=== PATIENT | male | born 1940 | race Caucasian/White ===

== ENCOUNTER 2022-01-12 09:34 | Observation (INO) | payer OTHER ==
--- OUTSIDE RECORDS SUMMARY | 2022-01-12 09:37 | XMS REPORT | Continuity of Care Document ---
:1940 Author Organization [facility] t Address [address] [place] [address] Dr. Browne [address] [place] [address] Care Team Providers Name Role Phone Debbie Owen Primary Care Physician Taina PRATHER Attending Clinician Lab, - Db Attending Clinician Unavailable TAINA Attending Clinician Unavailable Ajibade_O_AH Attending Clinician Unavailable Ige-Odunuga_J_AH Attending Clinician Unavailable Matthew HERBERT Attending Clinician Chadwick PRATHER, A Attending Clinician Doctor Unassigned, Name Attending Clinician Unavailable Ajibade_O_AH Admitting Clinician Unavailable Ige-Odunjoce_J_AH Admitting Clinician Unavailable Payers Payer Name Policy Type Policy Number Effective Date Expiration Date S arielle [facility] OF [place] - [id number] 6421-01-01 [employer] 00:00:00 (MEDICARE REPLACEMENT/ADVANT AGE - HMO) Problems Condition Condition Condition Status Onset Resolution Last Treating Co mments Source Name Details Category Date Date Treatment Clinician Date Hyperlipid Hyperlipid Problem Active 2020-0 V illage emia emia 03-13 Family 00:00: Practic 00 e Insomnia Insomnia Problem Active 2019-0 Martinez ge 03-13 Family 00:00: Practic 00 e Essential Essential Problem Active 2020-0 [place] flaco hypertensi Hypertensi 03-13 Fa mona on on 00:00: Practic 00 e Atrial Atrial Problem Active 2020-0 [place] flutter Flutter 03-13 Family 00:00: Practic 00 e Allergic Allergic Problem Active 2019-0 [place] ge rhinitis Rhinitis 03-13 Family 00:00: Practic 00 e Benign Benign Problem Active 2019-0 [place] prostatic Prostatic 03-13 Fami ly hyperplasi Hyperplasi 00:00: Pr actic a a 00 e Arthritis Arthritis Problem Active [place] flaco 5-19 Family 00:00: Practic 00 e Age-relate Age-relate Problem Active V illage d d 03-13 Family 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 No known No known Disease Unive rs active active ity of problems problems [facility] Allergies, Adverse Reactions, Alerts Allergy Allergy Status Severity Reaction(s) Onset Inactive Treating Comm ents Source Name Type Date Date Clinician NO KNOWN Drug Active Univers ALLERGIE Class ity of S [facility] Social History Social Habit Start Date Stop Date Quantity Comments Source Exposure to Not sure [facility] SARS-CoV-2 [facility] (event) [place] Alcohol intake 2021-11-29 2021-11-29 Current [facility] 00:00:00 00:00:00 non-drinker of [facility] alcohol [place] (finding) Tobacco use and 2018-01-08 2018-01-08 Never used Universit y of exposure 00:00:00 00:00:00 [facility] Sex Assigned At [birth year] Universit y of 00:00:00 00:00:00 [facility] Smoking Status Start Date Stop Date Source Never smoker [facility] Medications Ordered Filled Start Stop Current Ordering Indication Dosage Frequency Signature Comments Components Source Medication Medication Date Date Medication? Clinician (SIG) Name Name hydroCHLORO Yes 12.5mg Take 12.5 Univers thiazide 2-04 mg by ity of 12.5 mg 08:55: mouth [place] tablet 33 daily. Medical Branch hydroCHLORO Yes 12.5mg Take 12.5 Univers thiazide 2-04 mg by ity of 12.5 mg 08:55: mouth [place] tablet 33 daily. Medical Branch hydroCHLORO Yes 12.5mg Take 12.5 Univers thiazide 2-04 mg by ity of 12.5 mg 08:55: mouth [place] tablet 33 daily. Medical Branch vit Yes 1{capsu Take 1 Univers C,E-Zn-ronald 9-25 le} capsule by it y of r-lutein-ze 10:32: mouth [place] axan 34 daily. Medical (PRESERVISI Branch ON AREDS 2) 250-200-40- 1 mg-unit-mg- mg Cap BABY Yes 81mg Take 81 mg Univers ASPIRIN 9-25 by mouth ity of ORAL 10:32: daily. [place] [address] Medical Branch OLMESARTAN Yes 20mg Take 20 mg U nivers MEDOXOMIL 9-25 by mouth ity of (OLMESARTAN 10:32: [place]. [place] [facility] tamsulosin Yes 1mg Take 1 mg Un demi (FLOMAX) 9-25 by mouth ity of 0.4 mg 24 10:32: daily. [place] hr capsule 34 Medical Branch METOPROLOL Yes 100mg Take 100 Un demi SUCCINATE 9-25 mg by ity of (TOPROL XL 10:32: mouth [place] ORAL) 34 daily. Medical Branch vit Yes 1{capsu Take 1 Univers C,E-Zn-ronald 9-25 le} capsule by it y of r-lutein-ze 10:32: mouth [place] axan 34 daily. Medical (PRESERVISI Branch ON AREDS 2) 250-200-40- 1 mg-unit-mg- mg Cap BABY Yes 81mg Take 81 mg Univers ASPIRIN 9-25 by mouth ity of ORAL 10:32: daily. [place] [address] Medical Branch OLMESARTAN Yes 20mg Take 20 mg U nivers MEDOXOMIL 9-25 by mouth ity of (OLMESARTAN 10:32: [place]. [place] [facility] tamsulosin Yes 1mg Take 1 mg Un demi (FLOMAX) 9-25 by mouth ity of 0.4 mg 24 10:32: daily. [place] hr capsule 34 Medical Branch METOPROLOL Yes 100mg Take 100 Un demi SUCCINATE 9-25 mg by ity of (TOPROL XL 10:32: mouth [place] ORAL) 34 daily. Medical Branch vit Yes 1{capsu Take 1 Univers C,E-Zn-ronald 9-25 le} capsule by it y of r-lutein-ze 10:32: mouth [place] axan 34 daily. Medical (PRESERVISI Branch ON AREDS 2) 250-200-40- 1 mg-unit-mg- mg Cap BABY Yes 81mg Take 81 mg Univers ASPIRIN 9-25 by mouth ity of ORAL 10:32: daily. [address] OLMESARTAN Yes 20mg Take 20 mg U nivers MEDOXOMIL 9-25 by mouth ity of (OLMESARTAN 10:32: [place]. [place] [address] [place] [address] tamsulosin Yes 1mg Take 1 mg Un demi (FLOMAX) 9-25 by mouth ity of 0.4 mg 24 10:32: daily. [place] hr capsule [address] [place] [address] METOPROLOL Yes 100mg Take 100 Un demi SUCCINATE 9-25 mg by ity of (TOPROL XL 10:32: mouth [place] ORAL) 34 daily. [facility] Branch atorvastati Yes Univer s n 10 mg 1-26 ity of tablet 00:00: [place] 00 [facility] atorvastati Yes Univer s n 10 mg 1-26 ity of tablet 00:00: [place] [facility] atorvastati Yes Univer s n 10 mg 1-26 ity of tablet 00:00: [address] aspirin 81 aspirin 81 No 1 Q1D aspirin 81 Village mg mg mg Family tablet,clari tablet,clari tablet,del Practic yed release yed release ayed e Take 1 Take 1 release tablet tablet Take 1 every day every day tablet by oral by oral every day route. route. by oral route. atorvastati atorvastati No 1 Q1D atorvastat [place] n 10 mg n 10 mg in 10 mg Famil y tablet Take tablet Take tablet Practic 1 tablet 1 tablet Take 1 e every day every day tablet by oral by oral every day route. route. by oral route. Fluarix Fluarix No Fluarix [place] Quad Quad Quad Family [id number] Practic (PF) 60 mcg (PF) 60 mcg (PF) 60 e (15 mcg x (15 mcg x mcg (15 4)/0.5 mL 4)/0.5 mL mcg x IM syringe IM syringe 4)/0.5 mL IM syringe hydrochloro hydrochloro No 1 Q1D hydrochlor [place] thiazide thiazide othiazide Fa mona 12.5 mg 12.5 mg 12.5 mg Practi c tablet Take tablet Take tablet e 1 tablet 1 tablet Take 1 every day every day tablet by oral by oral every day route. route. by oral route. ibuprofen ibuprofen No 1 Q6H ibuprofen [facility] 200 mg 200 mg 200 mg Family tablet Take tablet Take tablet Practic 1 tablet 1 tablet Take 1 e every 6 every 6 tablet hours by hours by every 6 oral route oral route hours by as needed. as needed. oral route as needed. metoprolol metoprolol No 1 Q1D metoprolol [facility] succinate succinate succinate [facility] ER 100 mg ER 100 mg ER 100 mg Practic tablet,exte tablet,exte tablet,ext e nded nded ended release 24 release 24 release 24 hr Take 1 hr Take 1 hr Take 1 tablet tablet tablet every day every day every day by oral by oral by oral route. route. route. montelukast montelukast No 1 Q1D montelukas [facility] 10 mg 10 mg t 10 mg Family tablet Take tablet Take tablet Practic 1 tablet 1 tablet Take 1 e every day every day tablet by oral by oral every day route. route. by oral route. olmesartan olmesartan No 1 Q1D olmesartan [facility] 20 mg 20 mg 20 mg Family tablet Take tablet Take tablet Practic 1 tablet 1 tablet Take 1 e every day every day tablet by oral by oral every day route. route. by oral route. oxymetazoli oxymetazoli No 2spray( BID oxymetazol [facility] ne 0.05 % ne 0.05 % s) ine 0.05 % [facility] nasal spray nasal spray nasal Practic [place] 2 [place] 2 spray e sprays sprays [place] 2 twice a day twice a day sprays by by twice a intranasal intranasal day by route. route. intranasal route. Shingrix Shingrix No Shingrix [place] flaco (PF) 50 (PF) 50 (PF) 50 [facility] mcg/0.5 mL mcg/0.5 mL mcg/0.5 mL Practic intramuscul intramuscul intramuscu e ar ar lar suspension, suspension, suspension kit kit , kit Sleep Aid Sleep Aid No 1capsul Q1D Sleep Aid [facility] (diphenhydr (diphenhydr e(s) (diphenhyd Family amine) 25 amine) 25 ramine) 25 Practic mg capsule mg capsule mg capsule e Take 1 Take 1 Take 1 capsule capsule capsule every day every day every day by oral by oral by oral route at route at route at bedtime. bedtime. bedtime. tamsulosin tamsulosin No 1capsul Q1D tamsulosin [facility] 0.4 mg 0.4 mg e(s) 0.4 mg Family capsule capsule capsule Practi c Take 1 Take 1 Take 1 e capsule capsule capsule every day every day every day by oral by oral by oral route. route. route. Immunizations Ordered Filled Immunization Date Status Comments [facility] e Immunization Name Name influenza, influenza, 2021-08-15 Completed [facility] injectable, injectable, 00:00:00 Practice quadrivalent quadrivalent SARS-COV-2 COVID-19 2021-05-22 Completed Unive rsity of MODERNA VACCINE 00:00:00 [facility] ical Branch SARS-COV-2 COVID-19 2021-05-22 Completed Unive rsity of MODERNA VACCINE 00:00:00 [facility] ical Branch SARS-COV-2 COVID-19 2021-05-22 Completed Unive rsity of MODERNA VACCINE 00:00:00 [facility] ical Branch SARS-COV-2 COVID-19 2021-04-24 Completed Unive rsity of MODERNA VACCINE 00:00:00 [facility] ical Branch SARS-COV-2 COVID-19 2021-04-24 Completed Unive rsity of MODERNA VACCINE 00:00:00 [facility] Branch SARS-COV-2 COVID-19 2021-04-24 Completed Unive rsity of MODERNA VACCINE 00:00:00 [facility] Pneumococcal 13 2020-01-06 Completed Universit y of Conjugate, PCV13 00:00:[address] [facility] dical (Prevnar 13) Branch Pneumococcal 13 2020-01-06 Completed Universit y of Conjugate, PCV13 00:00:[address] [facility] dical (Prevnar 13) Branch Pneumococcal 13 2020-01-06 Completed Universit y of Conjugate, PCV13 00:00:[address] [facility] dical (Prevnar 13) Branch pneumococcal, pneumococcal, 2019-11-10 Completed [facility] Family unspecified unspecified 00:00:00 Practice formulation formulation zoster, unspecified zoster, unspecified 2019-11-10 Completed [facility] formulation formulation 00:00:00 Practice Pneumococcal 2019-01-06 Completed [place] o f Polysaccharide, 00:00:00 [place] [facility] ical PPSV23 (PNEUMOVAX) Branch Pneumococcal 2019-01-06 Completed [place] o f Polysaccharide, 00:00:00 [facility] ical PPSV23 (PNEUMOVAX) Branch Pneumococcal 2019-01-06 Completed University o f Polysaccharide, 00:00:00 [place] [facility] ical PPSV23 (PNEUMOVAX) Branch Pneumococcal 2018-01-06 Completed University o f Polysaccharide, 00:00:00 [place] [facility] ical PPSV23 (PNEUMOVAX) Branch Pneumococcal 2018-01-06 Completed University o f Polysaccharide, 00:00:00 [place] [facility] ical PPSV23 (PNEUMOVAX) Branch Pneumococcal 2018-01-06 Completed University o f Polysaccharide, 00:00:00 [facility] ical PPSV23 (PNEUMOVAX) Branch DTAP 2016-11-04 Completed University of 00:00:00 [facility] DTAP 2016-11-04 Completed University of 00:00:00 [facility] DTAP 2016-11-04 Completed University of 00:00:00 [facility] Zoster Vaccine 2016-01-03 Completed University of Recombinant 00:00:00 [facility] Zoster Vaccine 2016-01-03 Completed University of Recombinant 00:00:00 [facility] Zoster Vaccine 2016-01-03 Completed University of Recombinant 00:00:00 [facility] Zoster Vaccine 2015-11-07 Completed University of Recombinant 00:00:00 [facility] Zoster Vaccine 2015-11-07 Completed University of Recombinant 00:00:00 [facility] Zoster Vaccine 2015-11-07 Completed University of Recombinant 00:00:00 [facility] Vital Signs Vital Name Observation Time Observation Value Comments Source Systolic blood 2021-11-29 14:56:00 150 [facility]Hg[facility] Di[facility] 2021-11-29 14:56:00 70 mm[Hg] [facility] Heart rate 2021-11-29 14:51:00 65 /min [facility] Body height 2021-11-29 14:51:00 180.3 cm [facility] Body weight 2021-11-29 14:51:00 110.224 kg [facility] BMI 2021-11-29 14:51:00 33.89 kg/m2 [facility] Oxygen saturation 2021-11-29 14:51:00 95 /min [facility] in Arterial blood Medical Br anch by Pulse oximetry Height 2020-03-13 00:00:00 70 [in_i] [facility] BMI (Body Mass 2020-03-13 00:00:00 32.3 kg/m2 [facility] joycelyn Family Index) Practice Body Weight 2020-03-13 00:00:00 225 [lb_av] [facility] Procedures This patient has no known procedures. Plan of Care Planned Activity Planned Date Details Comments Source Instructions [facility] Encounters Start End Encounter Admission Attending Care Care Encounter Source Date/Time Date/Time Type Type Clinicians Facility Department ID 2021-12-03 2021-12-03 Telephone Taina [facility] [id number] Univers 00:00:00 00:00:00 [employer] [id number] it y of [place] [id number] Andrew as ECTOR?BLEA [phone] [address] MEDICAL OFFICE [facility] 2021-12-02 2021-12-02 Paying [facility]eller [facility], Ang - [facility] [id number] Univers 09:30:00 09:45:00 [facility] [id number] ity of [place] [id number] Andrew as ECTOR?BLEA [id number] [facility] [address] [facility] OFFICE [facility] 2021-12-02 2021-12-02 Outpatient R [facility] [id number] Univers 09:30:00 09:30:[id number] [facility] 2021-12-02 2021-12-02 [facility] [id number] Univers 09:30:00 09:30:[address] [facility] 2021-11-29 2021-11-29 [facility] [id number] Univers 09:00:00 09:39:00 Visit Kimberly Claro [id number] it y of [place] [id number] Andrew as ECTOR?BLEA [id number] [address] MEDICAL OFFICE [facility] 2021-03-08 2021-03-08 Outpatient Ajibade_O_A VFP VF [id number] [facility] 05:19:00 05:19:00 H [id number] Family Practic e 2021-01-17 2021-01-17 Outpatient Ige-Odunuga VFP VFP [id number] [facility] 04:23:00 04:23:00 _J_AH [id number] Family Practic e 2020-04-06 2020-04-06 Telephone Castro, [facility] [id number] 00:00:00 00:00:00 Ellie Rosenberg [id number] [place] [id number] Professio [phone] [facility] 2020-03-31 2020-03-31 Outpatient Ige-Odunuga VFP VFP [id number] [facility] 12:07:00 12:07:00 _J_AH [id number] Family Practic e 2020-03-23 2020-03-23 Outpatient Ige-Odunuga VFP VFP [id number] [facility] 04:42:00 04:42:00 _J_AH [id number] Family Practic e 2020-03-15 2020-03-15 Outpatient Ige-Odunuga VFP VFP [id number] [facility] 09:16:00 09:16:00 _J_AH [id number] Family Practic e 2020-03-13 2020-03-13 Outpatient Ige-Odunuga VFP VFP [id number] [facility] 10:31:00 10:31:00 _J_AH [id number] Family Practic e 2020-03-13 2020-03-13 Maddison O VFP [place] [id number] [facility] 00:00:00 00:00:00 [place]ge[place] Fam adam clarke DRAPERY COUNSELOR: Medical - Practi c [id number] [email or web address] [facility], [address] [place] [address], [place] [address] , Ph. 2020-01-04 2020-01-04 Office Gramm, [facility] [id number] 09:38:55 10:06:26 Visit Torie Rosenberg [id number] [place] [id number] Professio [id number] [facility] 2020-01-04 2020-01-04 Orders Doctor MYNOR [id number] 00:00:00 00:00:00 Only Unassigned, CHICHI [id number] [place] [facility] [id number] 2019-12-14 2019-12-14 Outpatient Ige[facility] [address] [place] [address] 07:21:00 07:21:00 _J_ [id number] Family Practic e 2019-12-14 2019-12-14 Outpatient Ige-[address] 07:21:00 07:21:00 _J_ [id number] Family Practic e Results This patient has no known results.
[2022-01-12] MEDS ORDERED: TRANEXAMIC ACID 1,000 MG in NA CHLORIDE 0.9% 50 ML IV ONE (10:00)
[2022-01-12 10:20] LABS: Absolute Lymphocytes (CBC) 3.4 K/uL (0.7-4.9); Hematocrit 46.3 % (39.6-49.0); Lymphocytes % 37.8 % (15.3-44.8); MPV 10.1 fL (7.6-11.3); RBC Red Blood Cell Count 4.85 M/uL (4.33-5.43)
[2022-01-12 10:24] LABS: Protime INR 1.07
[2022-01-12 10:35] LABS: Potassium 3.9 mmol/L (3.5-5.1)
--- NOTE | 2022-01-12 10:56 | P.CNS ---
Date of Consult: 01/12/22 CC: Epistaxis HPI: 81yo w/ chronic nasal obstruction and low dose daily ASA. History of RF mucosal ablation October 31, [address] Connelly's office. Had moderate to severe nasal bleeding around November 20 while traveling in [place] with packing/balloons in the ER there. Seen in FU with Godwin on Dec 17 but at that time, he had not had any active bleeding from the nose for more than 3 weeks. His nasal obstruction was improved with a NOSE score decreasing from 100 to 70 over the 6- 7 week healing period. His exam at that time demonstrated some crusting on the right anterior septum and some small amount of clot and the area was treated prophylactically with silver nitrate. I recommended he stop all topical decongestants, continue copious use of nasal saline spray/gel and was cleared to resume Flonase and Atrovent nasal sprays with plan for FU in February 2022. The patient was doing well for approximately 4 weeks when he began having severe right sided bleeding again and was seen twice at an ER in [place] on Thursday morning and late Thursday night with placement of non-resorbable packing but had recurrence of bleeding around 9AM this morning and presented to the [facility] ER. I was consulted for the degree, frequency and difficulty controlling the bleeding. I made an immediate recommendation for IV TXA and proceeded to the ER to assess the patient. He denies any PO intake other than a few sips of Dr Theodore this morning. PMH: HTN, HLD, BPH, breast reduction surgery, ITR (Oct 2021) ALL: lisinopril (cough) Medications: tamsulosin, olmesartan, metoprolol, HCTZ, atorvastatin, calcium, ASA, flonase, ipratropium SH: No Tobacco or ETOH. PE: NAD. AAO. Nasal clamp in place. Saturated Merocel style sponge in R nare but extruded about 50%. Spitting and coughing blood streaked saliva/suptum. Bin on bed with approximately 100-150ml of clot/blood and blood saturated tissues. Vitals: see ER records. DBP 92 on arrival. Assessment: Epistaxis, right sided, likely posterior based on history Plan: NPO, Continue current packing. To OR for EUA/Nasal endoscopy with control of epistaxis
--- NOTE | 2022-01-12 11:24 | EDPHYS ---
Physician Documentation [facility] Name: Clarence Valle Age: 81 yrs Sex: Male : 1940 Arrival Date: 01/12/2022 Time: 09:36 Bed 30 Private MD: ED Physician Parviz Juan HPI: 01/12 10:32 This 81 yrs old Male presents to ER via Ambulatory with complaints of Nose Bleed. kb 10:32 The patient presents with a nose bleed, that is moderate amount causative factors kb include: unknown. Onset: The symptoms/episode began/occurred yesterday. Modifying factors: The symptoms are alleviated by nothing. the symptoms are aggravated by nothing. Associated signs and symptoms: Pertinent positives: bleeding. Severity of symptoms: At their worst the symptoms were moderate in the emergency department the symptoms are unchanged. The patient has experienced similar episodes in the past. The patient has been recently seen by a physician: the ER physician, out of Town, yesterday. Pt states he was standing, talking with someone yesterday morning when his nose started bleeding from right nare only. Went to [facility] and a rhinorocket was placed in right nare. States it stopped for a while, but then started again, bleeding through the rhinorocket. Went back to [facility] and had a bigger rhinorocket placed. Slept in an upright position in recliner last night. Started bleeding again this morning. sTates the blood was coming through the rhinorocket and out of the left side. States he has had this several times before, always from the right nare. Sees Dr Connelly. . Historical: - Allergies: 09:55 No Known Allergies; ww - Home Meds: 09:56 aspirin 81 mg oral chew [Active]; Benicar 20 mg Oral tab 1 tab once daily [Active]; kay metoprolol tartrate 100 mg Oral tab 1 tab once daily [Active]; tamsulosin 0.4 mg Oral cp24 1 cap once daily [Active]; 09:55 atorvastatin 10 mg oral tab 1 tab once daily [Active]; tamsulosin 0.4 mg Oral cp24 1 ww cap once daily [Active]; hydrochlorothiazide 12.5 mg Oral tab 1 tab once daily [Active]; olmesartan 20 mg oral tab [Active]; Toprol XL 100 mg Oral Tb24 1 tab once daily [Active]; aspirin 81 mg Oral chew 1 tab once daily [Active]; - PMHx: 09:56 Hypertension; kay 09:55 Hypertension; Hypercholesterolemia; ww - Immunization history:: Adult Immunizations up to date, Adult Immunizations up to date. - Social history:: Smoking status: Patient denies any tobacco usage or history of. Smoking status: Patient denies any tobacco usage or history of. ROS: 10:31 Constitutional: Negative for fever, chills, and weight loss. kb 10:31 ENT: Positive for nose bleed. 10:31 All other systems are negative. Exam: 10:31 Constitutional: This is a well developed, well nourished patient who is awake, alert, kb and in no acute distress. Head/Face: Normocephalic, atraumatic. Cardiovascular: Regular rate and rhythm with a normal S1 and S2. No gallops, murmurs, or rubs. No pulse deficits. Respiratory: Respirations even and unlabored. No increased work of breathing. Talking in full sentences Skin: Warm, dry with normal turgor. Normal color. MS/ Extremity: Pulses equal, no cyanosis. Neurovascular intact. Full, normal range of motion. Neuro: Awake and alert, GCS 15, oriented to person, place, time, and situation. Moves all extremities. Normal gait. Psych: Awake, alert, with orientation to person, place and time. Behavior, mood, and affect are within normal limits. 10:31 ENT: Nose: bleeding, is noted from both nares, and is moderate, clotted blood, in left nare, rhinorocket in right nare. Vital Signs: 09:54 BP 169 / 95; Pulse 63; Resp 18; Temp 98.1; Pulse Ox 96% on R/A; Weight 106.59 kg; ww Height 5 ft. 10 in. (177.80 cm); 10:28 BP 141 / 64; Pulse 57; Resp 18; Pulse Ox 97% on R/A; ic1 09:54 Body Mass Index 33.72 (106.59 kg, 177.80 cm) ww MDM: 09:46 Patient medically screened. kb 09:59 Data reviewed: vital signs, nurses notes. Data interpreted: Pulse oximetry: on room air kb is 96 %. Interpretation: normal. Physician consultation: Yumiko Connelly MD was contacted at 09:59, regarding consult, patient's condition, and will see patient in ED, shortly, would like medications started, tranexamic acid Igm IV over 10 minutes. 11:22 Physician consultation: Yumiko Connelly MD in the emergency department to see patient kb at 11:15, going to take pt to the OR. 01/12 09:57 Order name: CBC with Diff; Complete Time: 10:42 kb 01/12 09:57 Order name: Basic Metabolic Panel; Complete Time: 10:42 kb 01/12 09:57 Order name: Protime (+inr); Complete Time: 10:26 kb 01/12 09:57 Order name: Ptt, Activated; Complete Time: 10:26 kb 01/12 09:57 Order name: Type And Screen; Complete Time: 11:46 kb 01/12 11:17 Order name: ABO/RH no charge; Complete Time: 11:19 EDMS 01/12 09:57 Order name: IV Start; Complete Time: 10:12 kb Administered Medications: 10:18 Drug: Tranexamic Acid 1000 mg Route: IV; Rate: calculated rate; Site: left antecubital; ic1 Disposition: 16:38 Co-signature as Attending Physician, Parviz Juan MD I agree with the assessment and kdr plan of care. Disposition Summary: 01/12/22 11:24 Hospitalization Ordered Hospitalization Status: Observation kb Provider: Yumiko Connelly Location: Operating Room kb Condition: Stable kb Problem: new kb Symptoms: are unchanged kb Bed/Room Type: Standard Room Assignment: kb Diagnosis - Epistaxis kb Forms: - Medication Reconciliation Form kb - SBAR form kb Signatures: Dispatcher [employer] EDChery Ivan, MANAGER CIVIL-C MANAGER CIVIL-Parviz Rutherford MD MD kdr Wood, Whitney RN RN Hazel Medina RN Dian Cordero RN RN ic1
--- NOTE | 2022-01-12 11:24 | ER ---
Nurse's Notes [facility] Name: Clarence Valle Age: 81 yrs Sex: Male : 1940 Arrival Date: 01/12/2022 Time: 09:36 Bed 30 Private MD: Diagnosis: Epistaxis Presentation: 01/12 09:54 Chief complaint: Patient states: Nose bleed that started yesterday and went to [facility] ER twice yesterday and had a rhino rocket placed each time. Had a balloon placed in October by EMT for nose bleeds. Coronavirus screen: Vaccine status: Patient reports receiving the 2nd dose of the covid vaccine. Client denies travel out of the [place] in the last 14 days. Ebola Screen: Patient denies travel to an Ebola-affected area in the 21 days before illness onset. Initial Sepsis Screen: Does the patient meet any 2 criteria? No. Patient's initial sepsis screen is negative. Does the patient have a suspected source of infection? No. Patient's initial sepsis screen is negative. Risk Assessment: Do you want to hurt yourself or someone else? Patient reports no desire to harm self or others. Onset of symptoms was January 11, 2022. 09:54 Method Of Arrival: Ambulatory ww 09:54 Acuity: HUNTER 3 Triage Assessment: 09:55 General: Appears uncomfortable, Behavior is calm, cooperative. EENT: Nares with ww bleeding noted. Neuro: Level of Consciousness is awake, alert, obeys commands, Oriented to person, place, time, situation. Cardiovascular: Patient's skin is warm and dry. Respiratory: Airway is patent Respiratory effort is even, unlabored, Respiratory pattern is regular, symmetrical. GI: No signs and/or symptoms were reported involving the gastrointestinal system. Derm: No signs and/or symptoms reported regarding the dermatologic system. Skin is healthy with good turgor. 09:58 General: Appears Behavior is calm, cooperative. kay Historical: - Allergies: :55 No Known Allergies; ww - Home Meds: 09:56 aspirin 81 mg oral chew [Active]; Benicar 20 mg Oral tab 1 tab once daily [Active]; kay metoprolol tartrate 100 mg Oral tab 1 tab once daily [Active]; tamsulosin 0.4 mg Oral cp24 1 cap once daily [Active]; 09:55 atorvastatin 10 mg oral tab 1 tab once daily [Active]; tamsulosin 0.4 mg Oral cp24 1 ww cap once daily [Active]; hydrochlorothiazide 12.5 mg Oral tab 1 tab once daily [Active]; olmesartan 20 mg oral tab [Active]; Toprol XL 100 mg Oral Tb24 1 tab once daily [Active]; aspirin 81 mg Oral chew 1 tab once daily [Active]; - PMHx: 09:56 Hypertension; kay 09:55 Hypertension; Hypercholesterolemia; ww - Immunization history:: Adult Immunizations up to date, Adult Immunizations up to date. - Social history:: Smoking status: Patient denies any tobacco usage or history of. Smoking status: Patient denies any tobacco usage or history of. Screenin:56 Abuse screen: Denies threats or abuse. Denies injuries from another. Nutritional kay screening: No deficits noted. Tuberculosis screening: No symptoms or risk factors identified. Fall Risk None identified. Assessment: 09:56 Pain: Denies pain. EENT: Nares with bleeding noted. kay 13:21 Reassessment: pt went to surgery transported by nurse. kay 14:52 Reassessment: pt remains in OR at this time. ic1 Vital Signs: 09:54 BP 169 / 95; Pulse 63; Resp 18; Temp 98.1; Pulse Ox 96% on R/A; Weight 106.59 kg; ww Height 5 ft. 10 in. (177.80 cm); 10:28 BP 141 / 64; Pulse 57; Resp 18; Pulse Ox 97% on R/A; ic1 09:54 Body Mass Index 33.72 (106.59 kg, 177.80 cm) ED Course: 09:36 Patient arrived in ED. as 09:46 [facility]C [facility] kb 09:46 Parviz Juan MD is Attending Physician. kb 09:48 Chery Vickers FNP-C is PHCP. kb 09:48 Parviz Juan MD is Attending Physician. kb 09:55 Triage completed. ww 09:56 Hazel Yeung, RN is Primary Nurse. kay 09:56 Patient has correct armband on for positive identification. Bed in low position. kay 09:56 No provider procedures requiring assistance completed. kay 09:58 Arm band placed on. kay 10:05 Inserted saline lock: 20 gauge in left forearm, using aseptic technique. Blood em1 collected. 10:12 Type And Screen Sent. em1 10:12 Protime (+inr) Sent. em1 10:12 Ptt, Activated Sent. em1 10:12 CBC with Diff Sent. em1 10:12 Basic Metabolic Panel Sent. em1 10:12 Initial lab(s) drawn, by nh, sent to lab. em1 11:23 Yumiko Connelly MD is Hospitalizing Provider. kb 14:34 Primary Nurse role handed off by Hazel Yeung, ANISA ll1 Administered Medications: 10:18 Drug: Tranexamic Acid 1000 mg Route: IV; Rate: calculated rate; Site: left antecubital; ic1 Outcome: 11:24 Decision to Hospitalize by Provider. kb 14:31 Patient left the ED. sp 15:31 Patient left the ED. ll1 Signatures: Chery Vickers, OPTIMIZATION MANAGER-C OPTIMIZATION MANAGER-Ckb Mary Jane Moreland Amelia as Martinez, Eric em1 Adelita Solares, ANISA RN ll1 Tamy Dominguez RN RN Hazel Yeung, Dian Cordero RN, RN RN ic1
[2022-01-12] MEDS ORDERED: Ringers Lactate 1,000 ML IV ONE ×2 (12:27→13:46)
[2022-01-12] MEDS ORDERED: propofoL 200 MG/20 ML VIAL IV ONE (12:29)
[2022-01-12] MEDS ORDERED: FENTANYL CITR 100 MCG/2 ML ONE ×2 (12:29→14:15)
[2022-01-12] MEDS ORDERED: LIDOCAINE 1% MPF 5 ML VIAL ONE (12:29)
[2022-01-12] MEDS ORDERED: METOCLOPRAMIDE 10 MG/2mL INJ ONE (12:30)
[2022-01-12] MEDS ORDERED: ONDANSETRON 4 MG/2 ML VIAL ONE (12:30)
[2022-01-12] MEDS ORDERED: MIDAZOLAM HCL 2 MG/2 ML INJ ONE (12:31)
[2022-01-12] MEDS ORDERED: ROCURONIUM 50 MG/5 ML VIAL IV ONE (12:31)
[2022-01-12] MEDS ORDERED: LIDOCAINE 1% W/EPI 1:100,000 10 ML VIAL ONE (12:37)
[2022-01-12] MEDS ORDERED: OXYMETAZOLINE HCL 0.05% 15ML NAS ONE (12:37)
[2022-01-12] MEDS ORDERED: SUCCINYLCHOLINE 20 MG/ML (10 ML) IV ONE (12:38)
[2022-01-12] MEDS ORDERED: SILVER NITRATE 1 APPL TOP ONE (12:40)
[2022-01-12] MEDS ORDERED: EPHEDRINE SULF 50 MG/ML VIAL ONE (13:28)
[2022-01-12] MEDS ORDERED: Phenylephrine HCl 10 MG/ML 1 ML VIAL ONE (13:28)
--- NOTE | 2022-01-12 14:38 | P.BOP ---
Preoperative diagnosis: epistaxis Postoperative diagnosis: same Primary procedure: nasal endoscopy with control of epistaxis Filament Shaper: NONE,NONE Estimated blood loss: 300ml Specimen: none Findings: Clot and bleeding in right sphenoethmoid recess Anesthesia: General Complications: None Implants: Posisep with Ultrafoam and Xerogel to R SER and R NC Fluids & blood products: Crystalloif 1700ml Transferred to: Recovery Room Condition: Good
[2022-01-12] MEDS: HYDROMORPHONE HCL 1 MG/ML INJ ONE ×2 (15:09→15:15)
[2022-01-12 15:42] VITALS: O2SAT 96
[2022-01-12] MEDS ORDERED: HYDROCODONE/APAP 7.5/325 MG TAB ONE (15:51)
[2022-01-12 15:58] VITALS: BP 154/73; TEMP 97.9
--- NOTE | 2022-01-12 18:37 | OP ---
Date of Procedure: 01/12/2022 Surgeon: Yumiko Connelly MD Preoperative Diagnosis: Epistaxis. Postoperative Diagnosis: Epistaxis. Procedure: Nasal endoscopy with control of nasal hemorrhage. Indication For Procedure: Mr. Valle presented to the emergency room on January 12 with a history of approximately 24 hours of severe bleeding from the right nostril going down the back of his throat. He was seen at free-standing emergency room in [place] on Thursday morning and had some packing placed by the emergency room staff. He subsequently was discharged, but had recurrence of bleeding around midnight and went back to the emergency room, at which time, a longer piece of packing was placed. The patient was again discharged, but had recurrence of bleeding at approximately 9 a.m. on Thursday, at which time, he presented [facility]. ENT consult was requested. Of note, the patient had a history of similar cluster of severe nosebleeds in October when traveling in [place], but had no active bleeding for about 3 weeks at the time of his an ENT visit in November. He was taking baby aspirin and has a history of hypertension requiring multiple medications for control. His blood pressure was elevated at the time of his ER presentation this morning. Due to the severity and recurrence of bleeding, operative intervention was recommended to aid in identification and treatment of his nasal hemorrhage. Description Of Procedure: The patient was brought to the operating room. He was placed under general anesthesia via oral endotracheal tube. The head of bed was turned 90 degrees and the patient was positioned and draped in a standard fashion for nasal surgery. The right nostril contained a completely saturated Merocel sponge type of dressing surrounded by dried blood and clot. The left nares was crusted with dried blood. Scissors and a nasal speculum were used to trim the left nasal hairs and remove blood and clot from the anterior nasal cavity. The left nasal cavity was carefully examined using a 0-degree endoscope. There were scattered areas of fresh blood throughout the nasal cavity, but no visible ulceration, pulsation, or other specific left-sided sources of bleeding noted. The nasopharynx was filled with some immature clots, which was removed judiciously using a Blakesley forceps and suction. The mucosa was generally somewhat friable and minor trauma resulted in small areas of oozing. Afrin-soaked pledgets were applied to the nasal cavity to aid in decongestion and hemostasis of mucosal oozing and attention was turned to the right side. The non-resorbable packing was removed and the nasal cavity was noted to be filled with clot and areas of fresh blood. The clot and bleeding were judiciously removed sequentially in an anterior to posterior fashion using Blakesley and a straight suction under endoscopic guidance. Once the clot was removed, the nasal cavity was carefully inspected. There were several small areas of mucosal oozing along the septum. There was a moderate right-sided septal spur. The inferior turbinates and middle turbinate appeared unremarkable. There was blood including fresh blood and small pulsations noted within the sphenoethmoid recess on the medial aspect of the middle turbinate. The middle turbinate was carefully medialized and the middle meatus was inspected. The uncinate, sphenopalatine artery region, and ethmoid bulla all appeared dry with no evidence of active bleeding or evidence of recent bleeding in this area. I concluded the source of bleeding was likely in the sphenoethmoid region and this area was carefully inspected. The area was quite narrow and it was difficult to pass instrumentation including the 4 mm rigid endoscope deeply into this area for discrete visualization of a bleeding vessel. The area was packed with Afrin-soaked pledgets and allowed to sit for several minutes. After removal, there was some area of oozing, but no brisk bleeding was identified. Areas of oozing along the right posterior septum were treated with bipolar electrocautery and careful consideration was made in regard to additional treatments. The patient was extremely adverse to the sponge and prior rhino-rocket packing that was placed in the emergency room. It was felt he would be very poorly tolerant of any non-dissolvable packing due to discomfort and nasal obstruction and decision was made to place resorbable only packing at this point in time. The PosiSep-Chitosan containing resorbable sinus dressing was cut into thirds and placed in a [id number] fashion within the sphenoethmoid recess and gently positioned and pushed into place using a Warrington elevator. An Ultrafoam 50 sq cm dissolvable dressing was cut into 3 rectangular segments, which were placed sequentially over the Chitosan dressing carefully packing this area under endoscopic guidance using a Warrington elevator and straight suction tip. Once the entire Ultrafoam was placed, the packing appeared overall to have good support in the area of the sphenoethmoid recess, but there were small areas of mucosal trauma that were oozing slightly. A Xerogel dressing was folded in a lengthwise fashion and placed within the mid nasal cavity. An additional Xerogel dressing was placed after folding lengthwise along the nasal floor again in order to protect the mucosa. The resorbable dressings were then soaked and irrigated with sterile saline. The nasal cavity appeared nearly completely obstructed with a resorbable packing. The 0-degree endoscope was used to visualize the nasopharynx and after several minutes and additional reinspection, there was no evidence of any active bleeding or extravasation of blood into the nasopharynx from the right nasal cavity when viewed from the left side. The left nasal cavity was carefully suctioned and inspected. There was no evidence of active bleeding and no packing was placed on this side. The oral cavity was suctioned from clot and old blood using a Yankauer suction and orogastric tube was then passed to the stomach for removal of stomach contents. There was copious volume of dark brown and coffee-ground like material suctioned from the stomach. The oral cavity was then inspected. The oropharynx was suctioned with a Yankauer and there was no evidence of further clot, old blood, or evidence of bleeding from the nasopharynx into the oropharynx and the patient was returned to care of Anesthesia for awakening and extubation in the operating room, which proceeded without difficulty. Disposition: The patient will be discharged home later today in the care of his family. He is instructed in strict nasal precautions, no nose blowing, no lifting more than 10 pounds. The patient should sneeze with his mouth open. Additionally, he should use nasal saline mist every 1-2 hours while awake. He should avoid using powered irrigation of the nose for the time being. I instructed the family that if his bleeding recurs, I would consider evaluation at a tertiary medical center such as [facility] or [facility] as additional surgical treatment or possible intervention. No radiology treatment may be necessary. I discussed the surgical findings in detail with the patient's including the rationale regarding my decision to avoid non-resorbable packing. We discussed that if his bleeding did recur that a long 8 cm rhino-rocket or other posterior packing or balloon device may be necessary as anterior packing is unlikely to result in overall improvement due to the location of the bleeding. SH/MODL Voice ID: [id number] Report ID: [id number] [facility]
== END 2022-01-12 16:45 | disposition home or self-care (01) ==
LOC: ER 09:34 → ERHOLD 11:42
PROVIDERS: ADMIT Otolaryngology; ATTEND Otolaryngology
PROC: 2Y41X5Z Packing of Nasal Region using Packing Material (ICD-10-PCS; 2022-01-12)
PROC: 09JK8ZZ Inspection of Nasal Mucosa and Soft Tissue, Via Natural or Artificial Opening Endoscopic (ICD-10-PCS; principal; 2022-01-12 12:30)
DX: R04.0 Epistaxis (principal); I10 Essential (primary) hypertension; E78.5 Hyperlipidemia, unspecified; N40.0 Benign prostatic hyperplasia without lower urinary tract symptoms
CPT/HCPCS: 85025; 80048; 36415; 86900; 86850; 85610; 86901; 85730; 96374; 99283; 31231; 30903; J2704; J2765; J0330; J2370; J2250; J3010 ×2; J1170; G0378; J7120 ×2; J2405

== ENCOUNTER 2024-07-22 08:57 | Inpatient (IN) | payer OTHER ==
[2024-07-22] MEDS ORDERED: ACETAMINOPHEN 325 MG TABLET PO PRN (11:15)
--- OUTSIDE RECORDS SUMMARY | 2024-07-22 11:15 | XMS REPORT | Continuity of Care Document ---
Author Name Unknown Address [address] [facility] [address] [place] [address] [facility] Address [address] [facility] [address] [place] [address] Care Team Providers Care Cdc Associate Name Role Phone JOSE HER Primary Care Physician Unavailab MARQUIS Gonzalez Attending Clinician Unavailable MATEO GALLEGOS Attending Clinician Unavailable MATEO GALLEGOS Attending Clinician Unavailable JOSE HER Attending Clinician Unavailable JAQUAN OCHOA Attending Clinician Unav ailable JAQUAN OCHOA Attending Clinician Unav ailable MARYSE DICK Attending Clinician Unavailable MONTEZ BA Attending Clinician Unavailable Maryse Dick MD Attending Clinician [phone] Jaquan Ochoa MD Attending Clinician + [phone], [facility] Attending Clinician Unavailable Jose Mello Attending Clinician [phone] Lab, Ang - Db Attending Clinician Unavailable CARLTON KATZ Attending Clinician UnavailCarlton Layton Attending Clinician [phone] Marquis Mooney MD Attending Clinician [phone] Jose Mello Attending Clinician [phone] KIERSTEN FITZGERALD V. Attending Clinician Unavail able KIERSTEN FITZGERALD V. Attending Clinician Unavail able Nata HERBERT, Misty Attending Clinician [phone], [facility] Attending Clinician Unavailable Kapil HERBERT, Maryse Attending Clinician [phone] Doctor Unassigned, Capac Attending Clinician U rashida Goetz MD, Jagjit Attending Clinician [phone] Bipin De Jesus MD Attending Clinician [phone] [place] ASSISTANT PROFESSOR NURSE EDUCATION, Génesis Attending Clinician [phone] GÉNESIS BERNSTEIN Attending Clinician Unavailable Unknown, Attending Attending Clinician Unavailab eduin [place]ung[place] ASSISTANT PROFESSOR NURSE EDUCATION, Anisha Burton Attending Clinician [phone] NEERU COBOS Attending Clinician Unavailable Neeru Cobos MD Attending Clinici an Pob, [facility] Main Attending Clinician Unavailabl ANISHA Vidales Attending Clinician Unavailable GUADALUPE MACK Attending Clinician Unavaila GUADALUPE Bryant Attending Clinician Unavaila Gaudalupe Bryant MD Attending Clinician [phone] NADINE SNYDER Attending Clinician Unavailable Nadine Zuniga S Attending Clinician [phone] Lab, Ang - Db Attending Clinician Unavailable Ajibade_O_AH Attending Clinician Unavailable Ige-Odunuga_J_AH Attending Clinician Unavailable Gramm ASSISTANT PROFESSOR NURSE EDUCATION, Torie A Attending Clinician [phone] GRAMM TORIE A Attending Clinician Unavailable Matthew HERBERT, Ellie Attending Clinician [phone] JUSTIN VELASQUEZ Admitting Clinician Unavail able JAQUAN OCHOA Admitting Clinician Unav ANISHA Pratt Admitting Clinician Unavailable Ajibade_O_AH Admitting Clinician Unavailable Ige-Odunuga_J_AH Admitting Clinician Unavailable Payers Payer Name Policy Type Policy Number Effective Date Expirati on Date Source [facility] PREMIUM HMO [id number] 2021 00:00:00 [employer] (MEDICARE REPLACEMENT/ADVANT AGE - HMO) [id number] [id number] 00:00:00 Problems Condition Name Condition Details Condition Category Status Onset Date Resolution Date Last Treatment Date Treating Clinician Comments Source Status post catheter ablation of atrial fibrillati on Status post catheter ablation of atrial fibrillati on Disease Active 05-31 00:00: 00 [facility] Chronic atrial fibrillati on Chronic atrial fibrillati on Disease Active 05-31 00:00: 00 [facility] ICD (implantab le cardiovert er-defibri llator) in place ICD (implantab le cardiovert er-defibri llator) in place Disease Active 05-31 00:00: 00 [facility] Typical atrial flutter Typical atrial flutter Disease Active 2022-10 00:00: 00 [facility] HFrEF (heart failure with reduced ejection fraction) HFrEF (heart failure with reduced ejection fraction) Disease Active 2022-10 0 00:00: 00 [facility] 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, 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, unspecifie d type Disease Active 05-19 00:00: 00 [facility] History of BPH History of BPH Disease Active 05-19 00:00: 00 [facility] ELI (obstructi ve sleep apnea) ELI (obstructi ve sleep apnea) Disease Active 04-27 00:00: 00 [facility] Pulmonary hypertensi on Pulmonary hypertensi on Disease Active 04-27 00:00: 00 [facility] Cardiomyop athy, unspecifie d type Cardiomyop athy, unspecifie d type Disease Active 10-28 00:00: 00 [facility] Obesity (BMI 30-39.9) Obesity (BMI 30-39.9) Disease Active 10-28 00:00: 00 [facility] Dizziness and giddiness Dizziness and giddiness Disease Active 10-28 00:00: 00 [facility] Venous insufficie ncy Venous insufficie ncy Disease Active 10-28 00:00: 00 [facility] Hypertensi on, unspecifie d type Hypertensi on, unspecifie d type Disease Active 2021-10 0- 00:00: 00 [facility] Enlarged prostate Enlarged prostate Disease Active 2021-10 0 00:00: 00 [facility] Abnormal EKG Abnormal EKG Disease Active 2021-10 00:00: 00 [facility] 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 Disease Active 2021-10 00:00: 00 [facility] Chronic right shoulder pain Chronic right shoulder pain Disease Active 2021-10 00:00: 00 [facility] Prediabete s Prediabete s Disease Active 2021-10 00:00: 00 [facility] Hyperlipid emia Hyperlipid emia Problem Active 03-13 00:00: 00 [facility] Insomnia Insomnia Problem Active 03-13 00:00: 00 [facility] Essential hypertensi on Essential Hypertensi on Problem Active 03-13 00:00: 00 [facility] Atrial flutter Atrial Flutter Problem Active 03-13 00:00: 00 [facility] Allergic rhinitis Allergic Rhinitis Problem Active 03-13 00:00: 00 [facility] Benign prostatic hyperplasi a Benign Prostatic Hyperplasi a Problem Active 03-13 00:00: 00 [facility] Arthritis Arthritis Problem Active 03-13 00:00: 00 [facility] 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 Problem Active 03-13 00:00: 00 [facility] No known active problems No known active problems Disease [facility] Allergies, Adverse Reactions, Alerts Allergy Name Allergy Type Status Severity Reaction(s) Onset Date Inactive Date Treating Clinician Comments Source NO KNOWN ALLERGIE S Drug Class Active [facility] Social History Social Habit Start Date Stop Date Quantity Comments Source [facility] Alcoholic beverage intake 2024-06-09 00:00:00 2024-06-09 00:00:00 Current non-drinker of alcohol (finding) [facility] Tobacco use and exposure 2024-04-26 00:00:00 2024-04-26 00:00:00 Smokeless tobacco non-user [facility] History of Social function 2024-01-11 00:00:00 2024-01-11 00:00:00 [facility] Alcohol intake 2024-01-11 00:00:00 2024-01-11 00:00:00 Current non-drinker of alcohol (finding) [facility] Exposure to SARS-CoV-2 (event) 2023-03-07 00:00:00 2023-03-17 13:11:00 Not sure [facility] Sex assigned at 1940 00:00:00 1940 00:00:00 [facility] Smoking Status Start Date Stop Date Source Never smoked tobacco [facility] Medications Ordered Medication Name Filled Medication Name Start Date Stop Date Current Medication? Ordering Clinician Indication Dosage Frequency Signature (SIG) Comments Components Source empaglifloz in 10 mg tablet 06-23 00:00: 00 Yes [id number] 10mg Take 1 tablet by mouth in the morning. [facility] spironolact one 25 mg tablet 06-09 00:00: 00 Yes [id number] 25mg Take 1 tablet by mouth in the morning. [facility] KCL 20 mEq tablet 05-23 00:00: 00 06-09 00:00 :00 No [id number] 20meq Take 1 tablet by mouth in the morning. [facility] tamsulosin 0.4 mg 24 hr capsule 05-10 00:00: 00 Yes [id number] 9102 .4mg Take 1 capsule by mouth in the morning and 1 capsule in the evening. TAKE 2 CAPSULES BY MOUTH EVERY MORNING [facility] apixaban (ELIQUIS) tablet 5 mg 04-29 01:00: 00 04-27 20:55 :49 No 1361 5mg 5 mg, Oral, BID, First dose (after last modificati on) on Thu04/28/24 at 1999, Until Discontinu ed, Routine, Indication s: Non-Valvul ar Atrial Fibrillati on [facility] atorvastati n (LIPITOR) tablet 10 mg 04-28 02:00: 00 04-27 20:55 :49 No 10mg [facility] apixaban 5 mg tablet 04-28 00:00: 00 Yes 1361 5mg Take 1 tablet by mouth in the morning and 1 tablet in the evening. Indication s: atrial flutter [facility] tamsulosin (FLOMAX) capsule 0.4 mg 04-27 14:00: 00 04-27 20:55 :49 No .4mg 0.4 mg, Oral, DAILY, First dose on Thu04/27/24 at 0900, Until Discontinu ed, Routine [facility] spironolact one (ALDACTONE) tablet 25 mg 04-27 14:00: 00 04-27 20:55 :49 No 25mg 25 mg, Oral, DAILY, First dose on Thu04/27/24 at 0900, Until Discontinu ed, Routine [facility] pantoprazol e (PROTONIX) EC tablet 40 mg 04-27 14:00: 00 04-27 20:55 :49 No 40mg 40 mg, Oral, DAILY, First dose on Thu04/27/24 at 0900, Until Discontinu ed, Routine [facility] metoprolol succinate XL (TOPROL XL) tablet 25 mg 04-27 14:00: 00 04-27 20:55 :49 No 25mg 25 mg, Oral, QAM, First dose on Thu04/27/24 at 0900, Until Discontinu ed, Routine [facility] KCL (KLOR-CON M20) tablet 20 mEq 04-27 14:00: 00 04-27 20:55 :49 No 20meq 20 mEq, Oral, DAILY, First dose on Thu04/27/24 at 0900, Until Discontinu ed, Routine [facility] furosemide (LASIX) tablet 40 mg 04-27 14:00: 00 04-27 20:55 :49 No 40mg 40 mg, Oral, DAILY, First dose on Thu04/27/24 at 0900, Until Discontinu ed, Routine [facility] empaglifloz in (JARDIANCE) tablet 10 mg 04-27 14:00: 00 04-27 20:55 :49 No 10mg [facility] docusate (COLACE) capsule 100 mg 04-27 14:00: 00 04-27 20:55 :49 No 100mg [facility] ondansetron (ZOFRAN (PF)) injection 4 mg 04-26 22:15: 15 04-27 20:55 :49 No 4mg [facility] acetaminoph en (TYLENOL) tablet 650 mg 04-26 22:12: 29 04-27 20:55 :49 No 650mg [facility] iopamidol (ISOVUE-300 ) injection 04-26 20:16: 34 04-27 21:05 :59 No ONCE INTRA PROCEDURE, Starting on Thu04/26/24 at 1516, Until Thu04/27/24 at 1605, Routine, CV Intraproce dure [facility] lidocaine 2% (XYLOCAINE) 20 mg/mL (2 %) injection 04-26 19:01: 03 04-26 20:34 :22 No ONCE INTRA PROCEDURE, Starting on Thu04/26/24 at 1401, Until Thu04/26/24 at 1534, Routine, CV Intraproce dure [facility] tamsulosin 0.4 mg 24 hr capsule 04-25 00:00: 00 05-10 00:00 :00 No [id number] TAKE 2 CAPSULES BY MOUTH EVERY MORNING [facility] tamsulosin 0.4 mg 24 hr capsule 6-14 00:00: 00 04-25 00:00 :00 No [id number] TAKE 2 CAPSULES BY MOUTH EVERY MORNING [facility] timolol 0.5 % ophthalmic solution 6-10 00:00: 00 Yes [facility] ketorolac 0.5 % ophthalmic solution 5- 00:00: 00 Yes [facility] KCL 20 mEq tablet - 00:00: 00 05-23 00:00 :00 No [id number] 20meq Take 1 tablet by mouth in the morning. [facility] empaglifloz in 10 mg tablet 02-21 00:00: 00 06-23 00:00 :00 No [id number] 10mg Take 1 tablet by mouth in the morning. [facility] furosemide 40 mg tablet - 00:00: 00 06-09 00:00 :00 No [id number] 40mg Take 1 tablet by mouth in the morning. [facility] benzonatate 200 mg capsule - 00:00: 00 01-10 00:00 :00 No [id number] 200mg Take 1 capsule by mouth 3 (three) times daily as needed for Cough. [facility] levalbutero l (XOPENEX HFA) 45 mcg/actuati on inhaler - 00:00: 00 01-10 00:00 :00 No [id number] 1{puff} Inhale 1-2 Puffs every 4 (four) hours as needed for Wheezing. [facility] methylPREDN ISolone 4 mg tablets 2- 00:00: 00 12-08 05:59 :00 No [id number] Take by mouth SEE-INSTRU CTIONS for 6 days. follow package directions [facility] spironolact one 25 mg tablet 2-05 00:00: 00 06-09 00:00 :00 No [id number] 25mg Take 1 tablet by mouth in the morning. [facility] KCL 20 mEq tablet 2-05 00:00: 00 02-23 00:00 :00 No [id number] 20meq Take 1 tablet by mouth in the morning. [facility] empaglifloz in 10 mg 11-25 00:00: 00 Yes [id number] 10mg Take 1 tablet by mouth in the morning. [facility] pantoprazol e 40 mg EC tablet 11-25 00:00: 00 Yes [id number] 40mg Take 1 tablet by mouth in the morning. [facility] pantoprazol e (PROTONIX) EC tablet 40 mg 11-24 15:00: 00 Yes 40mg 40 mg, Oral, DAILY, First dose on Thu11/24/23 at 0900, Until Discontinu ed, Routine [facility] tamsulosin (FLOMAX) capsule 0.4 mg 11-24 15:00: 00 Yes .4mg 0.4 mg, Oral, DAILY, First dose on Thu11/24/23 at 0900, Until Discontinu ed, Routine [facility] spironolact one (ALDACTONE) tablet 25 mg 11-24 15:00: 00 Yes 25mg 25 mg, Oral, DAILY, First dose on Thu11/24/23 at 0900, Until Discontinu ed, Routine [facility] metoprolol succinate XL (TOPROL XL) tablet 25 mg 11-24 15:00: 00 Yes 25mg 25 mg, Oral, QAM, First dose on Thu11/24/23 at 0900, Until Discontinu ed, Routine [facility] furosemide (LASIX) tablet 40 mg 11-24 15:00: 00 Yes 40mg 40 mg, Oral, DAILY, First dose on Thu11/24/23 at 0900, Until Discontinu ed, Routine [facility] empaglifloz in (JARDIANCE) tablet 10 mg 11-24 15:00: 00 Yes 10mg 10 mg, Oral, DAILY, First dose on Thu11/24/23 at 0900, Until Discontinu ed, Routine
Is this a home medication ? Yes
Has this patient brought their own medication ? No
[facility] will dispense the medication from inpatient. Pharmacy will dispense the medication from inpatient.
Inpati ent ordering of this medication is not allowed unless the patient is maintained on this medication at home, and home supply is unavailabl e. Does this order meet the criteria for inpatient ordering? Yes [facility] apixaban (ELIQUIS) tablet 5 mg 11-24 14:00: 00 Yes 1361 5mg 5 mg, Oral, BID, First dose on Thu11/24/23 at 0800, Until Discontinu ed, Routine
Indicatio ns: Non-Valvul ar Atrial Fibrillati on [facility] KCL (KLOR-CON M20) tablet 40 mEq 11-24 14:00: 00 11-24 16:41 :00 No 40meq 40 mEq, Oral, Q2H, 2 doses, First dose on Thu11/24/23 at 0800, Last dose on Thu11/24/23 at 1000, Routine [facility] vit C,E-Zn-ronald r-lutein-ze axan (PRESERVISI ON AREDS 2) 250-200-40- 1 mg-unit-mg- mg Cap 11-24 13:27: 59 Yes 1{capsu le} Take 1 capsule by mouth daily. [facility] atorvastati n (LIPITOR) tablet 10 mg 11-24 03:00: 00 Yes 10mg 10 mg, Oral, QHS, First dose on Thu11/23/23 at 2100, Until Discontinu ed, Routine [facility] acetaminoph en-codeine (TYLENOL #3) 300-30 mg tablet 1 tablet 11-24 02:46: 56 11-26 02:45 :56 No 1{tbl} 1 tablet, Oral, Q6HPRN, Starting on Thu11/23/23 at 2045, Until Thu11/25/23 at 2044, Routine, Pain (scale 4-6) [facility] acetaminoph en (TYLENOL) tablet 650 mg 11-24 02:46: 53 Yes 650mg 650 mg, Oral, Q6HPRN, Starting on Thu11/23/23 at 2046, Until Discontinu ed, Routine, Pain (scale 1-3) [facility] metoprolol succinate XL 25 mg 24 hr tablet 11-24 00:00: 00 Yes [id number] 25mg Take 1 tablet by mouth every morning. [facility] atorvastati n 10 mg tablet 11-24 00:00: 00 Yes [id number] 10mg Take 1 tablet by mouth at bedtime. [facility] apixaban 5 mg tablet 11-24 00:00: 00 04-27 00:00 :00 No 1361 5mg Take 1 tablet by mouth in the morning and 1 tablet in the evening. Indication s: atrial flutter [facility] HYDROcodone -acetaminop hen (NORCO 5) 5-325 mg tablet 1 tablet 11-23 23:30: 00 11-24 02:56 :00 No 1{tbl} 1 tablet, Oral, ONCE, 1 dose, On Thu11/23/23 at 1730, Routine, PACU [facility] lactated ringers IV infusion 1,000 mL 11-23 23:30: 00 11-24 03:01 :00 No 1000mL at 42 mL/hr, 1,000 mL, IV Infusion, ONCE, 1 dose, On Thu11/23/23 at 1730, Routine, CV Preprocedu re [facility] FENTanyl PF (SUBLIMAZE (PF)) injection 25 mcg 11-23 23:17: 38 Yes 25ug 25 mcg, Slow IV Push, Q5MIN PRN, 4 doses, Starting on Thu11/23/23 at 1717, Until Discontinu ed, Routine, Pain (scale 4-6), PACU [facility] ondansetron (ZOFRAN (PF)) injection 4 mg 11-23 23:17: 38 Yes 4mg 4 mg, Slow IV Push, PRN, 1 dose, Starting on Thu11/23/23 at 1717, Until Discontinu ed, Routine, Nausea and Vomiting (N/V), PACU [facility] lidocaine 1% (PF) (XYLOCAINE) injection 11-23 19:59: 57 11-23 23:06 :26 No ONCE INTRA PROCEDURE, Starting on Thu11/23/23 at 1359, Until Thu11/23/23 at 1706, Routine, CV Intraproce dure [facility] apixaban 5 mg tablet 11-11 00:00: 00 Yes 1361 5mg Take 1 tablet by mouth in the morning and 1 tablet in the evening. Indication s: atrial flutter [facility] atorvastati n 10 mg tablet 10-30 00:00: 00 Yes [id number] 10mg TAKE 1 TABLET BY MOUTH AT BEDTIME [facility] levalbutero l (XOPENEX HFA) 45 mcg/actuati on inhaler 2022-10 00:00: 00 Yes [id number] 1{puff} Inhale 1-2 Puffs every 4 (four) hours as needed for Wheezing, Bronchospa sm or Chest tightness. [facility] METOPROLOL SUCCINATE XL 25 mg 24 hr tablet 2022-10 00:00: 00 Yes [id number] 25mg TAKE ONE TABLET BY MOUTH EVERY MORNING [facility] TAMSULOSIN 0.4 mg 24 hr capsule 2022-10 00:00: 00 04-08 00:00 :00 No [id number] TAKE 2 CAPSULES BY MOUTH EVERY MORNING [facility] furosemide 40 mg tablet 2022-10 00:00: 00 01-04 00:00 :00 No [id number] 40mg Take 1 tablet by mouth in the morning. [facility] apixaban 5 mg tablet 2022-10 00:00: 00 11-11 00:00 :00 No 1361 5mg Take 1 tablet by mouth in the morning and 1 tablet in the evening. Indication s: atrial flutter [facility] ATORVASTATI N 10 mg tablet 2022-10 0-09 00:00: 00 10-30 00:00 :00 No [id number] 10mg TAKE 1 TABLET BY MOUTH AT BEDTIME [facility] empaglifloz in 10 mg 2022-10 0-02 00:00: 00 11-25 00:00 :00 No [id number] 10mg Take 1 tablet by mouth in the morning. [facility] METOPROLOL SUCCINATE XL 25 mg 24 hr tablet 9-12 00:00: 00 10-02 00:00 :00 No [id number] 25mg TAKE ONE TABLET BY MOUTH EVERY MORNING [facility] furosemide 40 mg tablet 8-25 00:00: 00 09-21 00:00 :00 No [id number] 40mg Take 1 tablet by mouth in the morning. [facility] tamsulosin 0.4 mg 24 hr capsule 8-24 00:00: 00 09-21 00:00 :00 No [id number] TAKE 2 CAPSULES BY MOUTH EVERY MORNING [facility] spironolact one 25 mg tablet 8-07 00:00: 00 11-26 00:00 :00 No [id number] 25mg Take 1 tablet by mouth in the morning. [facility] TAMSULOSIN 0.4 mg 24 hr capsule 7-12 00:00: 00 06-18 00:00 :00 No [id number] TAKE TWO CAPSULES BY MOUTH EVERY MORNING [facility] ATORVASTATI N 10 mg tablet 7-10 00:00: 00 08-03 00:00 :00 No [id number] TAKE ONE TABLET BY MOUTH AT BEDTIME [facility] empaglifloz in 10 mg 7-03 00:00: 00 07-27 00:00 :00 No [id number] 10mg Take 1 tablet by mouth in the morning. [facility] BABY ASPIRIN ORAL 6-06 14:35: 08 03-31 00:00 :00 No 81mg Take 81 mg by mouth daily. [facility] metoprolol succinate XL 25 mg 24 hr tablet 06 00:00: 00 07-07 00:00 :00 No [id number] 25mg Take 1 tablet by mouth in the morning. [facility] BABY ASPIRIN ORAL 03-17 13:22: 38 Yes 81mg Take 81 mg by mouth daily. [facility] metoprolol succinate XL 100 mg 24 hr tablet 03-17 00:00: 00 03-31 00:00 :00 No [id number] 50mg Take 0.5 tablets by mouth in the morning. [facility] olmesartan 40 mg tablet 03-17 00:00: 00 03-31 00:00 :00 No [id number] 20mg Take 0.5 tablets by mouth in the morning. [facility] tamsulosin (FLOMAX) 0.4 mg 24 hr capsule 03-04 00:00: 00 05-06 00:00 :00 No [id number] .8mg Take 2 capsules by mouth in the morning. Take 1 mg by mouth daily. [facility] METOPROLOL SUCCINATE (TOPROL XL ORAL) 02-26 08:25: 14 02-26 00:00 :00 No 100mg Take 100 mg by mouth daily. [facility] metoprolol succinate XL 100 mg 24 hr tablet 02-26 00:00: 00 03-17 00:00 :00 No [id number] 100mg Take 1 tablet by mouth in the morning. [facility] olmesartan 40 mg tablet 02-24 00:00: 00 03-17 00:00 :00 No [id number] 40mg Take 1 tablet by mouth in the morning. [facility] tamsulosin (FLOMAX) 0.4 mg 24 hr capsule 5 00:00: 00 03-04 00:00 :00 No [id number] .8mg Take 2 capsules by mouth in the morning. Take 1 mg by mouth daily. [facility] furosemide 40 mg tablet 4 00:00: 00 06-19 00:00 :00 No [id number] 40mg Take 1 tablet by mouth in the morning. [facility] clotrimazol e-betametha sone cream 4 00:00: 00 03-04 04:59 :00 No [id number] Apply to area(s) 2 (two) times daily for 14 days. [facility] atorvastati n 10 mg tablet 3- 00:00: 00 05-04 00:00 :00 No [id number] 10mg Take 1 tablet by mouth at bedtime. [facility] spironolact one 25 mg tablet 12-04 00:00: 00 06-01 00:00 :00 No [id number] 25mg Take 1 tablet by mouth in the morning. [facility] tc 99m-tetrofo smin (MYOVIEW) injection 41.3 millicurie 12-02 17:00: 00 12-02 16:55 :00 No [id number] 41.3mCi 41.3 millicurie , Intravenou s, ONCE, 1 dose, On Thu12/02/22 at 1100, Routine [facility] regadenoson (LEXISCAN) injection 0.4 mg 12-02 15:45: 00 12-02 16:49 :00 No [id number] .4mg 0.4 mg, IV Push, ONCE, 1 dose, On Thu12/02/22 at 0945, Routine
tribal council member approving Restricted medication : MARYSE DICK [facility] tc 99m-tetrofo smin (MYOVIEW) injection 16 millicurie 12-02 15:15: 00 12-02 15:04 :00 No [id number] 16mCi 16 millicurie , Intravenou s, ONCE, 1 dose, On Thu12/02/22 at 0915, Routine [facility] olmesartan 40 mg tablet 18 00:00: 00 02-24 00:00 :00 No [id number] 40mg Take 1 tablet by mouth in the morning. [facility] furosemide 40 mg tablet 10-31 00:00: 00 02-19 00:00 :00 No [id number] 40mg Take 1 tablet by mouth in the morning. [facility] KCL 20 mEq tablet 10-31 00:00: 00 12-04 00:00 :00 No [id number] 20meq Take 1 tablet by mouth in the morning. [facility] hydroCHLORO thiazide 12.5 mg tablet 2021-10 00:00: 00 08-27 00:00 :00 No [id number] 12.5mg Take 1 tablet by mouth in the morning. [facility] doxycycline hyclate 100 mg capsule 05-22 00:00: 00 Yes [facility] tamsulosin (FLOMAX) 0.4 mg 24 hr capsule 05-13 13:07: 04 05-13 00:00 :00 No 1mg Take 1 mg by mouth daily. [facility] hydroCHLORO thiazide 12.5 mg tablet 05-13 13:07: 04 05-13 00:00 :00 No 12.5mg Take 12.5 mg by mouth daily. [facility] OLMESARTAN MEDOXOMIL (OLMESARTAN ORAL) 05-13 13:06: 42 05-13 00:00 :00 No 20mg Take 20 mg by mouth daily. [facility] olmesartan 40 mg tablet 05-13 00:00: 00 Yes [id number] 40mg Take 1 tablet by mouth in the morning. [facility] tamsulosin (FLOMAX) 0.4 mg 24 hr capsule 05-13 00:00: 00 02-23 00:00 :00 No [id number] .8mg Take 2 capsules by mouth in the morning. Take 1 mg by mouth daily. [facility] atorvastati n 10 mg tablet 05-13 00:00: 00 01-13 00:00 :00 No [id number] 10mg Take 1 tablet by mouth at bedtime. [facility] hydroCHLORO thiazide 12.5 mg tablet 05-13 00:00: 00 08-12 00:00 :00 No [id number] 12.5mg Take 1 tablet by mouth in the morning. [facility] hydroCHLORO thiazide 12.5 mg tablet 11-29 08:55: 33 Yes 12.5mg Take 12.5 mg by mouth daily. [facility] METOPROLOL SUCCINATE (TOPROL XL ORAL) 07-20 10:32: 34 Yes 100mg Take 100 mg by mouth daily. [facility] vit C,E-Zn-ronald r-lutein-ze axan (PRESERVISI ON AREDS 2) 250-200-40- 1 mg-unit-mg- mg Cap 07-20 10:32: 34 Yes 1{capsu le} Take 1 capsule by mouth daily. [facility] BABY ASPIRIN ORAL 07-20 10:32: 34 Yes 81mg Take 81 mg by mouth daily. [facility] OLMESARTAN MEDOXOMIL (OLMESARTAN ORAL) 07-20 10:32: 34 Yes 20mg Take 20 mg by mouth daily. [facility] tamsulosin (FLOMAX) 0.4 mg 24 hr capsule 07-20 10:32: 34 Yes 1mg Take 1 mg by mouth daily. [facility] vit C,E-Zn-ronald r-lutein-ze axan (PRESERVISI ON AREDS 2) 250-200-40- 1 mg-unit-mg- mg Cap 07-20 10:32: 34 Yes 1{capsu le} Take 1 capsule by mouth daily. [facility] atorvastati n 10 mg tablet 11-20 00:00: 00 05-13 00:00 :00 No [facility] aspirin 81 mg tablet,clari yed release Take 1 tablet every day by oral route. aspirin 81 mg tablet,clari yed release Take 1 tablet every day by oral route. No 1 Q1D aspirin 81 mg tablet,del ayed release Take 1 tablet every day by oral route. [facility] Fluarix Quad [id number] (PF) 60 mcg (15 mcg x 4)/0.5 mL IM syringe Fluarix Quad (PF) 60 mcg (15 mcg x 4)/0.5 mL IM syringe No Fluarix Quad (PF) 60 mcg (15 mcg x 4)/0.5 mL IM syringe [facility] hydrochloro thiazide 12.5 mg tablet Take 1 tablet every day by oral route. hydrochloro thiazide 12.5 mg tablet Take 1 tablet every day by oral route. No 1 Q1D hydrochlor othiazide 12.5 mg tablet Take 1 tablet every day by oral route. [facility] ibuprofen 200 mg tablet Take 1 tablet every 6 hours by oral route as needed. ibuprofen 200 mg tablet Take 1 tablet every 6 hours by oral route as needed. No 1 Q6H ibuprofen 200 mg tablet Take 1 tablet every 6 hours by oral route as needed. [facility] metoprolol succinate ER 100 mg tablet,exte nded release 24 hr Take 1 tablet every day by oral route. metoprolol succinate ER 100 mg tablet,exte nded release 24 hr Take 1 tablet every day by oral route. No 1 Q1D metoprolol succinate ER 100 mg tablet,ext ended release 24 hr Take 1 tablet every day by oral route. [facility] montelukast 10 mg tablet Take 1 tablet every day by oral route. montelukast 10 mg tablet Take 1 tablet every day by oral route. No 1 Q1D montelukas t 10 mg tablet Take 1 tablet every day by oral route. [facility] olmesartan 20 mg tablet Take 1 tablet every day by oral route. olmesartan 20 mg tablet Take 1 tablet every day by oral route. No 1 Q1D olmesartan 20 mg tablet Take 1 tablet every day by oral route. [facility] oxymetazoli ne 0.05 % nasal spray [employer] 2 sprays twice a day by intranasal route. oxymetazoli ne 0.05 % nasal spray [employer] 2 sprays twice a day by intranasal route. No 2spray( s) BID oxymetazol ine 0.05 % nasal spray [employer] 2 sprays twice a day by intranasal route. [facility] Shingrix (PF) 50 mcg/0.5 mL intramuscul ar suspension, kit Shingrix (PF) 50 mcg/0.5 mL intramuscul ar suspension, kit No Shingrix (PF) 50 mcg/0.5 mL intramuscu lar suspension , kit [facility] Sleep Aid (diphenhydr amine) 25 mg capsule Take 1 capsule every day by oral route at bedtime. Sleep Aid (diphenhydr amine) 25 mg capsule Take 1 capsule every day by oral route at bedtime. No 1capsul e(s) Q1D Sleep Aid (diphenhyd ramine) 25 mg capsule Take 1 capsule every day by oral route at bedtime. [facility] Immunizations Ordered Immunization Name Filled Immunization Name Date Status Comments Source influenza, injectable, quadrivalent influenza, injectable, quadrivalent 2021-08-15 00:00:00 Completed [facility] SARS-COV-2 COVID-19 MODERNA 12+ YRS VACCINE 2021-05-22 00:00:00 Completed [facility] SARS-COV-2 COVID-19 MODERNA 12+ YRS VACCINE 2021-05-22 00:00:00 Completed [facility] SARS-COV-2 COVID-19 MODERNA 12+ YRS VACCINE 2021-05-22 00:00:00 Completed [facility] SARS-COV-2 COVID-19 MODERNA 12+ YRS VACCINE 2021-05-22 00:00:00 Completed [facility] SARS-COV-2 COVID-19 MODERNA 12+ YRS VACCINE 2021-05-22 00:00:00 Completed [facility] SARS-COV-2 COVID-19 MODERNA 12+ YRS VACCINE 2021-05-22 00:00:00 Completed [facility] SARS-COV-2 COVID-19 MODERNA 12+ YRS VACCINE 2021-05-22 00:00:00 Completed [facility] SARS-COV-2 COVID-19 MODERNA 12+ YRS VACCINE 2021-05-22 00:00:00 Completed [facility] SARS-COV-2 COVID-19 MODERNA 12+ YRS VACCINE 2021-05-22 00:00:00 Completed [facility] SARS-COV-2 COVID-19 MODERNA 12+ YRS VACCINE 2021-05-22 00:00:00 Completed [facility] SARS-COV-2 COVID-19 MODERNA 12+ YRS VACCINE 2021-05-22 00:00:00 Completed [facility] SARS-COV-2 COVID-19 MODERNA 12+ YRS VACCINE 2021-05-22 00:00:00 Completed [facility] SARS-COV-2 COVID-19 MODERNA 12+ YRS VACCINE 2021-05-22 00:00:00 Completed [facility] SARS-COV-2 COVID-19 MODERNA 12+ YRS VACCINE 2021-05-22 00:00:00 Completed [facility] SARS-COV-2 COVID-19 MODERNA 12+ YRS VACCINE 2021-05-22 00:00:00 Completed [facility] SARS-COV-2 COVID-19 MODERNA 12+ YRS VACCINE 2021-05-22 00:00:00 Completed [facility] SARS-COV-2 COVID-19 MODERNA 12+ YRS VACCINE 2021-05-22 00:00:00 Completed [facility] SARS-COV-2 COVID-19 MODERNA 12+ YRS VACCINE 2021-05-22 00:00:00 Completed [facility] SARS-COV-2 COVID-19 MODERNA 12+ YRS VACCINE 2021-05-22 00:00:00 Completed [facility] SARS-COV-2 COVID-19 MODERNA 12+ YRS VACCINE 2021-05-22 00:00:00 Completed [facility] SARS-COV-2 COVID-19 MODERNA 12+ YRS VACCINE 2021-05-22 00:00:00 Completed [facility] SARS-COV-2 COVID-19 MODERNA 12+ YRS VACCINE 2021-05-22 00:00:00 Completed [facility] SARS-COV-2 COVID-19 MODERNA 12+ YRS VACCINE 2021-05-22 00:00:00 Completed [facility] SARS-COV-2 COVID-19 MODERNA 12+ YRS VACCINE 2021-05-22 00:00:00 Completed [facility] SARS-COV-2 COVID-19 MODERNA 12+ YRS VACCINE 2021-05-22 00:00:00 Completed [facility] SARS-COV-2 COVID-19 MODERNA 12+ YRS VACCINE 2021-05-22 00:00:00 Completed [facility] SARS-COV-2 COVID-19 MODERNA 12+ YRS VACCINE 2021-05-22 00:00:00 Completed [facility] SARS-COV-2 COVID-19 MODERNA 12+ YRS VACCINE 2021-05-22 00:00:00 Completed [facility] SARS-COV-2 COVID-19 MODERNA 12+ YRS VACCINE 2021-05-22 00:00:00 Completed [facility] SARS-COV-2 COVID-19 MODERNA 12+ YRS VACCINE 2021-05-22 00:00:00 Completed [facility] SARS-COV-2 COVID-19 MODERNA 12+ YRS VACCINE 2021-05-22 00:00:00 Completed [facility] SARS-COV-2 COVID-19 MODERNA VACCINE 2021-05-22 00:00:00 Completed [facility] SARS-COV-2 COVID-19 MODERNA 12+ YRS VACCINE 2021-05-22 00:00:00 Completed [facility] SARS-COV-2 COVID-19 MODERNA 12+ YRS VACCINE 2021-05-22 00:00:00 Completed [facility] SARS-COV-2 COVID-19 MODERNA 12+ YRS VACCINE 2021-05-22 00:00:00 Completed [facility] SARS-COV-2 COVID-19 MODERNA 12+ YRS VACCINE 2021-05-22 00:00:00 Completed [facility] SARS-COV-2 COVID-19 MODERNA 12+ YRS VACCINE 2021-05-22 00:00:00 Completed [facility] SARS-COV-2 COVID-19 MODERNA 12+ YRS VACCINE 2021-05-22 00:00:00 Completed [facility] SARS-COV-2 COVID-19 MODERNA 12+ YRS VACCINE 2021-05-22 00:00:00 Completed [facility] SARS-COV-2 COVID-19 MODERNA 12+ YRS VACCINE 2021-05-22 00:00:00 Completed [facility] SARS-COV-2 COVID-19 MODERNA 12+ YRS VACCINE 2021-05-22 00:00:00 Completed [facility] SARS-COV-2 COVID-19 MODERNA 12+ YRS VACCINE 2021-05-22 00:00:00 Completed [facility] SARS-COV-2 COVID-19 MODERNA VACCINE 2021-05-22 00:00:00 Completed [facility] SARS-COV-2 COVID-19 MODERNA 12+ YRS VACCINE 2021-05-22 00:00:00 Completed [facility] SARS-COV-2 COVID-19 MODERNA 12+ YRS VACCINE 2021-05-22 00:00:00 Completed [facility] SARS-COV-2 COVID-19 MODERNA 12+ YRS VACCINE 2021-05-22 00:00:00 Completed [facility] SARS-COV-2 COVID-19 MODERNA 12+ YRS VACCINE 2021-05-22 00:00:00 Completed [facility] SARS-COV-2 COVID-19 MODERNA 12+ YRS VACCINE 2021-05-22 00:00:00 Completed [facility] SARS-COV-2 COVID-19 MODERNA 12+ YRS VACCINE 2021-05-22 00:00:00 Completed [facility] SARS-COV-2 COVID-19 MODERNA 12+ YRS VACCINE 2021-05-22 00:00:00 Completed [facility] SARS-COV-2 COVID-19 MODERNA 12+ YRS VACCINE 2021-05-22 00:00:00 Completed [facility] SARS-COV-2 COVID-19 MODERNA VACCINE 2021-05-22 00:00:00 Completed [facility] SARS-COV-2 COVID-19 MODERNA 12+ YRS VACCINE 2021-05-22 00:00:00 Completed [facility] SARS-COV-2 COVID-19 MODERNA 12+ YRS VACCINE 2021-05-22 00:00:00 Completed [facility] SARS-COV-2 COVID-19 MODERNA 12+ YRS VACCINE 2021-05-22 00:00:00 Completed [facility] SARS-COV-2 COVID-19 MODERNA 12+ YRS VACCINE 2021-05-22 00:00:00 Completed [facility] SARS-COV-2 COVID-19 MODERNA 12+ YRS VACCINE 2021-05-22 00:00:00 Completed [facility] SARS-COV-2 COVID-19 MODERNA 12+ YRS VACCINE 2021-05-22 00:00:00 Completed [facility] SARS-COV-2 COVID-19 MODERNA 12+ YRS VACCINE 2021-05-22 00:00:00 Completed [facility] SARS-COV-2 COVID-19 MODERNA VACCINE 2021-05-22 00:00:00 Completed [facility] SARS-COV-2 COVID-19 MODERNA 12+ YRS VACCINE 2021-05-22 00:00:00 Completed [facility] SARS-COV-2 COVID-19 MODERNA 12+ YRS VACCINE 2021-05-22 00:00:00 Completed [facility] SARS-COV-2 COVID-19 MODERNA 12+ YRS VACCINE 2021-05-22 00:00:00 Completed [facility] SARS-COV-2 COVID-19 MODERNA 12+ YRS VACCINE 2021-05-22 00:00:00 Completed [facility] SARS-COV-2 COVID-19 MODERNA 12+ YRS VACCINE 2021-05-22 00:00:00 Completed [facility] SARS-COV-2 COVID-19 MODERNA 12+ YRS VACCINE 2021-05-22 00:00:00 Completed [facility] SARS-COV-2 COVID-19 MODERNA 12+ YRS VACCINE 2021-05-22 00:00:00 Completed [facility] SARS-COV-2 COVID-19 MODERNA 12+ YRS VACCINE 2021-05-22 00:00:00 Completed [facility] SARS-COV-2 COVID-19 MODERNA 12+ YRS VACCINE 2021-05-22 00:00:00 Completed [facility] SARS-COV-2 COVID-19 MODERNA 12+ YRS VACCINE 2021-05-22 00:00:00 Completed [facility] SARS-COV-2 COVID-19 MODERNA 12+ YRS VACCINE 2021-05-22 00:00:00 Completed [facility] SARS-COV-2 COVID-19 MODERNA 12+ YRS VACCINE 2021-05-22 00:00:00 Completed [facility] SARS-COV-2 COVID-19 MODERNA 12+ YRS VACCINE 2021-05-22 00:00:00 Completed [facility] SARS-COV-2 COVID-19 MODERNA 12+ YRS VACCINE 2021-05-22 00:00:00 Completed [facility] SARS-COV-2 COVID-19 MODERNA 12+ YRS VACCINE 2021-05-22 00:00:00 Completed [facility] SARS-COV-2 COVID-19 MODERNA 12+ YRS VACCINE 2021-05-22 00:00:00 Completed [facility] SARS-COV-2 COVID-19 MODERNA 12+ YRS VACCINE 2021-05-22 00:00:00 Completed [facility] SARS-COV-2 COVID-19 MODERNA 12+ YRS VACCINE 2021-05-22 00:00:00 Completed [facility] SARS-COV-2 COVID-19 MODERNA 12+ YRS VACCINE 2021-05-22 00:00:00 Completed [facility] SARS-COV-2 COVID-19 MODERNA 12+ YRS VACCINE 2021-05-22 00:00:00 Completed [facility] SARS-COV-2 COVID-19 MODERNA 12+ YRS VACCINE 2021-05-22 00:00:00 Completed [facility] SARS-COV-2 COVID-19 MODERNA 12+ YRS VACCINE 2021-05-22 00:00:00 Completed [facility] SARS-COV-2 COVID-19 MODERNA 12+ YRS VACCINE 2021-05-22 00:00:00 Completed [facility] SARS-COV-2 COVID-19 MODERNA 12+ YRS VACCINE 2021-05-22 00:00:00 Completed [facility] SARS-COV-2 COVID-19 MODERNA 12+ YRS VACCINE 2021-05-22 00:00:00 Completed [facility] SARS-COV-2 COVID-19 MODERNA 12+ YRS VACCINE 2021-05-22 00:00:00 Completed [facility] SARS-COV-2 COVID-19 MODERNA 12+ YRS VACCINE 2021-05-22 00:00:00 Completed [facility] SARS-COV-2 COVID-19 MODERNA 12+ YRS VACCINE 2021-05-22 00:00:00 Completed [facility] SARS-COV-2 COVID-19 MODERNA 12+ YRS VACCINE 2021-05-22 00:00:00 Completed [facility] SARS-COV-2 COVID-19 MODERNA 12+ YRS VACCINE 2021-05-22 00:00:00 Completed [facility] SARS-COV-2 COVID-19 MODERNA 12+ YRS VACCINE 2021-04-24 00:00:00 Completed [facility] SARS-COV-2 COVID-19 MODERNA 12+ YRS VACCINE 2021-04-24 00:00:00 Completed [facility] SARS-COV-2 COVID-19 MODERNA 12+ YRS VACCINE 2021-04-24 00:00:00 Completed [facility] SARS-COV-2 COVID-19 MODERNA 12+ YRS VACCINE 2021-04-24 00:00:00 Completed [facility] SARS-COV-2 COVID-19 MODERNA 12+ YRS VACCINE 2021-04-24 00:00:00 Completed [facility] SARS-COV-2 COVID-19 MODERNA 12+ YRS VACCINE 2021-04-24 00:00:00 Completed [facility] SARS-COV-2 COVID-19 MODERNA 12+ YRS VACCINE 2021-04-24 00:00:00 Completed [facility] SARS-COV-2 COVID-19 MODERNA 12+ YRS VACCINE 2021-04-24 00:00:00 Completed [facility] SARS-COV-2 COVID-19 MODERNA 12+ YRS VACCINE 2021-04-24 00:00:00 Completed [facility] SARS-COV-2 COVID-19 MODERNA 12+ YRS VACCINE 2021-04-24 00:00:00 Completed [facility] SARS-COV-2 COVID-19 MODERNA 12+ YRS VACCINE 2021-04-24 00:00:00 Completed [facility] SARS-COV-2 COVID-19 MODERNA 12+ YRS VACCINE 2021-04-24 00:00:00 Completed [facility] SARS-COV-2 COVID-19 MODERNA 12+ YRS VACCINE 2021-04-24 00:00:00 Completed [facility] SARS-COV-2 COVID-19 MODERNA 12+ YRS VACCINE 2021-04-24 00:00:00 Completed [facility] SARS-COV-2 COVID-19 MODERNA 12+ YRS VACCINE 2021-04-24 00:00:00 Completed [facility] SARS-COV-2 COVID-19 MODERNA 12+ YRS VACCINE 2021-04-24 00:00:00 Completed [facility] SARS-COV-2 COVID-19 MODERNA 12+ YRS VACCINE 2021-04-24 00:00:00 Completed [facility] SARS-COV-2 COVID-19 MODERNA 12+ YRS VACCINE 2021-04-24 00:00:00 Completed [facility] SARS-COV-2 COVID-19 MODERNA 12+ YRS VACCINE 2021-04-24 00:00:00 Completed [facility] SARS-COV-2 COVID-19 MODERNA 12+ YRS VACCINE 2021-04-24 00:00:00 Completed [facility] SARS-COV-2 COVID-19 MODERNA 12+ YRS VACCINE 2021-04-24 00:00:00 Completed [facility] SARS-COV-2 COVID-19 MODERNA 12+ YRS VACCINE 2021-04-24 00:00:00 Completed [facility] SARS-COV-2 COVID-19 MODERNA 12+ YRS VACCINE 2021-04-24 00:00:00 Completed [facility] SARS-COV-2 COVID-19 MODERNA 12+ YRS VACCINE 2021-04-24 00:00:00 Completed [facility] SARS-COV-2 COVID-19 MODERNA 12+ YRS VACCINE 2021-04-24 00:00:00 Completed [facility] SARS-COV-2 COVID-19 MODERNA 12+ YRS VACCINE 2021-04-24 00:00:00 Completed [facility] SARS-COV-2 COVID-19 MODERNA 12+ YRS VACCINE 2021-04-24 00:00:00 Completed [facility] SARS-COV-2 COVID-19 MODERNA 12+ YRS VACCINE 2021-04-24 00:00:00 Completed [facility] SARS-COV-2 COVID-19 MODERNA 12+ YRS VACCINE 2021-04-24 00:00:00 Completed [facility] SARS-COV-2 COVID-19 MODERNA 12+ YRS VACCINE 2021-04-24 00:00:00 Completed [facility] SARS-COV-2 COVID-19 MODERNA VACCINE 2021-04-24 00:00:00 Completed [facility] SARS-COV-2 COVID-19 MODERNA 12+ YRS VACCINE 2021-04-24 00:00:00 Completed [facility] SARS-COV-2 COVID-19 MODERNA 12+ YRS VACCINE 2021-04-24 00:00:00 Completed [facility] SARS-COV-2 COVID-19 MODERNA 12+ YRS VACCINE 2021-04-24 00:00:00 Completed [facility] SARS-COV-2 COVID-19 MODERNA 12+ YRS VACCINE 2021-04-24 00:00:00 Completed [facility] SARS-COV-2 COVID-19 MODERNA 12+ YRS VACCINE 2021-04-24 00:00:00 Completed [facility] SARS-COV-2 COVID-19 MODERNA 12+ YRS VACCINE 2021-04-24 00:00:00 Completed [facility] SARS-COV-2 COVID-19 MODERNA 12+ YRS VACCINE 2021-04-24 00:00:00 Completed [facility] SARS-COV-2 COVID-19 MODERNA 12+ YRS VACCINE 2021-04-24 00:00:00 Completed [facility] SARS-COV-2 COVID-19 MODERNA 12+ YRS VACCINE 2021-04-24 00:00:00 Completed [facility] SARS-COV-2 COVID-19 MODERNA 12+ YRS VACCINE 2021-04-24 00:00:00 Completed [facility] SARS-COV-2 COVID-19 MODERNA 12+ YRS VACCINE 2021-04-24 00:00:00 Completed [facility] SARS-COV-2 COVID-19 MODERNA VACCINE 2021-04-24 00:00:00 Completed [facility] SARS-COV-2 COVID-19 MODERNA 12+ YRS VACCINE 2021-04-24 00:00:00 Completed [facility] SARS-COV-2 COVID-19 MODERNA 12+ YRS VACCINE 2021-04-24 00:00:00 Completed [facility] SARS-COV-2 COVID-19 MODERNA 12+ YRS VACCINE 2021-04-24 00:00:00 Completed [facility] SARS-COV-2 COVID-19 MODERNA 12+ YRS VACCINE 2021-04-24 00:00:00 Completed [facility] SARS-COV-2 COVID-19 MODERNA 12+ YRS VACCINE 2021-04-24 00:00:00 Completed [facility] SARS-COV-2 COVID-19 MODERNA 12+ YRS VACCINE 2021-04-24 00:00:00 Completed [facility] SARS-COV-2 COVID-19 MODERNA 12+ YRS VACCINE 2021-04-24 00:00:00 Completed [facility] SARS-COV-2 COVID-19 MODERNA 12+ YRS VACCINE 2021-04-24 00:00:00 Completed [facility] SARS-COV-2 COVID-19 MODERNA VACCINE 2021-04-24 00:00:00 Completed [facility] SARS-COV-2 COVID-19 MODERNA 12+ YRS VACCINE 2021-04-24 00:00:00 Completed [facility] SARS-COV-2 COVID-19 MODERNA 12+ YRS VACCINE 2021-04-24 00:00:00 Completed [facility] SARS-COV-2 COVID-19 MODERNA 12+ YRS VACCINE 2021-04-24 00:00:00 Completed [facility] SARS-COV-2 COVID-19 MODERNA 12+ YRS VACCINE 2021-04-24 00:00:00 Completed [facility] SARS-COV-2 COVID-19 MODERNA 12+ YRS VACCINE 2021-04-24 00:00:00 Completed [facility] SARS-COV-2 COVID-19 MODERNA 12+ YRS VACCINE 2021-04-24 00:00:00 Completed [facility] SARS-COV-2 COVID-19 MODERNA 12+ YRS VACCINE 2021-04-24 00:00:00 Completed [facility] SARS-COV-2 COVID-19 MODERNA VACCINE 2021-04-24 00:00:00 Completed [facility] SARS-COV-2 COVID-19 MODERNA 12+ YRS VACCINE 2021-04-24 00:00:00 Completed [facility] SARS-COV-2 COVID-19 MODERNA 12+ YRS VACCINE 2021-04-24 00:00:00 Completed [facility] SARS-COV-2 COVID-19 MODERNA 12+ YRS VACCINE 2021-04-24 00:00:00 Completed [facility] SARS-COV-2 COVID-19 MODERNA 12+ YRS VACCINE 2021-04-24 00:00:00 Completed [facility] SARS-COV-2 COVID-19 MODERNA 12+ YRS VACCINE 2021-04-24 00:00:00 Completed [facility] SARS-COV-2 COVID-19 MODERNA 12+ YRS VACCINE 2021-04-24 00:00:00 Completed [facility] SARS-COV-2 COVID-19 MODERNA 12+ YRS VACCINE 2021-04-24 00:00:00 Completed [facility] SARS-COV-2 COVID-19 MODERNA 12+ YRS VACCINE 2021-04-24 00:00:00 Completed [facility] SARS-COV-2 COVID-19 MODERNA 12+ YRS VACCINE 2021-04-24 00:00:00 Completed [facility] SARS-COV-2 COVID-19 MODERNA 12+ YRS VACCINE 2021-04-24 00:00:00 Completed [facility] SARS-COV-2 COVID-19 MODERNA 12+ YRS VACCINE 2021-04-24 00:00:00 Completed [facility] SARS-COV-2 COVID-19 MODERNA 12+ YRS VACCINE 2021-04-24 00:00:00 Completed [facility] SARS-COV-2 COVID-19 MODERNA 12+ YRS VACCINE 2021-04-24 00:00:00 Completed [facility] SARS-COV-2 COVID-19 MODERNA 12+ YRS VACCINE 2021-04-24 00:00:00 Completed [facility] SARS-COV-2 COVID-19 MODERNA 12+ YRS VACCINE 2021-04-24 00:00:00 Completed [facility] SARS-COV-2 COVID-19 MODERNA 12+ YRS VACCINE 2021-04-24 00:00:00 Completed [facility] SARS-COV-2 COVID-19 MODERNA 12+ YRS VACCINE 2021-04-24 00:00:00 Completed [facility] SARS-COV-2 COVID-19 MODERNA 12+ YRS VACCINE 2021-04-24 00:00:00 Completed [facility] SARS-COV-2 COVID-19 MODERNA 12+ YRS VACCINE 2021-04-24 00:00:00 Completed [facility] SARS-COV-2 COVID-19 MODERNA 12+ YRS VACCINE 2021-04-24 00:00:00 Completed [facility] SARS-COV-2 COVID-19 MODERNA 12+ YRS VACCINE 2021-04-24 00:00:00 Completed [facility] SARS-COV-2 COVID-19 MODERNA 12+ YRS VACCINE 2021-04-24 00:00:00 Completed [facility] SARS-COV-2 COVID-19 MODERNA 12+ YRS VACCINE 2021-04-24 00:00:00 Completed [facility] SARS-COV-2 COVID-19 MODERNA 12+ YRS VACCINE 2021-04-24 00:00:00 Completed [facility] SARS-COV-2 COVID-19 MODERNA 12+ YRS VACCINE 2021-04-24 00:00:00 Completed [facility] SARS-COV-2 COVID-19 MODERNA 12+ YRS VACCINE 2021-04-24 00:00:00 Completed [facility] SARS-COV-2 COVID-19 MODERNA 12+ YRS VACCINE 2021-04-24 00:00:00 Completed [facility] SARS-COV-2 COVID-19 MODERNA 12+ YRS VACCINE 2021-04-24 00:00:00 Completed [facility] SARS-COV-2 COVID-19 MODERNA 12+ YRS VACCINE 2021-04-24 00:00:00 Completed [facility] SARS-COV-2 COVID-19 MODERNA 12+ YRS VACCINE 2021-04-24 00:00:00 Completed [facility] Pneumococcal 13 Conjugate, PCV13 (Prevnar 13) 2020-01-06 00:00:00 Completed [facility] Pneumococcal 13 Conjugate, PCV13 (Prevnar 13) 2020-01-06 00:00:00 Completed [facility] Pneumococcal 13 Conjugate, PCV13 (Prevnar 13) 2020-01-06 00:00:00 Completed [facility] Pneumococcal 13 Conjugate, PCV13 (Prevnar 13) 2020-01-06 00:00:00 Completed [facility] Pneumococcal 13 Conjugate, PCV13 (Prevnar 13) 2020-01-06 00:00:00 Completed [facility] Pneumococcal 13 Conjugate, PCV13 (Prevnar 13) 2020-01-06 00:00:00 Completed [facility] Pneumococcal 13 Conjugate, PCV13 (Prevnar 13) 2020-01-06 00:00:00 Completed [facility] Pneumococcal 13 Conjugate, PCV13 (Prevnar 13) 2020-01-06 00:00:00 Completed [facility] Pneumococcal 13 Conjugate, PCV13 (Prevnar 13) 2020-01-06 00:00:00 Completed [facility] Pneumococcal 13 Conjugate, PCV13 (Prevnar 13) 2020-01-06 00:00:00 Completed [facility] Pneumococcal 13 Conjugate, PCV13 (Prevnar 13) 2020-01-06 00:00:00 Completed [facility] Pneumococcal 13 Conjugate, PCV13 (Prevnar 13) 2020-01-06 00:00:00 Completed [facility] Pneumococcal 13 Conjugate, PCV13 (Prevnar 13) 2020-01-06 00:00:00 Completed [facility] Pneumococcal 13 Conjugate, PCV13 (Prevnar 13) 2020-01-06 00:00:00 Completed [facility] Pneumococcal 13 Conjugate, PCV13 (Prevnar 13) 2020-01-06 00:00:00 Completed [facility] Pneumococcal 13 Conjugate, PCV13 (Prevnar 13) 2020-01-06 00:00:00 Completed [facility] Pneumococcal 13 Conjugate, PCV13 (Prevnar 13) 2020-01-06 00:00:00 Completed [facility] Pneumococcal 13 Conjugate, PCV13 (Prevnar 13) 2020-01-06 00:00:00 Completed [facility] Pneumococcal 13 Conjugate, PCV13 (Prevnar 13) 2020-01-06 00:00:00 Completed [facility] Pneumococcal 13 Conjugate, PCV13 (Prevnar 13) 2020-01-06 00:00:00 Completed [facility] Pneumococcal 13 Conjugate, PCV13 (Prevnar 13) 2020-01-06 00:00:00 Completed [facility] Pneumococcal 13 Conjugate, PCV13 (Prevnar 13) 2020-01-06 00:00:00 Completed [facility] Pneumococcal 13 Conjugate, PCV13 (Prevnar 13) 2020-01-06 00:00:00 Completed [facility] Pneumococcal 13 Conjugate, PCV13 (Prevnar 13) 2020-01-06 00:00:00 Completed [facility] Pneumococcal 13 Conjugate, PCV13 (Prevnar 13) 2020-01-06 00:00:00 Completed [facility] Pneumococcal 13 Conjugate, PCV13 (Prevnar 13) 2020-01-06 00:00:00 Completed [facility] Pneumococcal 13 Conjugate, PCV13 (Prevnar 13) 2020-01-06 00:00:00 Completed [facility] Pneumococcal 13 Conjugate, PCV13 (Prevnar 13) 2020-01-06 00:00:00 Completed [facility] Pneumococcal 13 Conjugate, PCV13 (Prevnar 13) 2020-01-06 00:00:00 Completed [facility] Pneumococcal 13 Conjugate, PCV13 (Prevnar 13) 2020-01-06 00:00:00 Completed [facility] Pneumococcal 13 Conjugate, PCV13 (Prevnar 13) 2020-01-06 00:00:00 Completed [facility] Pneumococcal 13 Conjugate, PCV13 (Prevnar 13) 2020-01-06 00:00:00 Completed [facility] Pneumococcal 13 Conjugate, PCV13 (Prevnar 13) 2020-01-06 00:00:00 Completed [facility] Pneumococcal 13 Conjugate, PCV13 (Prevnar 13) 2020-01-06 00:00:00 Completed [facility] Pneumococcal 13 Conjugate, PCV13 (Prevnar 13) 2020-01-06 00:00:00 Completed [facility] Pneumococcal 13 Conjugate, PCV13 (Prevnar 13) 2020-01-06 00:00:00 Completed [facility] Pneumococcal 13 Conjugate, PCV13 (Prevnar 13) 2020-01-06 00:00:00 Completed [facility] Pneumococcal 13 Conjugate, PCV13 (Prevnar 13) 2020-01-06 00:00:00 Completed [facility] Pneumococcal 13 Conjugate, PCV13 (Prevnar 13) 2020-01-06 00:00:00 Completed [facility] Pneumococcal 13 Conjugate, PCV13 (Prevnar 13) 2020-01-06 00:00:00 Completed [facility] Pneumococcal 13 Conjugate, PCV13 (Prevnar 13) 2020-01-06 00:00:00 Completed [facility] Pneumococcal 13 Conjugate, PCV13 (Prevnar 13) 2020-01-06 00:00:00 Completed [facility] Pneumococcal 13 Conjugate, PCV13 (Prevnar 13) 2020-01-06 00:00:00 Completed [facility] Pneumococcal 13 Conjugate, PCV13 (Prevnar 13) 2020-01-06 00:00:00 Completed [facility] Pneumococcal 13 Conjugate, PCV13 (Prevnar 13) 2020-01-06 00:00:00 Completed [facility] Pneumococcal 13 Conjugate, PCV13 (Prevnar 13) 2020-01-06 00:00:00 Completed [facility] Pneumococcal 13 Conjugate, PCV13 (Prevnar 13) 2020-01-06 00:00:00 Completed [facility] Pneumococcal 13 Conjugate, PCV13 (Prevnar 13) 2020-01-06 00:00:00 Completed [facility] Pneumococcal 13 Conjugate, PCV13 (Prevnar 13) 2020-01-06 00:00:00 Completed [facility] Pneumococcal 13 Conjugate, PCV13 (Prevnar 13) 2020-01-06 00:00:00 Completed [facility] Pneumococcal 13 Conjugate, PCV13 (Prevnar 13) 2020-01-06 00:00:00 Completed [facility] Pneumococcal 13 Conjugate, PCV13 (Prevnar 13) 2020-01-06 00:00:00 Completed [facility] Pneumococcal 13 Conjugate, PCV13 (Prevnar 13) 2020-01-06 00:00:00 Completed [facility] Pneumococcal 13 Conjugate, PCV13 (Prevnar 13) 2020-01-06 00:00:00 Completed [facility] Pneumococcal 13 Conjugate, PCV13 (Prevnar 13) 2020-01-06 00:00:00 Completed [facility] Pneumococcal 13 Conjugate, PCV13 (Prevnar 13) 2020-01-06 00:00:00 Completed [facility] Pneumococcal 13 Conjugate, PCV13 (Prevnar 13) 2020-01-06 00:00:00 Completed [facility] Pneumococcal 13 Conjugate, PCV13 (Prevnar 13) 2020-01-06 00:00:00 Completed [facility] Pneumococcal 13 Conjugate, PCV13 (Prevnar 13) 2020-01-06 00:00:00 Completed [facility] Pneumococcal 13 Conjugate, PCV13 (Prevnar 13) 2020-01-06 00:00:00 Completed [facility] Pneumococcal 13 Conjugate, PCV13 (Prevnar 13) 2020-01-06 00:00:00 Completed [facility] Pneumococcal 13 Conjugate, PCV13 (Prevnar 13) 2020-01-06 00:00:00 Completed [facility] Pneumococcal 13 Conjugate, PCV13 (Prevnar 13) 2020-01-06 00:00:00 Completed [facility] Pneumococcal 13 Conjugate, PCV13 (Prevnar 13) 2020-01-06 00:00:00 Completed [facility] Pneumococcal 13 Conjugate, PCV13 (Prevnar 13) 2020-01-06 00:00:00 Completed [facility] Pneumococcal 13 Conjugate, PCV13 (Prevnar 13) 2020-01-06 00:00:00 Completed [facility] Pneumococcal 13 Conjugate, PCV13 (Prevnar 13) 2020-01-06 00:00:00 Completed [facility] Pneumococcal 13 Conjugate, PCV13 (Prevnar 13) 2020-01-06 00:00:00 Completed [facility] Pneumococcal 13 Conjugate, PCV13 (Prevnar 13) 2020-01-06 00:00:00 Completed [facility] Pneumococcal 13 Conjugate, PCV13 (Prevnar 13) 2020-01-06 00:00:00 Completed [facility] Pneumococcal 13 Conjugate, PCV13 (Prevnar 13) 2020-01-06 00:00:00 Completed [facility] Pneumococcal 13 Conjugate, PCV13 (Prevnar 13) 2020-01-06 00:00:00 Completed [facility] Pneumococcal 13 Conjugate, PCV13 (Prevnar 13) 2020-01-06 00:00:00 Completed [facility] Pneumococcal 13 Conjugate, PCV13 (Prevnar 13) 2020-01-06 00:00:00 Completed [facility] Pneumococcal 13 Conjugate, PCV13 (Prevnar 13) 2020-01-06 00:00:00 Completed [facility] Pneumococcal 13 Conjugate, PCV13 (Prevnar 13) 2020-01-06 00:00:00 Completed [facility] Pneumococcal 13 Conjugate, PCV13 (Prevnar 13) 2020-01-06 00:00:00 Completed [facility] Pneumococcal 13 Conjugate, PCV13 (Prevnar 13) 2020-01-06 00:00:00 Completed [facility] Pneumococcal 13 Conjugate, PCV13 (Prevnar 13) 2020-01-06 00:00:00 Completed [facility] Pneumococcal 13 Conjugate, PCV13 (Prevnar 13) 2020-01-06 00:00:00 Completed [facility] Pneumococcal 13 Conjugate, PCV13 (Prevnar 13) 2020-01-06 00:00:00 Completed [facility] Pneumococcal 13 Conjugate, PCV13 (Prevnar 13) 2020-01-06 00:00:00 Completed [facility] Pneumococcal 13 Conjugate, PCV13 (Prevnar 13) 2020-01-06 00:00:00 Completed [facility] Pneumococcal 13 Conjugate, PCV13 (Prevnar 13) 2020-01-06 00:00:00 Completed [facility] Pneumococcal 13 Conjugate, PCV13 (Prevnar 13) 2020-01-06 00:00:00 Completed [facility] Pneumococcal 13 Conjugate, PCV13 (Prevnar 13) 2020-01-06 00:00:00 Completed [facility] Pneumococcal 13 Conjugate, PCV13 (Prevnar 13) 2020-01-06 00:00:00 Completed [facility] Pneumococcal 13 Conjugate, PCV13 (Prevnar 13) 2020-01-06 00:00:00 Completed [facility] Pneumococcal 13 Conjugate, PCV13 (Prevnar 13) 2020-01-06 00:00:00 Completed [facility] Pneumococcal 13 Conjugate, PCV13 (Prevnar 13) 2020-01-06 00:00:00 Completed [facility] pneumococcal, unspecified formulation pneumococcal, unspecified formulation 2019-11-10 00:00:00 Completed [facility] zoster, unspecified formulation zoster, unspecified formulation 2019-11-10 00:00:00 Completed [facility] Pneumococcal Polysaccharide, PPSV23 (PNEUMOVAX) 2019-01-06 00:00:00 Completed [facility] Pneumococcal Polysaccharide, PPSV23 (PNEUMOVAX) 2019-01-06 00:00:00 Completed [facility] Pneumococcal Polysaccharide, PPSV23 (PNEUMOVAX) 2019-01-06 00:00:00 Completed [facility] Pneumococcal Polysaccharide, PPSV23 (PNEUMOVAX) 2019-01-06 00:00:00 Completed [facility] Pneumococcal Polysaccharide, PPSV23 (PNEUMOVAX) 2019-01-06 00:00:00 Completed [facility] Pneumococcal Polysaccharide, PPSV23 (PNEUMOVAX) 2019-01-06 00:00:00 Completed [facility] Pneumococcal Polysaccharide, PPSV23 (PNEUMOVAX) 2019-01-06 00:00:00 Completed [facility] Pneumococcal Polysaccharide, PPSV23 (PNEUMOVAX) 2019-01-06 00:00:00 Completed [facility] Pneumococcal Polysaccharide, PPSV23 (PNEUMOVAX) 2019-01-06 00:00:00 Completed [facility] Pneumococcal Polysaccharide, PPSV23 (PNEUMOVAX) 2019-01-06 00:00:00 Completed [facility] Pneumococcal Polysaccharide, PPSV23 (PNEUMOVAX) 2019-01-06 00:00:00 Completed [facility] Pneumococcal Polysaccharide, PPSV23 (PNEUMOVAX) 2019-01-06 00:00:00 Completed [facility] Pneumococcal Polysaccharide, PPSV23 (PNEUMOVAX) 2019-01-06 00:00:00 Completed [facility] Pneumococcal Polysaccharide, PPSV23 (PNEUMOVAX) 2019-01-06 00:00:00 Completed [facility] Pneumococcal Polysaccharide, PPSV23 (PNEUMOVAX) 2019-01-06 00:00:00 Completed [facility] Pneumococcal Polysaccharide, PPSV23 (PNEUMOVAX) 2019-01-06 00:00:00 Completed [facility] Pneumococcal Polysaccharide, PPSV23 (PNEUMOVAX) 2019-01-06 00:00:00 Completed [facility] Pneumococcal Polysaccharide, PPSV23 (PNEUMOVAX) 2019-01-06 00:00:00 Completed [facility] Pneumococcal Polysaccharide, PPSV23 (PNEUMOVAX) 2019-01-06 00:00:00 Completed [facility] Pneumococcal Polysaccharide, PPSV23 (PNEUMOVAX) 2019-01-06 00:00:00 Completed [facility] Pneumococcal Polysaccharide, PPSV23 (PNEUMOVAX) 2019-01-06 00:00:00 Completed [facility] Pneumococcal Polysaccharide, PPSV23 (PNEUMOVAX) 2019-01-06 00:00:00 Completed [facility] Pneumococcal Polysaccharide, PPSV23 (PNEUMOVAX) 2019-01-06 00:00:00 Completed [facility] Pneumococcal Polysaccharide, PPSV23 (PNEUMOVAX) 2019-01-06 00:00:00 Completed [facility] Pneumococcal Polysaccharide, PPSV23 (PNEUMOVAX) 2019-01-06 00:00:00 Completed [facility] Pneumococcal Polysaccharide, PPSV23 (PNEUMOVAX) 2019-01-06 00:00:00 Completed [facility] Pneumococcal Polysaccharide, PPSV23 (PNEUMOVAX) 2019-01-06 00:00:00 Completed [facility] Pneumococcal Polysaccharide, PPSV23 (PNEUMOVAX) 2019-01-06 00:00:00 Completed [facility] Pneumococcal Polysaccharide, PPSV23 (PNEUMOVAX) 2019-01-06 00:00:00 Completed [facility] Pneumococcal Polysaccharide, PPSV23 (PNEUMOVAX) 2019-01-06 00:00:00 Completed [facility] Pneumococcal Polysaccharide, PPSV23 (PNEUMOVAX) 2019-01-06 00:00:00 Completed [facility] Pneumococcal Polysaccharide, PPSV23 (PNEUMOVAX) 2019-01-06 00:00:00 Completed [facility] Pneumococcal Polysaccharide, PPSV23 (PNEUMOVAX) 2019-01-06 00:00:00 Completed [facility] Pneumococcal Polysaccharide, PPSV23 (PNEUMOVAX) 2019-01-06 00:00:00 Completed [facility] Pneumococcal Polysaccharide, PPSV23 (PNEUMOVAX) 2019-01-06 00:00:00 Completed [facility] Pneumococcal Polysaccharide, PPSV23 (PNEUMOVAX) 2019-01-06 00:00:00 Completed [facility] Pneumococcal Polysaccharide, PPSV23 (PNEUMOVAX) 2019-01-06 00:00:00 Completed [facility] Pneumococcal Polysaccharide, PPSV23 (PNEUMOVAX) 2019-01-06 00:00:00 Completed [facility] Pneumococcal Polysaccharide, PPSV23 (PNEUMOVAX) 2019-01-06 00:00:00 Completed [facility] Pneumococcal Polysaccharide, PPSV23 (PNEUMOVAX) 2019-01-06 00:00:00 Completed [facility] Pneumococcal Polysaccharide, PPSV23 (PNEUMOVAX) 2019-01-06 00:00:00 Completed [facility] Pneumococcal Polysaccharide, PPSV23 (PNEUMOVAX) 2019-01-06 00:00:00 Completed [facility] Pneumococcal Polysaccharide, PPSV23 (PNEUMOVAX) 2019-01-06 00:00:00 Completed [facility] Pneumococcal Polysaccharide, PPSV23 (PNEUMOVAX) 2019-01-06 00:00:00 Completed [facility] Pneumococcal Polysaccharide, PPSV23 (PNEUMOVAX) 2019-01-06 00:00:00 Completed [facility] Pneumococcal Polysaccharide, PPSV23 (PNEUMOVAX) 2019-01-06 00:00:00 Completed [facility] Pneumococcal Polysaccharide, PPSV23 (PNEUMOVAX) 2019-01-06 00:00:00 Completed [facility] Pneumococcal Polysaccharide, PPSV23 (PNEUMOVAX) 2019-01-06 00:00:00 Completed [facility] Pneumococcal Polysaccharide, PPSV23 (PNEUMOVAX) 2019-01-06 00:00:00 Completed [facility] Pneumococcal Polysaccharide, PPSV23 (PNEUMOVAX) 2019-01-06 00:00:00 Completed [facility] Pneumococcal Polysaccharide, PPSV23 (PNEUMOVAX) 2019-01-06 00:00:00 Completed [facility] Pneumococcal Polysaccharide, PPSV23 (PNEUMOVAX) 2019-01-06 00:00:00 Completed [facility] Pneumococcal Polysaccharide, PPSV23 (PNEUMOVAX) 2019-01-06 00:00:00 Completed [facility] Pneumococcal Polysaccharide, PPSV23 (PNEUMOVAX) 2019-01-06 00:00:00 Completed [facility] Pneumococcal Polysaccharide, PPSV23 (PNEUMOVAX) 2019-01-06 00:00:00 Completed [facility] Pneumococcal Polysaccharide, PPSV23 (PNEUMOVAX) 2019-01-06 00:00:00 Completed [facility] Pneumococcal Polysaccharide, PPSV23 (PNEUMOVAX) 2019-01-06 00:00:00 Completed [facility] Pneumococcal Polysaccharide, PPSV23 (PNEUMOVAX) 2019-01-06 00:00:00 Completed [facility] Pneumococcal Polysaccharide, PPSV23 (PNEUMOVAX) 2019-01-06 00:00:00 Completed [facility] Pneumococcal Polysaccharide, PPSV23 (PNEUMOVAX) 2019-01-06 00:00:00 Completed [facility] Pneumococcal Polysaccharide, PPSV23 (PNEUMOVAX) 2019-01-06 00:00:00 Completed [facility] Pneumococcal Polysaccharide, PPSV23 (PNEUMOVAX) 2019-01-06 00:00:00 Completed [facility] Pneumococcal Polysaccharide, PPSV23 (PNEUMOVAX) 2019-01-06 00:00:00 Completed [facility] Pneumococcal Polysaccharide, PPSV23 (PNEUMOVAX) 2019-01-06 00:00:00 Completed [facility] Pneumococcal Polysaccharide, PPSV23 (PNEUMOVAX) 2019-01-06 00:00:00 Completed [facility] Pneumococcal Polysaccharide, PPSV23 (PNEUMOVAX) 2019-01-06 00:00:00 Completed [facility] Pneumococcal Polysaccharide, PPSV23 (PNEUMOVAX) 2019-01-06 00:00:00 Completed [facility] Pneumococcal Polysaccharide, PPSV23 (PNEUMOVAX) 2019-01-06 00:00:00 Completed [facility] Pneumococcal Polysaccharide, PPSV23 (PNEUMOVAX) 2019-01-06 00:00:00 Completed [facility] Pneumococcal Polysaccharide, PPSV23 (PNEUMOVAX) 2019-01-06 00:00:00 Completed [facility] Pneumococcal Polysaccharide, PPSV23 (PNEUMOVAX) 2019-01-06 00:00:00 Completed [facility] Pneumococcal Polysaccharide, PPSV23 (PNEUMOVAX) 2019-01-06 00:00:00 Completed [facility] Pneumococcal Polysaccharide, PPSV23 (PNEUMOVAX) 2019-01-06 00:00:00 Completed [facility] Pneumococcal Polysaccharide, PPSV23 (PNEUMOVAX) 2019-01-06 00:00:00 Completed [facility] Pneumococcal Polysaccharide, PPSV23 (PNEUMOVAX) 2019-01-06 00:00:00 Completed [facility] Pneumococcal Polysaccharide, PPSV23 (PNEUMOVAX) 2019-01-06 00:00:00 Completed [facility] Pneumococcal Polysaccharide, PPSV23 (PNEUMOVAX) 2019-01-06 00:00:00 Completed [facility] Pneumococcal Polysaccharide, PPSV23 (PNEUMOVAX) 2019-01-06 00:00:00 Completed [facility] Pneumococcal Polysaccharide, PPSV23 (PNEUMOVAX) 2019-01-06 00:00:00 Completed [facility] Pneumococcal Polysaccharide, PPSV23 (PNEUMOVAX) 2019-01-06 00:00:00 Completed [facility] Pneumococcal Polysaccharide, PPSV23 (PNEUMOVAX) 2019-01-06 00:00:00 Completed [facility] Pneumococcal Polysaccharide, PPSV23 (PNEUMOVAX) 2019-01-06 00:00:00 Completed [facility] Pneumococcal Polysaccharide, PPSV23 (PNEUMOVAX) 2019-01-06 00:00:00 Completed [facility] Pneumococcal Polysaccharide, PPSV23 (PNEUMOVAX) 2019-01-06 00:00:00 Completed [facility] Pneumococcal Polysaccharide, PPSV23 (PNEUMOVAX) 2019-01-06 00:00:00 Completed [facility] Pneumococcal Polysaccharide, PPSV23 (PNEUMOVAX) 2019-01-06 00:00:00 Completed [facility] Pneumococcal Polysaccharide, PPSV23 (PNEUMOVAX) 2019-01-06 00:00:00 Completed [facility] Pneumococcal Polysaccharide, PPSV23 (PNEUMOVAX) 2019-01-06 00:00:00 Completed [facility] Pneumococcal Polysaccharide, PPSV23 (PNEUMOVAX) 2019-01-06 00:00:00 Completed [facility] Pneumococcal Polysaccharide, PPSV23 (PNEUMOVAX) 2019-01-06 00:00:00 Completed [facility] Pneumococcal Polysaccharide, PPSV23 (PNEUMOVAX) 2018-01-06 00:00:00 Completed [facility] Pneumococcal Polysaccharide, PPSV23 (PNEUMOVAX) 2018-01-06 00:00:00 Completed [facility] Pneumococcal Polysaccharide, PPSV23 (PNEUMOVAX) 2018-01-06 00:00:00 Completed [facility] Pneumococcal Polysaccharide, PPSV23 (PNEUMOVAX) 2018-01-06 00:00:00 Completed [facility] Pneumococcal Polysaccharide, PPSV23 (PNEUMOVAX) 2018-01-06 00:00:00 Completed [facility] Pneumococcal Polysaccharide, PPSV23 (PNEUMOVAX) 2018-01-06 00:00:00 Completed [facility] Pneumococcal Polysaccharide, PPSV23 (PNEUMOVAX) 2018-01-06 00:00:00 Completed [facility] Pneumococcal Polysaccharide, PPSV23 (PNEUMOVAX) 2018-01-06 00:00:00 Completed [facility] Pneumococcal Polysaccharide, PPSV23 (PNEUMOVAX) 2018-01-06 00:00:00 Completed [facility] Pneumococcal Polysaccharide, PPSV23 (PNEUMOVAX) 2018-01-06 00:00:00 Completed [facility] Pneumococcal Polysaccharide, PPSV23 (PNEUMOVAX) 2018-01-06 00:00:00 Completed [facility] Pneumococcal Polysaccharide, PPSV23 (PNEUMOVAX) 2018-01-06 00:00:00 Completed [facility] Pneumococcal Polysaccharide, PPSV23 (PNEUMOVAX) 2018-01-06 00:00:00 Completed [facility] Pneumococcal Polysaccharide, PPSV23 (PNEUMOVAX) 2018-01-06 00:00:00 Completed [facility] Pneumococcal Polysaccharide, PPSV23 (PNEUMOVAX) 2018-01-06 00:00:00 Completed [facility] Pneumococcal Polysaccharide, PPSV23 (PNEUMOVAX) 2018-01-06 00:00:00 Completed [facility] Pneumococcal Polysaccharide, PPSV23 (PNEUMOVAX) 2018-01-06 00:00:00 Completed [facility] Pneumococcal Polysaccharide, PPSV23 (PNEUMOVAX) 2018-01-06 00:00:00 Completed [facility] Pneumococcal Polysaccharide, PPSV23 (PNEUMOVAX) 2018-01-06 00:00:00 Completed [facility] Pneumococcal Polysaccharide, PPSV23 (PNEUMOVAX) 2018-01-06 00:00:00 Completed [facility] Pneumococcal Polysaccharide, PPSV23 (PNEUMOVAX) 2018-01-06 00:00:00 Completed [facility] Pneumococcal Polysaccharide, PPSV23 (PNEUMOVAX) 2018-01-06 00:00:00 Completed [facility] Pneumococcal Polysaccharide, PPSV23 (PNEUMOVAX) 2018-01-06 00:00:00 Completed [facility] Pneumococcal Polysaccharide, PPSV23 (PNEUMOVAX) 2018-01-06 00:00:00 Completed [facility] Pneumococcal Polysaccharide, PPSV23 (PNEUMOVAX) 2018-01-06 00:00:00 Completed [facility] Pneumococcal Polysaccharide, PPSV23 (PNEUMOVAX) 2018-01-06 00:00:00 Completed [facility] Pneumococcal Polysaccharide, PPSV23 (PNEUMOVAX) 2018-01-06 00:00:00 Completed [facility] Pneumococcal Polysaccharide, PPSV23 (PNEUMOVAX) 2018-01-06 00:00:00 Completed [facility] Pneumococcal Polysaccharide, PPSV23 (PNEUMOVAX) 2018-01-06 00:00:00 Completed [facility] Pneumococcal Polysaccharide, PPSV23 (PNEUMOVAX) 2018-01-06 00:00:00 Completed [facility] Pneumococcal Polysaccharide, PPSV23 (PNEUMOVAX) 2018-01-06 00:00:00 Completed [facility] Pneumococcal Polysaccharide, PPSV23 (PNEUMOVAX) 2018-01-06 00:00:00 Completed [facility] Pneumococcal Polysaccharide, PPSV23 (PNEUMOVAX) 2018-01-06 00:00:00 Completed [facility] Pneumococcal Polysaccharide, PPSV23 (PNEUMOVAX) 2018-01-06 00:00:00 Completed [facility] Pneumococcal Polysaccharide, PPSV23 (PNEUMOVAX) 2018-01-06 00:00:00 Completed [facility] Pneumococcal Polysaccharide, PPSV23 (PNEUMOVAX) 2018-01-06 00:00:00 Completed [facility] Pneumococcal Polysaccharide, PPSV23 (PNEUMOVAX) 2018-01-06 00:00:00 Completed [facility] Pneumococcal Polysaccharide, PPSV23 (PNEUMOVAX) 2018-01-06 00:00:00 Completed [facility] Pneumococcal Polysaccharide, PPSV23 (PNEUMOVAX) 2018-01-06 00:00:00 Completed [facility] Pneumococcal Polysaccharide, PPSV23 (PNEUMOVAX) 2018-01-06 00:00:00 Completed [facility] Pneumococcal Polysaccharide, PPSV23 (PNEUMOVAX) 2018-01-06 00:00:00 Completed [facility] Pneumococcal Polysaccharide, PPSV23 (PNEUMOVAX) 2018-01-06 00:00:00 Completed [facility] Pneumococcal Polysaccharide, PPSV23 (PNEUMOVAX) 2018-01-06 00:00:00 Completed [facility] Pneumococcal Polysaccharide, PPSV23 (PNEUMOVAX) 2018-01-06 00:00:00 Completed [facility] Pneumococcal Polysaccharide, PPSV23 (PNEUMOVAX) 2018-01-06 00:00:00 Completed [facility] Pneumococcal Polysaccharide, PPSV23 (PNEUMOVAX) 2018-01-06 00:00:00 Completed [facility] Pneumococcal Polysaccharide, PPSV23 (PNEUMOVAX) 2018-01-06 00:00:00 Completed [facility] Pneumococcal Polysaccharide, PPSV23 (PNEUMOVAX) 2018-01-06 00:00:00 Completed [facility] Pneumococcal Polysaccharide, PPSV23 (PNEUMOVAX) 2018-01-06 00:00:00 Completed [facility] Pneumococcal Polysaccharide, PPSV23 (PNEUMOVAX) 2018-01-06 00:00:00 Completed [facility] Pneumococcal Polysaccharide, PPSV23 (PNEUMOVAX) 2018-01-06 00:00:00 Completed [facility] Pneumococcal Polysaccharide, PPSV23 (PNEUMOVAX) 2018-01-06 00:00:00 Completed [facility] Pneumococcal Polysaccharide, PPSV23 (PNEUMOVAX) 2018-01-06 00:00:00 Completed [facility] Pneumococcal Polysaccharide, PPSV23 (PNEUMOVAX) 2018-01-06 00:00:00 Completed [facility] Pneumococcal Polysaccharide, PPSV23 (PNEUMOVAX) 2018-01-06 00:00:00 Completed [facility] Pneumococcal Polysaccharide, PPSV23 (PNEUMOVAX) 2018-01-06 00:00:00 Completed [facility] Pneumococcal Polysaccharide, PPSV23 (PNEUMOVAX) 2018-01-06 00:00:00 Completed [facility] Pneumococcal Polysaccharide, PPSV23 (PNEUMOVAX) 2018-01-06 00:00:00 Completed [facility] Pneumococcal Polysaccharide, PPSV23 (PNEUMOVAX) 2018-01-06 00:00:00 Completed [facility] Pneumococcal Polysaccharide, PPSV23 (PNEUMOVAX) 2018-01-06 00:00:00 Completed [facility] Pneumococcal Polysaccharide, PPSV23 (PNEUMOVAX) 2018-01-06 00:00:00 Completed [facility] Pneumococcal Polysaccharide, PPSV23 (PNEUMOVAX) 2018-01-06 00:00:00 Completed [facility] Pneumococcal Polysaccharide, PPSV23 (PNEUMOVAX) 2018-01-06 00:00:00 Completed [facility] Pneumococcal Polysaccharide, PPSV23 (PNEUMOVAX) 2018-01-06 00:00:00 Completed [facility] Pneumococcal Polysaccharide, PPSV23 (PNEUMOVAX) 2018-01-06 00:00:00 Completed [facility] Pneumococcal Polysaccharide, PPSV23 (PNEUMOVAX) 2018-01-06 00:00:00 Completed [facility] Pneumococcal Polysaccharide, PPSV23 (PNEUMOVAX) 2018-01-06 00:00:00 Completed [facility] Pneumococcal Polysaccharide, PPSV23 (PNEUMOVAX) 2018-01-06 00:00:00 Completed [facility] Pneumococcal Polysaccharide, PPSV23 (PNEUMOVAX) 2018-01-06 00:00:00 Completed [facility] Pneumococcal Polysaccharide, PPSV23 (PNEUMOVAX) 2018-01-06 00:00:00 Completed [facility] Pneumococcal Polysaccharide, PPSV23 (PNEUMOVAX) 2018-01-06 00:00:00 Completed [facility] Pneumococcal Polysaccharide, PPSV23 (PNEUMOVAX) 2018-01-06 00:00:00 Completed [facility] Pneumococcal Polysaccharide, PPSV23 (PNEUMOVAX) 2018-01-06 00:00:00 Completed [facility] Pneumococcal Polysaccharide, PPSV23 (PNEUMOVAX) 2018-01-06 00:00:00 Completed [facility] Pneumococcal Polysaccharide, PPSV23 (PNEUMOVAX) 2018-01-06 00:00:00 Completed [facility] Pneumococcal Polysaccharide, PPSV23 (PNEUMOVAX) 2018-01-06 00:00:00 Completed [facility] Pneumococcal Polysaccharide, PPSV23 (PNEUMOVAX) 2018-01-06 00:00:00 Completed [facility] Pneumococcal Polysaccharide, PPSV23 (PNEUMOVAX) 2018-01-06 00:00:00 Completed [facility] Pneumococcal Polysaccharide, PPSV23 (PNEUMOVAX) 2018-01-06 00:00:00 Completed [facility] Pneumococcal Polysaccharide, PPSV23 (PNEUMOVAX) 2018-01-06 00:00:00 Completed [facility] Pneumococcal Polysaccharide, PPSV23 (PNEUMOVAX) 2018-01-06 00:00:00 Completed [facility] Pneumococcal Polysaccharide, PPSV23 (PNEUMOVAX) 2018-01-06 00:00:00 Completed [facility] Pneumococcal Polysaccharide, PPSV23 (PNEUMOVAX) 2018-01-06 00:00:00 Completed [facility] Pneumococcal Polysaccharide, PPSV23 (PNEUMOVAX) 2018-01-06 00:00:00 Completed [facility] Pneumococcal Polysaccharide, PPSV23 (PNEUMOVAX) 2018-01-06 00:00:00 [facility] Pneumococcal Polysaccharide, PPSV23 (PNEUMOVAX) 2018-01-06 00:00:00 Completed [facility] Pneumococcal Polysaccharide, PPSV23 (PNEUMOVAX) 2018-01-06 00:00:00 Completed [facility] Pneumococcal Polysaccharide, PPSV23 (PNEUMOVAX) 2018-01-06 00:00:00 Completed [facility] Pneumococcal Polysaccharide, PPSV23 (PNEUMOVAX) 2018-01-06 00:00:00 Completed [facility] Pneumococcal Polysaccharide, PPSV23 (PNEUMOVAX) 2018-01-06 00:00:00 Completed [facility] DTAP 2016-11-04 00:00:00 Completed [facility] DTAP 2016-11-04 00:00:00 Completed [facility] DTAP 2016-11-04 00:00:00 Completed [facility] DTAP 2016-11-04 00:00:00 Completed [facility] DTAP 2016-11-04 00:00:00 Completed [facility] DTAP 2016-11-04 00:00:00 Completed [facility] DTAP 2016-11-04 00:00:00 Completed [facility] DTAP 2016-11-04 00:00:00 Completed [facility] DTAP 2016-11-04 00:00:00 Completed [facility] DTAP 2016-11-04 00:00:00 Completed [facility] DTAP 2016-11-04 00:00:00 Completed [facility] DTAP 2016-11-04 00:00:00 Completed [facility] DTAP 2016-11-04 00:00:00 Completed [facility] DTAP 2016-11-04 00:00:00 Completed [facility] DTAP 2016-11-04 00:00:00 Completed [facility] DTAP 2016-11-04 00:00:00 Completed [facility] DTAP 2016-11-04 00:00:00 Completed [facility] DTAP 2016-11-04 00:00:00 Completed [facility] DTAP 2016-11-04 00:00:00 Completed [facility] DTAP 2016-11-04 00:00:00 Completed [facility] DTAP 2016-11-04 00:00:00 Completed [facility] DTAP 2016-11-04 00:00:00 Completed [facility] DTAP 2016-11-04 00:00:00 Completed [facility] DTAP 2016-11-04 00:00:00 Completed [facility] DTAP 2016-11-04 00:00:00 Completed [facility] DTAP 2016-11-04 00:00:00 Completed [facility] DTAP 2016-11-04 00:00:00 Completed [facility] DTAP 2016-11-04 00:00:00 Completed [facility] DTAP 2016-11-04 00:00:00 Completed [facility] DTAP 2016-11-04 00:00:00 Completed [facility] DTAP 2016-11-04 00:00:00 Completed [facility] DTAP 2016-11-04 00:00:00 Completed [facility] DTAP 2016-11-04 00:00:00 Completed [facility] DTAP 2016-11-04 00:00:00 Completed [facility] DTAP 2016-11-04 00:00:00 Completed [facility] DTAP 2016-11-04 00:00:00 Completed [facility] DTAP 2016-11-04 00:00:00 Completed [facility] DTAP 2016-11-04 00:00:00 Completed [facility] DTAP 2016-11-04 00:00:00 Completed [facility] DTAP 2016-11-04 00:00:00 Completed [facility] DTAP 2016-11-04 00:00:00 Completed [facility] DTAP 2016-11-04 00:00:00 Completed [facility] DTAP 2016-11-04 00:00:00 Completed [facility] DTAP 2016-11-04 00:00:00 Completed [facility] DTAP 2016-11-04 00:00:00 Completed [facility] DTAP 2016-11-04 00:00:00 Completed [facility] DTAP 2016-11-04 00:00:00 Completed [facility] DTAP 2016-11-04 00:00:00 Completed [facility] DTAP 2016-11-04 00:00:00 Completed [facility] DTAP 2016-11-04 00:00:00 Completed [facility] DTAP 2016-11-04 00:00:00 Completed [facility] DTAP 2016-11-04 00:00:00 Completed [facility] DTAP 2016-11-04 00:00:00 Completed [facility] DTAP 2016-11-04 00:00:00 Completed [facility] DTAP 2016-11-04 00:00:00 Completed [facility] DTAP 2016-11-04 00:00:00 Completed [facility] DTAP 2016-11-04 00:00:00 Completed [facility] DTAP 2016-11-04 00:00:00 Completed [facility] DTAP 2016-11-04 00:00:00 Completed [facility] DTAP 2016-11-04 00:00:00 Completed [facility] DTAP 2016-11-04 00:00:00 Completed [facility] DTAP 2016-11-04 00:00:00 Completed [facility] DTAP 2016-11-04 00:00:00 Completed [facility] DTAP 2016-11-04 00:00:00 Completed [facility] DTAP 2016-11-04 00:00:00 Completed [facility] DTAP 2016-11-04 00:00:00 Completed [facility] DTAP 2016-11-04 00:00:00 Completed [facility] DTAP 2016-11-04 00:00:00 Completed [facility] DTAP 2016-11-04 00:00:00 Completed [facility] DTAP 2016-11-04 00:00:00 Completed [facility] DTAP 2016-11-04 00:00:00 Completed [facility] DTAP 2016-11-04 00:00:00 Completed [facility] DTAP 2016-11-04 00:00:00 Completed [facility] DTAP 2016-11-04 00:00:00 Completed [facility] DTAP 2016-11-04 00:00:00 Completed [facility] DTAP 2016-11-04 00:00:00 Completed [facility] DTAP 2016-11-04 00:00:00 Completed [facility] DTAP 2016-11-04 00:00:00 Completed [facility] DTAP 2016-11-04 00:00:00 Completed [facility] DTAP 2016-11-04 00:00:00 Completed [facility] DTAP 2016-11-04 00:00:00 Completed [facility] DTAP 2016-11-04 00:00:00 Completed [facility] DTAP 2016-11-04 00:00:00 Completed [facility] DTAP 2016-11-04 00:00:00 Completed [facility] DTAP 2016-11-04 00:00:00 Completed [facility] DTAP 2016-11-04 00:00:00 Completed [facility] DTAP 2016-11-04 00:00:00 Completed [facility] DTAP 2016-11-04 00:00:00 Completed [facility] DTAP 2016-11-04 00:00:00 Completed [facility] DTAP 2016-11-04 00:00:00 Completed [facility] Zoster Vaccine Recombinant 2016-01-03 00:00:00 Completed [facility] Zoster Vaccine Recombinant 2016-01-03 00:00:00 Completed [facility] Zoster Vaccine Recombinant 2016-01-03 00:00:00 Completed [facility] Zoster Vaccine Recombinant 2016-01-03 00:00:00 Completed [facility] Zoster Vaccine Recombinant 2016-01-03 00:00:00 Completed [facility] Zoster Vaccine Recombinant 2016-01-03 00:00:00 Completed [facility] Zoster Vaccine Recombinant 2016-01-03 00:00:00 Completed [facility] Zoster Vaccine Recombinant 2016-01-03 00:00:00 Completed [facility] Zoster Vaccine Recombinant 2016-01-03 00:00:00 Completed [facility] Zoster Vaccine Recombinant 2016-01-03 00:00:00 Completed [facility] Zoster Vaccine Recombinant 2016-01-03 00:00:00 Completed [facility] Zoster Vaccine Recombinant 2016-01-03 00:00:00 Completed [facility] Zoster Vaccine Recombinant 2016-01-03 00:00:00 Completed [facility] Zoster Vaccine Recombinant 2016-01-03 00:00:00 Completed [facility] Zoster Vaccine Recombinant 2016-01-03 00:00:00 Completed [facility] Zoster Vaccine Recombinant 2016-01-03 00:00:00 Completed [facility] Zoster Vaccine Recombinant 2016-01-03 00:00:00 Completed [facility] Zoster Vaccine Recombinant 2016-01-03 00:00:00 Completed [facility] Zoster Vaccine Recombinant 2016-01-03 00:00:00 Completed [facility] Zoster Vaccine Recombinant 2016-01-03 00:00:00 Completed [facility] Zoster Vaccine Recombinant 2016-01-03 00:00:00 Completed [facility] Zoster Vaccine Recombinant 2016-01-03 00:00:00 Completed [facility] Zoster Vaccine Recombinant 2016-01-03 00:00:00 Completed [facility] Zoster Vaccine Recombinant 2016-01-03 00:00:00 Completed [facility] Zoster Vaccine Recombinant 2016-01-03 00:00:00 Completed [facility] Zoster Vaccine Recombinant 2016-01-03 00:00:00 Completed [facility] Zoster Vaccine Recombinant 2016-01-03 00:00:00 Completed [facility] Zoster Vaccine Recombinant 2016-01-03 00:00:00 Completed [facility] Zoster Vaccine Recombinant 2016-01-03 00:00:00 Completed [facility] Zoster Vaccine Recombinant 2016-01-03 00:00:00 Completed [facility] Zoster Vaccine Recombinant 2016-01-03 00:00:00 Completed [facility] Zoster Vaccine Recombinant 2016-01-03 00:00:00 Completed [facility] Zoster Vaccine Recombinant 2016-01-03 00:00:00 Completed [facility] Zoster Vaccine Recombinant 2016-01-03 00:00:00 Completed [facility] Zoster Vaccine Recombinant 2016-01-03 00:00:00 Completed [facility] Zoster Vaccine Recombinant 2016-01-03 00:00:00 Completed [facility] Zoster Vaccine Recombinant 2016-01-03 00:00:00 Completed [facility] Zoster Vaccine Recombinant 2016-01-03 00:00:00 Completed [facility] Zoster Vaccine Recombinant 2016-01-03 00:00:00 Completed [facility] Zoster Vaccine Recombinant 2016-01-03 00:00:00 Completed [facility] Zoster Vaccine Recombinant 2016-01-03 00:00:00 Completed [facility] Zoster Vaccine Recombinant 2016-01-03 00:00:00 Completed [facility] Zoster Vaccine Recombinant 2016-01-03 00:00:00 Completed [facility] Zoster Vaccine Recombinant 2016-01-03 00:00:00 Completed [facility] Zoster Vaccine Recombinant 2016-01-03 00:00:00 Completed [facility] Zoster Vaccine Recombinant 2016-01-03 00:00:00 Completed [facility] Zoster Vaccine Recombinant 2016-01-03 00:00:00 Completed [facility] Zoster Vaccine Recombinant 2016-01-03 00:00:00 Completed [facility] Zoster Vaccine Recombinant 2016-01-03 00:00:00 Completed [facility] Zoster Vaccine Recombinant 2016-01-03 00:00:00 Completed [facility] Zoster Vaccine Recombinant 2016-01-03 00:00:00 Completed [facility] Zoster Vaccine Recombinant 2016-01-03 00:00:00 Completed [facility] Zoster Vaccine Recombinant 2016-01-03 00:00:00 Completed [facility] Zoster Vaccine Recombinant 2016-01-03 00:00:00 Completed [facility] Zoster Vaccine Recombinant 2016-01-03 00:00:00 Completed [facility] Zoster Vaccine Recombinant 2016-01-03 00:00:00 Completed [facility] Zoster Vaccine Recombinant 2016-01-03 00:00:00 Completed [facility] Zoster Vaccine Recombinant 2016-01-03 00:00:00 Completed [facility] Zoster Vaccine Recombinant 2016-01-03 00:00:00 Completed [facility] Zoster Vaccine Recombinant 2016-01-03 00:00:00 Completed [facility] Zoster Vaccine Recombinant 2016-01-03 00:00:00 Completed [facility] Zoster Vaccine Recombinant 2016-01-03 00:00:00 Completed [facility] Zoster Vaccine Recombinant 2016-01-03 00:00:00 Completed [facility] Zoster Vaccine Recombinant 2016-01-03 00:00:00 Completed [facility] Zoster Vaccine Recombinant 2016-01-03 00:00:00 Completed [facility] Zoster Vaccine Recombinant 2016-01-03 00:00:00 Completed [facility] Zoster Vaccine Recombinant 2016-01-03 00:00:00 Completed [facility] Zoster Vaccine Recombinant 2016-01-03 00:00:00 Completed [facility] Zoster Vaccine Recombinant 2016-01-03 00:00:00 Completed [facility] Zoster Vaccine Recombinant 2016-01-03 00:00:00 Completed [facility] Zoster Vaccine Recombinant 2016-01-03 00:00:00 Completed [facility] Zoster Vaccine Recombinant 2016-01-03 00:00:00 Completed [facility] Zoster Vaccine Recombinant 2016-01-03 00:00:00 Completed [facility] Zoster Vaccine Recombinant 2016-01-03 00:00:00 Completed [facility] Zoster Vaccine Recombinant 2016-01-03 00:00:00 Completed [facility] Zoster Vaccine Recombinant 2016-01-03 00:00:00 Completed [facility] Zoster Vaccine Recombinant 2016-01-03 00:00:00 Completed [facility] Zoster Vaccine Recombinant 2016-01-03 00:00:00 Completed [facility] Zoster Vaccine Recombinant 2016-01-03 00:00:00 Completed [facility] Zoster Vaccine Recombinant 2016-01-03 00:00:00 Completed [facility] Zoster Vaccine Recombinant 2016-01-03 00:00:00 Completed [facility] Zoster Vaccine Recombinant 2016-01-03 00:00:00 Completed [facility] Zoster Vaccine Recombinant 2016-01-03 00:00:00 Completed [facility] Zoster Vaccine Recombinant 2016-01-03 00:00:00 Completed [facility] Zoster Vaccine Recombinant 2016-01-03 00:00:00 Completed [facility] Zoster Vaccine Recombinant 2016-01-03 00:00:00 Completed [facility] Zoster Vaccine Recombinant 2016-01-03 00:00:00 Completed [facility] Zoster Vaccine Recombinant 2016-01-03 00:00:00 Completed [facility] Zoster Vaccine Recombinant 2016-01-03 00:00:00 Completed [facility] Zoster Vaccine Recombinant 2016-01-03 00:00:00 Completed [facility] Zoster Vaccine Recombinant 2015-11-07 00:00:00 Completed [facility] Zoster Vaccine Recombinant 2015-11-07 00:00:00 Completed [facility] Zoster Vaccine Recombinant 2015-11-07 00:00:00 Completed [facility] Zoster Vaccine Recombinant 2015-11-07 00:00:00 Completed [facility] Zoster Vaccine Recombinant 2015-11-07 00:00:00 Completed [facility] Zoster Vaccine Recombinant 2015-11-07 00:00:00 Completed [facility] Zoster Vaccine Recombinant 2015-11-07 00:00:00 Completed [facility] Zoster Vaccine Recombinant 2015-11-07 00:00:00 Completed [facility] Zoster Vaccine Recombinant 2015-11-07 00:00:00 Completed [facility] Zoster Vaccine Recombinant 2015-11-07 00:00:00 Completed [facility] Zoster Vaccine Recombinant 2015-11-07 00:00:00 Completed [facility] Zoster Vaccine Recombinant 2015-11-07 00:00:00 Completed [facility] Zoster Vaccine Recombinant 2015-11-07 00:00:00 Completed [facility] Zoster Vaccine Recombinant 2015-11-07 00:00:00 Completed [facility] Zoster Vaccine Recombinant 2015-11-07 00:00:00 Completed [facility] Zoster Vaccine Recombinant 2015-11-07 00:00:00 Completed [facility] Zoster Vaccine Recombinant 2015-11-07 00:00:00 Completed [facility] Zoster Vaccine Recombinant 2015-11-07 00:00:00 Completed [facility] Zoster Vaccine Recombinant 2015-11-07 00:00:00 Completed [facility] Zoster Vaccine Recombinant 2015-11-07 00:00:00 Completed [facility] Zoster Vaccine Recombinant 2015-11-07 00:00:00 Completed [facility] Zoster Vaccine Recombinant 2015-11-07 00:00:00 Completed [facility] Zoster Vaccine Recombinant 2015-11-07 00:00:00 Completed [facility] Zoster Vaccine Recombinant 2015-11-07 00:00:00 Completed [facility] Zoster Vaccine Recombinant 2015-11-07 00:00:00 Completed [facility] Zoster Vaccine Recombinant 2015-11-07 00:00:00 Completed [facility] Zoster Vaccine Recombinant 2015-11-07 00:00:00 Completed [facility] Zoster Vaccine Recombinant 2015-11-07 00:00:00 Completed [facility] Zoster Vaccine Recombinant 2015-11-07 00:00:00 Completed [facility] Zoster Vaccine Recombinant 2015-11-07 00:00:00 Completed [facility] Zoster Vaccine Recombinant 2015-11-07 00:00:00 Completed [facility] Zoster Vaccine Recombinant 2015-11-07 00:00:00 Completed [facility] Zoster Vaccine Recombinant 2015-11-07 00:00:00 Completed [facility] Zoster Vaccine Recombinant 2015-11-07 00:00:00 Completed [facility] Zoster Vaccine Recombinant 2015-11-07 00:00:00 Completed [facility] Zoster Vaccine Recombinant 2015-11-07 00:00:00 Completed [facility] Zoster Vaccine Recombinant 2015-11-07 00:00:00 Completed [facility] Zoster Vaccine Recombinant 2015-11-07 00:00:00 Completed [facility] Zoster Vaccine Recombinant 2015-11-07 00:00:00 Completed [facility] Zoster Vaccine Recombinant 2015-11-07 00:00:00 Completed [facility] Zoster Vaccine Recombinant 2015-11-07 00:00:00 Completed [facility] Zoster Vaccine Recombinant 2015-11-07 00:00:00 Completed [facility] Zoster Vaccine Recombinant 2015-11-07 00:00:00 Completed [facility] Zoster Vaccine Recombinant 2015-11-07 00:00:00 Completed [facility] Zoster Vaccine Recombinant 2015-11-07 00:00:00 Completed [facility] Zoster Vaccine Recombinant 2015-11-07 00:00:00 Completed [facility] Zoster Vaccine Recombinant 2015-11-07 00:00:00 Completed [facility] Zoster Vaccine Recombinant 2015-11-07 00:00:00 Completed [facility] Zoster Vaccine Recombinant 2015-11-07 00:00:00 Completed [facility] Zoster Vaccine Recombinant 2015-11-07 00:00:00 Completed [facility] Zoster Vaccine Recombinant 2015-11-07 00:00:00 Completed [facility] Zoster Vaccine Recombinant 2015-11-07 00:00:00 Completed [facility] Zoster Vaccine Recombinant 2015-11-07 00:00:00 Completed [facility] Zoster Vaccine Recombinant 2015-11-07 00:00:00 Completed [facility] Zoster Vaccine Recombinant 2015-11-07 00:00:00 Completed [facility] Zoster Vaccine Recombinant 2015-11-07 00:00:00 Completed [facility] Zoster Vaccine Recombinant 2015-11-07 00:00:00 Completed [facility] Zoster Vaccine Recombinant 2015-11-07 00:00:00 Completed [facility] Zoster Vaccine Recombinant 2015-11-07 00:00:00 Completed [facility] Zoster Vaccine Recombinant 2015-11-07 00:00:00 Completed [facility] Zoster Vaccine Recombinant 2015-11-07 00:00:00 Completed [facility] Zoster Vaccine Recombinant 2015-11-07 00:00:00 Completed [facility] Zoster Vaccine Recombinant 2015-11-07 00:00:00 Completed [facility] Zoster Vaccine Recombinant 2015-11-07 00:00:00 Completed [facility] Zoster Vaccine Recombinant 2015-11-07 00:00:00 Completed [facility] Zoster Vaccine Recombinant 2015-11-07 00:00:00 Completed [facility] Zoster Vaccine Recombinant 2015-11-07 00:00:00 Completed [facility] Zoster Vaccine Recombinant 2015-11-07 00:00:00 Completed [facility] Zoster Vaccine Recombinant 2015-11-07 00:00:00 Completed [facility] Zoster Vaccine Recombinant 2015-11-07 00:00:00 Completed [facility] Zoster Vaccine Recombinant 2015-11-07 00:00:00 Completed [facility] Zoster Vaccine Recombinant 2015-11-07 00:00:00 Completed [facility] Zoster Vaccine Recombinant 2015-11-07 00:00:00 Completed [facility] Zoster Vaccine Recombinant 2015-11-07 00:00:00 Completed [facility] Zoster Vaccine Recombinant 2015-11-07 00:00:00 Completed [facility] Zoster Vaccine Recombinant 2015-11-07 00:00:00 Completed [facility] Zoster Vaccine Recombinant 2015-11-07 00:00:00 Completed [facility] Zoster Vaccine Recombinant 2015-11-07 00:00:00 Completed [facility] Zoster Vaccine Recombinant 2015-11-07 00:00:00 Completed [facility] Zoster Vaccine Recombinant 2015-11-07 00:00:00 Completed [facility] Zoster Vaccine Recombinant 2015-11-07 00:00:00 Completed [facility] Zoster Vaccine Recombinant 2015-11-07 00:00:00 Completed [facility] Zoster Vaccine Recombinant 2015-11-07 00:00:00 Completed [facility] Zoster Vaccine Recombinant 2015-11-07 00:00:00 Completed [facility] Zoster Vaccine Recombinant 2015-11-07 00:00:00 Completed [facility] Zoster Vaccine Recombinant 2015-11-07 00:00:00 Completed [facility] Zoster Vaccine Recombinant 2015-11-07 00:00:00 Completed [facility] Zoster Vaccine Recombinant 2015-11-07 00:00:00 Completed [facility] Zoster Vaccine Recombinant 2015-11-07 00:00:00 Completed [facility] Zoster Vaccine Recombinant 2015-11-07 00:00:00 Completed [facility] SARS-COV-2 COVID-19 MODERNA 12+ YRS VACCINE Unknown Completed [facility] SARS-COV-2 COVID-19 MODERNA 12+ YRS VACCINE Unknown Completed [facility] Pneumococcal Polysaccharide, PPSV23 (PNEUMOVAX) Unknown Completed [facility] Pneumococcal Polysaccharide, PPSV23 (PNEUMOVAX) Unknown Completed [facility] Pneumococcal 13 Conjugate, PCV13 (Prevnar 13) Unknown Completed [facility] DTAP Unknown Completed [facility] Zoster Vaccine Recombinant Unknown Completed [facility] Zoster Vaccine Recombinant Unknown Completed [facility] SARS-COV-2 COVID-19 MODERNA 12+ YRS VACCINE Unknown Completed [facility] SARS-COV-2 COVID-19 MODERNA 12+ YRS VACCINE Unknown Completed [facility] Pneumococcal Polysaccharide, PPSV23 (PNEUMOVAX) Unknown Completed [facility] Pneumococcal Polysaccharide, PPSV23 (PNEUMOVAX) Unknown Completed [facility] Pneumococcal 13 Conjugate, PCV13 (Prevnar 13) Unknown Completed [facility] DTAP Unknown Completed [facility] Zoster Vaccine Recombinant Unknown Completed [facility] Zoster Vaccine Recombinant Unknown Completed [facility] SARS-COV-2 COVID-19 MODERNA 12+ YRS VACCINE Unknown Completed [facility] SARS-COV-2 COVID-19 MODERNA 12+ YRS VACCINE Unknown Completed [facility] Pneumococcal Polysaccharide, PPSV23 (PNEUMOVAX) Unknown Completed [facility] Pneumococcal Polysaccharide, PPSV23 (PNEUMOVAX) Unknown Completed [facility] Pneumococcal 13 Conjugate, PCV13 (Prevnar 13) Unknown Completed [facility] DTAP Unknown Completed [facility] Zoster Vaccine Recombinant Unknown Completed [facility] Zoster Vaccine Recombinant Unknown Completed [facility] Influenza High Dose Unknown Completed [facility] SARS-COV-2 COVID-19 MODERNA 12+ YRS VACCINE Unknown Completed [facility] SARS-COV-2 COVID-19 MODERNA 12+ YRS VACCINE Unknown Completed [facility] Pneumococcal Polysaccharide, PPSV23 (PNEUMOVAX) Unknown Completed [facility] Pneumococcal Polysaccharide, PPSV23 (PNEUMOVAX) Unknown Completed [facility] Pneumococcal 13 Conjugate, PCV13 (Prevnar 13) Unknown Completed [facility] DTAP Unknown Completed [facility] Zoster Vaccine Recombinant Unknown Completed [facility] Zoster Vaccine Recombinant Unknown Completed [facility] Influenza High Dose Unknown Completed [facility] SARS-COV-2 COVID-19 MODERNA 12+ YRS VACCINE Unknown Completed [facility] SARS-COV-2 COVID-19 MODERNA 12+ YRS VACCINE Unknown Completed [facility] Pneumococcal Polysaccharide, PPSV23 (PNEUMOVAX) Unknown Completed [facility] Pneumococcal Polysaccharide, PPSV23 (PNEUMOVAX) Unknown Completed [facility] Pneumococcal 13 Conjugate, PCV13 (Prevnar 13) Unknown Completed [facility] DTAP Unknown Completed [facility] Zoster Vaccine Recombinant Unknown Completed [facility] Zoster Vaccine Recombinant Unknown Completed [facility] Influenza High Dose Unknown Completed [facility] SARS-COV-2 COVID-19 MODERNA 12+ YRS VACCINE Unknown Completed [facility] SARS-COV-2 COVID-19 MODERNA 12+ YRS VACCINE Unknown Completed [facility] Pneumococcal Polysaccharide, PPSV23 (PNEUMOVAX) Unknown Completed [facility] Pneumococcal Polysaccharide, PPSV23 (PNEUMOVAX) Unknown Completed [facility] Pneumococcal 13 Conjugate, PCV13 (Prevnar 13) Unknown Completed [facility] DTAP Unknown Completed [facility] Zoster Vaccine Recombinant Unknown Completed [facility] Zoster Vaccine Recombinant Unknown Completed [facility] Influenza High Dose Unknown Completed [facility] SARS-COV-2 COVID-19 MODERNA 12+ YRS VACCINE Unknown Completed [facility] SARS-COV-2 COVID-19 MODERNA 12+ YRS VACCINE Unknown Completed [facility] Pneumococcal Polysaccharide, PPSV23 (PNEUMOVAX) Unknown Completed [facility] Pneumococcal Polysaccharide, PPSV23 (PNEUMOVAX) Unknown Completed [facility] Pneumococcal 13 Conjugate, PCV13 (Prevnar 13) Unknown Completed [facility] DTAP Unknown Completed [facility] Zoster Vaccine Recombinant Unknown Completed [facility] Zoster Vaccine Recombinant Unknown Completed [facility] Influenza High Dose Unknown Completed [facility] SARS-COV-2 COVID-19 MODERNA 12+ YRS VACCINE Unknown Completed [facility] SARS-COV-2 COVID-19 MODERNA 12+ YRS VACCINE Unknown Completed [facility] Pneumococcal Polysaccharide, PPSV23 (PNEUMOVAX) Unknown Completed [facility] Pneumococcal Polysaccharide, PPSV23 (PNEUMOVAX) Unknown Completed [facility] Pneumococcal 13 Conjugate, PCV13 (Prevnar 13) Unknown Completed [facility] DTAP Unknown Completed [facility] Zoster Vaccine Recombinant Unknown Completed [facility] Zoster Vaccine Recombinant Unknown Completed [facility] Influenza High Dose Unknown Completed [facility] SARS-COV-2 COVID-19 MODERNA 12+ YRS VACCINE Unknown Completed [facility] SARS-COV-2 COVID-19 MODERNA 12+ YRS VACCINE Unknown Completed [facility] Pneumococcal Polysaccharide, PPSV23 (PNEUMOVAX) Unknown Completed [facility] Pneumococcal Polysaccharide, PPSV23 (PNEUMOVAX) Unknown Completed [facility] Pneumococcal 13 Conjugate, PCV13 (Prevnar 13) Unknown Completed [facility] DTAP Unknown Completed [facility] Zoster Vaccine Recombinant Unknown Completed [facility] Zoster Vaccine Recombinant Unknown Completed [facility] Influenza High Dose Unknown Completed [facility] SARS-COV-2 COVID-19 MODERNA 12+ YRS VACCINE Unknown Completed [facility] SARS-COV-2 COVID-19 MODERNA 12+ YRS VACCINE Unknown Completed [facility] Pneumococcal Polysaccharide, PPSV23 (PNEUMOVAX) Unknown Completed [facility] Pneumococcal Polysaccharide, PPSV23 (PNEUMOVAX) Unknown Completed [facility] Pneumococcal 13 Conjugate, PCV13 (Prevnar 13) Unknown Completed [facility] DTAP Unknown Completed [facility] Zoster Vaccine Recombinant Unknown Completed [facility] Zoster Vaccine Recombinant Unknown Completed [facility] Influenza High Dose Unknown Completed [facility] SARS-COV-2 COVID-19 MODERNA 12+ YRS VACCINE Unknown Completed [facility] SARS-COV-2 COVID-19 MODERNA 12+ YRS VACCINE Unknown Completed [facility] Pneumococcal Polysaccharide, PPSV23 (PNEUMOVAX) Unknown Completed [facility] Pneumococcal Polysaccharide, PPSV23 (PNEUMOVAX) Unknown Completed [facility] Pneumococcal 13 Conjugate, PCV13 (Prevnar 13) Unknown Completed [facility] DTAP Unknown Completed [facility] Zoster Vaccine Recombinant Unknown Completed [facility] Zoster Vaccine Recombinant Unknown Completed [facility] Influenza High Dose Unknown Completed [facility] SARS-COV-2 COVID-19 MODERNA 12+ YRS VACCINE Unknown Completed [facility] SARS-COV-2 COVID-19 MODERNA 12+ YRS VACCINE Unknown Completed [facility] Pneumococcal Polysaccharide, PPSV23 (PNEUMOVAX) Unknown Completed [facility] Pneumococcal Polysaccharide, PPSV23 (PNEUMOVAX) Unknown Completed [facility] Pneumococcal 13 Conjugate, PCV13 (Prevnar 13) Unknown Completed [facility] DTAP Unknown Completed [facility] Zoster Vaccine Recombinant Unknown Completed [facility] Zoster Vaccine Recombinant Unknown Completed [facility] Influenza High Dose Unknown Completed [facility] SARS-COV-2 COVID-19 MODERNA 12+ YRS VACCINE Unknown Completed [facility] SARS-COV-2 COVID-19 MODERNA 12+ YRS VACCINE Unknown Completed [facility] Pneumococcal Polysaccharide, PPSV23 (PNEUMOVAX) Unknown Completed [facility] Pneumococcal Polysaccharide, PPSV23 (PNEUMOVAX) Unknown Completed [facility] Pneumococcal 13 Conjugate, PCV13 (Prevnar 13) Unknown Completed [facility] DTAP Unknown Completed [facility] Zoster Vaccine Recombinant Unknown Completed [facility] Zoster Vaccine Recombinant Unknown Completed [facility] Influenza High Dose Unknown Completed [facility] SARS-COV-2 COVID-19 MODERNA 12+ YRS VACCINE Unknown Completed [facility] SARS-COV-2 COVID-19 MODERNA 12+ YRS VACCINE Unknown Completed [facility] Pneumococcal Polysaccharide, PPSV23 (PNEUMOVAX) Unknown Completed [facility] Pneumococcal Polysaccharide, PPSV23 (PNEUMOVAX) Unknown Completed [facility] Pneumococcal 13 Conjugate, PCV13 (Prevnar 13) Unknown Completed [facility] DTAP Unknown Completed [facility] Zoster Vaccine Recombinant Unknown Completed [facility] Zoster Vaccine Recombinant Unknown Completed [facility] Influenza High Dose Unknown Completed [facility] SARS-COV-2 COVID-19 MODERNA 12+ YRS VACCINE Unknown Completed [facility] SARS-COV-2 COVID-19 MODERNA 12+ YRS VACCINE Unknown Completed [facility] Pneumococcal Polysaccharide, PPSV23 (PNEUMOVAX) Unknown Completed [facility] Pneumococcal Polysaccharide, PPSV23 (PNEUMOVAX) Unknown Completed [facility] Pneumococcal 13 Conjugate, PCV13 (Prevnar 13) Unknown Completed [facility] DTAP Unknown Completed [facility] Zoster Vaccine Recombinant Unknown Completed [facility] Zoster Vaccine Recombinant Unknown Completed [facility] Influenza High Dose Unknown Completed [facility] SARS-COV-2 COVID-19 MODERNA 12+ YRS VACCINE Unknown Completed [facility] SARS-COV-2 COVID-19 MODERNA 12+ YRS VACCINE Unknown Completed [facility] Pneumococcal Polysaccharide, PPSV23 (PNEUMOVAX) Unknown Completed [facility] Pneumococcal Polysaccharide, PPSV23 (PNEUMOVAX) Unknown Completed [facility] Pneumococcal 13 Conjugate, PCV13 (Prevnar 13) Unknown Completed [facility] DTAP Unknown Completed [facility] Zoster Vaccine Recombinant Unknown Completed [facility] Zoster Vaccine Recombinant Unknown Completed [facility] Influenza High Dose Unknown Completed [facility] SARS-COV-2 COVID-19 MODERNA 12+ YRS VACCINE Unknown Completed [facility] SARS-COV-2 COVID-19 MODERNA 12+ YRS VACCINE Unknown Completed [facility] Pneumococcal Polysaccharide, PPSV23 (PNEUMOVAX) Unknown Completed [facility] Pneumococcal Polysaccharide, PPSV23 (PNEUMOVAX) Unknown Completed [facility] Pneumococcal 13 Conjugate, PCV13 (Prevnar 13) Unknown Completed [facility] DTAP Unknown Completed [facility] Zoster Vaccine Recombinant Unknown Completed [facility] Zoster Vaccine Recombinant Unknown Completed [facility] Influenza High Dose Unknown Completed [facility] SARS-COV-2 COVID-19 MODERNA 12+ YRS VACCINE Unknown Completed [facility] SARS-COV-2 COVID-19 MODERNA 12+ YRS VACCINE Unknown Completed [facility] Pneumococcal Polysaccharide, PPSV23 (PNEUMOVAX) Unknown Completed [facility] Pneumococcal Polysaccharide, PPSV23 (PNEUMOVAX) Unknown Completed [facility] Pneumococcal 13 Conjugate, PCV13 (Prevnar 13) Unknown Completed [facility] DTAP Unknown Completed [facility] Zoster Vaccine Recombinant Unknown Completed [facility] Zoster Vaccine Recombinant Unknown Completed [facility] Influenza High Dose Unknown Completed [facility] SARS-COV-2 COVID-19 MODERNA 12+ YRS VACCINE Unknown Completed [facility] SARS-COV-2 COVID-19 MODERNA 12+ YRS VACCINE Unknown Completed [facility] Pneumococcal Polysaccharide, PPSV23 (PNEUMOVAX) Unknown Completed [facility] Pneumococcal Polysaccharide, PPSV23 (PNEUMOVAX) Unknown Completed [facility] Pneumococcal 13 Conjugate, PCV13 (Prevnar 13) Unknown Completed [facility] DTAP Unknown Completed [facility] Zoster Vaccine Recombinant Unknown Completed [facility] Zoster Vaccine Recombinant Unknown Completed [facility] Influenza High Dose Unknown Completed [facility] SARS-COV-2 COVID-19 MODERNA 12+ YRS VACCINE Unknown Completed [facility] SARS-COV-2 COVID-19 MODERNA 12+ YRS VACCINE Unknown Completed [facility] Pneumococcal Polysaccharide, PPSV23 (PNEUMOVAX) Unknown Completed [facility] Pneumococcal Polysaccharide, PPSV23 (PNEUMOVAX) Unknown Completed [facility] Pneumococcal 13 Conjugate, PCV13 (Prevnar 13) Unknown Completed [facility] DTAP Unknown Completed [facility] Zoster Vaccine Recombinant Unknown Completed [facility] Zoster Vaccine Recombinant Unknown Completed [facility] Influenza High Dose Unknown Completed [facility] SARS-COV-2 COVID-19 MODERNA 12+ YRS VACCINE Unknown Completed [facility] SARS-COV-2 COVID-19 MODERNA 12+ YRS VACCINE Unknown Completed [facility] Pneumococcal Polysaccharide, PPSV23 (PNEUMOVAX) Unknown Completed [facility] Pneumococcal Polysaccharide, PPSV23 (PNEUMOVAX) Unknown Completed [facility] Pneumococcal 13 Conjugate, PCV13 (Prevnar 13) Unknown Completed [facility] DTAP Unknown Completed [facility] Zoster Vaccine Recombinant Unknown Completed [facility] Zoster Vaccine Recombinant Unknown Completed [facility] Influenza High Dose Unknown Completed [facility] SARS-COV-2 COVID-19 MODERNA 12+ YRS VACCINE Unknown Completed [facility] SARS-COV-2 COVID-19 MODERNA 12+ YRS VACCINE Unknown Completed [facility] Pneumococcal Polysaccharide, PPSV23 (PNEUMOVAX) Unknown Completed [facility] Pneumococcal Polysaccharide, PPSV23 (PNEUMOVAX) Unknown Completed [facility] Pneumococcal 13 Conjugate, PCV13 (Prevnar 13) Unknown Completed [facility] DTAP Unknown Completed [facility] Zoster Vaccine Recombinant Unknown Completed [facility] Zoster Vaccine Recombinant Unknown Completed [facility] Influenza High Dose Unknown Completed [facility] SARS-COV-2 COVID-19 MODERNA 12+ YRS VACCINE Unknown Completed [facility] SARS-COV-2 COVID-19 MODERNA 12+ YRS VACCINE Unknown Completed [facility] Pneumococcal Polysaccharide, PPSV23 (PNEUMOVAX) Unknown Completed [facility] Pneumococcal Polysaccharide, PPSV23 (PNEUMOVAX) Unknown Completed [facility] Pneumococcal 13 Conjugate, PCV13 (Prevnar 13) Unknown Completed [facility] DTAP Unknown Completed [facility] Zoster Vaccine Recombinant Unknown Completed [facility] Zoster Vaccine Recombinant Unknown Completed [facility] Influenza High Dose Unknown Completed [facility] SARS-COV-2 COVID-19 MODERNA 12+ YRS VACCINE Unknown Completed [facility] SARS-COV-2 COVID-19 MODERNA 12+ YRS VACCINE Unknown Completed [facility] Pneumococcal Polysaccharide, PPSV23 (PNEUMOVAX) Unknown Completed [facility] Pneumococcal Polysaccharide, PPSV23 (PNEUMOVAX) Unknown Completed [facility] Pneumococcal 13 Conjugate, PCV13 (Prevnar 13) Unknown Completed [facility] DTAP Unknown Completed [facility] Zoster Vaccine Recombinant Unknown Completed [facility] Zoster Vaccine Recombinant Unknown Completed [facility] Influenza High Dose Unknown Completed [facility] SARS-COV-2 COVID-19 MODERNA 12+ YRS VACCINE Unknown Completed [facility] SARS-COV-2 COVID-19 MODERNA 12+ YRS VACCINE Unknown Completed [facility] Pneumococcal Polysaccharide, PPSV23 (PNEUMOVAX) Unknown Completed [facility] Pneumococcal Polysaccharide, PPSV23 (PNEUMOVAX) Unknown Completed [facility] Pneumococcal 13 Conjugate, PCV13 (Prevnar 13) Unknown Completed [facility] DTAP Unknown Completed [facility] Zoster Vaccine Recombinant Unknown Completed [facility] Zoster Vaccine Recombinant Unknown Completed [facility] Influenza High Dose Unknown Completed [facility] SARS-COV-2 COVID-19 MODERNA 12+ YRS VACCINE Unknown Completed [facility] SARS-COV-2 COVID-19 MODERNA 12+ YRS VACCINE Unknown Completed [facility] Pneumococcal Polysaccharide, PPSV23 (PNEUMOVAX) Unknown Completed [facility] Pneumococcal Polysaccharide, PPSV23 (PNEUMOVAX) Unknown Completed [facility] Pneumococcal 13 Conjugate, PCV13 (Prevnar 13) Unknown Completed [facility] DTAP Unknown Completed [facility] Zoster Vaccine Recombinant Unknown Completed [facility] Zoster Vaccine Recombinant Unknown Completed [facility] Influenza High Dose Unknown Completed [facility] SARS-COV-2 COVID-19 MODERNA 12+ YRS VACCINE Unknown Completed [facility] SARS-COV-2 COVID-19 MODERNA 12+ YRS VACCINE Unknown Completed [facility] Pneumococcal Polysaccharide, PPSV23 (PNEUMOVAX) Unknown Completed [facility] Pneumococcal Polysaccharide, PPSV23 (PNEUMOVAX) Unknown Completed [facility] Pneumococcal 13 Conjugate, PCV13 (Prevnar 13) Unknown Completed [facility] DTAP Unknown Completed [facility] Zoster Vaccine Recombinant Unknown Completed [facility] Zoster Vaccine Recombinant Unknown Completed [facility] Influenza High Dose Unknown Completed [facility] SARS-COV-2 COVID-19 MODERNA 12+ YRS VACCINE Unknown Completed [facility] SARS-COV-2 COVID-19 MODERNA 12+ YRS VACCINE Unknown Completed [facility] Pneumococcal Polysaccharide, PPSV23 (PNEUMOVAX) Unknown Completed [facility] Pneumococcal Polysaccharide, PPSV23 (PNEUMOVAX) Unknown Completed [facility] Pneumococcal 13 Conjugate, PCV13 (Prevnar 13) Unknown Completed [facility] DTAP Unknown Completed [facility] Zoster Vaccine Recombinant Unknown Completed [facility] Zoster Vaccine Recombinant Unknown Completed [facility] Influenza High Dose Unknown Completed [facility] SARS-COV-2 COVID-19 MODERNA 12+ YRS VACCINE Unknown Completed [facility] SARS-COV-2 COVID-19 MODERNA 12+ YRS VACCINE Unknown Completed [facility] Pneumococcal Polysaccharide, PPSV23 (PNEUMOVAX) Unknown Completed [facility] Pneumococcal Polysaccharide, PPSV23 (PNEUMOVAX) Unknown Completed [facility] Pneumococcal 13 Conjugate, PCV13 (Prevnar 13) Unknown Completed [facility] DTAP Unknown Completed [facility] Zoster Vaccine Recombinant Unknown Completed [facility] Zoster Vaccine Recombinant Unknown Completed [facility] Influenza High Dose Unknown Completed [facility] SARS-COV-2 COVID-19 MODERNA 12+ YRS VACCINE Unknown Completed [facility] SARS-COV-2 COVID-19 MODERNA 12+ YRS VACCINE Unknown Completed [facility] Pneumococcal Polysaccharide, PPSV23 (PNEUMOVAX) Unknown Completed [facility] Pneumococcal Polysaccharide, PPSV23 (PNEUMOVAX) Unknown Completed [facility] Pneumococcal 13 Conjugate, PCV13 (Prevnar 13) Unknown Completed [facility] DTAP Unknown Completed [facility] Zoster Vaccine Recombinant Unknown Completed [facility] Zoster Vaccine Recombinant Unknown Completed [facility] Influenza High Dose Unknown Completed [facility] SARS-COV-2 COVID-19 MODERNA 12+ YRS VACCINE Unknown Completed [facility] SARS-COV-2 COVID-19 MODERNA 12+ YRS VACCINE Unknown Completed [facility] Pneumococcal Polysaccharide, PPSV23 (PNEUMOVAX) Unknown Completed [facility] Pneumococcal Polysaccharide, PPSV23 (PNEUMOVAX) Unknown Completed [facility] Pneumococcal 13 Conjugate, PCV13 (Prevnar 13) Unknown Completed [facility] DTAP Unknown Completed [facility] Zoster Vaccine Recombinant Unknown Completed [facility] Zoster Vaccine Recombinant Unknown Completed [facility] Influenza High Dose Unknown Completed [facility] SARS-COV-2 COVID-19 MODERNA 12+ YRS VACCINE Unknown Completed [facility] SARS-COV-2 COVID-19 MODERNA 12+ YRS VACCINE Unknown Completed [facility] Pneumococcal Polysaccharide, PPSV23 (PNEUMOVAX) Unknown Completed [facility] Pneumococcal Polysaccharide, PPSV23 (PNEUMOVAX) Unknown Completed [facility] Pneumococcal 13 Conjugate, PCV13 (Prevnar 13) Unknown Completed [facility] DTAP Unknown Completed [facility] Zoster Vaccine Recombinant Unknown Completed [facility] Zoster Vaccine Recombinant Unknown Completed [facility] Influenza High Dose Unknown Completed [facility] SARS-COV-2 COVID-19 MODERNA 12+ YRS VACCINE Unknown Completed [facility] SARS-COV-2 COVID-19 MODERNA 12+ YRS VACCINE Unknown Completed [facility] Pneumococcal Polysaccharide, PPSV23 (PNEUMOVAX) Unknown Completed [facility] Pneumococcal Polysaccharide, PPSV23 (PNEUMOVAX) Unknown Completed [facility] Pneumococcal 13 Conjugate, PCV13 (Prevnar 13) Unknown Completed [facility] DTAP Unknown Completed [facility] Zoster Vaccine Recombinant Unknown Completed [facility] Zoster Vaccine Recombinant Unknown Completed [facility] Influenza High Dose Unknown Completed [facility] SARS-COV-2 COVID-19 MODERNA 12+ YRS VACCINE Unknown Completed [facility] SARS-COV-2 COVID-19 MODERNA 12+ YRS VACCINE Unknown Completed [facility] Pneumococcal Polysaccharide, PPSV23 (PNEUMOVAX) Unknown Completed [facility] Pneumococcal Polysaccharide, PPSV23 (PNEUMOVAX) Unknown Completed [facility] Pneumococcal 13 Conjugate, PCV13 (Prevnar 13) Unknown Completed [facility] DTAP Unknown Completed [facility] Zoster Vaccine Recombinant Unknown Completed [facility] Zoster Vaccine Recombinant Unknown Completed [facility] Influenza High Dose Unknown Completed [facility] SARS-COV-2 COVID-19 MODERNA 12+ YRS VACCINE Unknown Completed [facility] SARS-COV-2 COVID-19 MODERNA 12+ YRS VACCINE Unknown Completed [facility] Pneumococcal Polysaccharide, PPSV23 (PNEUMOVAX) Unknown Completed [facility] Pneumococcal Polysaccharide, PPSV23 (PNEUMOVAX) Unknown Completed [facility] Pneumococcal 13 Conjugate, PCV13 (Prevnar 13) Unknown Completed [facility] DTAP Unknown Completed [facility] Zoster Vaccine Recombinant Unknown Completed [facility] Zoster Vaccine Recombinant Unknown Completed [facility] Influenza High Dose Unknown Completed [facility] SARS-COV-2 COVID-19 MODERNA 12+ YRS VACCINE Unknown Completed [facility] SARS-COV-2 COVID-19 MODERNA 12+ YRS VACCINE Unknown Completed [facility] Pneumococcal Polysaccharide, PPSV23 (PNEUMOVAX) Unknown Completed [facility] Pneumococcal Polysaccharide, PPSV23 (PNEUMOVAX) Unknown Completed [facility] Pneumococcal 13 Conjugate, PCV13 (Prevnar 13) Unknown Completed [facility] DTAP Unknown Completed [facility] Zoster Vaccine Recombinant Unknown Completed [facility] Zoster Vaccine Recombinant Unknown Completed [facility] Influenza High Dose Unknown Completed [facility] SARS-COV-2 COVID-19 MODERNA 12+ YRS VACCINE Unknown Completed [facility] SARS-COV-2 COVID-19 MODERNA 12+ YRS VACCINE Unknown Completed [facility] Pneumococcal Polysaccharide, PPSV23 (PNEUMOVAX) Unknown Completed [facility] Pneumococcal Polysaccharide, PPSV23 (PNEUMOVAX) Unknown Completed [facility] Pneumococcal 13 Conjugate, PCV13 (Prevnar 13) Unknown Completed [facility] DTAP Unknown Completed [facility] Zoster Vaccine Recombinant Unknown Completed [facility] Zoster Vaccine Recombinant Unknown Completed [facility] Influenza High Dose Unknown Completed [facility] SARS-COV-2 COVID-19 MODERNA 12+ YRS VACCINE Unknown Completed [facility] SARS-COV-2 COVID-19 MODERNA 12+ YRS VACCINE Unknown Completed [facility] Pneumococcal Polysaccharide, PPSV23 (PNEUMOVAX) Unknown Completed [facility] Pneumococcal Polysaccharide, PPSV23 (PNEUMOVAX) Unknown Completed [facility] Pneumococcal 13 Conjugate, PCV13 (Prevnar 13) Unknown Completed [facility] DTAP Unknown Completed [facility] Zoster Vaccine Recombinant Unknown Completed [facility] Zoster Vaccine Recombinant Unknown Completed [facility] Influenza High Dose Unknown Completed [facility] SARS-COV-2 COVID-19 MODERNA 12+ YRS VACCINE Unknown Completed [facility] SARS-COV-2 COVID-19 MODERNA 12+ YRS VACCINE Unknown Completed [facility] Pneumococcal Polysaccharide, PPSV23 (PNEUMOVAX) Unknown Completed [facility] Pneumococcal Polysaccharide, PPSV23 (PNEUMOVAX) Unknown Completed [facility] Pneumococcal 13 Conjugate, PCV13 (Prevnar 13) Unknown Completed [facility] DTAP Unknown Completed [facility] Zoster Vaccine Recombinant Unknown Completed [facility] Zoster Vaccine Recombinant Unknown Completed [facility] Influenza High Dose Unknown Completed [facility] SARS-COV-2 COVID-19 MODERNA 12+ YRS VACCINE Unknown Completed [facility] SARS-COV-2 COVID-19 MODERNA 12+ YRS VACCINE Unknown Completed [facility] Pneumococcal Polysaccharide, PPSV23 (PNEUMOVAX) Unknown Completed [facility] Pneumococcal Polysaccharide, PPSV23 (PNEUMOVAX) Unknown Completed [facility] Pneumococcal 13 Conjugate, PCV13 (Prevnar 13) Unknown Completed [facility] DTAP Unknown Completed [facility] Zoster Vaccine Recombinant Unknown Completed [facility] Zoster Vaccine Recombinant Unknown Completed [facility] Influenza High Dose Unknown Completed [facility] SARS-COV-2 COVID-19 MODERNA 12+ YRS VACCINE Unknown Completed [facility] SARS-COV-2 COVID-19 MODERNA 12+ YRS VACCINE Unknown Completed [facility] Pneumococcal Polysaccharide, PPSV23 (PNEUMOVAX) Unknown Completed [facility] Pneumococcal Polysaccharide, PPSV23 (PNEUMOVAX) Unknown Completed [facility] Pneumococcal 13 Conjugate, PCV13 (Prevnar 13) Unknown Completed [facility] DTAP Unknown Completed [facility] Zoster Vaccine Recombinant Unknown Completed [facility] Zoster Vaccine Recombinant Unknown Completed [facility] Influenza High Dose Unknown Completed [facility] SARS-COV-2 COVID-19 MODERNA 12+ YRS VACCINE Unknown Completed [facility] SARS-COV-2 COVID-19 MODERNA 12+ YRS VACCINE Unknown Completed [facility] Pneumococcal Polysaccharide, PPSV23 (PNEUMOVAX) Unknown Completed [facility] Pneumococcal Polysaccharide, PPSV23 (PNEUMOVAX) Unknown Completed [facility] Pneumococcal 13 Conjugate, PCV13 (Prevnar 13) Unknown Completed [facility] DTAP Unknown Completed [facility] Zoster Vaccine Recombinant Unknown Completed [facility] Zoster Vaccine Recombinant Unknown Completed [facility] Influenza High Dose Unknown Completed [facility] SARS-COV-2 COVID-19 MODERNA 12+ YRS VACCINE Unknown Completed [facility] SARS-COV-2 COVID-19 MODERNA 12+ YRS VACCINE Unknown Completed [facility] Pneumococcal Polysaccharide, PPSV23 (PNEUMOVAX) Unknown Completed [facility] Pneumococcal Polysaccharide, PPSV23 (PNEUMOVAX) Unknown Completed [facility] Pneumococcal 13 Conjugate, PCV13 (Prevnar 13) Unknown Completed [facility] DTAP Unknown Completed [facility] Zoster Vaccine Recombinant Unknown Completed [facility] Zoster Vaccine Recombinant Unknown Completed [facility] Influenza High Dose Unknown Completed [facility] SARS-COV-2 COVID-19 MODERNA 12+ YRS VACCINE Unknown Completed [facility] SARS-COV-2 COVID-19 MODERNA 12+ YRS VACCINE Unknown Completed [facility] Pneumococcal Polysaccharide, PPSV23 (PNEUMOVAX) Unknown Completed [facility] Pneumococcal Polysaccharide, PPSV23 (PNEUMOVAX) Unknown Completed [facility] Pneumococcal 13 Conjugate, PCV13 (Prevnar 13) Unknown Completed [facility] DTAP Unknown Completed [facility] Zoster Vaccine Recombinant Unknown Completed [facility] Zoster Vaccine Recombinant Unknown Completed [facility] Influenza High Dose Unknown Completed [facility] SARS-COV-2 COVID-19 MODERNA 12+ YRS VACCINE Unknown Completed [facility] SARS-COV-2 COVID-19 MODERNA 12+ YRS VACCINE Unknown Completed [facility] Pneumococcal Polysaccharide, PPSV23 (PNEUMOVAX) Unknown Completed [facility] Pneumococcal Polysaccharide, PPSV23 (PNEUMOVAX) Unknown Completed [facility] Pneumococcal 13 Conjugate, PCV13 (Prevnar 13) Unknown Completed [facility] DTAP Unknown Completed [facility] Zoster Vaccine Recombinant Unknown Completed [facility] Zoster Vaccine Recombinant Unknown Completed [facility] Influenza High Dose Unknown Completed [facility] SARS-COV-2 COVID-19 MODERNA 12+ YRS VACCINE Unknown Completed [facility] SARS-COV-2 COVID-19 MODERNA 12+ YRS VACCINE Unknown Completed [facility] Pneumococcal Polysaccharide, PPSV23 (PNEUMOVAX) Unknown Completed [facility] Pneumococcal Polysaccharide, PPSV23 (PNEUMOVAX) Unknown Completed [facility] Pneumococcal 13 Conjugate, PCV13 (Prevnar 13) Unknown Completed [facility] DTAP Unknown Completed [facility] Zoster Vaccine Recombinant Unknown Completed [facility] Zoster Vaccine Recombinant Unknown Completed [facility] Influenza High Dose Unknown Completed [facility] SARS-COV-2 COVID-19 MODERNA 12+ YRS VACCINE Unknown Completed [facility] SARS-COV-2 COVID-19 MODERNA 12+ YRS VACCINE Unknown Completed [facility] Pneumococcal Polysaccharide, PPSV23 (PNEUMOVAX) Unknown Completed [facility] Pneumococcal Polysaccharide, PPSV23 (PNEUMOVAX) Unknown Completed [facility] Pneumococcal 13 Conjugate, PCV13 (Prevnar 13) Unknown Completed [facility] DTAP Unknown Completed [facility] Zoster Vaccine Recombinant Unknown Completed [facility] Zoster Vaccine Recombinant Unknown Completed [facility] Influenza High Dose Unknown Completed [facility] SARS-COV-2 COVID-19 MODERNA 12+ YRS VACCINE Unknown Completed [facility] SARS-COV-2 COVID-19 MODERNA 12+ YRS VACCINE Unknown Completed [facility] Pneumococcal Polysaccharide, PPSV23 (PNEUMOVAX) Unknown Completed [facility] Pneumococcal Polysaccharide, PPSV23 (PNEUMOVAX) Unknown Completed [facility] Pneumococcal 13 Conjugate, PCV13 (Prevnar 13) Unknown Completed [facility] DTAP Unknown Completed [facility] Zoster Vaccine Recombinant Unknown Completed [facility] Zoster Vaccine Recombinant Unknown Completed [facility] Influenza High Dose Unknown Completed [facility] SARS-COV-2 COVID-19 MODERNA 12+ YRS VACCINE Unknown Completed [facility] SARS-COV-2 COVID-19 MODERNA 12+ YRS VACCINE Unknown Completed [facility] Pneumococcal Polysaccharide, PPSV23 (PNEUMOVAX) Unknown Completed [facility] Pneumococcal Polysaccharide, PPSV23 (PNEUMOVAX) Unknown Completed [facility] Pneumococcal 13 Conjugate, PCV13 (Prevnar 13) Unknown Completed [facility] DTAP Unknown Completed [facility] Zoster Vaccine Recombinant Unknown Completed [facility] Zoster Vaccine Recombinant Unknown Completed [facility] Influenza High Dose Unknown Completed [facility] SARS-COV-2 COVID-19 MODERNA 12+ YRS VACCINE Unknown Completed [facility] SARS-COV-2 COVID-19 MODERNA 12+ YRS VACCINE Unknown Completed [facility] Pneumococcal Polysaccharide, PPSV23 (PNEUMOVAX) Unknown Completed [facility] Pneumococcal Polysaccharide, PPSV23 (PNEUMOVAX) Unknown Completed [facility] Pneumococcal 13 Conjugate, PCV13 (Prevnar 13) Unknown Completed [facility] DTAP Unknown Completed [facility] Zoster Vaccine Recombinant Unknown Completed [facility] Zoster Vaccine Recombinant Unknown Completed [facility] Influenza High Dose Unknown Completed [facility] SARS-COV-2 COVID-19 MODERNA 12+ YRS VACCINE Unknown Completed [facility] SARS-COV-2 COVID-19 MODERNA 12+ YRS VACCINE Unknown Completed [facility] Pneumococcal Polysaccharide, PPSV23 (PNEUMOVAX) Unknown Completed [facility] Pneumococcal Polysaccharide, PPSV23 (PNEUMOVAX) Unknown Completed [facility] Pneumococcal 13 Conjugate, PCV13 (Prevnar 13) Unknown Completed [facility] DTAP Unknown Completed [facility] Zoster Vaccine Recombinant Unknown Completed [facility] Zoster Vaccine Recombinant Unknown Completed [facility] Influenza High Dose Unknown Completed [facility] SARS-COV-2 COVID-19 MODERNA 12+ YRS VACCINE Unknown Completed [facility] SARS-COV-2 COVID-19 MODERNA 12+ YRS VACCINE Unknown Completed [facility] Pneumococcal Polysaccharide, PPSV23 (PNEUMOVAX) Unknown Completed [facility] Pneumococcal Polysaccharide, PPSV23 (PNEUMOVAX) Unknown Completed [facility] Pneumococcal 13 Conjugate, PCV13 (Prevnar 13) Unknown Completed [facility] DTAP Unknown Completed [facility] Zoster Vaccine Recombinant Unknown Completed [facility] Zoster Vaccine Recombinant Unknown Completed [facility] Influenza High Dose Unknown Completed [facility] SARS-COV-2 COVID-19 MODERNA 12+ YRS VACCINE Unknown Completed [facility] SARS-COV-2 COVID-19 MODERNA 12+ YRS VACCINE Unknown Completed [facility] Pneumococcal Polysaccharide, PPSV23 (PNEUMOVAX) Unknown Completed [facility] Pneumococcal Polysaccharide, PPSV23 (PNEUMOVAX) Unknown Completed [facility] Pneumococcal 13 Conjugate, PCV13 (Prevnar 13) Unknown Completed [facility] DTAP Unknown Completed [facility] Zoster Vaccine Recombinant Unknown Completed [facility] Zoster Vaccine Recombinant Unknown Completed [facility] Influenza High Dose Unknown Completed [facility] SARS-COV-2 COVID-19 MODERNA 12+ YRS VACCINE Unknown Completed [facility] SARS-COV-2 COVID-19 MODERNA 12+ YRS VACCINE Unknown Completed [facility] Pneumococcal Polysaccharide, PPSV23 (PNEUMOVAX) Unknown Completed [facility] Pneumococcal Polysaccharide, PPSV23 (PNEUMOVAX) Unknown Completed [facility] Pneumococcal 13 Conjugate, PCV13 (Prevnar 13) Unknown Completed [facility] DTAP Unknown Completed [facility] Zoster Vaccine Recombinant Unknown Completed [facility] Zoster Vaccine Recombinant Unknown Completed [facility] Influenza High Dose Unknown Completed [facility] SARS-COV-2 COVID-19 MODERNA 12+ YRS VACCINE Unknown Completed [facility] SARS-COV-2 COVID-19 MODERNA 12+ YRS VACCINE Unknown Completed [facility] Pneumococcal Polysaccharide, PPSV23 (PNEUMOVAX) Unknown Completed [facility] Pneumococcal Polysaccharide, PPSV23 (PNEUMOVAX) Unknown Completed [facility] Pneumococcal 13 Conjugate, PCV13 (Prevnar 13) Unknown Completed [facility] DTAP Unknown Completed [facility] Zoster Vaccine Recombinant Unknown Completed [facility] Zoster Vaccine Recombinant Unknown Completed [facility] Influenza High Dose Unknown Completed [facility] SARS-COV-2 COVID-19 MODERNA 12+ YRS VACCINE Unknown Completed [facility] SARS-COV-2 COVID-19 MODERNA 12+ YRS VACCINE Unknown Completed [facility] Pneumococcal Polysaccharide, PPSV23 (PNEUMOVAX) Unknown Completed [facility] Pneumococcal Polysaccharide, PPSV23 (PNEUMOVAX) Unknown Completed [facility] Pneumococcal 13 Conjugate, PCV13 (Prevnar 13) Unknown Completed [facility] DTAP Unknown Completed [facility] Zoster Vaccine Recombinant Unknown Completed [facility] Zoster Vaccine Recombinant Unknown Completed [facility] Influenza High Dose Unknown Completed [facility] SARS-COV-2 COVID-19 MODERNA 12+ YRS VACCINE Unknown Completed [facility] SARS-COV-2 COVID-19 MODERNA 12+ YRS VACCINE Unknown Completed [facility] Pneumococcal Polysaccharide, PPSV23 (PNEUMOVAX) Unknown Completed [facility] Pneumococcal Polysaccharide, PPSV23 (PNEUMOVAX) Unknown Completed [facility] Pneumococcal 13 Conjugate, PCV13 (Prevnar 13) Unknown Completed [facility] DTAP Unknown Completed [facility] Zoster Vaccine Recombinant Unknown Completed [facility] Zoster Vaccine Recombinant Unknown Completed [facility] Influenza High Dose Unknown Completed [facility] SARS-COV-2 COVID-19 MODERNA 12+ YRS VACCINE Unknown Completed [facility] SARS-COV-2 COVID-19 MODERNA 12+ YRS VACCINE Unknown Completed [facility] Pneumococcal Polysaccharide, PPSV23 (PNEUMOVAX) Unknown Completed [facility] Pneumococcal Polysaccharide, PPSV23 (PNEUMOVAX) Unknown Completed [facility] Pneumococcal 13 Conjugate, PCV13 (Prevnar 13) Unknown Completed [facility] DTAP Unknown Completed [facility] Zoster Vaccine Recombinant Unknown Completed [facility] Zoster Vaccine Recombinant Unknown Completed [facility] Influenza High Dose Unknown Completed [facility] SARS-COV-2 COVID-19 MODERNA 12+ YRS VACCINE Unknown Completed [facility] SARS-COV-2 COVID-19 MODERNA 12+ YRS VACCINE Unknown Completed [facility] Pneumococcal Polysaccharide, PPSV23 (PNEUMOVAX) Unknown Completed [facility] Pneumococcal Polysaccharide, PPSV23 (PNEUMOVAX) Unknown Completed [facility] Pneumococcal 13 Conjugate, PCV13 (Prevnar 13) Unknown Completed [facility] DTAP Unknown Completed [facility] Zoster Vaccine Recombinant Unknown Completed [facility] Zoster Vaccine Recombinant Unknown Completed [facility] Influenza High Dose Unknown Completed [facility] SARS-COV-2 COVID-19 MODERNA 12+ YRS VACCINE Unknown Completed [facility] SARS-COV-2 COVID-19 MODERNA 12+ YRS VACCINE Unknown Completed [facility] Pneumococcal Polysaccharide, PPSV23 (PNEUMOVAX) Unknown Completed [facility] Pneumococcal Polysaccharide, PPSV23 (PNEUMOVAX) Unknown Completed [facility] Pneumococcal 13 Conjugate, PCV13 (Prevnar 13) Unknown Completed [facility] DTAP Unknown Completed [facility] Zoster Vaccine Recombinant Unknown Completed [facility] Zoster Vaccine Recombinant Unknown Completed [facility] Influenza High Dose Unknown Completed [facility] SARS-COV-2 COVID-19 MODERNA 12+ YRS VACCINE Unknown Completed [facility] SARS-COV-2 COVID-19 MODERNA 12+ YRS VACCINE Unknown Completed [facility] Pneumococcal Polysaccharide, PPSV23 (PNEUMOVAX) Unknown Completed [facility] Pneumococcal Polysaccharide, PPSV23 (PNEUMOVAX) Unknown Completed [facility] Pneumococcal 13 Conjugate, PCV13 (Prevnar 13) Unknown Completed [facility] DTAP Unknown Completed [facility] Zoster Vaccine Recombinant Unknown Completed [facility] Zoster Vaccine Recombinant Unknown Completed [facility] Influenza High Dose Unknown Completed [facility] SARS-COV-2 COVID-19 MODERNA 12+ YRS VACCINE Unknown Completed [facility] SARS-COV-2 COVID-19 MODERNA 12+ YRS VACCINE Unknown Completed [facility] Pneumococcal Polysaccharide, PPSV23 (PNEUMOVAX) Unknown Completed [facility] Pneumococcal Polysaccharide, PPSV23 (PNEUMOVAX) Unknown Completed [facility] Pneumococcal 13 Conjugate, PCV13 (Prevnar 13) Unknown Completed [facility] DTAP Unknown Completed [facility] Zoster Vaccine Recombinant Unknown Completed [facility] Zoster Vaccine Recombinant Unknown Completed [facility] Influenza High Dose Unknown Completed [facility] SARS-COV-2 COVID-19 MODERNA 12+ YRS VACCINE Unknown Completed [facility] SARS-COV-2 COVID-19 MODERNA 12+ YRS VACCINE Unknown Completed [facility] Pneumococcal Polysaccharide, PPSV23 (PNEUMOVAX) Unknown Completed [facility] Pneumococcal Polysaccharide, PPSV23 (PNEUMOVAX) Unknown Completed [facility] Pneumococcal 13 Conjugate, PCV13 (Prevnar 13) Unknown Completed [facility] DTAP Unknown Completed [facility] Zoster Vaccine Recombinant Unknown Completed [facility] Zoster Vaccine Recombinant Unknown Completed [facility] Influenza High Dose Unknown Completed [facility] SARS-COV-2 COVID-19 MODERNA 12+ YRS VACCINE Unknown Completed [facility] SARS-COV-2 COVID-19 MODERNA 12+ YRS VACCINE Unknown Completed [facility] Pneumococcal Polysaccharide, PPSV23 (PNEUMOVAX) Unknown Completed [facility] Pneumococcal Polysaccharide, PPSV23 (PNEUMOVAX) Unknown Completed [facility] Pneumococcal 13 Conjugate, PCV13 (Prevnar 13) Unknown Completed [facility] DTAP Unknown Completed [facility] Zoster Vaccine Recombinant Unknown Completed [facility] Zoster Vaccine Recombinant Unknown Completed [facility] Influenza High Dose Unknown Completed [facility] SARS-COV-2 COVID-19 MODERNA 12+ YRS VACCINE Unknown Completed [facility] SARS-COV-2 COVID-19 MODERNA 12+ YRS VACCINE Unknown Completed [facility] Pneumococcal Polysaccharide, PPSV23 (PNEUMOVAX) Unknown Completed [facility] Pneumococcal Polysaccharide, PPSV23 (PNEUMOVAX) Unknown Completed [facility] Pneumococcal 13 Conjugate, PCV13 (Prevnar 13) Unknown Completed [facility] DTAP Unknown Completed [facility] Zoster Vaccine Recombinant Unknown Completed [facility] Zoster Vaccine Recombinant Unknown Completed [facility] Influenza High Dose Unknown Completed [facility] SARS-COV-2 COVID-19 MODERNA 12+ YRS VACCINE Unknown Completed [facility] SARS-COV-2 COVID-19 MODERNA 12+ YRS VACCINE Unknown Completed [facility] Pneumococcal Polysaccharide, PPSV23 (PNEUMOVAX) Unknown Completed [facility] Pneumococcal Polysaccharide, PPSV23 (PNEUMOVAX) Unknown Completed [facility] Pneumococcal 13 Conjugate, PCV13 (Prevnar 13) Unknown Completed [facility] DTAP Unknown Completed [facility] Zoster Vaccine Recombinant Unknown Completed [facility] Zoster Vaccine Recombinant Unknown Completed [facility] Influenza High Dose Unknown Completed [facility] SARS-COV-2 COVID-19 MODERNA 12+ YRS VACCINE Unknown Completed [facility] SARS-COV-2 COVID-19 MODERNA 12+ YRS VACCINE Unknown Completed [facility] Pneumococcal Polysaccharide, PPSV23 (PNEUMOVAX) Unknown Completed [facility] Pneumococcal Polysaccharide, PPSV23 (PNEUMOVAX) Unknown Completed [facility] Pneumococcal 13 Conjugate, PCV13 (Prevnar 13) Unknown Completed [facility] DTAP Unknown Completed [facility] Zoster Vaccine Recombinant Unknown Completed [facility] Zoster Vaccine Recombinant Unknown Completed [facility] Influenza High Dose Unknown Completed [facility] Zoster Vaccine Recombinant Unknown Completed [facility] Zoster Vaccine Recombinant Unknown Completed [facility] Influenza Virus Vaccine Quad IM Multi-dose 6+ MO Unknown Completed [facility] Pneumococcal Unspecified Unknown Completed [facility] Zoster, Unspecified Formula Unknown Completed [facility] Influenza Virus Vaccine Quad .5 mL IM 6+ MO (FLUZONE/FLULAVAL/F LUARIX) Unknown Completed [facility] Influenza High Dose Quad Unknown Completed [facility] Influenza High Dose Quad Unknown Completed [facility] Influenza High Dose Quad Unknown Completed [facility] SARS-COV-2 COVID-19 MODERNA 12+ YRS VACCINE Unknown Completed [facility] SARS-COV-2 COVID-19 MODERNA 12+ YRS VACCINE Unknown Completed [facility] Pneumococcal Polysaccharide, PPSV23 (PNEUMOVAX) Unknown Completed [facility] Pneumococcal Polysaccharide, PPSV23 (PNEUMOVAX) Unknown Completed [facility] Pneumococcal 13 Conjugate, PCV13 (Prevnar 13) Unknown Completed [facility] DTAP Unknown Completed [facility] Zoster Vaccine Recombinant Unknown Completed [facility] Zoster Vaccine Recombinant Unknown Completed [facility] Influenza High Dose Unknown Completed [facility] Zoster Vaccine Recombinant Unknown Completed [facility] Zoster Vaccine Recombinant Unknown Completed [facility] Influenza Virus Vaccine Quad IM Multi-dose 6+ MO Unknown Completed [facility] Pneumococcal Unspecified Unknown Completed [facility] Zoster, Unspecified Formula Unknown Completed [facility] Influenza Virus Vaccine Quad .5 mL IM 6+ MO (FLUZONE/FLULAVAL/F LUARIX) Unknown Completed [facility] Influenza High Dose Quad Unknown Completed [facility] Influenza High Dose Quad Unknown Completed [facility] Influenza High Dose Quad Unknown Completed [facility] SARS-COV-2 COVID-19 MODERNA 12+ YRS VACCINE Unknown Completed [facility] SARS-COV-2 COVID-19 MODERNA 12+ YRS VACCINE Unknown Completed [facility] Pneumococcal Polysaccharide, PPSV23 (PNEUMOVAX) Unknown Completed [facility] Pneumococcal Polysaccharide, PPSV23 (PNEUMOVAX) Unknown Completed [facility] Pneumococcal 13 Conjugate, PCV13 (Prevnar 13) Unknown Completed [facility] DTAP Unknown Completed [facility] Zoster Vaccine Recombinant Unknown Completed [facility] Zoster Vaccine Recombinant Unknown Completed [facility] Influenza High Dose Unknown Completed [facility] Zoster Vaccine Recombinant Unknown Completed [facility] Zoster Vaccine Recombinant Unknown Completed [facility] Influenza Virus Vaccine Quad IM Multi-dose 6+ MO Unknown Completed [facility] Pneumococcal Unspecified Unknown Completed [facility] Zoster, Unspecified Formula Unknown Completed [facility] Influenza Virus Vaccine Quad .5 mL IM 6+ MO (FLUZONE/FLULAVAL/F LUARIX) Unknown Completed [facility] Influenza High Dose Quad Unknown Completed [facility] Influenza High Dose Quad Unknown Completed [facility] Influenza High Dose Quad Unknown Completed [facility] SARS-COV-2 COVID-19 MODERNA 12+ YRS VACCINE Unknown Completed [facility] SARS-COV-2 COVID-19 MODERNA 12+ YRS VACCINE Unknown Completed [facility] Pneumococcal Polysaccharide, PPSV23 (PNEUMOVAX) Unknown Completed [facility] Pneumococcal Polysaccharide, PPSV23 (PNEUMOVAX) Unknown Completed [facility] Pneumococcal 13 Conjugate, PCV13 (Prevnar 13) Unknown Completed [facility] DTAP Unknown Completed [facility] Zoster Vaccine Recombinant Unknown Completed [facility] Zoster Vaccine Recombinant Unknown Completed [facility] Influenza High Dose Unknown Completed [facility] Zoster Vaccine Recombinant Unknown Completed [facility] Zoster Vaccine Recombinant Unknown Completed [facility] Influenza Virus Vaccine Quad IM Multi-dose 6+ MO Unknown Completed [facility] Pneumococcal Unspecified Unknown Completed [facility] Zoster, Unspecified Formula Unknown Completed [facility] Influenza Virus Vaccine Quad .5 mL IM 6+ MO (FLUZONE/FLULAVAL/F LUARIX) Unknown Completed [facility] Influenza High Dose Quad Unknown Completed [facility] Influenza High Dose Quad Unknown Completed [facility] Influenza High Dose Quad Unknown Completed [facility] SARS-COV-2 COVID-19 MODERNA 12+ YRS VACCINE Unknown Completed [facility] SARS-COV-2 COVID-19 MODERNA 12+ YRS VACCINE Unknown Completed [facility] Pneumococcal Polysaccharide, PPSV23 (PNEUMOVAX) Unknown Completed [facility] Pneumococcal Polysaccharide, PPSV23 (PNEUMOVAX) Unknown Completed [facility] Pneumococcal 13 Conjugate, PCV13 (Prevnar 13) Unknown Completed [facility] DTAP Unknown Completed [facility] Zoster Vaccine Recombinant Unknown Completed [facility] Zoster Vaccine Recombinant Unknown Completed [facility] Influenza High Dose Unknown Completed [facility] Zoster Vaccine Recombinant Unknown Completed [facility] Zoster Vaccine Recombinant Unknown Completed [facility] Influenza Virus Vaccine Quad IM Multi-dose 6+ MO Unknown Completed [facility] Pneumococcal Unspecified Unknown Completed [facility] Zoster, Unspecified Formula Unknown Completed [facility] Influenza Virus Vaccine Quad .5 mL IM 6+ MO (FLUZONE/FLULAVAL/F LUARIX) Unknown Completed [facility] Influenza High Dose Quad Unknown Completed [facility] Influenza High Dose Quad Unknown Completed [facility] Influenza High Dose Quad Unknown Completed [facility] SARS-COV-2 COVID-19 MODERNA 12+ YRS VACCINE Unknown Completed [facility] SARS-COV-2 COVID-19 MODERNA 12+ YRS VACCINE Unknown Completed [facility] Pneumococcal Polysaccharide, PPSV23 (PNEUMOVAX) Unknown Completed [facility] Pneumococcal Polysaccharide, PPSV23 (PNEUMOVAX) Unknown Completed [facility] Pneumococcal 13 Conjugate, PCV13 (Prevnar 13) Unknown Completed [facility] DTAP Unknown Completed [facility] Zoster Vaccine Recombinant Unknown Completed [facility] Zoster Vaccine Recombinant Unknown Completed [facility] Influenza High Dose Unknown Completed [facility] Zoster Vaccine Recombinant Unknown Completed [facility] Zoster Vaccine Recombinant Unknown Completed [facility] Influenza Virus Vaccine Quad IM Multi-dose 6+ MO Unknown Completed [facility] Pneumococcal Unspecified Unknown Completed [facility] Zoster, Unspecified Formula Unknown Completed [facility] Influenza Virus Vaccine Quad .5 mL IM 6+ MO (FLUZONE/FLULAVAL/F LUARIX) Unknown Completed [facility] Influenza High Dose Quad Unknown Completed [facility] Influenza High Dose Quad Unknown Completed [facility] Influenza High Dose Quad Unknown Completed [facility] SARS-COV-2 COVID-19 MODERNA 12+ YRS VACCINE Unknown Completed [facility] SARS-COV-2 COVID-19 MODERNA 12+ YRS VACCINE Unknown Completed [facility] Pneumococcal Polysaccharide, PPSV23 (PNEUMOVAX) Unknown Completed [facility] Pneumococcal Polysaccharide, PPSV23 (PNEUMOVAX) Unknown Completed [facility] Pneumococcal 13 Conjugate, PCV13 (Prevnar 13) Unknown Completed [facility] DTAP Unknown Completed [facility] Zoster Vaccine Recombinant Unknown Completed [facility] Zoster Vaccine Recombinant Unknown Completed [facility] Influenza High Dose Unknown Completed [facility] Zoster Vaccine Recombinant Unknown Completed [facility] Zoster Vaccine Recombinant Unknown Completed [facility] Influenza Virus Vaccine Quad IM Multi-dose 6+ MO Unknown Completed [facility] Pneumococcal Unspecified Unknown Completed [facility] Zoster, Unspecified Formula Unknown Completed [facility] Influenza Virus Vaccine Quad .5 mL IM 6+ MO (FLUZONE/FLULAVAL/F LUARIX) Unknown Completed [facility] Influenza High Dose Quad Unknown Completed [facility] Influenza High Dose Quad Unknown Completed [facility] Influenza High Dose Quad Unknown Completed [facility] SARS-COV-2 COVID-19 MODERNA 12+ YRS VACCINE Unknown Completed [facility] SARS-COV-2 COVID-19 MODERNA 12+ YRS VACCINE Unknown Completed [facility] Pneumococcal Polysaccharide, PPSV23 (PNEUMOVAX) Unknown Completed [facility] Pneumococcal Polysaccharide, PPSV23 (PNEUMOVAX) Unknown Completed [facility] Pneumococcal 13 Conjugate, PCV13 (Prevnar 13) Unknown Completed [facility] DTAP Unknown Completed [facility] Zoster Vaccine Recombinant Unknown Completed [facility] Zoster Vaccine Recombinant Unknown Completed [facility] Influenza High Dose Unknown Completed [facility] Zoster Vaccine Recombinant Unknown Completed [facility] Zoster Vaccine Recombinant Unknown Completed [facility] Influenza Virus Vaccine Quad IM Multi-dose 6+ MO Unknown Completed [facility] Pneumococcal Unspecified Unknown Completed [facility] Zoster, Unspecified Formula Unknown Completed [facility] Influenza Virus Vaccine Quad .5 mL IM 6+ MO (FLUZONE/FLULAVAL/F LUARIX) Unknown Completed [facility] Influenza High Dose Quad Unknown Completed [facility] Influenza High Dose Quad Unknown Completed [facility] Influenza High Dose Quad Unknown Completed [facility] SARS-COV-2 COVID-19 MODERNA 12+ YRS VACCINE Unknown Completed [facility] SARS-COV-2 COVID-19 MODERNA 12+ YRS VACCINE Unknown Completed [facility] Pneumococcal Polysaccharide, PPSV23 (PNEUMOVAX) Unknown Completed [facility] Pneumococcal Polysaccharide, PPSV23 (PNEUMOVAX) Unknown Completed [facility] Pneumococcal 13 Conjugate, PCV13 (Prevnar 13) Unknown Completed [facility] DTAP Unknown Completed [facility] Zoster Vaccine Recombinant Unknown Completed [facility] Zoster Vaccine Recombinant Unknown Completed [facility] Influenza High Dose Unknown Completed [facility] Zoster Vaccine Recombinant Unknown Completed [facility] Zoster Vaccine Recombinant Unknown Completed [facility] Influenza Virus Vaccine Quad IM Multi-dose 6+ MO Unknown Completed [facility] Pneumococcal Unspecified Unknown Completed [facility] Zoster, Unspecified Formula Unknown Completed [facility] Influenza Virus Vaccine Quad .5 mL IM 6+ MO (FLUZONE/FLULAVAL/F LUARIX) Unknown Completed [facility] Influenza High Dose Quad Unknown Completed [facility] Influenza High Dose Quad Unknown Completed [facility] Influenza High Dose Quad Unknown Completed [facility] SARS-COV-2 COVID-19 MODERNA 12+ YRS VACCINE Unknown Completed [facility] SARS-COV-2 COVID-19 MODERNA 12+ YRS VACCINE Unknown Completed [facility] Pneumococcal Polysaccharide, PPSV23 (PNEUMOVAX) Unknown Completed [facility] Pneumococcal Polysaccharide, PPSV23 (PNEUMOVAX) Unknown Completed [facility] Pneumococcal 13 Conjugate, PCV13 (Prevnar 13) Unknown Completed [facility] DTAP Unknown Completed [facility] Zoster Vaccine Recombinant Unknown Completed [facility] Zoster Vaccine Recombinant Unknown Completed [facility] Influenza High Dose Unknown Completed [facility] Zoster Vaccine Recombinant Unknown Completed [facility] Zoster Vaccine Recombinant Unknown Completed [facility] Influenza Virus Vaccine Quad IM Multi-dose 6+ MO Unknown Completed [facility] Pneumococcal Unspecified Unknown Completed [facility] Zoster, Unspecified Formula Unknown Completed [facility] Influenza Virus Vaccine Quad .5 mL IM 6+ MO (FLUZONE/FLULAVAL/F LUARIX) Unknown Completed [facility] Influenza High Dose Quad Unknown Completed [facility] Influenza High Dose Quad Unknown Completed [facility] Influenza High Dose Quad Unknown Completed [facility] SARS-COV-2 COVID-19 MODERNA 12+ YRS VACCINE Unknown Completed [facility] SARS-COV-2 COVID-19 MODERNA 12+ YRS VACCINE Unknown Completed [facility] Pneumococcal Polysaccharide, PPSV23 (PNEUMOVAX) Unknown Completed [facility] Pneumococcal Polysaccharide, PPSV23 (PNEUMOVAX) Unknown Completed [facility] Pneumococcal 13 Conjugate, PCV13 (Prevnar 13) Unknown Completed [facility] DTAP Unknown Completed [facility] Zoster Vaccine Recombinant Unknown Completed [facility] Zoster Vaccine Recombinant Unknown Completed [facility] Influenza High Dose Unknown Completed [facility] Zoster Vaccine Recombinant Unknown Completed [facility] Zoster Vaccine Recombinant Unknown Completed [facility] Influenza Virus Vaccine Quad IM Multi-dose 6+ MO Unknown Completed [facility] Pneumococcal Unspecified Unknown Completed [facility] Zoster, Unspecified Formula Unknown Completed [facility] Influenza Virus Vaccine Quad .5 mL IM 6+ MO (FLUZONE/FLULAVAL/F LUARIX) Unknown Completed [facility] Influenza High Dose Quad Unknown Completed [facility] Influenza High Dose Quad Unknown Completed [facility] Influenza High Dose Quad Unknown Completed [facility] SARS-COV-2 COVID-19 MODERNA 12+ YRS VACCINE Unknown Completed [facility] SARS-COV-2 COVID-19 MODERNA 12+ YRS VACCINE Unknown Completed [facility] Pneumococcal Polysaccharide, PPSV23 (PNEUMOVAX) Unknown Completed [facility] Pneumococcal Polysaccharide, PPSV23 (PNEUMOVAX) Unknown Completed [facility] Pneumococcal 13 Conjugate, PCV13 (Prevnar 13) Unknown Completed [facility] DTAP Unknown Completed [facility] Zoster Vaccine Recombinant Unknown Completed [facility] Zoster Vaccine Recombinant Unknown Completed [facility] Influenza High Dose Unknown Completed [facility] Zoster Vaccine Recombinant Unknown Completed [facility] Zoster Vaccine Recombinant Unknown Completed [facility] Influenza Virus Vaccine Quad IM Multi-dose 6+ MO Unknown Completed [facility] Pneumococcal Unspecified Unknown Completed [facility] Zoster, Unspecified Formula Unknown Completed [facility] Influenza Virus Vaccine Quad .5 mL IM 6+ MO (FLUZONE/FLULAVAL/F LUARIX) Unknown Completed [facility] Influenza High Dose Quad Unknown Completed [facility] Influenza High Dose Quad Unknown Completed [facility] Influenza High Dose Quad Unknown Completed [facility] SARS-COV-2 COVID-19 MODERNA 12+ YRS VACCINE Unknown Completed [facility] SARS-COV-2 COVID-19 MODERNA 12+ YRS VACCINE Unknown Completed [facility] Pneumococcal Polysaccharide, PPSV23 (PNEUMOVAX) Unknown Completed [facility] Pneumococcal Polysaccharide, PPSV23 (PNEUMOVAX) Unknown Completed [facility] Pneumococcal 13 Conjugate, PCV13 (Prevnar 13) Unknown Completed [facility] DTAP Unknown Completed [facility] Zoster Vaccine Recombinant Unknown Completed [facility] Zoster Vaccine Recombinant Unknown Completed [facility] Influenza High Dose Unknown Completed [facility] Zoster Vaccine Recombinant Unknown Completed [facility] Zoster Vaccine Recombinant Unknown Completed [facility] Influenza Virus Vaccine Quad IM Multi-dose 6+ MO Unknown Completed [facility] Pneumococcal Unspecified Unknown Completed [facility] Zoster, Unspecified Formula Unknown Completed [facility] Influenza Virus Vaccine Quad .5 mL IM 6+ MO (FLUZONE/FLULAVAL/F LUARIX) Unknown Completed [facility] Influenza High Dose Quad Unknown Completed [facility] Influenza High Dose Quad Unknown Completed [facility] Influenza High Dose Quad Unknown Completed [facility] SARS-COV-2 COVID-19 MODERNA 12+ YRS VACCINE Unknown Completed [facility] Pneumococcal Polysaccharide, PPSV23 (PNEUMOVAX) Unknown Completed [facility] Pneumococcal 13 Conjugate, PCV13 (Prevnar 13) Unknown Completed [facility] DTAP Unknown Completed [facility] Zoster Vaccine Recombinant Unknown Completed [facility] Influenza High Dose Unknown Completed [facility] Influenza Virus Vaccine Quad IM Multi-dose 6+ MO Unknown Completed [facility] Pneumococcal Unspecified Unknown Completed [facility] Zoster, Unspecified Formula Unknown Completed [facility] Influenza Virus Vaccine Quad .5 mL IM 6+ MO (FLUZONE/FLULAVAL/F LUARIX) Unknown Completed [facility] Influenza High Dose Quad Unknown Completed [facility] Vital Signs Vital Name Observation Time Observation Value Comments S ource Systolic blood pressure 2024-06-09 19:07:00 108 mm[Hg] [facility] Diastolic blood pressure 2024-06-09 19:07:00 61 mm[Hg] [facility] Heart rate 2024-06-09 19:07:00 66 /min [facility] Respiratory rate 2024-06-09 19:07:00 18 /min [facility] Body height 2024-06-09 19:07:00 170.2 cm [facility] Body weight 2024-06-09 19:07:00 96.616 kg [facility] BMI 2024-06-09 19:07:00 33.36 kg/m2 [facility] Oxygen saturation in Arterial blood by Pulse oximetry 2024-06-09 19:07:00 92 /min [facility] Systolic blood pressure 2024-05-31 18:30:00 113 mm[Hg] [facility] Diastolic blood pressure 2024-05-31 18:30:00 80 mm[Hg] [facility] Heart rate 2024-05-31 18:30:00 66 /min [facility] Body height 2024-05-31 18:30:00 170.2 cm [facility] Body weight 2024-05-31 18:30:00 97.07 kg [facility] BMI 2024-05-31 18:30:00 33.52 kg/m2 [facility] Oxygen saturation in Arterial blood by Pulse oximetry 2024-05-31 18:30:00 94 /min [facility] Systolic blood pressure 2024-05-10 15:23:00 124 mm[Hg] [facility] Diastolic blood pressure 2024-05-10 15:23:00 69 mm[Hg] [facility] Heart rate 2024-05-10 15:23:00 62 /min [facility] Body temperature 2024-05-10 15:23:00 36 [facility] Respiratory rate 2024-05-10 15:23:00 16 /min [facility] Body weight 2024-05-10 15:23:00 95.709 kg [facility] BMI 2024-05-10 15:23:00 30.90 kg/m2 [facility] Oxygen saturation in Arterial blood by Pulse oximetry 2024-05-10 15:23:00 94 /min [facility] Systolic blood pressure 2024-04-27 16:47:00 112 mm[Hg] [facility] Diastolic blood pressure 2024-04-27 16:47:00 65 mm[Hg] [facility] Heart rate 2024-04-27 16:47:00 60 /min [facility] Body temperature 2024-04-27 16:47:00 36.56 [facility] Respiratory rate 2024-04-27 16:47:00 16 /min [facility] Oxygen saturation in Arterial blood by Pulse oximetry 2024-04-27 16:47:00 96 /min [facility] Body height 2024-04-27 02:29:00 176 cm [facility] Body weight 2024-04-27 02:29:00 97.523 kg [facility] BMI 2024-04-27 02:29:00 31.48 kg/m2 [facility] Systolic blood pressure 2024-03-31 18:17:00 118 mm[Hg] [facility] Diastolic blood pressure 2024-03-31 18:17:00 53 mm[Hg] [facility] Heart rate 2024-03-31 18:17:00 57 /min [facility] Body temperature 2024-03-31 18:17:00 36.56 [facility] Body height 2024-03-31 18:17:00 175.3 cm [facility] Body weight 2024-03-31 18:17:00 97.932 kg [facility] BMI 2024-03-31 18:17:00 31.88 kg/m2 [facility] Oxygen saturation in Arterial blood by Pulse oximetry 2024-03-31 18:17:00 91 /min [facility] Systolic blood pressure 2024-02-10 19:08:00 109 mm[Hg] [facility] Diastolic blood pressure 2024-02-10 19:08:00 61 mm[Hg] [facility] Heart rate 2024-02-10 19:08:00 62 /min [facility] Body temperature 2024-02-10 19:08:00 36.22 [facility] Respiratory rate 2024-02-10 19:08:00 20 /min [facility] Body height 2024-02-10 19:08:00 177.8 cm [facility] Body weight 2024-02-10 19:08:00 94.62 kg [facility] BMI 2024-02-10 19:08:00 29.93 kg/m2 [facility] Oxygen saturation in Arterial blood by Pulse oximetry 2024-02-10 19:08:00 95 /min [facility] Systolic blood pressure 2024-01-11 18:56:00 108 mm[Hg] [facility] Diastolic blood pressure 2024-01-11 18:56:00 67 mm[Hg] [facility] Heart rate 2024-01-11 18:56:00 61 /min [facility] Body height 2024-01-11 18:56:00 177.8 cm [facility] Body weight 2024-01-11 18:56:00 95.301 kg [facility] BMI 2024-01-11 18:56:00 30.15 kg/m2 [facility] Oxygen saturation in Arterial blood by Pulse oximetry 2024-01-11 18:56:00 94 /min [facility] Systolic blood pressure 2023-12-03 17:41:00 131 mm[Hg] [facility] Diastolic blood pressure 2023-12-03 17:41:00 74 mm[Hg] [facility] Heart rate 2023-12-03 17:41:00 64 /min [facility] Respiratory rate 2023-12-03 17:39:00 18 /min [facility] Body height 2023-12-03 17:39:00 177.8 cm [facility] Body weight 2023-12-03 17:39:00 97.977 kg [facility] BMI 2023-12-03 17:39:00 30.99 kg/m2 [facility] Oxygen saturation in Arterial blood by Pulse oximetry 2023-12-03 17:39:00 95 /min RA [facility] Systolic blood pressure 2023-12-01 19:08:00 137 mm[Hg] [facility] Diastolic blood pressure 2023-12-01 19:08:00 78 mm[Hg] [facility] Heart rate 2023-12-01 19:08:00 76 /min [facility] Body height 2023-12-01 19:08:00 177.8 cm [facility] Body weight 2023-12-01 19:08:00 95.845 kg [facility] BMI 2023-12-01 19:08:00 30.32 kg/m2 [facility] Oxygen saturation in Arterial blood by Pulse oximetry 2023-12-01 19:08:00 97 /min [facility] Systolic blood pressure 2023-11-24 17:36:00 126 mm[Hg] [facility] Diastolic blood pressure 2023-11-24 17:36:00 70 mm[Hg] [facility] Heart rate 2023-11-24 17:36:00 90 /min [facility] Body temperature 2023-11-24 17:36:00 38.06 [facility] Oxygen saturation in Arterial blood by Pulse oximetry 2023-11-24 17:36:00 90 /min [facility] Respiratory rate 2023-11-24 10:56:00 16 /min [facility] Body weight 2023-11-24 06:34:00 97.569 kg actual wt on the regular scale [facility] BMI 2023-11-24 06:34:00 30.86 kg/m2 [facility] Body height 2023-11-24 02:25:00 177.8 cm [facility] Systolic blood pressure 2023-11-23 16:00:00 116 mm[Hg] [facility] Diastolic blood pressure 2023-11-23 16:00:00 81 mm[Hg] [facility] Heart rate 2023-11-23 16:00:00 77 /min [facility] Respiratory rate 2023-11-23 16:00:00 15 /min [facility] Oxygen saturation in Arterial blood by Pulse oximetry 2023-11-23 16:00:00 93 /min [facility] Body weight 2023-10-15 18:45:00 99.2 kg [facility] BMI 2023-10-15 18:45:00 30.86 kg/m2 [facility] Heart rate 2023-11-11 20:46:00 62 /min [facility] Oxygen saturation in Arterial blood by Pulse oximetry 2023-11-11 20:46:00 95 /min [facility] Systolic blood pressure 2023-11-11 20:44:00 134 mm[Hg] [facility] Diastolic blood pressure 2023-11-11 20:44:00 75 mm[Hg] [facility] Respiratory rate 2023-11-11 20:44:00 17 /min [facility] Body height 2023-11-11 20:44:00 177.8 cm [facility] Body weight 2023-11-11 20:44:00 98.204 kg [facility] BMI 2023-11-11 20:44:00 31.06 kg/m2 [facility] Systolic blood pressure 2023-10-23 20:29:00 116 mm[Hg] [facility] Diastolic blood pressure 2023-10-23 20:29:00 72 mm[Hg] [facility] Heart rate 2023-10-23 20:29:00 74 /min [facility] Body temperature 2023-10-23 20:29:00 36.61 [facility] Respiratory rate 2023-10-23 20:29:00 20 /min [facility] Body height 2023-10-23 20:29:00 177.8 cm [facility] Body weight 2023-10-23 20:29:00 98.93 kg [facility] BMI 2023-10-23 20:29:00 31.29 kg/m2 [facility] Oxygen saturation in Arterial blood by Pulse oximetry 2023-10-23 20:29:00 96 /min [facility] Systolic blood pressure 2023-09-03 20:52:00 127 mm[Hg] [facility] Diastolic blood pressure 2023-09-03 20:52:00 74 mm[Hg] [facility] Heart rate 2023-09-03 20:52:00 69 /min [facility] Respiratory rate 2023-09-03 20:52:00 19 /min [facility] Body height 2023-09-03 20:52:00 177.8 cm [facility] Body weight 2023-09-03 20:52:00 99.247 kg [facility] BMI 2023-09-03 20:52:00 31.39 kg/m2 [facility] Oxygen saturation in Arterial blood by Pulse oximetry 2023-09-03 20:52:00 94 /min [facility] Systolic blood pressure 2023-08-11 21:15:00 123 mm[Hg] [facility] Diastolic blood pressure 2023-08-11 21:15:00 70 mm[Hg] [facility] Heart rate 2023-08-11 21:15:00 62 /min [facility] Respiratory rate 2023-08-11 21:15:00 18 /min [facility] Body height 2023-08-11 21:15:00 177.8 cm [facility] Body weight 2023-08-11 21:15:00 99.837 kg [facility] BMI 2023-08-11 21:15:00 31.58 kg/m2 [facility] Oxygen saturation in Arterial blood by Pulse oximetry 2023-08-11 21:15:00 93 /min [facility] Systolic blood pressure 2023-06-22 16:44:00 115 mm[Hg] [facility] Diastolic blood pressure 2023-06-22 16:44:00 74 mm[Hg] [facility] Heart rate 2023-06-22 16:44:00 62 /min [facility] Body temperature 2023-06-22 16:44:00 36.56 [facility] Respiratory rate 2023-06-22 16:44:00 20 /min [facility] Body height 2023-06-22 16:44:00 177.8 cm [facility] Body weight 2023-06-22 16:44:00 99.791 kg [facility] BMI 2023-06-22 16:44:00 31.57 kg/m2 [facility] Oxygen saturation in Arterial blood by Pulse oximetry 2023-06-22 16:44:00 95 /min [facility] Systolic blood pressure 2023-06-19 19:24:00 106 mm[Hg] [facility] Diastolic blood pressure 2023-06-19 19:24:00 70 mm[Hg] [facility] Heart rate 2023-06-19 19:24:00 61 /min [facility] Body height 2023-06-19 19:24:00 177.8 cm [facility] Body weight 2023-06-19 19:24:00 100.472 kg [facility] BMI 2023-06-19 19:24:00 31.78 kg/m2 [facility] Oxygen saturation in Arterial blood by Pulse oximetry 2023-06-19 19:24:00 98 /min [facility] Systolic blood pressure 2023-05-19 21:09:00 124 mm[Hg] [facility] Diastolic blood pressure 2023-05-19 21:09:00 70 mm[Hg] [facility] Heart rate 2023-05-19 21:09:00 69 /min [facility] Body height 2023-05-19 21:09:00 177.8 cm [facility] Body weight 2023-05-19 21:09:00 103.511 kg [facility] BMI 2023-05-19 21:09:00 32.74 kg/m2 [facility] Oxygen saturation in Arterial blood by Pulse oximetry 2023-05-19 21:09:00 95 /min [facility] Systolic blood pressure 2023-04-27 19:46:00 114 mm[Hg] [facility] Diastolic blood pressure 2023-04-27 19:46:00 68 mm[Hg] [facility] Heart rate 2023-04-27 19:46:00 73 /min [facility] Body height 2023-04-27 19:46:00 177.8 cm [facility] Body weight 2023-04-27 19:46:00 103.239 kg [facility] BMI 2023-04-27 19:46:00 32.66 kg/m2 [facility] Oxygen saturation in Arterial blood by Pulse oximetry 2023-04-27 19:46:00 94 /min [facility] Systolic blood pressure 2023-03-31 19:11:00 111 mm[Hg] [facility] Diastolic blood pressure 2023-03-31 19:11:00 71 mm[Hg] [facility] Heart rate 2023-03-31 19:11:00 70 /min [facility] Respiratory rate 2023-03-31 19:11:00 19 /min [facility] Body height 2023-03-31 19:11:00 177.8 cm [facility] Body weight 2023-03-31 19:11:00 104.554 kg [facility] BMI 2023-03-31 19:11:00 33.07 kg/m2 [facility] Oxygen saturation in Arterial blood by Pulse oximetry 2023-03-31 19:11:00 91 /min [facility] Systolic blood pressure 2023-03-17 18:25:00 98 mm[Hg] [facility] Diastolic blood pressure 2023-03-17 18:25:00 63 mm[Hg] [facility] Heart rate 2023-03-17 18:25:00 83 /min [facility] Body height 2023-03-17 18:25:00 180.3 cm [facility] Body weight 2023-03-17 18:25:00 104.191 kg [facility] BMI 2023-03-17 18:25:00 32.04 kg/m2 [facility] Oxygen saturation in Arterial blood by Pulse oximetry 2023-03-17 18:25:00 93 /min [facility] Systolic blood pressure 2022-10-28 16:09:00 155 mm[Hg] [facility] Diastolic blood pressure 2022-10-28 16:09:00 86 mm[Hg] [facility] Heart rate 2022-10-28 16:09:00 58 /min [facility] Oxygen saturation in Arterial blood by Pulse oximetry 2022-10-28 16:09:00 91 /min [facility] Respiratory rate 2022-10-28 16:04:00 22 /min [facility] Body height 2022-10-28 16:04:00 177.8 cm [facility] Body weight 2022-10-28 16:04:00 105.144 kg [facility] BMI 2022-10-28 16:04:00 33.26 kg/m2 [facility] Systolic blood pressure 2022-10-23 16:01:00 144 mm[Hg] [facility] Diastolic blood pressure 2022-10-23 16:01:00 72 mm[Hg] [facility] Heart rate 2022-10-23 16:01:00 57 /min [facility] Body temperature 2022-10-23 16:01:00 36.22 [facility] Respiratory rate 2022-10-23 16:01:00 16 /min [facility] Body height 2022-10-23 16:01:00 177.8 cm [facility] Body weight 2022-10-23 16:01:00 104.327 kg [facility] BMI 2022-10-23 16:01:00 33.00 kg/m2 [facility] Oxygen saturation in Arterial blood by Pulse oximetry 2022-10-23 16:01:00 94 /min [facility] Systolic blood pressure 2022-09-10 16:44:00 153 mm[Hg] [facility] Diastolic blood pressure 2022-09-10 16:44:00 78 mm[Hg] [facility] Heart rate 2022-09-10 16:44:00 56 /min [facility] Respiratory rate 2022-09-10 16:35:00 19 /min [facility] Body height 2022-09-10 16:35:00 177.8 cm [facility] Body weight 2022-09-10 16:35:00 106.142 kg [facility] BMI 2022-09-10 16:35:00 33.58 kg/m2 [facility] Oxygen saturation in Arterial blood by Pulse oximetry 2022-09-10 16:35:00 95 /min [facility] Systolic blood pressure 2022-08-27 19:50:00 125 mm[Hg] [facility] Diastolic blood pressure 2022-08-27 19:50:00 61 mm[Hg] [facility] Heart rate 2022-08-27 19:50:00 57 /min [facility] Body temperature 2022-08-27 19:50:00 36.22 [facility] Respiratory rate 2022-08-27 19:50:00 18 /min [facility] Body height 2022-08-27 19:50:00 175.3 cm per pt [facility] Body weight 2022-08-27 19:50:00 106.414 kg [facility] BMI 2022-08-27 19:50:00 34.64 kg/m2 [facility] Oxygen saturation in Arterial blood by Pulse oximetry 2022-08-27 19:50:00 92 /min [facility] Body height 2022-08-21 13:35:00 180.3 cm [facility] Body weight 2022-08-21 13:35:00 107.502 kg [facility] BMI 2022-08-21 13:35:00 33.05 kg/m2 [facility] Body height 2022-08-14 14:23:00 180.3 cm [facility] Body weight 2022-08-14 14:23:00 107.502 kg [facility] BMI 2022-08-14 14:23:00 33.05 kg/m2 [facility] Systolic blood pressure 2022-08-01 19:46:00 120 mm[Hg] [facility] Diastolic blood pressure 2022-08-01 19:46:00 70 mm[Hg] [facility] Heart rate 2022-08-01 19:46:00 61 /min [facility] Body temperature 2022-08-01 19:46:00 36.61 Sarah Beth [facility] Body height 2022-08-01 19:46:00 180.3 cm [facility] Body weight 2022-08-01 19:46:00 107.502 kg [facility] BMI 2022-08-01 19:46:00 33.05 kg/m2 [facility] Oxygen saturation in Arterial blood by Pulse oximetry 2022-08-01 19:46:00 94 /min [facility] Systolic blood pressure 2021-11-29 14:56:00 150 mm[Hg] [facility] Diastolic blood pressure 2021-11-29 14:56:00 70 mm[Hg] [facility] Heart rate 2021-11-29 14:51:00 65 /min [facility] Body height 2021-11-29 14:51:00 180.3 cm [facility] Body weight 2021-11-29 14:51:00 110.224 kg [facility] BMI 2021-11-29 14:51:00 33.89 kg/m2 [facility] Oxygen saturation in Arterial blood by Pulse oximetry 2021-11-29 14:51:00 95 /min [facility] Height 2020-03-13 00:00:00 70 [in_i] [facility] BMI (Body Mass Index) 2020-03-13 00:00:00 32.3 kg/m2 [facility] Body Weight 2020-03-13 00:00:00 225 [lb_av] [facility] Procedures Procedure Date / Time Performed Performing Clinician Source CARDIAC DEVICE 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 2024-06-23 19:08:05 Jaquan Ochoa [facility] CARDIAC DEVICE CHECK - REMOTE - ICD 2024-06-04 06:04:41 [facility],US,NON-IMAGING 2024-05-10 15:36:00 Jesica [facility] POCT URINALYSIS AUTO 2024-05-10 15:36:00 Jesica [facility] XR CHEST 1 VW 2024-04-26 21:04:12 Sterling [facility] XR CHEST 1 VW 2024-04-26 21:04:12 Sterling [facility] CATH PROCEDURE LOG 2024-04-26 20:37:37 Doctor Unassigned, Capac [facility] CATH PROCEDURE LOG 2024-04-26 20:37:37 Doctor Unassigned, Capac [facility] ELECTROPHYSIOLOGY PROCEDURE 2024-04-26 20:20:52 Gabriela [facility] ELECTROPHYSIOLOGY PROCEDURE 2024-04-26 20:20:52 Gabriela [facility] ELECTROPHYSIOLOGY PROCEDURE 2024-04-26 20:20:52 Gabriela [facility] ELECTROPHYSIOLOGY PROCEDURE 2024-04-26 20:20:52 Gabriela [facility] BASIC METABOLIC PANEL (NA, K, CL, CO2, GLUCOSE, BUN, CREATININE, CA) 2024-04-19 16:34:00 Gabriela [facility] CBC WITH DIFF 2024-04-19 16:34:00 Gabriela [facility] PROTHROMBIN TIME / INR 2024-04-19 16:34:00 Gabriela [facility] HB ABO GROUPING 2024-04-19 16:34:00 Gabriela [facility] TRANSTHORACIC ECHO (TTE) COMPLETE 2024-03-16 18:46:56 Gabriela [facility] SCANNED LAB RESULTS 2023-12-10 06:01:00 Doctor Unassigned, Capac [facility] MAGNESIUM 2023-11-24 11:41:00 Parrish Patrick [facility] BASIC METABOLIC PANEL (NA, K, CL, CO2, GLUCOSE, BUN, CREATININE, CA) 2023-11-24 11:41:00 [facility] 2023-11-24 11:41:00 Parrish Patrick [facility] MAGNESIUM 2023-11-24 11:41:00 Parrish Patrick [facility] BASIC METABOLIC PANEL (NA, K, CL, CO2, GLUCOSE, BUN, CREATININE, CA) 2023-11-24 11:41:00 Parrish Patrick [facility] CBC WITH DIFF 2023-11-24 11:41:00 Parrish Patrick [facility] CARDIAC CATHETERIZATION 2023-11-23 22:47:31 Gabriela [facility] CARDIAC CATHETERIZATION 2023-11-23 22:47:31 Gabriela [facility] ELECTROPHYSIOLOGY PROCEDURE 2023-11-23 22:47:31 Gabriela [facility] ELECTROPHYSIOLOGY PROCEDURE 2023-11-23 22:47:31 Gabriela, [facility] CARDIAC CATHETERIZATION 2023-11-23 22:47:31 Gabriela [facility] CARDIAC CATHETERIZATION 2023-11-23 22:47:31 Gabriela [facility] ELECTROPHYSIOLOGY PROCEDURE 2023-11-23 22:47:31 Gabriela, [facility] ELECTROPHYSIOLOGY PROCEDURE 2023-11-23 22:47:31 Gabriela [facility] POCT ACT HIGH RANGE 2023-11-23 22:23:00 Gabriela [facility] POCT ACT HIGH RANGE 2023-11-23 22:23:00 Gabriela [facility] POCT ACT HIGH RANGE 2023-11-23 21:52:00 Gabriela [facility] POCT ACT HIGH RANGE 2023-11-23 21:52:00 Gabriela [facility] POCT ACT HIGH RANGE 2023-11-23 [facility] 2023-11-23 21:28:00 Gabriela [facility] POCT ACT HIGH RANGE 2023-11-23 21:01:00 Gabriela [facility] POCT ACT HIGH RANGE 2023-11-23 21:01:00 Gabriela [facility] ABORH CONFIRMATION (LAB ONLY) 2023-11-23 17:50:00 Goetz, [facility] ABORH CONFIRMATION (LAB ONLY) 2023-11-23 17:50:00 [facility]TIGLOBULIN TEST 2023-11-23 16:04:00 Gabriela, [facility] HB INDIRECT ANTIGLOBULIN TEST 2023-11-23 16:04:00 Gabriela [facility] EP PROCEDURE 2023-11-23 06:01:00 Doctor Unassigned, Capac [facility] MAGNESIUM 2023-11-20 [facility]:25[facility] COMP. METABOLIC PANEL (95930) 2023-11-20 21:25:00 [facility] LIPID PANEL (59458)(TOTAL CHOLESTEROL, TRIGLYCERIDES, HDL) 2023-11-20 21:25:00 [facility] GLYCOSYLATED HEMOGLOBIN (A1C) 2023-11-20 21:25:00 Jose Her [facility] PROTHROMBIN TIME / INR 2023-11-20 21:25[facility]00 [facility] ACTIVATED PARTIAL THRMPLAS CK 2023-11-20 21:25:[address] [facility] N-TERMINAL PRO-BNP 2023-11-20 21:25:00 [facility] PO[facility] SARS-COV-2 ANTIGEN (BINAX NOW) 2023-10-23 21:07:00 Génesis Bernstein [facility] XR CHEST 2 VW 2023-10-23 21:03:00 Génesis Brenstein [facility] POCT MOLECULAR FLU 2023-10-23 20:41:00 Unknown, Attending [facility] HB ECG ROUTINE & RHYTHM STRIP 2023-09-03 20:59:55 Jaquan Ochoa [facility] TRANSTHORACIC ECHO (TTE) COMPLETE 2023-08-11 20:38:18 Neeru Cobos [facility] INSURANCE CORRESPONDENCE 2023-08-03 05:01:00 Doctor Unassigned, [facility]ac [facility] INSURANCE CORRESPONDENCE 2023-06-19 05:01:00 Doctor Unassigned, [facility] EXTERNAL PROVIDER RECORDS 2023-06-03 05:01:00 Doctor Unassigned, [facility] BASIC METABOLIC PANEL (NA, K, CL, CO2, GLUCOSE, BUN, CREATININE, CA) 2023-05-18 16:08:00 Kapil [facility] INSURANCE CORRESPONDENCE 2023-02-11 05:01:00 Doctor Unassigned, Capac [facility] PATIENT FINANCIAL POLICY 2023-02-03 13:52:49 Doctor Unassigned, Capac [facility] MYOCARDIUM PERFUSION STRESS AND REST 2022-12-02 17:45:00 Kapil, [facility] NUCLEAR STRESS TEST CARDIOLOGY (DO NOT SCHED) 2022-12-02 17:45:00 Kapil [facility] MYOCARDIUM PERFUSION STRESS AND REST 2022-12-02 17:45:00 Kapil, [facility] NUCLEAR STRESS TEST CARDIOLOGY (DO NOT SCHED) 2022-12-02 17:45:00 Kapil, [facility] NUCLEAR STRESS TEST CARDIOLOGY (DO NOT SCHED) 2022-12-02 17:45:00 Kapil, [facility] MYOCARDIUM PERFUSION STRESS AND REST 2022-12-02 17:45:00 Kapil, [facility] MYOCARDIUM PERFUSION STRESS AND REST 2022-12-02 17:45:00 Kapil, [facility] NUCLEAR STRESS TEST CARDIOLOGY (DO NOT SCHED) 2022-12-02 17:45:00 Kapil, [facility] ASSIGNMENT OF BENEFITS 2022-12-02 14:27:57 Doctor Unassigned, [facility]ac [facility] CONSENT/REFUSAL FOR DIAGNOSIS AND TREATMENT 2022-12-02 14:27:43 Doctor Unassigned, [facility]ac [facility] XR CHEST 2 VW 2022-10-28 17:15:19 Maryse Dick [facility] POCT URINALYSIS AUTO 2022-10-23 00:00:00 Marquis Mooney [facility] REFERRAL- REQUEST/RESPONSE 2022-08-18 05:01:00 Doctor Unassigned, [facility] COMP. METABOLIC PANEL (37510) 2022-08-01 21:28:00 Taina [facility] CBC WITH DIFF 2022-08-01 21:28:00 Taina [facility] GLYCOSYLATED HEMOGLOBIN (A1C) 2022-08-01 21:28:00 Taina [facility] HB ECG ROUTINE & RHYTHM STRIP 2022-08-01 19:27:36 Taina [facility] Plan of Care Planned Activity Planned Date Details Comments Source Instructions [facility] Encounters Start Date/Time End Date/Time Encounter Type Admission Type Attending Clinicians Care Facility Care Department Encounter ID Source 2024-08-11 13:00:00 2024-08-11 13:00:00 Outpatient HENRIQUE [facility]U [facility] [id number] [facility] 2024-07-12 23:21:00 2024-07-22 09:30:00 Inpatient MONTEZ RANGEL [facility] [id number] [facility] 2024-07-07 00:00:00 2024-07-07 15:59:09 Refill Maryse Dick [facility] 1.2.840.114 350.1.13.10 4.2.7.2.686 [id number] [facility] 2024-06-23 13:44:23 2024-06-23 23:59:00 Outpatient HENRIQUE [facility]U [facility] [id number] [facility] 2024-06-23 13:44:23 2024-06-23 23:59:00 Hospital Encounter Henrique Ochoa [facility] OFF[facility] BU[facility] 1.2.840.114 350.1.13.10 4.2.7.2.686 [id number] [facility] 2024-06-23 00:00:00 2024-06-23 16:35:30 Refill Melanie Dickolga [facility] BU[facility] 1.2.840.114 350.1.13.10 4.2.7.2.686 [id number] [facility] 2024-06-16 15:00:00 2024-06-16 15:00:00 Outpatient HENRIQUE [facility] [id number] [facility] 2024-06-16 13:45:00 2024-06-16 14:00:00 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, Adc Lab KapilMiguelolga 2, Adc Lab [facility] BUILD[facility] 1.2.840.114 350.1.13.10 4.2.7.2.686 [id number] [facility] 2024-06-16 13:45:00 2024-06-16 13:45:00 Outpatient R MARYSE DICK [facility] [id number] [facility] 2024-06-09 14:00:00 2024-06-09 14:20:58 Outpatient R MARYSE DICK [facility] [id number] [facility] 2024-06-09 14:00:00 2024-06-09 14:20:58 [facility] 1.2.840.114 350.1.13.10 4.2.7.2.686 [id number] [facility] 2024-06-06 00:00:00 2024-06-06 16:00:09 Telephone Jsoe Her [facility] MED[facility] OFF[facility] BU[facility] 1..840.114 350.1.13.10 4.2.7.2.686 [id number] [facility] 2024-05-23 00:00:00 2024-06-06 09:34:07 Refill Maryse Dick [facility] 1..840.114 350.1.13.10 4.2.7.2.686 [id number] [facility] 2024-06-01 10:30:00 2024-06-01 10:45:00 Correctional Maintenance Technician Visit Lab, Jose Ya Lab, Misha Samaniego [facility]?ANTONGlenna [facility] 1..840.114 350.1.13.10 4.2.7.2.686 [id number] [facility] 2024-06-01 10:30:00 2024-06-01 10:30:00 Outpatient R JOSE HER [facility] [id number] [facility] 2024-05-31 08:55:00 2024-05-31 23:59:00 Outpatient R HENRIQUE OCHOA [facility] [id number] [facility] 2024-05-31 08:55:00 2024-05-31 23:59:00 Hospital Encounter Henrique [facility]choa [facility] 1..840.114 350.1.13.10 4.2.7.2.686 [id number] [facility] 2024-05-31 13:30:00 2024-05-31 14:04:53 Office Visit Jose Her [facility] 1.2.840.114 350.1.13.10 4.2.7.2.686 [id number] [facility] 2024-05-10 14:30:00 2024-05-10 23:59:00 Outpatient R STERLING [facility] [id number] [facility] 2024-05-10 13:56:42 2024-05-10 23:59:00 [facility] 1.2.840.114 350.1.13.10 4.2.7.2.686 [id number] [facility] 2024-05-10 10:30:00 2024-05-10 10:45:00 Office Visit Chitocatalino [facility] 1.2.840.114 350.1.13.10 4.2.7.2.686 [id number] [facility] 2024-05-06 00:00:00 2024-05-06 08:35:36 Refill Natalieshreya [facility] 1.2.840.114 350.1.13.10 4.2.7.2.686 [id number] [facility] 2024-05-05 00:00:00 2024-05-05 14:31:50 Telephone Jose Her [facility] 1.2.840.114 350.1.13.10 4.2.7.2.686 [id number] [facility] 2024-04-26 07:37:00 2024-04-27 13:55:00 Outpatient R KIERSTEN FITZGERALD RACHANA [facility] [id number] [facility] 2024-04-26 07:37:00 2024-04-27 13:55:00 Hospital Encounter Gabriela, Misty Ferrer i, Rachana V. [facility] 1.2840.114 350.1.13.10 4.2.7.2.686 [id number] [facility] 2024-04-26 11:30:00 2024-04-26 13:30:00 Surgery Clifton Ochoaamy britany [facility] 1.2840.114 350.1.13.10 4.2.7.2.686 [id number] [facility] 2024-04-25 13:00:00 2024-04-25 13:00:00 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, Adc Lab Gabriela Henrique britany [facility] BUILDING 1..840.114 350.1.13.10 4.2.7.2.686 [id number] [facility] 2024-04-25 13:00:00 2024-04-25 11:33:17 Outpatient R GABRIELA HENRIQUE Britany GABRIELA HENRIQUE Britany [facility] [id number] [facility] 2024-04-25 00:00:00 2024-04-25 11:19:27 Telephone Jes[facility] BUILDING 1.2.840.114 350.1.13.10 4.2.7.2.686 [id number] [facility] 2024-04-19 11:15:00 2024-04-19 11:33:33 Outpatient R [facility] [id number] [facility] 2024-04-19 11:15:00 2024-04-19 11:33:33 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, Adc Lab [facility] BUILDING 1.2.840.114 350.1.13.10 4.2.7.2.686 [id number] [facility] 2024-04-14 00:00:00 2024-04-15 07:36:56 Refill Natalie [facility] MED[facility] OFFICE BUILDING 1.2.840.114 350.1.13.10 4.2.7.2.686 [id number] [facility] 2024-04-06 00:00:00 2024-04-06 07:42:10 Refill Jesica [facility] MED[facility] OFF[facility] BUILD[facility] 1.2.840.114 350.1.13.10 4.2.7.2.686 [id number] [facility] 2024-03-31 00:00:00 2024-04-01 08:16:[address] [facility] BUILDING 1.2.840.114 350.1.13.10 4.2.7.2.686 [id number] [facility] 2024-03-31 13:20:00 2024-03-31 13:51:05 Outpatient R HENRIQUE OCHOA [facility] [id number] [facility] 2024-03-31 13:20:00 2024-03-31 13:51:05 Office Visit Henrique Ochoa [facility] N[facility] BUILD[facility] 1.2.840.114 350.1.13.10 4.2.7.2.686 [id number] [facility] 2024-03-16 12:53:56 2024-03-16 23:59:00 Outpatient R HENRIQUE OCHOA [facility] [id number] [facility] 2024-03-16 12:53:56 2024-03-16 23:59:00 Hospital Encounter Henrique Ochoa [facility] BUILDING 1.2.840.114 350.1.13.10 4.2.7.2.686 [id number] [facility] 2024-02-24 00:00:00 2024-02-24 00:00:00 [facility] 1.2.840.114 350.1.13.10 4.2.7.2.686 [id number] [facility] 2024-02-22 00:00:00 2024-02-22 00:00:00 [facility]ill [facility] 1.2.840.114 350.1.13.10 4.2.7.2.686 [id number] [facility] 2024-02-10 14:20:00 2024-02-10 14:23:35 [facility] [id number] [facility] 2024-02-10 14:20:00 2024-02-10 14:23:35 [facility] 1.2.840.114 350.1.13.10 4.2.7.2.686 [id number] [facility] 2024-01-12 00:00:00 2024-01-12 00:00:00 [facility] 1.2.840.114 350.1.13.10 4.2.7.2.686 [id number] [facility] 2024-01-11 14:00:00 2024-01-11 16:41:15 Outpatient R JOSE HER [facility] [id number] [facility] 2024-01-11 14:00:00 2024-01-11 16:41:15 Office Visit Jose Her [facility] 1.2.840.114 350.1.13.10 4.2.7.2.686 [id number] [facility] 2024-01-11 11:15:00 2024-01-11 11:30:00 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, Adc Lab Kapil [facility] 1.2.840.114 350.1.13.10 4.2.7.2.686 [id number] [facility] 2024-01-05 00:00:00 2024-01-05 00:00:00 Refill Kapil [facility] BUILDING 1.2.840.114 350.1.13.10 4.2.7.2.686 [id number] [facility] 2023-12-10 00:00:00 2023-12-10 00:00:00 Orders Only Doctor Unassigned, Capac [facility] 1.2.840.114 350.1.13.10 4.2.7.2.686 [id number] [facility] 2023-12-03 11:40:00 2023-12-03 12:19:33 Outpatient R HENRIQUE OCHOA [facility] [id number] [facility] 2023-12-03 11:40:00 2023-12-03 12:19:33 Office Visit Henrique Ochoa [facility] 1.2.840.114 350.1.13.10 4.2.7.2.686 [id number] [facility] 2023-12-01 13:39:58 2023-12-01 23:59:00 Outpatient R JOSE HER [facility] [id number] [facility] 2023-12-01 13:39:58 2023-12-01 23:59:00 Hospital Encounter Destiny Herthia [facility] 1.2.840.114 350.1.13.10 4.2.7.2.686 [id number] [facility] 2023-12-01 13:00:00 2023-12-01 13:40:18 Office Visit Destiny Herthia [facility] 1.2840.114 350.1.13.10 4.2.7.2.686 [id number] [facility] 2023-11-26 00:00:00 2023-11-26 00:00:00 Refnichelle KapilMaryse [facility] 1.2840.114 350.1.13.10 4.2.7.2.686 [id number] [facility] 2023-11-25 00:00:00 2023-11-25 00:00:00 Andrés [facility] 1.2840.114 350.1.13.10 4.2.7.2.686 [id number] [facility] 2023-11-23 09:11:00 2023-11-24 13:27:00 Outpatient R HENRIQUE OCHOA [facility]A [facility] [id number] [facility] 2023-11-23 09:11:00 2023-11-24 13:27:00 Hospital Encounter Henrique Ochoa R[facility] 1.2840.114 350.1.13.10 4.2.7.2.686 [id number] [facility] 2023-11-23 11:00:00 2023-11-23 14:00:00 Surgery Gabriela Henrique britany [facility] 1.2.840.114 350.1.13.10 4.2.7.2.686 [id number] [facility] 2023-11-23 00:00:00 2023-11-23 00:00:00 Orders Only Doctor Unassigned, Capac [facility] 1.2.840.114 350.1.13.10 4.2.7.2.686 [id number] [facility] 2023-11-20 15:15:00 2023-11-20 15:27:42 Outpatient HENRIQUE LAU [facility] [id number] [facility] 2023-11-20 15:15:00 2023-11-20 15:27:42 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, Adc Lab Henrique Ochoa [facility] 1.2.840.114 350.1.13.10 4.2.7.2.686 [id number] [facility] 2023-11-20 00:00:00 2023-11-20 00:00:00 Telephone Henrique Ochoa [facility] 1.2.840.114 350.1.13.10 4.2.7.2.686 [id number] [facility] 2023-11-19 15:00:00 2023-11-19 15:00:00 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, Adc Lab Henrique Ochoa [facility] BUILDING 1.2.840.114 350.1.13.10 4.2.7.2.686 [id number] [facility] 2023-11-19 15:00:00 2023-11-19 14:58:02 Outpatient R HENRIQUE OCHOA [facility] [id number] [facility] 2023-11-19 00:00:00 2023-11-19 00:00:00 Telephone Henrique [facility]cho[facility] 1.2.840.114 350.1.13.10 4.2.7.2.686 [id number] [facility] 2023-11-11 15:00:00 2023-11-11 15:00:00 [facility] 1.2.840.114 350.1.13.10 4.2.7.2.686 [id number] [facility] 2023-11-11 15:00:00 2023-11-11 14:57:39 [facility] [id number] [facility] 2023-11-11 00:00:00 2023-11-11 00:00:00 Refill Kapil [facility] 1.2.840.114 350.1.13.10 4.2.7.2.686 [id number] [facility] 2023-11-10 00:00:00 2023-11-10 00:00:00 Telephone [facility] 1.2.840.114 350.1.13.10 4.2.7.2.686 [id number] [facility] 2023-11-05 00:00:00 2023-11-05 00:00:00 Telephone Henrique Ochoa [facility] BUILDING 1.2.840.114 350.1.13.10 4.2.7.2.686 [id number] [id number] [facility] 2023-10-29 00:00:00 2023-10-29 00:00:00 Bipin Stoddard [facility] 1..840.114 350.1.13.10 4.2.7.2.686 [id number] [id number] [facility] 2023-10-23 14:51:30 2023-10-23 23:59:00 Hospital Encounter Génesis Bernstein [facility] 1..840.114 350.1.13.10 4.2.7.2.686 [id number] [facility] 2023-10-23 14:20:00 2023-10-23 15:12:55 Outpatient R GÉNESIS BERNSTEIN [facility] [id number] [facility] 2023-10-23 14:20:00 2023-10-23 14:40:00 Urgent Care Génesis Bernstein Unknown, Attending [facility] 1..840.114 350.1.13.10 4.2.7.2.686 [id number] [facility] 2023-10-16 10:15:00 2023-10-16 10:34:00 Outpatient R HENRIQUE OCHOA CHOCKALINGA M [facility] [id number] [facility] 2023-10-16 10:15:00 2023-10-16 10:30:00 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, 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 Lab Henrique Ochoa [facility] BUILDING 1..840.114 350.1.13.10 4.2.7.2.686 [id number] [facility] 2023-10-02 00:00:00 2023-10-02 00:00:00 Anisha Adkins [facility] BUILDING 1.2.840.114 350.1.13.10 4.2.7.2.686 [id number] [facility] 2023-10-01 14:00:00 2023-10-01 14:00:00 Outpatient Kurtis OAKLEYTREVON OWENNEERU ENGLAND [facility] [id number] [facility] 2023-09-28 00:00:00 2023-09-28 00:00:00 [facility] 1..840.114 350.1.13.10 4.2.7.2.686 [id number] [id number] [facility] 2023-09-22 13:00:00 2023-09-22 13:00:00 Outpatient Kurtis BRADYEMMASade GONCALVESNEERU Manzanares [facility] [id number] [facility] 2023-09-21 00:00:00 2023-09-21 00:00:00 Refill Kapil [facility] 1..840.114 350.1.13.10 4.2.7.2.686 [id number] [id number] [facility] 2023-09-19 00:00:00 2023-09-19 00:00:00 Refill Marquis Mooney [facility] 1.2.840.114 350.1.13.10 4.2.7.2.686 [id number] 044 [id number] [facility] 2023-09-10 00:00:00 2023-09-10 00:00:00 Telephone Henrique Ochoa [facility] 1.2840.114 350.1.13.10 4.2.7.2.686 [id number] [facility] 2023-09-03 15:00:00 2023-09-03 15:48:32 Outpatient R HENRIQUE OCHOA CHOCKALINGA M [facility] [id number] [facility] 2023-09-03 15:00:00 2023-09-03 15:48:32 Office Visit Gabriela Henrique britany [facility] BUILD[facility] 1.2.840.114 350.1.13.10 4.2.7.2.686 [id number] 059 [id number] [facility] 2023-09-02 00:00:00 2023-09-02 00:00:00 Telephone TainaDestinyJose [facility] ECTOR[facility] 1.2.840.114 350.1.13.10 4.2.7.2.686 [id number] 044 [id number] [facility] 2023-08-13 00:00:00 2023-08-13 00:00:[address] [facility] 1.2.840.114 350.1.13.10 4.2.7.2.686 [id number] [facility] 2023-08-11 14:49:13 2023-08-11 23:59:00 Hospital Encounter Wendyruthrandall Laws Neeru Galindo [facility] BUILD[facility] 1.2.840.114 350.1.13.10 4.2.7.2.686 [id number] [facility] 2023-08-11 16:00:00 2023-08-11 16:43:09 Outpatient R MARYSE DICK [facility] [id number] [facility] 2023-08-11 16:00:00 2023-08-11 16:43:09 Office Visit Maryse Dick [facility] BUILD[facility] 1.2.840.114 350.1.13.10 4.2.7.2.686 [id number] 059 [id number] [facility] 2023-08-03 00:00:00 2023-08-03 00:00:00 Orders Only Doctor Unassigned, Capac [facility] 1.20.114 350.1.13.10 4.2.7.2.686 [id number] [id number] [facility] 2023-08-01 00:00:00 2023-08-01 00:00:00 Refill Bipin De Jesus [facility] ECTOR?[facility] 1.2840.114 350.1.13.10 4.2.7.2.686 [id number] 044 [id number] [facility] 2023-07-29 14:00:00 2023-07-29 14:00:00 [facility] [id number] [facility] 2023-07-27 00:00:00 2023-07-27 00:00:00 [facility] 1.2840.114 350.1.13.10 4.2.7.2.686 [id number] 059 [id number] [facility] 2023-07-06 00:00:00 2023-07-06 00:00:00 Refill Anisha Colunga [facility] 1.2840.114 350.1.13.10 4.2.7.2.686 [id number] 059 [id number] [facility] 2023-06-29 00:00:00 2023-06-29 00:00:00 Refill Anisha Colunga [facility] 1.2840.114 350.1.13.10 4.2.7.2.686 [id number] 059 [id number] [facility] 2023-06-22 12:00:00 2023-06-22 12:30:00 Office Visit Neeru Moore [facility] 1.2840.114 350.1.13.10 4.2.7.2.686 [id number] [facility] 2023-06-22 12:00:00 2023-06-22 12:00:00 Outpatient R NEERU MOORE [facility] [id number] [facility] 2023-06-19 14:30:00 2023-06-19 14:52:45 Outpatient R DESTINY HERTHIA [facility] [id number] [facility] 2023-06-19 14:30:00 2023-06-19 14:52:45 Office Visit Taina [facility] ECTOR?[facility] 1.840.114 350.1.13.10 4.2.7.2.686 [id number] 044 [id number] [facility] 2023-06-19 00:00:00 2023-06-19 00:00:00 Refill Maryse Dick [facility] BU[facility] 1.840.114 350.1.13.10 4.2.7.2.686 [id number] 059 [id number] [facility] 2023-06-19 00:00:00 2023-06-19 00:00:00 Orders Only Doctor Unassigned, Capac [facility] 1.84114 350.1.13.10 4.2.7.2.686 [id number] [id number] [facility] 2023-06-17 00:00:00 2023-06-17 00:00:00 Refill Marquis Mooney [facility] ECTOR?[facility] 1.840.114 350.1.13.10 4.2.7.2.686 [id number] 044 [id number] [facility] 2023-06-15 00:00:00 2023-06-15 00:00:00 [facility] 1.2840.114 350.1.13.10 4.2.7.2.686 [id number] 044 [id number] [facility] 2023-06-03 00:00:00 2023-06-03 00:00:00 Orders Only Doctor Unassigned, Capac [facility] 1.2840.114 350.1.13.10 4.2.7.2.686 [id number] [id number] [facility] 2023-06-01 00:00:00 2023-06-01 00:00:00 Refill Kapil [facility] BUILDING 1.2840.114 350.1.13.10 4.2.7.2.686 [id number] 059 [id number] [facility] 2023-05-19 16:30:00 2023-05-19 16:55:39 Outpatient R JOSE HER [facility] [id number] [facility] 2023-05-19 16:30:00 2023-05-19 16:55:39 Office Visit Jose Her [facility] ECTOR?[facility] 1.2840.114 350.1.13.10 4.2.7.2.686 [id number] 044 [id number] [facility] 2023-05-19 00:00:00 2023-05-19 00:00:00 Telephone [facility] 1.2.114 350.1.13.10 4.2.7.2.686 [id number] 059 [id number] [facility] 2023-05-18 11:00:00 2023-05-18 11:15:00 Correctional Maintenance Technician Visit Pob, Adc Lab Main [facility]il [facility] 1.2840.114 350.1.13.10 4.2.7.2.686 [id number] [facility] 2023-05-18 11:00:00 2023-05-18 11:00:00 [facility] [id number] [facility] 2023-05-06 00:00:00 2023-05-06 00:00:00 Refill Marquis Mooney [facility] BU[facility] 1..840.114 350.1.13.10 4.2.7.2.686 [id number] 044 [id number] [facility] 2023-05-03 00:00:00 2023-05-03 00:00:00 Refill Bipin De Jesus [facility] OFF[facility] BUILDING 1..840.114 350.1.13.10 4.2.7.2.686 [id number] 044 [id number] [facility] 2023-04-27 14:40:00 2023-04-27 15:06:44 [facility] [id number] [facility] 2023-04-27 14:40:00 2023-04-27 15:06:44 Office [facility] 1..840.114 350.1.13.10 4.2.7.2.686 [id number] 059 [id number] [facility] 2023-04-21 12:59:43 2023-04-21 23:59:00 Outpatient R ANISHA COLUNGA [facility] [id number] [facility] 2023-04-21 00:00:00 2023-04-21 00:00:00 Telephone Anisha Colunga [facility] BUILD[facility] 1..840.114 350.1.13.10 4.2.7.2.686 [id number] 059 [id number] [facility] 2023-04-20 00:00:00 2023-04-20 00:00:00 Telephone Jose Her [facility] ECTOR?[facility] 1.2.840.114 350.1.13.10 4.2.7.2.686 [id number] 044 [id number] [facility] 2023-03-31 14:20:00 2023-03-31 15:22:39 Outpatient R ANISHA COLUNGA [facility] [id number] [facility] 2023-03-31 14:20:00 2023-03-31 15:22:39 Office Visit Anisha Colunga [facility] BUILDING 1.2.840.114 350.1.13.10 4.2.7.2.686 [id number] 059 [id number] [facility] 2023-03-18 00:00:00 2023-03-18 00:00:00 Telephone [facility] 1.2.840.114 350.1.13.10 4.2.7.2.686 [id number] 059 [id number] [facility] 2023-03-17 14:15:00 2023-03-17 14:30:00 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, Adc Lab [facility] 1.2.840.114 350.1.13.10 4.2.7.2.686 [id number] [facility] 2023-03-17 13:20:00 2023-03-17 13:57:04 [facility] [id number] [facility] 2023-03-17 13:20:00 2023-03-17 13:57:04 [facility] 1.2.840.114 350.1.13.10 4.2.7.2.686 [id number] 059 [id number] [facility] 2023-03-04 00:00:00 2023-03-04 00:00:00 [facility] 1.2.840.114 350.1.13.10 4.2.7.2.686 [id number] 044 [id number] [facility] 2023-02-26 00:00:00 2023-02-26 00:00:00 [facility] 1.2.840.114 350.1.13.10 4.2.7.2.686 [id number] 059 [id number] [facility] 2023-02-25 00:00:00 2023-02-25 00:00:00 Refill Jose Her [facility] BUILD[facility] 1.2.840.114 350.1.13.10 4.2.7.2.686 [id number] 044 [id number] [facility] 2023-02-25 00:00:00 2023-02-25 00:00:00 [facility] 1.2.840.114 350.1.13.10 4.2.7.2.686 [id number] 044 [id number] [facility] 2023-02-25 00:00:00 2023-02-25 00:00:00 Telephone Maryse Dick [facility] BU[facility] 1.2.840.114 350.1.13.10 4.2.7.2.686 [id number] 059 [id number] [facility] 2023-02-24 00:00:00 2023-02-24 00:00:00 Refill Maryse Dick [facility] BU[facility] 1.2.840.114 350.1.13.10 4.2.7.2.686 [id number] 059 [id number] [facility] 2023-02-20 00:00:00 2023-02-20 00:00:00 Refill Jose Her [facility] ECTOR?[facility] 1.2.840.114 350.1.13.10 4.2.7.2.686 [id number] 044 [id number] [facility] 2023-02-19 00:00:00 2023-02-19 00:00:00 Refill [facility] 1..840.114 350.1.13.10 4.2.7.2.686 [id number] 059 [id number] [facility] 2023-02-19 00:00:00 2023-02-19 00:00:00 Refill Bipin De Jesus [facility] ECTOR?[facility] 1..840.114 350.1.13.10 4.2.7.2.686 [id number] 044 [id number] [facility] 2023-02-17 08:30:00 2023-02-17 08:30:00 Outpatient R MARQUIS MOONEY [facility] [id number] [facility] 2023-02-17 00:00:00 2023-02-17 00:00:00 Telephone [facility] 1..840.114 350.1.13.10 4.2.7.2.686 [id number] 059 [id number] [facility] 2023-02-16 16:00:00 2023-02-16 16:15:00 Correctional Maintenance Technician Visit Pob, Adc Lab Main [facility] 1..840.114 350.1.13.10 4.2.7.2.686 [id number] [facility] 2023-02-16 16:00:00 2023-02-16 16:00:00 [facility] [id number] [facility] 2023-02-11 00:00:00 2023-02-11 00:00:00 Orders Only Doctor Unassigned, Capac [facility] 1..114 350.1.13.10 4.2.7.2.686 [id number] [id number] [facility] 2023-02-05 00:00:00 2023-02-05 00:00:00 Telephone Maryse Dick [facility] BUILD[facility] 1.84.114 350.1.13.10 4.2.7.2.686 [id number] 059 [id number] [facility] 2023-02-03 09:00:00 2023-02-03 09:16:29 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, Adc Lab [facility] 1.84.114 350.1.13.10 4.2.7.2.686 [id number] [facility] 2023-02-03 09:00:00 2023-02-03 09:00:00 Outpatient R [facility] [id number] [facility] 2023-02-03 00:00:00 2023-02-03 00:00:00 Orders Only Doctor Unassigned, Capac [facility] 1..114 350.1.13.10 4.2.7.2.686 [id number] 009 [id number] [facility] 2023-01-28 00:00:00 2023-01-28 00:00:00 [facility] OFFICE BUILDING 1.84.114 350.1.13.10 4.2.7.2.686 [id number] 044 [id number] [facility] 2023-01-27 00:00:00 2023-01-27 00:00:00 Telephone [facility] OFF[facility] BUILDING 1.0.114 350.1.13.10 4.2.7.2.686 [id number] 044 [id number] [facility] 2023-01-20 14:40:00 2023-01-20 14:40:00 [facility] [id number] [facility] 2023-01-13 00:00:00 2023-01-13 00:00:00 Refill Taina [facility] OFFICE BUILDING 1..840.114 350.1.13.10 4.2.7.2.686 [id number] 044 [id number] [facility] 2022-12-29 10:20:00 2022-12-29 10:20:00 Outpatient [facility] [id number] [facility] 2022-12-09 00:00:00 2022-12-09 00:00:00 Telephone Taina [facility]Y [facility] MEDICAL OFFICE BUILDING 1..840.114 350.1.13.10 4.2.7.2.686 [id number] 044 [id number] [facility] 2022-12-04 00:00:00 2022-12-04 00:00:00 Telephone Kapil [facility] NAL BUILDING 1..840.114 350.1.13.10 4.2.7.2.686 [id number] 059 [id number] [facility] 2022-12-02 08:31:15 2022-12-02 23:59:00 Hospital Encounter Kapil [facility] 1.2.840.114 350.1.13.10 4.2.7.2.686 [id number] [id number] [facility] 2022-12-02 08:30:58 2022-12-02 08:30:58 [facility] 1.2.840.114 350.1.13.10 4.2.7.2.686 [id number] [facility] 2022-12-02 08:30:47 2022-12-02 08:30:47 [facility] 1.2.840.114 350.1.13.10 4.2.7.2.686 [id number] [facility] 2022-12-02 08:30:36 2022-12-02 08:30:36 Outpatient R [facility] [id number] [facility] 2022-12-02 08:30:36 2022-12-02 08:30:36 [facility] 1.2.840.114 350.1.13.10 4.2.7.2.686 [id number] [facility] 2022-11-19 14:30:00 2022-11-19 14:30:00 Outpatient R [facility] [id number] [facility] 2022-11-13 00:00:00 2022-11-13 00:00:00 Telephone Kapil [facility] BUILDING 1.2840.114 350.1.13.10 4.2.7.2.686 [id number] 059 [id number] [facility] 2022-11-07 00:00:00 2022-11-07 00:00:00 [facility] 1.2840.114 350.1.13.10 4.2.7.2.686 [id number] 044 [id number] [facility] 2022-11-05 09:00:00 2022-11-05 09:15:00 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, Adc Lab [facility] BUILDING 1.2.840.114 350.1.13.10 4.2.7.2.686 [id number] [facility] 2022-11-05 09:00:00 2022-11-05 09:00:00 Outpatient [facility] [id number] [facility] 2022-11-04 00:00:00 2022-11-04 00:00:00 Telephone [facility] BUILDING 1.2.840.114 350.1.13.10 4.2.7.2.686 [id number] [facility] 2022-10-31 00:00:00 2022-10-31 00:00:00 Telephone Kapil [facility] 1.2.840.114 350.1.13.10 4.2.7.2.686 [id number] 059 [id number] [facility] 2022-10-30 13:00:00 2022-10-30 13:00:00 Outpatient R [facility] [id number] [facility] 2022-10-28 10:46:25 2022-10-28 23:59:00 Outpatient R [facility] [id number] [facility] 2022-10-28 10:45:00 2022-10-28 23:59:00 Hospital Encounter Kapil [facility] 1.2840.114 350.1.13.10 4.2.7.2.686 [id number] [facility] 2022-10-28 11:15:00 2022-10-28 11:30:00 Correctional Maintenance Technician Visit Pob, Adc Lab Main Kapil [facility] 1.2.840.114 350.1.13.10 4.2.7.2.686 [id number] 353 [id number] [facility] 2022-10-28 10:00:00 2022-10-28 10:22:33 [facility] 1.2.840.114 350.1.13.10 4.2.7.2.686 [id number] [id number] [facility] 2022-10-23 09:30:00 2022-10-23 10:35:15 Outpatient R [facility] [id number] [facility] 2022-10-23 09:30:00 2022-10-23 10:35:15 Office Visit [facility] 1.2.840.114 350.1.13.10 4.2.7.2.686 [id number] [facility] 2022-10-16 00:00:00 2022-10-16 00:00:00 [facility] [id number] [facility] 2022-10-14 00:00:00 2022-10-14 00:00:00 [facility] 1.2.840.114 350.1.13.10 4.2.7.2.686 [id number] [facility] 2022-10-13 08:34:42 2022-10-13 08:34:42 [facility] [id number] [facility] 2022-10-09 00:00:00 2022-10-09 00:00:00 [facility] [id number] [facility] 2022-10-09 00:00:00 2022-10-09 00:00:00 [facility] [id number] [facility] 2022-10-07 10:43:49 2022-10-07 23:59:00 Outpatient R MARYSE DICK [facility] [id number] [facility] 2022-09-17 16:00:00 2022-09-17 16:00:00 [facility] [id number] [facility] 2022-09-17 14:00:00 2022-09-17 14:00:00 [facility] [id number] [facility] 2022-09-12 00:00:00 2022-09-12 00:00:00 Telephone Kapil [facility] BUILDING 1.2.840.114 350.1.13.10 4.2.7.2.686 [id number] 059 [id number] [facility] 2022-09-12 00:00:00 2022-09-12 00:00:00 Telephone Kapil [facility] BUILDING 1.2.840.114 350.1.13.10 4.2.7.2.686 [id number] [id number] [facility] 2022-09-10 10:00:00 2022-09-10 12:58:12 Outpatient R GUADALUPE MACK STRAHIL [facility] [id number] [facility] 2022-09-10 10:00:00 2022-09-10 10:30:00 Office Visit Guadalupe Mack [facility] BUILDING 1.2.840.114 350.1.13.10 4.2.7.2.686 [id number] [facility] 2022-08-27 14:40:00 2022-08-27 15:13:14 [facility] [id number] [facility] 2022-08-27 14:40:00 2022-08-27 15:13:14 Office Visit Kapil [facility] BUILDING 1..840.114 350.1.13.10 4.2.7.2.686 [id number] [facility] 2022-08-21 08:45:00 2022-08-21 09:07:28 Outpatient R CLAUDIO NADINE [facility] [id number] [facility] 2022-08-21 08:45:00 2022-08-21 09:07:28 Office Visit Claudio [facility] 1.2.840.114 350.1.13.10 4.2.7.2.686 [id number] [facility] 2022-08-18 00:00:00 2022-08-18 00:00:00 Orders Only Doctor Unassigned, Capac [facility] 1..840.114 350.1.13.10 4.2.7.2.686 [id number] [facility] 2022-08-14 10:00:00 2022-08-14 10:15:00 Correctional Maintenance Technician Visit Lab, Misha Samaniego Claudio [facility] MEDICAL OFFICE BUILDING 1.2.840.114 350.1.13.10 4.2.7.2.686 [id number] [facility] 2022-08-14 09:30:00 2022-08-14 10:00:00 Office Visit Snyder [facility] 1.2.840.114 350.1.13.10 4.2.7.2.686 [id number] [facility] 2022-08-14 09:30:00 2022-08-14 09:48:43 Outpatient R CLAUDIO [facility] [id number] [facility] 2022-08-11 00:00:00 2022-08-11 00:00:00 Refill Anene[facility] MEDICAL OFFICE BUILDING 1.2.840.114 350.1.13.10 4.2.7.2.686 [id number] [id number] [facility] 2022-08-01 16:15:00 2022-08-01 16:30:00 Correctional Maintenance Technician Visit Lab, Misha Samaniego Destiny HerOn license of [facility]Y [facility] MEDICAL OFFICE BUILDING 1.2.840.114 350.1.13.10 4.2.7.2.686 [id number] [facility] 2022-08-01 14:30:00 2022-08-01 16:24:51 [facility] [id number] [facility] 2022-08-01 14:30:00 2022-08-01 16:24:51 Office Visit Destiny [facility]On [facility] MEDICAL OFFICE BUILDING 1.2.840.114 350.1.13.10 4.2.7.2.686 [id number] 044 [id number] [facility] 2022-05-13 00:00:00 2022-05-13 00:00:00 [facility] 1.2.840.114 350.1.13.10 4.2.7.2.686 [id number] [facility] 2021-12-03 00:00:00 2021-12-03 00:00:00 [facility] 1.2.840.114 350.1.13.10 4.2.7.2.686 [id number] [facility] 2021-12-02 09:30:00 2021-12-02 09:45:00 Correctional Maintenance Technician Visit Lab, Misha Samaniego [facility] MED[facility] 1.2.84114 350.1.13.10 4.2.7.2.686 [id number] [facility] 2021-12-02 09:30:00 2021-12-02 09:30:00 Outpatient R JOSE HER [facility] [id number] [facility] 2021-11-29 09:00:00 2021-11-29 09:39:00 [facility] [id number] [facility] 2021-11-29 09:00:00 2021-11-29 09:39:00 [facility] 1..114 350.1.13.10 4.2.7.2.686 [id number] [facility] 2021-03-08 05:19:00 2021-03-08 05:19:00 Outpatient Ajibade_O_A H VFP VFP [id number] [facility] e 2021-01-17 04:23:00 2021-01-17 04:23:00 Outpatient Ige-Odunuga _J_AH VFP VFP [id number] [facility] e 2020-12-10 10:45:00 2020-12-10 10:45:00 Outpatient R MARQUIS MOONEY [facility] [id number] [facility] 2020-11-23 00:00:00 2020-11-23 00:00:00 Orders Only Doctor Unassigned, [facility] 1.114 350.1.13.10 4.2.7.2.686 [id number] [facility] 2020-11-21 10:31:03 2020-11-21 11:10:50 Office Visit Torie Genao [facility] nal Building 1..114 350.1.13.10 4.2.7.2.686 [id number] [facility] 2020-11-21 10:30:00 2020-11-21 10:30:00 Outpatient TORIE SALGADO [facility] [id number] [facility] 2020-11-15 00:00:00 2020-11-15 00:00:00 Orders Only Doctor Unassigned, [facility] 1.2.840.114 350.1.13.10 4.2.7.2.686 [id number] [facility] 2020-07-31 09:00:00 2020-07-31 09:00:00 Outpatient TORIE SALGADO [facility] [id number] [facility] 2020-04-06 00:00:00 2020-04-06 00:00:00 Telephone Matthew [facility] 1.2.840.114 350.1.13.10 4.2.7.2.686 [id number] [facility] 2020-04-06 00:00:00 2020-04-06 00:00:00 Telephone Castro [facility] 1.2.840.114 350.1.13.10 4.2.7.2.686 [id number] 2020-03-31 12:07:00 2020-03-31 12:07:00 Outpatient Ige-Odunuga _J_AH VFP VFP [id number] [facility] 2020-03-23 04:42:00 2020-03-23 04:42:00 Outpatient Ige-Odunuga _J_AH VFP VFP [id number] [facility] 2020-03-15 09:16:00 2020-03-15 09:16:00 Outpatient Ige-Odunuga _J_AH VFP VFP [id number] [facility] 2020-03-13 10:31:00 2020-03-13 10:31:00 Outpatient Ige-Odunuga _J_AH VFP VFP [id number] [facility] 2020-03-13 00:00:00 2020-03-13 00:00:00 Maddison manzanares, BIODIESEL PROCESS CONTROL TECHNICIAN: [address], [address], [place] [address] , Ph. P [place] - [facility] - [email or web address]_ [place] [employer] [id number] [facility] e 2020-01-18 10:00:00 2020-01-18 10:00:00 Outpatient R MARIA EUGENIA TORIE [facility] [id number] [facility] 2020-01-04 09:38:55 2020-01-04 10:06:26 Office Visit Maria Eugenia Torie Glenna [facility] 1.2.840.114 350.1.13.10 4.2.7.2.686 [id number] [facility] 2020-01-04 09:38:55 2020-01-04 10:06:26 Office Visit Maria Eugenia Torie Glenna [facility] 1.2.840.114 350.1.13.10 4.2.7.2.686 [id number] 2020-01-04 09:45:00 2020-01-04 09:45:00 Outpatient R MARIA EUGENIA TORIE [facility] [id number] [facility] 2020-01-04 00:00:00 2020-01-04 00:00:00 Orders Only Doctor Unassigned, [facility]ac [facility] 1.2.840.114 350.1.13.10 4.2.7.2.686 [id number] [facility] 2020-01-04 00:00:00 2020-01-04 00:00:00 Orders Only Doctor Unassigned, Capac [facility] 1.2.840.114 350.1.13.10 4.2.7.2.686 [id number] 2019-12-14 07:21:00 2019-12-14 07:21:00 Outpatient Jayme _J_AH VFP VFP [id number] [facility] 2019-12-14 07:21:00 2019-12-14 07:21:00 Outpatient Ige-Randa ROSE VFP VFP [id number] [facility] Results Test Description Test Time Test Comments Results Result Co mments Source [facility]ID [facility],US,[id number] 15:36:00* Test Item Value Reference Range Interpretation Comme nts PVR (URINE VOLUME) (test code = 5193) 72 ml 0-100 [facility] 1 [id number] 22:17:08PROCEDURE: XR CHEST 1 VW 04/26/2024 3:50 PM CLINICAL INDICATION: r/o pneumothorax COMPARISON: Radiograph of 12/01/2023.[facility] 1 [id number] 22:17:08PROCEDURE: XR CHEST 1 VW 04/26/2024 3:50 PM CLINICAL INDICATION: r/o pneumothorax COMPARISON: Radiograph of 12/01/2023.[facility] PROCEDURE [id number] 20:37:37Ordered by an unspecified provider. [facility] METABOLIC PANEL (64001)(NA, K, CL, CO2, GLUCOSE, BUN, CREATININE, CA)2024-04-19 18:23:20* Test Item Value Reference Range Interpretation Comme nts NA (test code = 2691709236) 137 mmol/L 135-145 K (test code = 9351082355) 4.6 mmol/L 3.5-5.0 CL (test code = 6185034025) 105 mmol/L 98-108 CO2 TOTAL (test code = 2356591552) 26 mmol/L 23-31 AGAP (test code = 2291813177) 6 2-16 BUN (test code = 3303671970) 27 mg/dL 7-23 H GLUCOSE (test code = 6555516713) 87 mg/dL 70-110 CREATININE (test code = 2160-0) 1.18 mg/dL 0.60-1.25 CALCIUM (test code = 4623526750) 9.7 mg/dL 8.6-10.6 eGFR (test code = 33850-1) 61.2 mL/min/1.73m2 CKD-EPI eGFR (2020). Assuming creatinine has been stable day-to-day for at least three months, the eGFR indicates Category G2 (60 - 89 mL/min/1.73 m2) Lab Interpretation (test code = 01579-8) Abnormal [facility] with [id number] 17:34:29* Test Item Value Reference Range Interpretation Comme nts WBC (test code = 6690-2) 7.83 4.20-10.70 RBC (test code = 789-8) 4.48 4.26-5.52 HGB (test code = 718-7) 14.5 g/dL 12.2-16.4 HCT (test code = 4544-3) 43.9 % 38.4-49.3 MCV (test code = 787-2) 98.0 fL 81.7-95.6 H MCH (test code = 785-6) 32.4 pg 26.1-32.7 MCHC (test code = 786-4) 33.0 g/dL 31.2-35.0 RDW-SD (test code = 44877-6) 50.5 fL 38.5-51.6 RDW-CV (test code = 788-0) 14.0 % 12.1-15.4 PLT (test code = 777-3) 131 150-328 L MPV (test code = 40133-1) 12.0 fL 9.8-13.0 IPF % (test code = 3492661845) 7.6 % 1.2-10.7 Platelet count measured by fluorescence method. NRBC/100 WBC (test code = 5483212782) 0.0 0.0-10.0 NRBC x10^3 (test code = 5590873413) See_Comment [Automated Blomminga ge] The system which generated this result transmitted reference range: 10*3/?L. The reference range was not used to interpret this result as normal/abnormal. GRAN MAT (NEUT) % (test code = 770-8) 39.6 % IMM GRAN % (test code = 0299072118) 0.30 % LYMPH % (test code = 736-9) 45.6 % MONO % (test code = 5905-5) 9.8 % EOS % (test code = 713-8) 4.2 % BASO % (test code = 706-2) 0.5 % GRAN MAT x10^3(ANC) (test code = 2322775156) 3.10 10*3/uL 1.99-6.95 IMM GRAN x10^3 (test code = 1379866494) 0.00-0.06 LYMPH x10^3 (test code = 731-0) 3.57 10*3/uL 1.09-3.23 H MONO x10^3 (test code = 742-7) 0.77 10*3/uL 0.36-1.02 EOS x10^3 (test code = 711-2) 0.33 10*3/uL 0.06-0.53 BASO x10^3 (test code = 704-7) 0.04 10*3/uL 0.01-0.09 Lab Interpretation (test code = 86257-7) Abnormal [facility] / [id number] 17:23:09* Test Item Value Reference Range Interpretation Comme nts PROTIME PATIENT (test code = 5964-2) 16.1 10.1-12.6 H INR (test code = 6301-6) 1.4 Normal INR <1.1; Warfarin Therapeutic range 2.0 to 3.0 or 2.5 to 3.5, depending upon the indications. Lab Interpretation (test code = 68367-0) Abnormal [facility] -2024-04-19 17:17:00* Test Item Value Reference Range Interpretation Comme nts ABO & RH (test code = 20) O POSITIVE IAT (test code = 1185) Negative [facility]an[facility] (TTE)2024-03-17 01:30:04* Test Item Value Reference Range Interpretation Comme nts Height (test code = 6780604273) 70 in Weight (test code = 2093600292) 208 lbs Systolic BP (test code = 6299936682) 124 mmHg Diastolic BP (test code = 1578428908) 73 mmHg Heart Rate (test code = 5702390579) 73 bpm EF(Teich) (test code = 7847857045) 31.70 % LVIDD (test code = 6528521047) 5.10 cm LVIDS (test code = 4984736833) 4.30 cm Left Ventricular End Systolic Volume by Teichholz Method (test code = 0556812) 84.6 mL Left Ventricular End Diastolic Volume by Teichholz Method (test code = 4330779) 123.8 mL IVS (test code = 2331485439) 1.20 cm LVPWD (test code = 2595503013) 1.20 cm LVOT diameter (test code = 9030649082) 2.33 cm LVOT area (test code = 6419862053) 4.30 cm2 FS (test code = 1675430796) 15 % LV GLS Endo Peak A2C () (test code = 9643954160) -16.10 % LV GLS Endo Peak A3C () (test code = 1563687033) -17.40 % LV GLS Endo Peak A4C () (test code = 0781705278) -16.90 % LV GLS Endo Peak Avg () (test code = 1692442653) -16.80 % LA size (test code = 7447408286) 5.2 cm RVOT Proximal Diameter (test code = 6333344237) 3.70 cm ACS (test code = 2326553884) 2.08 cm Ao root diam (test code = 9491112681) 3.90 cm Aortic root (test code = 2514141661) 3.9 cm Ao root annulus (test code = 0497415507) 3.9 cm PW (test code = 6506900229) 1.20 cm 0.6-1.1 EF - 2D (test code = 01643581) 31.70 % Interventricular Septum Diastolic Thickness by 2D (test code = 4732686) 1.20 cm BSA (test code = 8720491142) 2.12 m2 E wave decelartion time (test code = 9370786248) 0.22 s MV Peak E Cece (test code = 7882231921) 80.7 cm/s MV Peak A Cece (test code = 1657084491) 68.7 cm/s E/A ratio (test code = 6901287942) 1.18 ratio MV Prop V (test code = 0614297816) 20.80 cm/s TR Peak Cece (test code = 9802393743) 227.1 cm/s Triscuspid Valve Regurgitation Peak Gradient (test code = 9516468012) 20.6 mmHg LVOT stroke volume (test code = 4508677196) 112.80 cm3 LVOT peak cece (test code = 0767583218) 114.8 cm/s LVOT mn grad (test code = 9319316443) 2.4 mmHg AV LVOT peak gradient (test code = 3072341707) 5.3 mmHg LVOT peak VTI (test code = 3572300768) 26.4 cm LV V1 mean (test code = 6480347768) 71.30 cm/s MR max PG (test code = 6034928980) 69.60 mm[Hg] MR max cece (test code = 4780745083) 417.10 cm/s Mr max cece (test code = 2687172808) 417.1 m/s Aortic valve mean velocity (test code = 7124945791) 104.5 cm/s Ao peak cece (test code = 7321655703) 146.1 cm/s Ao VTI (test code = 3451105104) 33.8 cm AV area by cont VTI (test code = 5868323172) 3.3 cm2 AV area peak cece (test code = 9043896024) 3.4 cm2 Ao max PG (test code = 9595443174) 8.50 mm[Hg] AV peak gradient (test code = 3296607259) 8.5 mmHg AV valve area (test code = 1392906923) 3.30 cm2 AV mean gradient (test code = 0478655114) 4.7 mmHg AV regurgitation pressure 1/2 time (test code = 1163477818) 505.4 ms AI dec slope (test code = 0513988887) 227.70 cm/s2 AI max cece (test code = 2924442330) 392.90 cm/s AI max PG (test code = 3708703678) 61.80 mm[Hg] Radiology Study observation (narrative) (test code = 75832-4) CHEYENNE (test code = CHEYNENE) ?Left?Ventricle: Left ventricle size is normal. Mildly increased wall thickness. Moderate global hypokinesis present. Moderately reduced systolic function with a visually estimated EF of 30 - 35%. GLS -16.8%. There is pseudonormal diastolic dysfunction. Elevated left ventricular filling pressure. ?Right?Ventricle: Right ventricle size is normal. Normal systolic function. ?Aortic?Valve: Mild transvalvular regurgitation. ?Left?Atrium: Left atrium is moderately dilated. ?Aorta: Mildly enlarged ascending aorta (3.8 cm) and aortic arch (3.2 cm). ?Tricuspid?Valve: Insufficient tricuspid regurgitation jet to estimate RVSP . ?RA pressure is 0-5 mmHg. Left VentricleLeft ventricle size is normal. Mildly increased wall thickness. Moderate global hypokinesis present. Moderately reduced systolic function with a visually estimated EF of 30 - 35%. GLS -16.8%. There is pseudonormal diastolic dysfunction. Elevated left ventricular filling pressure.Right VentricleRight ventricle size is normal. Normal systolic function.Left AtriumLeft atrium is moderately dilated.Right AtriumRight atrium size is normal.IVC/SVCIVC diameter is less than or equal to 21 mm and decreases greater than 50% during inspiration; therefore the estimated right atrial pressure is normal (~0-5 mmHg).Mitral ValveMildly calcified leaflets. Mild mitral annular calcification. Mild transvalvular regurgitation.Tricusp id ValveTricuspid valve structure is grossly normal. Trace transvalvular regurgitation. Insufficient tricuspid regurgitation jet to estimate RVSP . RA pressure is 0-5 mmHg.Aortic ValveTricuspid. Mildly calcified cusps. Mild transvalvular regurgitation.Pulmoni c ValveValve structure is normal. Trace transvalvular regurgitation.Ascendi ng AortaMildly enlarged ascending aorta (3.8 cm) and aortic arch (3.2 cm).PericardiumNo pericardial effusion.Study DetailsStudy quality was adequate. A complete echocardiogram was performed using 2D, color flow Doppler, spectral Doppler and strain. The apical, parasternal, subcostal and suprasternal views were obtained. [facility] BranchElectrophysiology [id number] 01:58:35 Supraventricular Tachycardia AblationProcedure: Atrial Flutter Ablation Indication: ?Highly Symptomatic Atrial Flutter Refractory to Pharmacologic Suppression Technique: The patient presented to the electrophysiology lab in the fasting state. An EKG was performed, and it showed that the patient wasin 4:1 atrial flutter. Anesthesia administered by the anesthesia team. The patient was prepped and draped in the usual sterile manner. The right common femoral vein was accessed 3 times under ultrasound guidance and 3 sheaths were placed in this vein. An intracardiac echo catheter was then advancedinto the right atrium and was then positioned to visualize the fossa ovalis. The ICE catheter confirmed that the left atrial appendage was free from clot.A Livewire decapolar catheter was positioned in the right atrium with its distal tip in the coronary sinus. Recordings were made from the right atrium and left atrium by this catheter. The cycle length of the flutter was 250 msec. The activationsequence of the flutter was consistent with left sided atrial flutter with earliest signal on coronary sinus catheter noted to be on CS 1-2. A SJM/Abbot Tacticath ablation catheter was advanced into the right atrium via a Versacross steerable sheath. A 2D electroanatomical map of the right atrium was performed using catheter manipulation, intracardiac electrograms, and fluoroscopy. ?The full cycle length was noted to be in the right atrium with activation consistent with possible CTI dependent flutter. ?A series of RF ablation lesions were applied from the ventricular side of the tricuspid valve to the inferior vena cava. Ablation was performed at a maximum power of 40 W with goal impedancedrop of greater than 10 ohm, however there was no change in tachycardia. The versacross sheath was then advanced to the SVC. A [employer] transseptal needle wire was placed into this sheath. The system was gradually dropped down to the fossa ovalis under fluoroscopic guidance as well as ICE guidance. Appropriate tenting of the fossa ovalis was then confirmed and a transseptal puncture was then performed. Heparin was administered prior to transseptal puncture and an ACT of more than 300 was maintained throughout the duration of the procedure. The Versacross sheath was advanced into the left atrium through which an SJM/Abbot HD grid mapping catheter was advanced. A electroanatomical ?map of the left atrium was performed using the [employer] mapping system. Activation of the atrial flutter was initially noted to be microreentrant initiating from the central posterior wall. An ablation line was done from the left upper pulmonary vein that connected down to the mid posterior wall and up to the right upper pulmonary vein. Esophageal temperature monitoring was performed during ablation along the posterior wall. This lesions set resulted in slowing of the atrial flutter from 250 to 270 ms. Remapping of the left atrium then revealed likely activation around the mitral valve. A lateral mitral isthmus line was done from the left superior vein to the mitral valve. This ablation lesions set resulted in further slowing of the tachycardia to 280 ms however termination was not achieved. The patient was then successfully cardioverted with 360 J shock to NSR. A complete EP study with left atrial and left ventricular pacing was performed. The AH interval was 100 msec. The HV interval was 50 msec.After completion of the EP study a repeat ACT was drawn and protamine was given.After a wait time of10 minutes from protamine administration the sheaths were removed and right sided figure of 8 sutures were deployed. Excellent hemostasis was achieved. The patient was extubated and transferred to recovery for observation. The patient tolerated the procedure well and there were no acute complications. 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 Lateral mitral isthmus ablation lesion set with confirmation of block across the line. Posterior walllesion set from LSPV to RSPV connected to mid posterior wall with confirmation of block across line. Successful DCCV to NSR Plan:Overnight observation on telemetry.Continue oral anticoagulation with eliquis 5 mg PO BIDFollow up in EP clinic in 3 months. Sylvester Ochoa, [facility] EDMONDardiac ElectrophysiologyUnCovenant Medical CenterCardiovascular [id number] 01:58:35Supraventricular Tachycardia AblationProcedure: Atrial Flutter Ablation Indication: ?Highly Symptomatic Atrial Flutter Refractory to Pharmacologic Suppression Technique: The patient presented to the electrophysiology lab in the fasting state. An EKG was performed, and it showed that the patient wasin 4:1 atrial flutter. Anesthesia administered by the anesthesia team. The patient was prepped and draped in the usual sterile manner. The right common femoral vein was accessed 3 times under ultrasound guidance and 3 sheaths were placed in this vein. An intracardiac echo catheter was then advancedinto the right atrium and was then positioned to visualize the fossa ovalis. The ICE catheter confirmed that the left atrial appendage was free from clot.A Livewire decapolar catheter was positioned in the right atrium with its distal tip in the coronary sinus. Recordings were made from the right atrium and left atrium by this catheter. The cycle length of the flutter was 250 msec. The activationsequence of the flutter was consistent with left sided atrial flutter with earliest signal on coronary sinus catheter noted to be on CS 1-2. A SJM/Abbot Tacticath ablation catheter was advanced into the right atrium via a Versacross steerable sheath. A 2D electroanatomical map of the right atrium was performed using catheter manipulation, intracardiac electrograms, and fluoroscopy. ?The full cycle length was noted to be in the right atrium with activation consistent with possible CTI dependent flutter. ?A series of RF ablation lesions were applied from the ventricular side of the tricuspid valve to the inferior vena cava. Ablation was performed at a maximum power of 40 W with goal impedancedrop of greater than 10 ohm, however there was no change in tachycardia. The versacross sheath was then advanced to the SVC. A [employer] transseptal needle wire was placed into this sheath. The system was gradually dropped down to the fossa ovalis under fluoroscopic guidance as well as ICE guidance. Appropriate tenting of the fossa ovalis was then confirmed and a transseptal puncture was then performed. Heparin was administered prior to transseptal puncture and an ACT of more than 300 was maintained throughout the duration of the procedure. The Versacross sheath was advanced into the left atrium through which an SJM/Abbot HD grid mapping catheter was advanced. A electroanatomical ?map of the left atrium was performed using the [employer] mapping system. Activation of the atrial flutter was initially noted to be microreentrant initiating from the central posterior wall. An ablation line was done from the left upper pulmonary vein that connected down to the mid posterior wall and up to the right upper pulmonary vein. Esophageal temperature monitoring was performed during ablation along the posterior wall. This lesions set resulted in slowing of the atrial flutter from 250 to 270 ms. Remapping of the left atrium then revealed likely activation around the mitral valve. A lateral mitral isthmus line was done from the left superior vein to the mitral valve. This ablation lesions set resulted in further slowing of the tachycardia to 280 ms however termination was not achieved. The patient was then successfully cardioverted with 360 J shock to NSR. A complete EP study with left atrial and left ventricular pacing was performed. The AH interval was 100 msec. The HV interval was 50 msec.After completion of the EP study a repeat ACT was drawn and protamine was given.After a wait time of10 minutes from protamine administration the sheaths were removed and right sided figure of 8 sutures were deployed. Excellent hemostasis was achieved. The patient was extubated and transferred to recovery for observation. The patient tolerated the procedure well and there were no acute complications. 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 Lateral mitral isthmus ablation lesion set with confirmation of block across the line. Posterior walllesion set from LSPV to RSPV connected to mid posterior wall with confirmation of block across line. Successful DCCV to NSR Plan:Overnight observation on telemetry.Continue oral anticoagulation with eliquis 5 mg PO BIDFollow up in EP clinic in 3 months. Sylvester Ochoa, [facility]MONDardiac ElectrophysiologyUnHunt [facility] [id number] 22:26:05* Test Item Value Reference Range Interpretation Comme nts ACTHR (test code = 5495673905) 322 See_Comment H [Automated messa ge] The system which generated this result transmitted reference range: 96 - 152 Seconds. The reference range was not used to interpret this result as normal/abnormal. Lab Interpretation (test code = 30983-0) Abnormal [facility] [id number] 22:26:05* Test Item Value Reference Range Interpretation Comme nts ACTHR (test code = 7464221965) 322 See_Comment H [Automated messa ge] The system which generated this result transmitted reference range: 96 - 152 Seconds. The reference range was not used to interpret this result as normal/abnormal. Lab Interpretation (test code = 22662-7) Abnormal [facility] [id number] 21:56:14* Test Item Value Reference Range Interpretation Comme nts ACTHR (test code = 0318463434) 365 See_Comment H [Automated messa ge] The system which generated this result transmitted reference range: 96 - 152 Seconds. The reference range was not used to interpret this result as normal/abnormal. Lab Interpretation (test code = 25289-6) Abnormal [facility] High [id number] 21:56:14* Test Item Value Reference Range Interpretation Comme nts ACTHR (test code = 4664629438) 365 See_Comment H [Automated messa ge] The system which generated this result transmitted reference range: 96 - 152 Seconds. The reference range was not used to interpret this result as normal/abnormal. Lab Interpretation (test code = 68390-6) Abnormal [facility] [id number] 21:30:47* Test Item Value Reference Range Interpretation Comme nts ACTHR (test code = 1647420550) 284 See_Comment H [Automated messa ge] The system which generated this result transmitted reference range: 96 - 152 Seconds. The reference range was not used to interpret this result as normal/abnormal. Lab Interpretation (test code = 31049-4) Abnormal [facility] [id number] 21:30:47* Test Item Value Reference Range Interpretation Comme nts ACTHR (test code = 7294339672) 284 See_Comment H [Automated messa ge] The system which generated this result transmitted reference range: 96 - 152 Seconds. The reference range was not used to interpret this result as normal/abnormal. Lab Interpretation (test code = 41923-8) Abnormal [facility] [id number] 21:05:23* Test Item Value Reference Range Interpretation Comme nts ACTHR (test code = 8750432174) 361 See_Comment H [Automated messa ge] The system which generated this result transmitted reference range: 96 - 152 Seconds. The reference range was not used to interpret this result as normal/abnormal. Lab Interpretation (test code = 76389-5) Abnormal [facility] [id number] 21:05:23* Test Item Value Reference Range Interpretation Comme nts ACTHR (test code = 2136904292) 361 See_Comment H [Automated messa ge] The system which generated this result transmitted reference range: 96 - 152 Seconds. The reference range was not used to interpret this result as normal/abnormal. Lab Interpretation (test code = 38592-5) [facility]2023-11-23 18:58:00* Test Item Value Reference Range Interpretation Comme nts ABO & RH (test code = 20) O Positive [facility] Confirmation (Lab Only)2023-11-23 18:58:00* Test Item Value Reference Range Interpretation Comme nts ABO & RH (test code = 20) O Positive [facility] [id number] 16:08:00* Test Item Value Reference Range Interpretation Comme nts ABO & RH (test code = 20) O POSITIVE IAT (test code = 1185) Negative [facility] [id number] 16:08:00* Test Item Value Reference Range Interpretation Comme nts ABO & RH (test code = 20) O POSITIVE IAT (test code = 1185) Negative [facility] HospitalPROTHROMBIN [facility] / [id number] 00:13:35* Test Item Value Reference Range Interpretation Comme nts PROTIME PATIENT (test code = 5964-2) 15.5 See_Comment H [Automated Blomminga ge] The system which generated this result transmitted reference range: 12.0 - 14.7 Seconds. The reference range was not used to interpret this result as normal/abnormal. INR (test code = 6301-6) 1.3 Normal INR <1.1; Warfarin Therapeutic range 2.0 to 3.0 or 2.5 to 3.5, depending upon the indications. Lab Interpretation (test code = 18383-4) [facility]normal [facility] Awo-[id number] 23:26:06* Test Item Value Reference Range Interpretation Comme [facility] NT-proBNP (test code = 02760-9) 1620 pg/mL <=125 [place] (test code = CHEYENNE) Result Indeterminate-Consid er causes of NT-proBNP elevation other than Heart failure such as acute coronary syndrome, pulmonary embolism, pulmonary hypertension, sepsis, stroke, and renal dysfunction. Lab Interpretation (test code = 25567-2) [facility]normal [facility] ([id number])(TOTAL CHOLESTEROL, TRIGLYCERIDES, HDL)2023-11-20 23:21:05* Test Item Value Reference Range Interpretation Comme nts CHOL (test code = 1514474881) 115 mg/dL 120-200 L HDL (test code = 4932570789) 38 mg/dL >=40 L HDLC RATIO (test code = 2436190537) 3.0 <=5.0 TRIG (test code = 6165358827) 138 mg/dL 30-170 LDL CHOL (test code = 70242-2) 49 mg/dL <=160 VLDL (test code = 9834754474) 28 mg/dL 5-60 Lab Interpretation (test cod e = 59087-6) [facility]2024-[facility]-26 23:20:45* Test Item Value Reference Range Interpretation Comme nts MAGNESIUM (test code = 3151910738) 2.1 mg/dL 1.7-2.4 Lab Interpretation (test cod e = 21269-3) Normal [facility] Met[facility] (96126)2023-11-20 23:20:24* Test Item Value Reference Range Interpretation Comme nts NA (test code = 8507446188) 142 mmol/L 135-145 K (test code = 6847372853) 3.4 mmol/L 3.5-5.0 L CL (test code = 8398772668) 102 mmol/L 98-108 CO2 TOTAL (test code = 4351048392) 35 mmol/L 23-31 H AGAP (test code = 7234696391) 5 2-16 BUN (test code = 7273524184) 21 mg/dL 7-23 GLUCOSE (test code = 3286947180) 100 mg/dL 70-110 CREATININE (test code = 3900052628) 1.06 mg/dL 0.60-1.25 TOTAL BILI (test code = 4292913931) 1.0 mg/dL 0.1-1.1 CALCIUM (test code = 7607108554) 9.5 mg/dL 8.6-10.6 T PROTEIN (test code = 0002757442) 7.5 g/dL 6.3-8.2 ALBUMIN (test code = 4864269747) 3.9 g/dL 3.5-5.0 ALK PHOS (test code = 6661888856) 117 U/L 34-122 ALTv (test code = 1742-6) 17 U/L 5-50 AST(SGOT) (test code = 9344400194) 29 U/L 13-40 eGFR (test code = 27687-9) 70.1 mL/min/1.73m2 CKD-EPI eGFR (2020). Assuming creatinine has been stable day-to-day for at least three months, the eGFR indicates Category G2 (60 - 89 mL/min/1.73 m2) Lab Interpretation (test code = 07146-8) [facility]normal [facility] / [id number] 22:45:39* Test Item Value Reference Range Interpretation Comme [facility] PROTIME PATIENT (test code = 5964-2) 15.8 See_Comment H [Automated messa ge] The system which generated this result transmitted reference range: 12.0 - 14.7 Seconds. The reference range was not used to interpret this result as normal/abnormal. INR (test code = 6301-6) 1.3 Normal INR <1.1; Warfarin Therapeutic range 2.0 to 3.0 or 2.5 to 3.5, depending upon the indications. Lab Interpretation (test code = 78947-8) [facility]normal [facility]PTT2024-[facility] 22:45:39* Test Item Value Reference Range Interpretation Comme [facility] APTT Patient (test code = 3173-2) 34 See_Comment [Automated message] The system which generated this result transmitted reference range: 23 - 38 Seconds. The reference range was not used to interpret this result as normal/abnormal. CHEY[place]NE (test code = CHEYENNE) [facility] patient population mean normal value for aPTT is 30 seconds. Lab Interpretation (test code = 17642-8) Normal [facility]GLOBIN (A1C)2023-11-20 22:33:59* Test Item Value Reference Range Interpretation Comme [facility] HGB A1C (test code = 4548-4) 6.1 % 4.0-5.7 H [place] (test code = CHEYENNE) Reference RangesNormal: <5.7%Prediabetes: 5.7 - 6.4%Diabetes: > 6.5% Lab Interpretation (test code = 09454-8) [facility]normal [facility] Hospital[facility] CHEST 2 [id number] 01:06:10EXAM: XR CHEST 2 VW COMPARISON: Chest radiograph dated 10/28/2022 HISTORY: cough, chest congestion. FINDINGS: Lungs: The lungs are well expanded are clear. Redemonstration ofperibronchial cuffing and bibasilar streaky opacities suggestive ofatelectasis. No focal consolidation. No pleural abnormality. Heart/Mediastinum: Prominent pericardial fat. The cardiomediastinalsilhouette is unremarkable. Bones and soft tissues: No osseous abnormality visualized. [facility] HospitalPOTN SARS-COV-2 ANTIGEN (BINAX NOW)2023-10-23 21:07:00* Test Item Value Reference Range Interpretation Comme nts POCT SARS-COV-2 ANTIGEN (test code = 84814-6) Not Detected Not Detected On board controls acceptable with C Line (test code = 3574) Yes [place]NE (test code = CHEYENNE) accurate developme nt and interpretation of all internal controls Lab Interpretation (test code = 30791-8) Normal [facility] HospitalPOCT Molecular [id number] 20:53:32* Test Item Value Reference Range Interpretation Comme nts POCT Molecular FluA (test co de = 20017-9) Negative Negative POCT Molecular FluB (test co de = 43176-9) Negative Negative Lab Interpretation (test cod e = 46327-3) Normal [facility] HospitalTransthoracic echo (TTE)2023-08-12 03:13:00* Test Item Value Reference Range Interpretation Comme nts Height (test code = 3148196162) 70 in Weight (test code = 7187045524) 220 lbs Systolic BP (test code = 5288343529) 115 mmHg Diastolic BP (test code = 3795254557) 69 mmHg Heart Rate (test code = 0897242494) 91 bpm BSA (test code = 2851647488) 2.17 m2 LVIDD (test code = 4212927669) 5.20 cm Left Ventricular End Diastolic Volume by Teichholz Method (test code = 3912609) 127.3 mL IVS (test code = 2001201520) 1.37 cm Interventricular Septum Diastolic Thickness by 2D (test code = 3149782) 1.37 cm LVPWD (test code = 6648501960) 1.39 cm PW (test code = 5639239435) 1.39 cm 0.6-1.1 EF(Teich) (test code = 8518732562) 29.10 % LVIDS (test code = 9819550521) 4.50 cm Left Ventricular End Systolic Volume by Teichholz Method (test code = 4159305) 90.3 mL FS (test code = 8507033578) 14 % EF - 2D (test code = 00452385) 29.10 % LVOT diameter (test code = 5588771020) 2.5 cm LVOT area (test code = 0937919382) 5.00 cm2 ACS (test code = 5251603384) 2.36 cm Ao root diam (test code = 0217746909) 4.30 cm Aortic root (test code = 5542475210) 4.3 cm Ao root annulus (test code = 7765969890) 4.3 cm LA size (test code = 4819490150) 5.2 cm Pulmonic Regurgitant End Max Velocity (test code = 0653792752) 191.1 cm/s MR max PG (test code = 2947020845) 65.50 mm[Hg] MR max cece (test code = 6048110154) 404.80 cm/s Mr max cece (test code = 9124832873) 404.8 m/s MV Prop V (test code = 0142896161) 26.30 cm/s Tapse (test code = 2383536831) 1.56 cm TR Peak Cece (test code = 4490361067) 310.8 cm/s Triscuspid Valve Regurgitation Peak Gradient (test code = 4633442953) 38.7 mmHg LVOT stroke volume (test code = 3523018888) 100.30 cm3 LVOT peak cece (test code = 1530352726) 94.9 cm/s LVOT mn grad (test code = 6146786578) 1.7 mmHg AV LVOT peak gradient (test code = 4301182172) 3.6 mmHg LVOT peak VTI (test code = 4035155151) 20.1 cm LV V1 mean (test code = 4490175924) 59.40 cm/s Aortic valve mean velocity (test code = 8128910685) 96.3 cm/s Ao peak cece (test code = 6659470453) 141.2 cm/s Ao VTI (test code = 1983549030) 31.5 cm AV area by cont VTI (test code = 1872618856) 3.2 cm2 AV area peak cece (test code = 8285666559) 3.4 cm2 Ao max PG (test code = 8644893334) 8.00 mm[Hg] AV peak gradient (test code = 9314519298) 8.0 mmHg AV mean gradient (test code = 7562043202) 4.2 mmHg AV valve area (test code = 7667747346) 3.20 cm2 AV regurgitation pressure 1/2 time (test code = 8009802221) 740.2 ms AI dec slope (test code = 5103923691) 158.00 cm/s2 AI max cece (test code = 1745368626) 399.30 cm/s AI max PG (test code = 9602844610) 63.80 mm[Hg] LAV(MOD-sp4) (test code = 8470487076) 56.00 mL Radiology Study observation (narrative) (test code = 93693-1) [place] (test code = CHEYENNE) ?Left?Ventricle: Left ventricle is mildly dilated. Mildly increased wall thickness. Moderate global hypokinesis present. Severely reduced systolic function with a visually estimated EF of 25 - 30%. Unable to assess diastolic function due to arrhythmia. ?Right?Ventricle: Right ventricle size is normal. Mildly reduced systolic function. ?Aortic?Valve: Mild to moderate transvalvular regurgitation. ?Left?Atrium: Left atrium is moderately dilated. ?Mitral?Valve: Mild transvalvular regurgitation. ?Aorta: Mildly enlarged ascending aorta 3.8cm. Mild enlarged aortic root. ?Tricuspid?Valve: Mild transvalvular regurgitation. Right ventricular systolic pressure is 45-50 mmHg. ?RA pressure is 10-15 mmHg. ?Right?Atrium: Right atrium is mildly dilated. ?Pulmonic?Valve: Mild transvalvular regurgitation. Left VentricleLeft ventricle is mildly dilated. Mildly increased wall thickness. Moderate global hypokinesis present. Severely reduced systolic function with a visually estimated EF of 25 - 30%. Unable to assess diastolic function due to arrhythmia.Right VentricleRight ventricle size is normal. Mildly reduced systolic function.Left AtriumLeft atrium is moderately dilated.Right AtriumRight atrium is mildly dilated.IVC/SVCRA pressure is 10-15 mmHg.Mitral ValveMildly calcified leaflets. Mild mitral annular calcification. Mild transvalvular regurgitation.Tricusp id ValveTricuspid valve structure is grossly normal. Mild transvalvular regurgitation. Right ventricular systolic pressure is 45-50 mmHg. RA pressure is 10-15 mmHg.Aortic ValveAortic valve opens well. Mildly calcified cusps. Mild to moderate transvalvular regurgitation.Pulmoni c ValvePulmonic valve is grossly normal in structure and function. Mild transvalvular regurgitation.Ascendi ng AortaMildly enlarged ascending aorta 3.8cm. Mild enlarged aortic root.PericardiumNo pericardial effusion.Study DetailsStudy quality was adequate. A complete echocardiogram was performed using 2D, color flow Doppler and spectral Doppler. The apical, parasternal, subcostal and suprasternal views were obtained. [facility] URINALYSIS, [id number] 16:00:00 * Test Item Value Reference Range Interpretation Comme nts POCT U SP GRAV (test code = 3255) 1.030 mg/dl 1.005-1.025 A POCT PH U (test code = 3254) 6.0 mg/dl 5-8 POCT U LEUK EST (test code = 3263) negative Negative - Negative POCT U NIT (test code = 3262) negative Negative - Negati ve POCT U PROT (test code = 3259) Negative - Negative A POCT U GLU (test code = 3256) negative Negative - Negati ve POCT U KETONE (test code = 3258) trace Negative - Negative A POCT U UROBILI (test code = 3260) 1.0 mg/dl 0.2-1 POCT U BILI (test code = 3261) negative Negative - Negative POCT U BLD (test code = 3257) negative Negative - Negati ve POCT U COLOR (test code = 3266) dark yellow POCT U APPEAR (test code = 3267) clear Lab Interpretation (test cod e = 15539-3) Abnormal [facility] URINALYSIS, [id number] 16:00:00 * Test Item Value Reference Range Interpretation Comme nts POCT U SP GRAV (test code = 3255) 1.030 mg/dl 1.005-1.025 A POCT PH U (test code = 3254) 6.0 mg/dl 5-8 POCT U LEUK EST (test code = 3263) negative Negative - Negative POCT U NIT (test code = 3262) negative Negative - Negati ve POCT U PROT (test code = 3259) Negative - Negative A POCT U GLU (test code = 3256) negative Negative - Negati ve POCT U KETONE (test code = 3258) trace Negative - Negative A POCT U UROBILI (test code = 3260) 1.0 mg/dl 0.2-1 POCT U BILI (test code = 3261) negative Negative - Negative POCT U BLD (test code = 3257) negative Negative - Negati ve POCT U COLOR (test code = 3266) dark yellow POCT U APPEAR (test code = 3267) clear Lab Interpretation (test cod e = 24405-5) Abnormal [facility]IN (A1C)2022-08-03 15:26:18* Test Item Value Reference Range Interpretation Comme nts HGB A1C (test code = 4548-4) 5.9 % 4-5.7 H [place] (test code = CHEY[place]NE) Reference RangesNormal: <5.7%Prediabetes: 5.7 - 6.4%Diabetes: > 6.5% Lab Interpretation (test code = 78862-4) [facility]normal [facility] HospitalCBC WITH [id number] 04:53:00* Test Item Value Reference Range Interpretation Comme nts WBC (test code = 6690-2) See_Comment [Automated messa ge] The system which generated this result transmitted reference range: 4.20 - 10.70 10*3/?L. The reference range was not used to interpret this result as normal/abnormal. RBC (test code = 789-8) See_Comment [Automated messa ge] The system which generated this result transmitted reference range: 4.26 - 5.52 10*6/?L. The reference range was not used to interpret this result as normal/abnormal. HGB (test code = 718-7) 15.4 g/dL 12.2-16.4 HCT (test code = 4544-3) 44.8 % 38.4-49.3 MCV (test code = 787-2) 92.2 fL 81.7-95.6 MCH (test code = 785-6) 31.7 pg 26.1-32.7 MCHC (test code = 786-4) 34.4 g/dL 31.2-35 RDW-SD (test code = 78242-3) 47.3 fL 38.5-51.6 RDW-CV (test code = 788-0) 14.0 % 12.1-15.4 PLT (test code = 777-3) See_Comment L [Automated messa ge] The system which generated this result transmitted reference range: 150 - 328 10*3/?L. The reference range was not used to interpret this result as normal/abnormal. MPV (test code = 32363-6) 14.2 fL 9.8-13 H IPF % (test code = 2043348113) 10.6 % 1.2-10.7 Platelet count measured by fluorescence method. NRBC/100 WBC (test code = 5862758028) See_Comment [Automated Antenna ssage] The system which generated this result transmitted reference range: 0.0 - 10.0 /100 WBCs. The reference range was not used to interpret this result as normal/abnormal. NRBC x10^3 (test code = 2053534019) See_Comment [Automated Blomminga ge] The system which generated this result transmitted reference range: 10*3/?L. The reference range was not used to interpret this result as normal/abnormal. GRAN MAT (NEUT) % (test code = 770-8) 40.6 % IMM GRAN % (test code = 8319500109) 0.10 % LYMPH % (test code = 736-9) 44.9 % MONO % (test code = 5905-5) 9.4 % EOS % (test code = 713-8) 4.2 % BASO % (test code = 706-2) 0.8 % GRAN MAT x10^3(ANC) (test code = 3043995909) 2.99 10*3/uL 1.99-6.95 IMM GRAN x10^3 (test code = 8084885214) 0-0.06 LYMPH x10^3 (test code = 731-0) 3.31 10*3/uL 1.09-3.23 H MONO x10^3 (test code = 742-7) 0.69 10*3/uL 0.36-1.02 EOS x10^3 (test code = 711-2) 0.31 10*3/uL 0.06-0.53 BASO x10^3 (test code = 704-7) 0.06 10*3/uL 0.01-0.09 Lab Interpretation (test code = 93053-3) Abnormal [facility] WITH [id number] 04:53:00* Test Item Value Reference Range Interpretation Comme nts WBC (test code = 6690-2) See_Comment [Automated messa ge] The system which generated this result transmitted reference range: 4.20 - 10.70 10*3/?L. The reference range was not used to interpret this result as normal/abnormal. RBC (test code = 789-8) See_Comment [Automated Blomminga ge] The system which generated this result transmitted reference range: 4.26 - 5.52 10*6/?L. The reference range was not used to interpret this result as normal/abnormal. HGB (test code = 718-7) 15.4 g/dL 12.2-16.4 HCT (test code = 4544-3) 44.8 % 38.4-49.3 MCV (test code = 787-2) 92.2 fL 81.7-95.6 MCH (test code = 785-6) 31.7 pg 26.1-32.7 MCHC (test code = 786-4) 34.4 g/dL 31.2-35 RDW-SD (test code = 43594-1) 47.3 fL 38.5-51.6 RDW-CV (test code = 788-0) 14.0 % 12.1-15.4 PLT (test code = 777-3) See_Comment L [Automated Blomminga Melboss] The system which generated this result transmitted reference range: 150 - 328 10*3/?L. The reference range was not used to interpret this result as normal/abnormal. MPV (test code = 94772-5) 14.2 fL 9.8-13 H IPF % (test code = 0529252877) 10.6 % 1.2-10.7 Platelet count measured by fluorescence method. NRBC/100 WBC (test code = 1964568151) See_Comment [Automated Antenna ssage] The system which generated this result transmitted reference range: 0.0 - 10.0 /100 WBCs. The reference range was not used to interpret this result as normal/abnormal. NRBC x10^3 (test code = 5579261588) See_Comment [Automated Blomminga ge] The system which generated this result transmitted reference range: 10*3/?L. The reference range was not used to interpret this result as normal/abnormal. GRAN MAT (NEUT) % (test code = 770-8) 40.6 % IMM GRAN % (test code = 1252597677) 0.10 % LYMPH % (test code = 736-9) 44.9 % MONO % (test code = 5905-5) 9.4 % EOS % (test code = 713-8) 4.2 % BASO % (test code = 706-2) 0.8 % GRAN MAT x10^3(ANC) (test code = 6104693953) 2.99 10*3/uL 1.99-6.95 IMM GRAN x10^3 (test code = 6604875069) 0-0.06 LYMPH x10^3 (test code = 731-0) 3.31 10*3/uL 1.09-3.23 H MONO x10^3 (test code = 742-7) 0.69 10*3/uL 0.36-1.02 EOS x10^3 (test code = 711-2) 0.31 10*3/uL 0.06-0.53 BASO x10^3 (test code = 704-7) 0.06 10*3/uL 0.01-0.09 Lab Interpretation (test code = 37632-7) Abnormal [facility] WITH [id number] 04:53:00* Test Item Value Reference Range Interpretation Comme nts WBC (test code = 6690-2) See_Comment [Automated Blomminga ge] The system which generated this result transmitted reference range: 4.20 - 10.70 10*3/?L. The reference range was not used to interpret this result as normal/abnormal. RBC (test code = 789-8) See_Comment [Automated Blomminga ge] The system which generated this result transmitted reference range: 4.26 - 5.52 10*6/?L. The reference range was not used to interpret this result as normal/abnormal. HGB (test code = 718-7) 15.4 g/dL 12.2-16.4 HCT (test code = 4544-3) 44.8 % 38.4-49.3 MCV (test code = 787-2) 92.2 fL 81.7-95.6 MCH (test code = 785-6) 31.7 pg 26.1-32.7 MCHC (test code = 786-4) 34.4 g/dL 31.2-35 RDW-SD (test code = 48956-9) 47.3 fL 38.5-51.6 RDW-CV (test code = 788-0) 14.0 % 12.1-15.4 PLT (test code = 777-3) See_Comment L [Automated Blomminga ge] The system which generated this result transmitted reference range: 150 - 328 10*3/?L. The reference range was not used to interpret this result as normal/abnormal. MPV (test code = 61761-4) 14.2 fL 9.8-13 H IPF % (test code = 5876606904) 10.6 % 1.2-10.7 Platelet count measured by fluorescence method. NRBC/100 WBC (test code = 8788992518) See_Comment [Automated Antenna ssage] The system which generated this result transmitted reference range: 0.0 - 10.0 /100 WBCs. The reference range was not used to interpret this result as normal/abnormal. NRBC x10^3 (test code = 3175036161) See_Comment [Automated Blomminga ge] The system which generated this result transmitted reference range: 10*3/?L. The reference range was not used to interpret this result as normal/abnormal. GRAN MAT (NEUT) % (test code = 770-8) 40.6 % IMM GRAN % (test code = 5110874402) 0.10 % LYMPH % (test code = 736-9) 44.9 % MONO % (test code = 5905-5) 9.4 % EOS % (test code = 713-8) 4.2 % BASO % (test code = 706-2) 0.8 % GRAN MAT x10^3(ANC) (test code = 2596135114) 2.99 10*3/uL 1.99-6.95 IMM GRAN x10^3 (test code = 4083299099) 0-0.06 LYMPH x10^3 (test code = 731-0) 3.31 10*3/uL 1.09-3.23 H MONO x10^3 (test code = 742-7) 0.69 10*3/uL 0.36-1.02 EOS x10^3 (test code = 711-2) 0.31 10*3/uL 0.06-0.53 BASO x10^3 (test code = 704-7) 0.06 10*3/uL 0.01-0.09 Lab Interpretation (test code = 81216-5) [facility] MET[facility]OLIC PANEL (50342)2022-08-02 04:10:35* Test Item Value Reference Range Interpretation Comme nts NA (test code = 5564870582) 139 mmol/L 135-145 K (test code = 6443927285) 3.8 mmol/L 3.5-5 CL (test code = 4253046498) 98 mmol/L 98-108 CO2 TOTAL (test code = 7248491895) 33 mmol/L 23-31 H AGAP (test code = 8384461745) 2-16 BUN (test code = 1852084512) 19 mg/dL 7-23 GLUCOSE (test code = 2374549276) 116 mg/dL 70-110 H CREATININE (test code = 9434423543) 1.03 mg/dL 0.6-1.25 TOTAL BILI (test code = 2396354570) 1.0 mg/dL 0.1-1.1 CALCIUM (test code = 2269276637) 9.8 mg/dL 8.6-10.6 T PROTEIN (test code = 9652635184) 6.9 g/dL 6.3-8.2 ALBUMIN (test code = 6931613558) 4.1 g/dL 3.5-5 ALK PHOS (test code = 4550207021) 77 U/L 34-122 ALTv (test code = 1742-6) 25 U/L 5-50 AST(SGOT) (test code = 2979552973) 35 U/L 13-40 eGFR (test code = 0476677453) mL/min/1.73m2 [place] (test code = CHEYENNE) Association of Glomerular Filtration Rate (GFR) and Staging of Kidney Disease* + --+ --+ ------+| GFR (mL/min/1.73 m2) ?| With Kidney Damage ?| ?Without Kidney Damage+ --------+ --------+ +| ?>90 ?| ?Stage one ?| ? Normal ?+ ---+ ---+ -------+| ?60-89 ?| ?Stage two ?| ? Decreased GFR ? + --+ --+ ------+| ?30-59 ?| ?Stage three ?| ? Stage three ? + --+ --+ ------+| ?15-29 ?| ?Stage four ? | ? Stage four ?+ ---+ ---+ -------+| ?<15 (or dialysis) ? ?| ?Stage five ? | ? Stage five ?+ ---+ ---+ -------+ *Each stage assumes the associated GFR level has been in effect for at least three months. ?Stages 1 to 5, with or without kidney disease, indicate chronic kidney disease. Notes: Determination of stages one and two (with eGFR >59mL/min/1.73 m2) requires estimation of kidney damage for at least three months as defined by structural or functional abnormalities of the kidney, manifested by either:Pathological abnormalities or Markers of kidney damage (including abnormalities in the composition of the blood or urine or abnormalities in imaging tests). Lab Interpretation (test code = 03555-1) Abnormal [facility]. METABOLIC PANEL ([id number])2022-08-02 04:10:35* Test Item Value Reference Range Interpretation Comme nts NA (test code = 5766569709) 139 mmol/L 135-145 K (test code = 7629269728) 3.8 mmol/L 3.5-5 CL (test code = 6356883123) 98 mmol/L 98-108 CO2 TOTAL (test code = 3135365036) 33 mmol/L 23-31 H AGAP (test code = 0471647858) 2-16 BUN (test code = 0214149667) 19 mg/dL 7-23 GLUCOSE (test code = 5729673905) 116 mg/dL 70-110 H CREATININE (test code = 0137982835) 1.03 mg/dL 0.6-1.25 TOTAL BILI (test code = 9768647898) 1.0 mg/dL 0.1-1.1 CALCIUM (test code = 5333141243) 9.8 mg/dL 8.6-10.6 T PROTEIN (test code = 8295319740) 6.9 g/dL 6.3-8.2 ALBUMIN (test code = 0876789590) 4.1 g/dL 3.5-5 ALK PHOS (test code = 6338840027) 77 U/L 34-122 ALTv (test code = 1742-6) 25 U/L 5-50 AST(SGOT) (test code = 4132514434) 35 U/L 13-40 eGFR (test code = 1180844235) mL/min/1.73m2 [place] (test code = CHEYENNE) Association of Glomerular Filtration Rate (GFR) and Staging of Kidney Disease* + --+ --+ ------+| GFR (mL/min/1.73 m2) ?| With Kidney Damage ?| ?Without Kidney Damage+ --------+ --------+ +| ?>90 ?| ?Stage one ?| ? Normal ?+ ---+ ---+ -------+| ?60-89 ?| ?Stage two ?| ? Decreased GFR ? + --+ --+ ------+| ?30-59 ?| ?Stage three ?| ? Stage three ? + --+ --+ ------+| ?15-29 ?| ?Stage four ? | ? Stage four ?+ ---+ ---+ -------+| ?<15 (or dialysis) ? ?| ?Stage five ? | ? Stage five ?+ ---+ ---+ -------+ *Each stage assumes the associated GFR level has been in effect for at least three months. ?Stages 1 to 5, with or without kidney disease, indicate chronic kidney disease. Notes: Determination of stages one and two (with eGFR >59mL/min/1.73 m2) requires estimation of kidney damage for at least three months as defined by structural or functional abnormalities of the kidney, manifested by either:Pathological abnormalities or Markers of kidney damage (including abnormalities in the composition of the blood or urine or abnormalities in imaging tests). Lab Interpretation (test code = 43992-3) Abnormal [facility]. METABOLIC PANEL ([id number])2022-08-02 04:10:35* Test Item Value Reference Range Interpretation Comme nts NA (test code = 2443122737) 139 mmol/L 135-145 K (test code = 8416248156) 3.8 mmol/L 3.5-5 CL (test code = 2917514702) 98 mmol/L 98-108 CO2 TOTAL (test code = 3917099251) 33 mmol/L 23-31 H AGAP (test code = 7323727350) 2-16 BUN (test code = 8833607482) 19 mg/dL 7-23 GLUCOSE (test code = 4295217514) 116 mg/dL 70-110 H CREATININE (test code = 7801425779) 1.03 mg/dL 0.6-1.25 TOTAL BILI (test code = 5563282761) 1.0 mg/dL 0.1-1.1 CALCIUM (test code = 3491055476) 9.8 mg/dL 8.6-10.6 T PROTEIN (test code = 7479376934) 6.9 g/dL 6.3-8.2 ALBUMIN (test code = 7375900625) 4.1 g/dL 3.5-5 ALK PHOS (test code = 5417583587) 77 U/L 34-122 ALTv (test code = 1742-6) 25 U/L 5-50 AST(SGOT) (test code = 6317985071) 35 U/L 13-40 eGFR (test code = 6208303523) mL/min/1.73m2 [place] (test code = [place]) Association of Glomerular Filtration Rate (GFR) and Staging of Kidney Disease* + --+ --+ ------+| GFR (mL/min/1.73 m2) ?| With Kidney Damage ?| ?Without Kidney Damage+ --------+ --------+ +| ?>90 ?| ?Stage one ?| ? Normal ?+ ---+ ---+ -------+| ?60-89 ?| ?Stage two ?| ? Decreased GFR ? + --+ --+ ------+| ?30-59 ?| ?Stage three ?| ? Stage three ? + --+ --+ ------+| ?15-29 ?| ?Stage four ? | ? Stage four ?+ ---+ ---+ -------+| ?<15 (or dialysis) ? ?| ?Stage five ? | ? Stage five ?+ ---+ ---+ -------+ *Each stage assumes the associated GFR level has been in effect for at least three months. ?Stages 1 to 5, with or without kidney disease, indicate chronic kidney disease. Notes: Determination of stages one and two (with eGFR >59mL/min/1.73 m2) requires estimation of kidney damage for at least three months as defined by structural or functional abnormalities of the kidney, manifested by either:Pathological abnormalities or Markers of kidney damage (including abnormalities in the composition of the blood or urine or abnormalities in imaging tests). Lab Interpretation (test code = 63648-7) Abnormal [facility] History and Physical Notes Date/Time Note Provider Source 2024-04-26 17:49:13 ..[facility] History & Physical DATE: 04/26/2024 SERVICE: Internal Medicine CHIEF COMPLAINT: No chief complaint on file. HISTORY OF PRESENT ILLNESS Olayinka Cox is a 83 year old male who presents to [facility] with a past medical history of HFrEF, atrial flutter, HTN, HLD, and obesity. According to his pedicurist's note, the pt underwent typical and atypical flutter ablation on 11/23/23. He is in normal sinus rhythm today. Notes occasional fatigue. He underwent repeat TTE 03/16/2024 which showed persistently reduced LVEF 30-35% despite GDMT. Patient with LBBB at baseline on EKG. The pt stated that his pedicurist recommended a ICD insert because the pt's heart beat was abnormal. The pt had his procedure done today and is currently relaxing in his room. On assessment, pt's left arm is in a sling and his left upper chest wall is bruised and presents with a surgical incision and surgical glue. No s/s of c/o distress at this time. ALLERGIES Olayinka has No Known Allergies. MEDICATIONS Current Facility-Administered Medications: acetaminophen (TYLENOL) tablet 650 mg, 650 mg, Oral, Q6HPRN, Kiersten Fitzgerald MD [START ON 04/27/2024] docusate (COLACE) capsule 100 mg, 100 mg, Oral, DAILY, Kiersten Fitzgerald MD lactated ringers IV infusion 1,000 mL, 1,000 mL, IV Infusion, ONCE, Keena Jackson MD ondansetron (ZOFRAN (PF)) injection 4 mg, 4 mg, Slow IV Push, Q6HPRN, Kiersten Fitzgerald MD PAST MEDICAL HISTORY Past Medical History: Diagnosis Date Basal cell carcinoma Diverticulitis Hearing loss Hypertension Irregular heartbeat Kidney stone UTI (urinary tract infection) PAST SURGICAL HISTORY Past Surgical History: Procedure Laterality Date TONSILLECTOMY PAST SOCIAL HISTORY Social History Socioeconomic History Marital status: Tobacco Use Smoking status: Never Smokeless tobacco: Never Substance and Sexual Activity Alcohol use: No Social Determinants of Health Financial Resource Strain: Low Risk (01/11/2024) Overall Financial Resource Strain (CARDIA) Difficulty of Paying Living Expenses: Not hard at all Food Insecurity: No Food Insecurity (01/11/2024) Hunger Vital Sign Worried About Running Out of Food in the Last Year: Never true Ran Out of Food in the Last Year: Never true Transportation Needs: No Transportation Needs (01/11/2024) PRAPARE - Transportation Lack of Transportation (Medical): No Lack of Transportation (Non-Medical): No Physical Activity: Insufficiently Active (01/11/2024) Exercise Vital Sign Days of Exercise per Week: 3 days Minutes of Exercise per Session: 20 min Housing Stability: Low Risk (01/11/2024) Housing Stability Vital Sign Unable to Pay for Housing in the Last Year: No Number of Places Lived in the Last Year: 1 Unstable Housing in the Last Year: No PAST FAMILY HISTORY Family History Problem Relation Age of Onset Cancer Mother Uterine Cancer Father Lung REVIEW OF SYSTEMS General: negative Skin: negative HEENT: negative Neck: negative Heme: negative Resp: negative Cardio: negative GI: negative : negative Endo: negative Neuro: negative Back: negative MS: negative Psych: negative PHYSICAL EXAMINATION Vitals: 04/26/24 1615 04/26/24 1630 04/26/24 1645 04/26/24 1700 BP: (!) 141/77 138/71 (!) 141/74 Pulse: 60 60 60 Resp: 21 16 15 SpO2: 100% 93% 92% Weight: 97.9 kg (215 lb 13.3 oz) PHYSICAL EXAM General Appearance: Alert, Oriented, No Apparent Distress, Well Developed/Nourished Eyes: Normal Inspection, PERRL, EOMI, No Scleral Icterus, Normal Conjunctiva Head Ears Nose and Throat: Normocephalic, Atraumatic, Moist mucous membranes, Oropharynx is clear Neck: Supple, Normal Inspection, No JVD Respiratory: Lungs Clear Bilaterally, Normal Breath Sounds, No Respiratory Distress, No Accessory Muscle Use Cardiovascular: Normal Peripheral Pulses, Sinus rhythm Abdomen: Soft, Non-Tender, Non-Distended, Normal Bowel Sounds, No Organomegaly, No Guarding, No Rebound Back: No CVA Tenderness Extremities: No Cyanosis, No Edema Psych/Mental Status: Normal Affect, Speech Non-Pressured Neurologic: Alert, Oriented to Person, Oriented to Place, Oriented to Time, No Focal Weakness Motor/Sensory: No Motor Deficit, No Sensory Deficit Skin: Warm/Dry, Normal Color, left upper chest wall is bruised and presents with a surgical incision and surgical glue. LABS AND IMAGING No results found for this or any previous visit (from the past 24 hour(s)). Radiology CHEST 1 VIEW Result Date: 04/26/2024 FINDINGS/IMPRESSION: Left-sided pacemaker is noted. Hypoinflated lungs. Perihilar vascular congestion. Bilateral peribronchial cuffing and Deepa B lines. Trace left pleural effusion. Findings may be seen with pulmonary edema. No pneumothorax. The cardiac silhouette is partially obscured by the overlapping diaphragmatic shadow and it is borderline enlarged. No aggressive or acute osseous abnormality. Preliminary Report Dictated by Resident: Tano Diallo I, Zuly Umana MD., have reviewed this study and agree with the above report. 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 Doing well post op. Resume home meds, likely d/c home tomorrow. Agree with BIODIESEL PROCESS CONTROL TECHNICIAN note Kiersten Fitzgerald MD, FAAP, MPH [facility] BIODIESEL PROCESS CONTROL TECHNICIAN-FAMILY MIDLEVEL PROVIDER [facility] 2024-04-26 08:39:18 Electrophysiology Procedure H&P Date/Time: 04/26/2024 08:39 Patient Name: Olayinka Cox Age: [age] year old Race: /White Gender: male Referring Physician: Jaquan Ochoa* Indication: HFrEF, LBBB HPI: as per Dr. Ochoa's note 03/31/2024. No changes or updates. Allergies Olayinka Cox has No Known Allergies.. Medications: No current facility-administered medications for this encounter. Is the patient on chronic anticoagulation?: YES. Agent: apixaban. Time of last dose: 04/20/2024. Informed Consent: Is the patient DNR or DNI?: No. Sedation, Anesthesia and Analgesia: Are ASA and Mallampati Class documented? Yes- see anesthesia note Is there any contraindication to sedation present? No Current History: Mr. Cox has a past medical history of Basal cell carcinoma, Diverticulitis, Hearing loss, Hypertension, Irregular heartbeat, Kidney stone, and UTI (urinary tract infection). He has a past surgical history that includes tonsillectomy. He has No Known Allergies. He reports that he has never smoked. He has never used smokeless tobacco. He reports no history of alcohol use. He has no history on file for drug use. Current Medications: No current facility-administered medications for this encounter. Physical Exam: Vitals: General: alert and oriented x 4 (person, place, date/time and situation); no apparent distress HEENT: extraocular movements intact; oropharynx clear; moist mucous membranes, normocephalic atraumatic Neck: supple, full range of motion Lungs: clear to auscultation bilaterally Cardio: S1, S2 normal, regular; no murmurs, rubs or gallops Abdomen: soft; non-tender; non-distended; normoactive BS Extremities: no clubbing, cyanosis, or edema Skin: no rashes, no lesions There were no vitals filed for this visit. There were no vitals filed for this visit. Labs: Recent Labs 10/16/23 1030 11/20/23 1525 11/24/23 0541 04/19/24 1134 04/25/24 1144 WBC 6.70 7.15 10.40 7.83 7.89 HGB 16.1 16.2 14.3 14.5 15.7 HCT 48.5 48.4 41.4 43.9 47.3 MCV 98.6* 96.8* 93.5 98.0* 97.5* PLT 118* 171 121* 131* 141* Recent Labs 10/16/23 1030 11/20/23 1525 11/24/23 0541 01/11/24 1105 04/19/24 1134 04/25/24 1144 NA 139 142 137 138 137 137 K 3.6 3.4* 3.1* 4.5 4.6 4.9 CA 9.0 9.5 8.7 9.1 9.7 9.4 CL 103 102 104 101 105 103 BUN 20 21 15 21 27* 29* CREAT 1.04 1.06 0.69 1.15 1.18 1.36* GLU 137* 100 97 89 87 93 TCO2 31 35* 28 25 26 27 MG 2.2 2.1 2.0 -- -- 2.2 Recent Labs 05/18/23 1108 11/20/23 1525 ALB 3.7 3.9 TPRO 7.0 7.5 BILIT 0.8 1.0 ALT 21 17 AST 31 29 ALKPHOS 94 117 Recent Labs 10/16/23 1030 11/20/23 1525 04/19/24 1134 04/25/24 1144 PTINR 1.4 1.3 | 1.3 1.4 1.0 PTPAT 16.4* 15.5* | 15.8* 16.1* 12.1 APTTPAT 35 34 -- 35 Impressions: 83 year old male with HFrEF and LBBB despite GDMT Procedures: THREAD MILLING MACHINE SET UP OPERATOR-d placement Consent obtained (<72 hours): Yes The sedation pre-assessment was discussed and I concurred with the plan for sedation or anesthesia as captured in the flowsheet pre-assessment rows by the nurse. The benefits, alternatives, and risks including but not limited to pain, bleeding, infection, damage to the heart, lung, and/or blood vessels requiring surgery, kidney failure, heart attack, stroke, or were discussed in detail with the patient. The patient expressed understanding and are agreeable to proceed with the recommendations. Carlton Katz, MSN, FISH CONSERVATIONIST, AGACNP-BC, ASSISTANT PROFESSOR NURSE EDUCATION-C 04/26/2024 8:39 AM [facility] Cardiology Associated attestation - Jaquan Ochoa MD - 04/26/2024 5:46 PM CDT I personally examined the patient on 04/26/2024 and have verified ASSISTANT PROFESSOR NURSE EDUCATION Moraima Katz's documentation and/or findings, including the history, physical exam, and medical decision making. Additionally, I have personally performed or re-performed the physical exam and medical decision making activities of this patient's evaluation and management service. Thank you for allowing us to participate in the care of this patient. The time spent was 45 minutes for patient care which includes: precharting by reviewing EKGs and prior blood work-up as well as monitor results, obtaining and reviewing her medical chart as well as prior encounters, performing a full comprehensive medical exam and evaluation, documenting clinical information onto this electronic medical chart and independently interpreting prior results with communicating these results to the patient. Over 50% of this encounter was spent on counseling and recommendations. Briana Ochoa MD Cardiac Electrophysiology BIODIESEL PROCESS CONTROL TECHNICIAN-FAMILY MIDLEVEL PROVIDER [facility] Procedure Notes Date/Time Note Provider Source 2024-04-26 17:17:23 THREAD MILLING MACHINE SET UP OPERATOR-D Implantation Procedure: Bi-Ventricular ICD implantation and DFT Testing Indication: Non-ischemic cardiomyopathy with an ejection fraction that is less than 35% despite being on the maximum tolerated doses of guideline directed medical therapy for more than 3 months, NYHA class III symptoms, a left bundle branch block with a QRS duration of 140 ms, Chronic Systolic Heart Failure Technique: After obtaining informed consent and administering perioperative antibiotics, the patient was prepped and draped in the usual sterile fashion. Sedation was initiated under anesthesia support. Local anesthesia was administered in the deltopectoral area. An incision was made over the deltopectoral groove. Vascular access was obtained via the subclavian vein. Leads were introduced into circulation and advanced into the heart under fluoroscopic guidance. RA and RV leads were positioned and tested. Coronary sinus was cannulated with a guiding sheath and an occlusive venogram was performed. An LV lead was positioned in the epicardial vein over the left ventricle. Guiding catheter was removed from the coronary sinus and out of circulation. Pacing and sensing thresholds, lead impedances and absence of diaphragmatic stimulation were confirmed. All leads were secured to the surrounding tissue with non-absorbable sutures. A pocket was created to accommodate the pulse generator in the soft tissue just above the fascia of the pectoralis muscle. All leads were connected to the appropriate posts in the pulse generator. The wound was irrigated with a large amount of antibiotic solution. Adequate hemostasis was confirmed. The pulse generator was placed into the pocket. Excess leads were coiled behind the device. Wound was closed with two layers of absorbable sutures. Skin was closed with Dermabond glue. Postoperative interrogation confirmed adequate ICD function. The patient tolerated the procedure well and there were no acute complications. Chest X-ray was requested. Device Characteristics: Pulse generator: [employer] Model G247 RA Lead: [employer] Model 7841, P waves: 3.1 mV, Threshold 0.5 V@0.4msec, Impedance 588 ohms RV Lead: [employer] Model 0672, R-waves 7.3mV, Threshold 0.3 V@0.4msec, Impedance 377 ohms LV Lead: [employer] Model 4671, R waves: 16.8 mV, Threshold 3.1 V@0.4msec, Impedance 0.4 ohms High Voltage Impedance: 74 ohms MRI Compatible Final Programming: DDDR 60-120 VT 1 170-200 Monitor VT2/VF 200+ ATP, Max Output Shocks Impression: Successful implantation of a THREAD MILLING MACHINE SET UP OPERATOR-D device Sylvester Ochoa MD Cardiac Electrophysiology [facility] 2023-11-23 19:24:11 Supraventricular Tachycardia Ablation Procedure: Atrial Flutter Ablation Indication: Highly Symptomatic Atrial Flutter Refractory to Pharmacologic Suppression Technique: The patient presented to the electrophysiology lab in the fasting state. An EKG was performed, and it showed that the patient was in 4:1 atrial flutter. Anesthesia administered by the anesthesia team. The patient was prepped and draped in the usual sterile manner. The right common femoral vein was accessed 3 times under ultrasound guidance and 3 sheaths were placed in this vein. An intracardiac echo catheter was then advanced into the right atrium and was then positioned to visualize the fossa ovalis. The ICE catheter confirmed that the left atrial appendage was free from clot. A Livewire decapolar catheter was positioned in the right atrium with its distal tip in the coronary sinus. Recordings were made from the right atrium and left atrium by this catheter. The cycle length of the flutter was 250 msec. The activation sequence of the flutter was consistent with left sided atrial flutter with earliest signal on coronary sinus catheter noted to be on CS 1-2. A SJM/Abbot Tacticath ablation catheter was advanced into the right atrium via a Versacross steerable sheath. A 2D electroanatomical map of the right atrium was performed using catheter manipulation, intracardiac electrograms, and fluoroscopy. The full cycle length was noted to be in the right atrium with activation consistent with possible CTI dependent flutter. A series of RF ablation lesions were applied from the ventricular side of the tricuspid valve to the inferior vena cava. Ablation was performed at a maximum power of 40 W with goal impedance drop of greater than 10 ohm, however there was no change in tachycardia. The versacross sheath was then advanced to the SVC. A [employer] transseptal needle wire was placed into this sheath. The system was gradually dropped down to the fossa ovalis under fluoroscopic guidance as well as ICE guidance. Appropriate tenting of the fossa ovalis was then confirmed and a transseptal puncture was then performed. Heparin was administered prior to transseptal puncture and an ACT of more than 300 was maintained throughout the duration of the procedure. The Versacross sheath was advanced into the left atrium through which an SJM/Abbot HD grid mapping catheter was advanced. A electroanatomical map of the left atrium was performed using the Ensite mapping system. Activation of the atrial flutter was initially noted to be microreentrant initiating from the central posterior wall. An ablation line was done from the left upper pulmonary vein that connected down to the mid posterior wall and up to the right upper pulmonary vein. Esophageal temperature monitoring was performed during ablation along the posterior wall. This lesions set resulted in slowing of the atrial flutter from 250 to 270 ms. Remapping of the left atrium then revealed likely activation around the mitral valve. A lateral mitral isthmus line was done from the left superior vein to the mitral valve. This ablation lesions set resulted in further slowing of the tachycardia to 280 ms however termination was not achieved. The patient was then successfully cardioverted with 360 J shock to NSR. A complete EP study with left atrial and left ventricular pacing was performed. The AH interval was 100 msec. The HV interval was 50 msec. After completion of the EP study a repeat ACT was drawn and protamine was given. After a wait time of 10 minutes from protamine administration the sheaths were removed and right sided figure of 8 sutures were deployed. Excellent hemostasis was achieved. The patient was extubated and transferred to recovery for observation. The patient tolerated the procedure well and there were no acute complications. 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 Lateral mitral isthmus ablation lesion set with confirmation of block across the line. Posterior wall lesion set from LSPV to RSPV connected to mid posterior wall with confirmation of block across line. Successful DCCV to NSR Plan: Overnight observation on telemetry. Continue oral anticoagulation with eliquis 5 mg PO BID Follow up in EP clinic in 3 months. Sylvester Ochoa MD Cardiac Electrophysiology CIATE PROFESSOR OF CRIMINAL JUSTICE [facility] Notes Date/Time Note Provider Source 2024-07-07 15:56:24 Duplicate request for Jardiance. Medication was sent on 06/23/24. T Perla Bowman RN [facility] 2024-06-23 16:35:24 Refill request for empagliflozin received. Refill sent to pharmacy of choice. Patient is compliant as per [facility] Cardiology Protocol. [facility] 2024-06-16 13:45:00 Images from the original note were not included. Venipuncture collection performed by clean technique on the left anticubitus. Total of 1 attempts were made. Slight pressure and a bandage/dressing were applied to the site(s). The patient experienced no complications. The following specimens were processed according to instructions and sent to [facility] laboratories per lab order on 06/16/2024: LT BLUE SST 1 RED LAV PPT DK GREEN (LiHep) DK GREEN (SodH) LOTT DK BLUE (K2) DK BLUE (S) ACD Blood Culture NIPT/NTD [facility] 2024-06-06 15:58:30 Nephrology referral added per provider note in results. [facility] 2024-06-01 10:30:00 Images from the original note were not included. Venipuncture collection performed by clean technique on the left anticubitus. Total of 1 attempts were made. Slight pressure and a bandage/dressing were applied to the site(s). The patient experienced no complications. The following specimens were processed according to instructions and sent to [facility] laboratories per lab order on 06/01/2024 : LT BLUE SST 1 RED LAV 2 PPT DK GREEN (LiHep) DK GREEN (SodH) LOTT DK BLUE (K2) DK BLUE (S) ACD Blood Culture NIPT/NTD [facility] 2024-05-23 08:57:19 Images from the original note were not included. Refill approved per cardiology protocol: Endocrinology: Minerals - Potassium Supplementation [id number]/23/2024 08:12 AM Protocol Details Valid encounter within last 12 months Yumiko Olvera MA [facility] 2024-05-05 14:31:41 Referral placed [facility] 2024-05-05 14:28:[address] referral, thanks -FAMILY MEDICINE STAFF [facility] 2024-05-05 13:57:32 Please review and advise if okay to place referral. Recent Visits Date Type Provider Dept 01/11/24 Office Visit Jose Her FNP [facility] 12/01/23 Office Visit Jose Her ASSISTANT PROFESSOR NURSE EDUCATION [facility] 06/19/23 Office Visit Jose Her ASSISTANT PROFESSOR NURSE EDUCATION [facility] 05/19/23 Office Visit Jose Her ASSISTANT PROFESSOR NURSE EDUCATION [facility] Showing recent visits within past 540 days with a meds authorizing provider and meeting all other requirements Future Appointments Date Type Provider Dept 05/31/24 Appointment Jose Her FNP [facility] Showing future appointments within next 150 days with a meds authorizing provider and meeting all other requirements [facility] 2024-05-05 13:55:30 Patient is coming In on Thursday to see Dr Mooney for Urology and pt is needing a referral due to insurance. Please assist, thank you. Cary Matthews [facility] 2024-04-27 13:14:09 Problem: Discharge Planning Goal: Adequate for discharge 04/27/20241313 by Saji Barrera RN Outcome: Adequate for discharge 04/27/2024 0941 by Saji Barrera RN Outcome: Progressing as expected Goal: Knowledge of medication management 04/27/20241313 by Saji Barrera RN Outcome: Adequate for discharge 04/27/2024 0941 by Saji Barrera RN Outcome: Progressing as expected Problem: Discharge Planning Goal: Adequate for discharge 04/27/20241313 by Saji Barrera RN Outcome: Adequate for discharge 04/27/2024 0941 by Saji Barrera RN Outcome: Progressing as expected Saji Barrera RN [facility] 2024-04-27 09:41:42 Problem: Discharge Planning Goal: Adequate for discharge Outcome: Progressing as expected Goal: Knowledge of medication management Outcome: Progressing as expected Problem: Discharge Planning Goal: Adequate for discharge Outcome: Progressing as expected [facility] 2024-04-26 21:48:14 Problem: Discharge Planning Goal: Adequate for discharge Outcome: Progressing as expected Goal: Knowledge of medication management Outcome: Progressing as expected Problem: Discharge Planning Goal: Adequate for discharge Outcome: Progressing as expected T [facility] 2024-04-26 19:00:41 Patient arrived to unit from labor relations representative. He is resting comfortably in room. Call light within reach. ANISA Sarmiento Torsten Pimentel RN [facility] 2024-04-25 13:00:00 Images from the original note were not included. Venipuncture collection performed by clean technique on the left anticubitus. Total of 1 attempts were made. Slight pressure and a bandage/dressing were applied to the site(s). The patient experienced no complications. The following specimens were processed according to instructions and sent to [facility] laboratories per lab order on 04/25/2024 : LT BLUE 1 SST 1 RED LAV 2 PPT DK GREEN (LiHep) DK GREEN (SodH) LOTT DK BLUE (K2) DK BLUE (S) ACD Blood Culture NIPT/NTD Per mervin in Blood Bank no extra tubes needed. Pt armbande- [id number] Tamy Weber 04/25/2024 11:45 AM [facility] 2024-04-25 11:17:48 Patient came to clinic requesting refill of tamsulosin until his follow up appointment on 05.10.24-Refill approved to get through to this date. Refill approved for 15 days for continuity of care. Patient verbalized understanding via teach back. Requested Prescriptions Signed Prescriptions Disp Refills tamsulosin 0.4 mg 24 hr capsule 30 capsule 0 Sig: TAKE 2 CAPSULES BY MOUTH EVERY MORNING Authorizing Provider: MARQUIS MOONEY Ordering User: ALTAGRACIA TAFOYA RN Sent to: [facility] [id number] [place] [id number] [facility] [address] ALTAGRACIA TAFOYA RN 04/25/2024 11:19 AM T [facility] 2024-04-19 11:15:00 Images from the original note were not included. Venipuncture collection performed by clean technique on the left anticubitus. Total of 1 attempts were made. Slight pressure and a bandage/dressing were applied to the site(s). The patient experienced no complications. The following specimens were processed according to instructions and sent to [facility] laboratories per lab order on 04/19/2024: LT BLUE 1 SST 1 RED LAV 2 PPT DK GREEN (LiHep) DK GREEN (SodH) LOTT DK BLUE (K2) DK BLUE (S) ACD Blood Culture NIPT/NTD T [facility] 2024-04-08 10:41:32 Addended by: ALTAGRACIA TAFOYA RN on: 04/08/2024 10:41 AM Modules accepted: Orders T Altagracia Tafoya RN [facility] 2024-04-01 08:16:30 Lab orders in. [facility] 2024-03-31 15:19:[address] preop lab orders for upcoming EP procedure and include a type and screen. Thank you. Cornelia Cornelia Cornell [facility] 2024-01-15 15:48:45 Repeat labs are normal. Reviewed by Dr. Dick. Will sent refill. Maryse Dick MD 01/11/2024 4:48 PM CDT Back to Top BMP is normal. K has improved. Perla Bowman RN [facility] 2024-01-12 09:10:42 Images from the original note were not included. Notified patient per Dr Dick: Maryse Dick MD P Cardiology Nurse BMP is normal. K has improved. Patient verbal understanding. Yumiko Olvera MA [facility] 2024-01-11 11:15:00 Images from the original note were not included. Venipuncture collection performed by clean technique on the left anticubitus. Total of 1 attempts were made. Slight pressure and a bandage/dressing were applied to the site(s). The patient experienced no complications. The following specimens were processed according to instructions and sent to [facility] laboratories per lab order on 01/11/2024 : LT BLUE SST 1 RED LAV PPT DK GREEN (LiHep) DK GREEN (SodH) LOTT DK BLUE (K2) DK BLUE (S) ACD Blood Culture NIPT/NTD [facility] 2024-01-08 11:13:16 Refill request for furosemide ROMMEL 11/11/23 Labs done 11/24/23, K slightly low. KCL was added. Patient was supposed to have repeat labs done. Spoke with patient. He is agreeable to have done. See encounter 11/30/23 "Okay to refill. Add potassium chloride 20 mill equivalents daily. Repeat BMP in 2 weeks." NOV 02/10/24 Will wait to refill until labs are completed. [facility] 2023-11-30 08:50:51 Addended by: MBALE BHAT RN on: 11/30/2023 08:50 AM Modules accepted: Orders SA Bhat RN [facility] 2023-11-30 08:40:11 Images from the original note were not included. Results and recommendations shared, patient verbalized understanding. KCL rx sent to [facility] [id number] [address] [place] [facility] [address] Will get repeat labs done on 12/07/23 Maryse Dick MD to Nv Cardiology Nurse 11/26/23 4:05 PM Okay to refill. Add potassium chloride 20 mill equivalents daily. Repeat BMP in 2 weeks. SA Bhat RN [facility] 2023-11-26 13:41:14 Images from the original note were not included. K Date Value Ref Range Status 11/24/2023 3.1 (L) 3.5 - 5.0 mmol/L Final Valid encounter within last 12 months Recent Visits Date Type Provider Dept 11/11/23 Office Visit Maryse Dick MD [facility] 09/03/23 Office Visit Jaquan Ochoa MD [facility] 08/11/23 Office Visit Maryse Dick MD [facility] 2023-11-24 12:55:00 Problem: Discharge Planning Goal: Adequate for discharge 11/24/2023 1254 by Nandini Salter RN Outcome: Adequate for discharge 11/24/2023 1105 by Nandini Salter RN Outcome: Progressing as expected Goal: Effective communication 11/24/2023 1254 by Nandini Salter RN Outcome: Adequate for discharge 11/24/2023 1105 by Nandini Salter RN Outcome: Progressing as expected Problem: Discharge Planning Goal: Adequate for discharge 11/24/2023 1254 by Nandini Salter RN Outcome: Adequate for discharge 11/24/2023 1105 by Nandini Salter RN Outcome: Progressing as expected Goal: Adequate to move to next level of care 11/24/2023 1254 by Nandini Salter RN Outcome: Adequate for discharge 11/24/2023 1105 by aNndini Salter RN Outcome: Progressing as expected Goal: Knowledge of medication management 11/24/2023 1254 by Nandini Salter RN Outcome: Adequate for discharge 11/24/2023 1105 by Nandini Salter RN Outcome: Progressing as expected Problem: Activity Intolerance Goal: Improved activity tolerance 11/24/2023 1254 by Nandini Salter RN Outcome: Adequate for discharge 11/24/2023 1105 by Nandini Salter RN Outcome: Progressing as expected Problem: Bleeding, Risk of Goal: Absence of impaired coagulation signs and symptoms 11/24/2023 1254 by Nandini Salter RN Outcome: Adequate for discharge 11/24/2023 1105 by Nandini Salter RN Outcome: Progressing as expected Goal: Absence of active bleeding 11/24/2023 1254 by Nandini Salter RN Outcome: Adequate for discharge 11/24/2023 1105 by Nandini Salter RN Outcome: Progressing as expected Problem: Cardiac Output - Decreased Goal: Cardiac output within specified parameters 11/24/2023 1254 by Nandini Salter RN Outcome: Adequate for discharge 11/24/2023 1105 by Nandini Salter RN Outcome: Progressing as expected Goal: Absence of signs and symptoms of decreased cardiac output 11/24/2023 1254 by Nandini Salter RN Outcome: Adequate for discharge 11/24/2023 1105 by Nanidni Salter RN Outcome: Progressing as expected [facility] Nandini Salter RN [facility] 2023-11-24 11:05:12 Problem: Discharge Planning Goal: Adequate for discharge Outcome: Progressing as expected Goal: Effective communication Outcome: Progressing as expected Problem: Discharge Planning Goal: Adequate for discharge Outcome: Progressing as expected Goal: Adequate to move to next level of care Outcome: Progressing as expected Goal: Knowledge of medication management Outcome: Progressing as expected Problem: Activity Intolerance Goal: Improved activity tolerance Outcome: Progressing as expected Problem: Bleeding, Risk of Goal: Absence of impaired coagulation signs and symptoms Outcome: Progressing as expected Goal: Absence of active bleeding Outcome: Progressing as expected Problem: Cardiac Output - Decreased Goal: Cardiac output within specified parameters Outcome: Progressing as expected Goal: Absence of signs and symptoms of decreased cardiac output Outcome: Progressing as expected [facility] 2023-11-24 04:05:51 Problem: Discharge Planning Goal: Adequate for discharge Outcome: Progressing as expected Goal: Effective communication Outcome: Progressing as expected Problem: Discharge Planning Goal: Adequate for discharge Outcome: Progressing as expected Goal: Adequate to move to next level of care Outcome: Progressing as expected Goal: Knowledge of medication management Outcome: Progressing as expected Problem: Activity Intolerance Goal: Improved activity tolerance Outcome: Progressing as expected Problem: Bleeding, Risk of Goal: Absence of impaired coagulation signs and symptoms Outcome: Progressing as expected Goal: Absence of active bleeding Outcome: Progressing as expected Problem: Cardiac Output - Decreased Goal: Cardiac output within specified parameters Outcome: Progressing as expected Goal: Absence of signs and symptoms of decreased cardiac output Outcome: Progressing as expected [facility] 2023-11-20 15:15:00 Images from the original note were not included. Venipuncture collection performed by clean technique on the left anticubitus. Total of 1 attempts were made. Slight pressure and a bandage/dressing were applied to the site(s). The patient experienced no complications. The following specimens were processed according to instructions and sent to [facility] laboratories per lab order on 11/20/2023 : LT BLUE 2 SST 1 RED LAV 2 PPT DK GREEN (LiHep) DK GREEN (SodH) LOTT DK BLUE (K2) DK BLUE (S) ACD Blood Culture NIPT/NTD [facility] 2023-11-20 12:00:29 Lab orders placed. [facility] 2023-11-19 15:13:49 Labs placed [facility] 2023-11-19 15:00:00 Pt will return Thursday for preop labs. Pt too early [facility] Treasure Dumont [facility] 2023-11-18 14:19:35 [facility] EP LAB PRE-CALL INSTRUCTIONS EP Instructions were sent to patient via: Other - telephone Your physician has determined that you need to undergo a(n) Cryroblation procedure. Listed below are some instructions for you to follow prior to the procedure. Do not eat or drink anything after midnight the night before the procedure, except for enough water to take your medications if so directed. Take all medications except do not take metformin (Glucophage) 2 days prior to the procedure and do not take insulin or furosemide (lasix) the day of the procedure. If you are on blood thinners special instructions will be given to you prior to the procedure. If you are allergic to iodine or shellfish, take pre-treatment medications as directed. Please call your referring physician for prescription. Bring a list of all current medications. Bring one adult family member or friend with you to drive you home, as you will be unable to drive for 48 hours after the procedure. Due to limited space and patient privacy, only one (1) visitor is permitted with the patient while they are recovering in the recovery area. No children under the age of 14 years will be allowed in recovery area. Please park in the Hospital Garage via [address] from either [address] or [address]. Bring your parking ticket with you to be validated, only one parking ticket may be validated per patient. There may be a possibility of hospital admission or late evening discharge; therefore, bring leisure reading and an overnight bag. On the day of your procedure, come directly to the Electrophysiology Lab office assistant receptionist desk, located on the 6th floor of [facility] ([phone].) You will be escorted to the Cardiac Cath/EP recovery room. Please call the Electrophysiology Lab at if you have any questions regarding your procedure. Patient instructed to hold JARDIANCE x3 days prior, ELIQUIS x2 doses starting night before procedure, as well as FUROSEMIDE the morning of procedure. Date of Procedure: 11/23/23 Time of Procedure: 0900 Vendors Needed: Vendors Verified: Anesthesia Verified: Anesthesia Consent: Drug Allergies? No Labs Verified? Note in Chart and any Important Info needed for the case: Instructions given to patient: yes Patient provided with preferred teaching of verbal information on 11/18/23. Shows readiness to learn. Verbal instruction teaching provided. Individual is able to read and verbalizes understanding of teaching provided. [employer] Jeanie Carlos RN [facility] 2023-11-11 15:20:36 Refill request for Eliquis. ROMMEL today 11/11/23 "Atrial flutter-The rate is well controlled. [id number] score 4. Recommend anticoagulation with Eliquis 5 mg twice daily." Labs 10/16/23 Refill sent to [facility] [id number] - [place], [place] - [facility] [address] [facility] [address] [employer] Perla Bowman RN [facility] 2023-11-11 15:00:00 Addended by: BALTA LOPEZ on: 11/11/2023 04:18 PM Modules accepted: Orders [facility] 2023-11-11 07:22:12 Referral placed SA Mondragon MA [facility] 2023-11-10 08:52:56 Patient is coming in 11/11/23 to see , we are needing a referral from PCP Taina for the insurance he has... thank you! [employer] Cary Matthews [facility] 2023-11-05 13:49:27 Patient states that today he noted that his HR is fluctuating more than usual. He is fatigued and short of breath with exertion. He has a history of heart failure and a flutter. He was supposed to have an aflutter ablation on 10/13/23 but due to a respiratory illness it was rescheduled to 11/23/23. He still has a lingering cough from the respiratory infection. Patient's BP is stable. His numbers over the past 10 days have been 109-135/75-90. Today his HR are a bit higher than normal, ranging from 51-121. His O2 is around 90%. He is not short of breath at rest, does not sound in distress on the phone. Of note, patient missed a dose of his Toprol XL 25 mg yesterday. He typically takes once daily at night. He missed last night's dose and has not taken it yet today. Discussed with Dr. Metzger. Patient advised to go ahead and take his Toprol XL 25 mg. He can monitor his symptoms and if no improvement or if there is worsening within the next 24 hours he needs to go to the ER. Patient verbalized understanding. NOV 11/11/[address] Dick. [employer] Perla Bowman RN [facility] 2023-11-05 13:29:45 Olayinka Cox is a 82 year old male Patient is calling and he is concerned about heart rate ranging from 51-121. States he is lethargic and oxygen reading is at 92. Patient reporting @ 1245 BP:125/76 Pulse:82 @ 1320 BP: 109/79 Pulse: 117 Please advise [phone] (home) Was able to transfer to clinic nurse [employer] Martha Olvera [facility] 2023-10-16 10:15:00 Images from the original note were not included. Venipuncture collection performed by clean technique on the left anticubitus. Total of 1 attempts were made. Slight pressure and a bandage/dressing were applied to the site(s). The patient experienced no complications. The following specimens were processed according to instructions and sent to [facility] laboratories per lab order on 10/16/2023 : LT BLUE 1 SST 1 RED LAV 1 PPT DK GREEN (LiHep) DK GREEN (SodH) LOTT DK BLUE (K2) DK BLUE (S) ACD Blood Culture NIPT/NTD [facility] 2023-10-13 12:31:38 [facility] EP LAB PRE-CALL INSTRUCTIONS EP Instructions were sent to patient via: Other telephone Your physician has determined that you need to undergo a(n) EPS procedure. Listed below are some instructions for you to follow prior to the procedure. Do not eat or drink anything after midnight the night before the procedure, except for enough water to take your medications if so directed. Take all medications except do not take metformin (Glucophage) 2 days prior to the procedure and do not take insulin or furosemide (lasix) the day of the procedure. If you are on blood thinners special instructions will be given to you prior to the procedure. If you are allergic to iodine or shellfish, take pre-treatment medications as directed. Please call your referring physician for prescription. Bring a list of all current medications. Bring one adult family member or friend with you to drive you home, as you will be unable to drive for 48 hours after the procedure. Due to limited space and patient privacy, only one (1) visitor is permitted with the patient while they are recovering in the recovery area. No children under the age of 14 years will be allowed in recovery area. Please park in the Hospital Garage via [address] from either [address] or [address]. Bring your parking ticket with you to be validated, only one parking ticket may be validated per patient. There may be a possibility of hospital admission or late evening discharge; therefore, bring leisure reading and an overnight bag. On the day of your procedure, come directly to the Electrophysiology Lab office assistant receptionist desk, located on the 6th floor of [facility] ([phone].) You will be escorted to the Cardiac Cath/EP recovery room. Please call the Electrophysiology Lab at if you have any questions regarding your procedure. Date of Procedure: 10/23/2023 Time of Procedure: 729 Vendors Needed: Vendors Verified: Anesthesia Verified: Anesthesia Consent: Drug Allergies? Labs Verified? Note in Chart and any Important Info needed for the case: Instructions given to patient: yes Patient provided with preferred teaching of verbal information on 10/13/2023. Shows readiness to learn. Verbal instruction teaching provided. Individual is able to read and verbalizes understanding of teaching provided. [employer] Yumiko Sparks RN [facility] 2023-06-18 09:00:32 Formatting of this n ote might be different from the original. Refill request filled. [facility] 2023-06-16 08:04:25 Formatting of this n ote might be different from the original. Referral with demographics have been faxed to 's office Krystal Boston MA [facility] 2023-06-15 17:18:41 Formatting of this n ote might be different from the original. Olayinka Cox is a 82 year old male Pt calling to see if you would fax over the REFERRAL OPHTHALMOLOGY to Dr. Syed office. Pt appt is at 3pm tomorrow Treasure Amaya [facility] 2023-06-01 09:05:48 Formatting of this n ote is different from the original. Images from the original note were not included. Refill request received for spironolactone 25 mg ROMMEL 04/27/23 Cardiovascular: Diuretics - Potassium Sparing Passed 06/01/2023 08:51 AM Protocol Details Valid encounter within last 12 months K in normal range and within 180 days Cr in normal range and within 180 days Perla Bowman RN [facility] 2023-05-19 08:11:35 Formatting of this n ote might be different from the original. Images from the original note were not included. Notified patient per Dr. Dick: Maryse Dick MD P Cardiology Nurse BMP is normal. Continue current medications. Follow-up as scheduled. Patient verbal understanding. Yumiko Olvera MA [facility] 2023-05-18 11:00:00 Formatting of this n ote is different from the original. Images from the original note were not included. Venipuncture collection performed by clean technique on the left anticubitus. Total of 1 attempts were made. Slight pressure and a bandage/dressing were applied to the site(s). The patient experienced no complications. The following specimens were processed according to instructions and sent to [facility] laboratories per lab order on 05/18/2023 : LT BLUE SST 1 RED LAV PPT DK GREEN (LiHep) DK GREEN (SodH) LOTT DK BLUE (K2) DK BLUE (S) ACD Blood Culture NIPT/NTD T [facility]
[2024-07-22] MEDS: DIVALPROEX DR 500MG TAB PO SCH ×2 (12:00→17:13)
[2024-07-22] MEDS ORDERED: CYANOCOBALAMIN 1000MCG/ML INJ IM ONE (15:30)
[2024-07-22 16:36] LABS: Specific Gravity 1.028 (1.005-1.030); Sqamous Epithelial <5 /HPF (None Seen); Urine Bacteria <20 /HPF (<20); Urine Bilirubin NEGATIVE (Negative); Urine Blood Negative (Negative); Urine Clarity Clear (Clear); Urine Color Yellow (Yellow); Urine Culture Reflex Order NOT NEEDED; Urine Glucose NEGATIVE (Negative); Urine Ketones 1+ (Negative); Urine Micro Reflex YN NO BILL MICROSCOPIC; Urine Mucus Slight /HPF (None Seen); Urine Nitrite NEGATIVE (Negative); Urine Protein 1+ (Negative); Urine RBC <5 /HPF (None Seen); Urine Urobilinogen 1+ (Normal); Urine WBC <5 /HPF (<5)
--- NOTE | 2024-07-22 18:24 | RAD REPORT ---
EXAM: CT brain without contrast HISTORY: Brain bleed COMPARISON: None available TECHNIQUE: Multiple contiguous axial images were obtained and a CT of the brain without contrast. Sagittal and coronal reformats were performed. Automated exposure control, adjustment of the mA and/or kV according to patient size, and/or itera tive reconstruction. Unless otherwise specified, incidental findings do not require dedicated imaging follow-u FINDINGS: 2.8 cm bleed is present within the parenchyma the right frontal lobe with moderate surrounding edema. There is no shift of the midline structures. Ventricles are normal caliber. No definite blood within the ventricles seen. No extra-axial fluid collection noted No fluid within the visualized sinuses or mastoids noted. IMPRESSION: 2.8 cm right frontal lobe bleed is acute or subacute. There is moderate surrounding edema without ricardo ft of midline structures. The examination was discussed with Dr. Samuels
[2024-07-22] MEDS ORDERED: TIMOLOL MALEATE 0.5% OPTH 5 ML BTL RIGHT EYE SCH (20:00)
[2024-07-22] MEDS ORDERED: [UNRECOGNIZED DRUG - OTHER] OPTH SCH (20:00)
[2024-07-22] MEDS ORDERED: KETOROLAC OPTHALMIC OPTH SCH (20:00)
[2024-07-22] MEDS: MELATONIN 3 MG TABLET PO SCH (20:43)
[2024-07-22] MEDS: HEPARIN 5000 UNIT/ML 1 ML VIAL SQ SCH (20:43)
[2024-07-22] MEDS: CYANOCOBALAMIN 1000MCG/ML INJ IM SCH (20:43)
[2024-07-22] MEDS: TAMSULOSIN 0.4 MG SR CAP PO SCH (20:43)
[2024-07-22] MEDS: KETOROLAC OPTHALMIC OPTH SCH (20:44)
[2024-07-22] MEDS: TIMOLOL MALEATE 0.5% OPTH 5 ML BTL *PT OWN MED OPTH SCH (20:44)
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
[2024-07-23] MEDS ORDERED: METOPROLOL XL 25 MG TAB PO SCH (06:00)
[2024-07-23 06:26] LABS: Absolute Basophils 0.1 K/uL (0-0.5); Absolute Eosinophils 0.3 K/uL (0-0.5); Absolute Monocytes 0.9 K/uL (0.1-1.3); Absolute Neutrophil 3.5 K/uL (1.8-8.0); Basophils % 0.8 % (0-1.3); Hematocrit 35.7 % (39.6-49.0); Hemoglobin 12.3 g/dL (13.6-17.9); Lymphocytes % 38.2 % (15.3-44.8); MCH 33.4 pg (27.0-35.0); MCHC 34.5 g/dL (32.0-36.0); MCV 96.7 fL (80-100); MPV 9.3 fL (7.6-11.3); Monocytes % 11.8 % (3.3-12.3); Neutrophils % 45.2 % (41.7-73.7); Nucleated Red Blood Cells % 0.1 % (0-0); Platelets 137 thou/uL (152-406); RBC Red Blood Cell Count 3.69 M/uL (4.33-5.43); Red Cell Distribution Width 14.1 % (12.1-15.2)
[2024-07-23 06:49] LABS: Albumin 2.4 g/dL (3.4-5.0); Anion Gap 6.3 mEq/L (5.0-15.0); Magnesium 2.2 mg/dL (1.6-2.4); Potassium 3.3 mEq/L (3.5-5.1); Prealbumin 13.3 mg/dL (20-40)
[2024-07-23] MEDS: LIDOCAINE 4% PATCH TOP SCH (07:58)
[2024-07-23] MEDS: SPIRONOLACTONE 25 MG TABLET PO SCH (07:58)
[2024-07-23] MEDS: CYANOCOBALAMIN 1,000 MCG TAB PO SCH (07:59)
[2024-07-23] MEDS: METOPROLOL XL 25 MG TAB PO SCH (07:59)
[2024-07-23] MEDS: JARDIANCE 10 MG PO SCH (07:59)
[2024-07-23] MEDS: ATORVASTATIN 10 MG TAB PO SCH (07:59)
[2024-07-23] MEDS ORDERED: BISACODYL 10 MG RECTAL SUPP PR PRN (22:54)
[2024-07-24] MEDS: MAGNESIUM HYDROXIDE 8% 30 ML PO PRN (01:06)
[2024-07-24] MEDS: POTASSIUM CL SA 10 MEQ TAB PO SCH (08:09)
[2024-07-24] MEDS: DOCUSATE NA/SENNA CONC 1 TAB PO SCH (08:09)
[2024-07-25 06:00] LABS: Absolute Basophils 0.1 K/uL (0-0.5); Absolute Eosinophils 0.3 K/uL (0-0.5); Absolute Lymphocytes (CBC) 3.4 K/uL (0.7-4.9); Absolute Monocytes 0.6 K/uL (0.1-1.3); Absolute Neutrophil 3.1 K/uL (1.8-8.0); Basophils % 1.1 % (0-1.3); Eosinophils % 4.3 % (0-4.4); Hematocrit 37.5 % (39.6-49.0); Hemoglobin 12.8 g/dL (13.6-17.9); Lymphocytes % 45.6 % (15.3-44.8); MCH 33.2 pg (27.0-35.0); MCHC 34.2 g/dL (32.0-36.0); MCV 97.1 fL (80-100); Monocytes % 7.6 % (3.3-12.3); Neutrophils % 41.4 % (41.7-73.7); Nucleated Red Blood Cells % 0.2 % (0-0); Platelets 152 thou/uL (152-406); RBC Red Blood Cell Count 3.87 M/uL (4.33-5.43); Red Cell Distribution Width 14.1 % (12.1-15.2)
[2024-07-25 06:03] LABS: Anion Gap 3.8 mEq/L (5.0-15.0); Potassium 3.8 mEq/L (3.5-5.1)
[2024-07-25 08:48] LABS: Band Neutrophils 50 % (0-1); Blood Morphology Comment NOT SEEN (NOT SEEN); Differential Total Cells Count 100; Eosinophils 1 % (0-3); Lymphocytes 11 % (15-42); Monocytes 3 % (0-10); Platelet Estimate ADEQ; Segmented Neutrophils 35 % (40-80)
--- NOTE | 2024-07-26 00:12 | PN ---
Date of Progress Note: 07/25/2024 Time Of Service: 1 p.m. Subjective: Mr. Valle is sitting in his room, family at bedside. He has completed ambulating 250 fe et around the unit. He still has significant expressive and receptive aphasia. May answer to same w ords for many different items. May call a pen, a phone, or other items a clock or watch. He does wi th repeated encouragement follow instructions and commands. Objective: No fevers, chills, nausea, vomiting. No significant myalgias, rash, or other complaints. Physical Examination: Vital Signs: Blood pressure 149/70, pulse 77, respiratory rate of 16, temperature 97, oxygen saturat ion 94%. General: Again, Mr. Valle is sitting in a chair. HEENT: He is normocephalic, atraumatic. Neurologic: He has expressive and receptive aphasia. He has no obvious cranial nerve, motor, coordi nation, gait, or sensory deficits. Laboratory Studies: White blood cell count 7.0, hemoglobin 12.8, platelets 152. Sodium 137, potassi um 3.8, chloride 107, carbon dioxide 33.8, BUN 18, creatinine 0.76, calcium 9.3, glucose 88. X-ray/imaging: CT scan of the head was done 2 days ago and it was compared to the last outside study . On a CT scan from July 12, the right frontal lobe hematoma measured 3 cm and currently it is down to 1 cm which is doing much better. There is mild surrounding edema. Medications: Tylenol 650 every 4 hours as needed, Lipitor 10 mg daily, Dulcolax 10 mg per rectum as needed, vitamin B12 1000 mcg daily, Depakote 500 mg 3 times daily, heparin 5000 units subcutaneously daily, lidocaine patch apply to back topically daily, milk of magnesia 30 mL daily, melatonin 3 mg at bedtime, Toprol-XL 25 mg daily, potassium 10 mEq daily, Senokot-S 2 twice daily, Aldactone 25 mg desiree ly, Flomax 0.4 mg twice daily. Progress Made With Physical, Occupational, And Speech Therapy: Today with physical therapy, he was a ble to ambulate 135 feet, another 300 feet, another 500 feet with standby assistance using a rolling walker. He was able to go up and down 15 steps with bilateral handrails with standby assistance. Mo bilized a wheelchair 150 feet with standby assistance. With occupational therapy, maximum assistance for shower transfers with verbal cues needed. He was confused as he was told to initiate shower. T he patient stated apparently he had left the stove on at the beginning of the session and headed down to the shower room, but of course was confused about where he was. With speech, he did answer simpl e yes and no questions with 60% accuracy. Auditory word recognition in a field of 3 words was demons trated with 90% accuracy. Responsive speech questions answered with 70% accuracy. Mr. Valle is making good progress with physical and occupational therapy, slower progress with speech as he has the expressive and receptive aphasia related to his hematoma that is traumatic. Assessment: Mr. Valle is an 83-year-old patient with the bilateral subdural hematoma that is improvi ng, hematomas are traumatic. He has decreased mobility, decreased physical functioning, thrombocytop enia, urinary incontinence, atrial fibrillation, T11-12 hyperextension injury for which he wears a TL SO brace. Plan: He will continue physical, occupational, and speech therapy for 3.5 hours, 5 of 7 days. Jonathan nue with DVT prophylaxis. Continue wearing the brace while out of bed. Continue with treatment for his dyslipidemia, for seizure risk reduction with Depakote, melatonin for insomnia, Toprol for heart rate control, Flomax for prostate hypertrophy, and Senokot for constipation. Comorbidities That Are Impacting Rehabilitation: The patient's confusion with communication is stabl e, of course impacting his rehabilitation, but he is working well with speech to improve that. ROLO/MILAD Voice ID: [id number] Report ID: [id number]
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
[2024-07-27] MEDS: EMPAGLIFLOZIN 10 MG PO SCH (08:25)
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
[2024-07-28 06:32] LABS: Absolute Basophils 0.1 K/uL (0-0.5); Absolute Eosinophils 0.2 K/uL (0-0.5); Absolute Lymphocytes (CBC) 3.4 K/uL (0.7-4.9); Absolute Neutrophil 2.6 K/uL (1.8-8.0); Basophils % 1.2 % (0-1.3); Eosinophils % 2.6 % (0-4.4); Hematocrit 36.8 % (39.6-49.0); Hemoglobin 12.5 g/dL (13.6-17.9); Lymphocytes % 46.8 % (15.3-44.8); MCH 33.2 pg (27.0-35.0); MCHC 33.9 g/dL (32.0-36.0); MCV 97.9 fL (80-100); MPV 9.4 fL (7.6-11.3); Monocytes % 13.5 % (3.3-12.3); Neutrophils % 35.9 % (41.7-73.7); Nucleated Red Blood Cells % 0.1 % (0-0); Platelets 158 thou/uL (152-406); RBC Red Blood Cell Count 3.76 M/uL (4.33-5.43); Red Cell Distribution Width 14.7 % (12.1-15.2)
[2024-07-28 06:55] LABS: Albumin 2.4 g/dL (3.4-5.0); Anion Gap 4.1 mEq/L (5.0-15.0); Magnesium 2.1 mg/dL (1.6-2.4); Potassium 4.1 mEq/L (3.5-5.1); Prealbumin 14.3 mg/dL (20-40)
[2024-07-28] MEDS: ENSURE ENLIVE 237 ML CAN PO SCH (21:17)
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
[2024-07-29] MEDS: CRANBERRY FRUIT EXTRACT 200 MG CAP PO SCH (10:18)
--- NOTE | 2024-07-29 13:21 | P.RH.PN ---
Estimated Length of Stay: 16 Expected Discharge Date: 08/04/24 Discharge Disposition Plan: Home Family Support: Yes Retirement Goal: Mobility, Transfers, Self Care Vital Signs: Last Vital Signs Temp 97.1 F 07/29/24 08:00 Pulse 67 07/29/24 10:20 Resp 18 07/29/24 08:00 BP 155/80 H 07/29/24 10:20 Pulse Ox 97 07/29/24 08:00 Laboratory: Laboratory Last Values WBC 7.20 thou/uL (4.3-10.9) 07/28/24 05:52 RBC 3.76 M/uL (4.33-5.43) L 07/28/24 05:52 Hgb 12.5 g/dL (13.6-17.9) L 07/28/24 05:52 Hct 36.8 % (39.6-49.0) L 07/28/24 05:52 MCV 97.9 fL (80-100) 07/28/24 05:52 MCH 33.2 pg (27.0-35.0) 07/28/24 05:52 MCHC 33.9 g/dL (32.0-36.0) 07/28/24 05:52 RDW 14.7 % (12.1-15.2) 07/28/24 05:52 Plt Count 158 thou/uL (152-406) 07/28/24 05:52 MPV 9.4 fL (7.6-11.3) 07/28/24 05:52 Neutrophils % 35.9 % (41.7-73.7) L 07/28/24 05:52 Lymphocytes % 46.8 % (15.3-44.8) H 07/28/24 05:52 Monocytes % 13.5 % (3.3-12.3) H 07/28/24 05:52 Eosinophils % 2.6 % (0-4.4) 07/28/24 05:52 Basophils % 1.2 % (0-1.3) 07/28/24 05:52 Absolute Neutrophils 2.6 K/uL (1.8-8.0) 07/28/24 05:52 Segmented Neutrophils 35 % (40-80) L 07/25/24 04:57 Band Neutrophils 50 % (0-1) H 07/25/24 04:57 Absolute Lymphocytes 3.4 K/uL (0.7-4.9) 07/28/24 05:52 Lymphocytes 11 % (15-42) L 07/25/24 04:57 Monocytes 3 % (0-10) 07/25/24 04:57 Absolute Monocytes 1.0 K/uL (0.1-1.3) 07/28/24 05:52 Eosinophils 1 % (0-3) 07/25/24 04:57 Absolute Eosinophils 0.2 K/uL (0-0.5) 07/28/24 05:52 Absolute Basophils 0.1 K/uL (0-0.5) 07/28/24 05:52 Platelet Estimate Adeq 07/25/24 04:57 Morphology Comment Not seen (NOT SEEN) 07/25/24 04:57 Sodium 141 mEq/L (136-145) 07/28/24 05:52 Potassium 4.1 mEq/L (3.5-5.1) 07/28/24 05:52 Chloride 110 mEq/L (98-107) H 07/28/24 05:52 Carbon Dioxide 31 mEq/L (21-32) 07/28/24 05:52 Anion Gap 4.1 mEq/L (5.0-15.0) L 07/28/24 05:52 BUN 18 mg/dL (7-18) 07/28/24 05:52 Creatinine 1.13 mg/dL (0.70-1.30) 07/28/24 05:52 Est GFR (CKD-EPI) 64 ml/min (=/>90) L 07/28/24 05:52 Glucose 91 mg/dL (74-106) 07/28/24 05:52 Calcium 9.2 mg/dL (8.5-10.1) 07/28/24 05:52 Magnesium 2.1 mg/dL (1.6-2.4) 07/28/24 05:52 Albumin 2.4 g/dL (3.4-5.0) L 07/28/24 05:52 Prealbumin 14.3 mg/dL (20-40) L 07/28/24 05:52 Urine Color Yellow (Yellow) 07/22/24 15:25 Urine Clarity Clear (Clear) 07/22/24 15:25 Urine pH 6.0 (5.0-7.0) 07/22/24 15:25 Ur Specific [place] 1.028 (1.005-1.030) 07/22/24 15:25 Glucose (UA)(Auto) Negative (Negative) 07/22/24 15:25 Urine Ketones 1+ (Negative) H 07/22/24 15:25 Urine Blood Negative (Negative) 07/22/24 15:25 Urine Nitrite Negative (Negative) 07/22/24 15:25 Urine Bilirubin Negative (Negative) 07/22/24 15:25 Urine Urobilinogen 1+ (Normal) H 07/22/24 15:25 Ur Leukocyte Esterase Negative Andre/uL (Negative) 07/22/24 15:25 Urine RBC <5 /HPF (None Seen) 07/22/24 15:25 Urine WBC <5 /HPF (<5) 07/22/24 15:25 Ur Squamous Epith Cells <5 /HPF (None Seen) 07/22/24 15:25 U Non-Squamous Epi Cells <5 /HPF (None Seen) 07/22/24 15:25 Urine Bacteria <20 /HPF (<20) 07/22/24 15:25 Urine Mucus Slight /HPF (None Seen) 07/22/24 15:25 Urine Culture Reflexed Not needed 07/22/24 15:25 Urine Total Protein 1+ (Negative) H 07/22/24 15:25 Weight: 213 lb Wound Present: No Closed Surgical Incision Present: No Negative Pressure Wound Therapy Present: No Physician Update: Now on regular diet. Labs reviewed and are stable. Mild to moderate confusion. BIMS improved mild to moderate expressive and receptive aphasia. RW 250' with SBA, occasional loss of balance. Doing well with showers. Met 3/5 LTG and 5/5 STG. Summary: Patient's care plan and snf goals have been reviewed and revised as necessary. Please see the Rehabilitation Signature page for all necessary signatures.
[2024-07-30] MEDS ORDERED: LIDOCAINE 4% PATCH TOP PRN (09:28)
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
--- NOTE | 2024-08-03 11:45 | RAD REPORT ---
EXAM: CT brain without contrast HISTORY: increase confussion,left side weakness COMPARISON: 07/22/2024 TECHNIQUE: Multiple contiguous axial images were obtained and a CT of the brain without contrast. Sag ittal and coronal reformats were performed. One or more of the following dose reduction techniques were used: Automated exposure control, adjust ment of the mA and/or kV according to patient size, and/or iterative reconstruction. FINDINGS: Previously noted right frontal intracerebral hematoma has significantly reduced in size. The degree o f surrounding edema has also decreased. However, there is a new 12 mm acute bleed present posterior limb right internal capsule. No midline shift. No hydrocephalus or extra-axial fluid collection seen. The calvarium is intact. The visualized paranasal sinuses and mastoid air cells are essentially clear . IMPRESSION: There is a new 12 mm acute bleed seen posterior limb right internal capsule as detailed. The findings were communicated with Glen Samuels MD at 08/03/2024 11:43 AM by telephone.
[2024-08-03 12:03] LABS: Absolute Eosinophils 0.1 K/uL (0-0.5); Absolute Lymphocytes (CBC) 2.6 K/uL (0.7-4.9); Absolute Monocytes 0.8 K/uL (0.1-1.3); Absolute Neutrophil 2.9 K/uL (1.8-8.0); Basophils % 0.5 % (0-1.3); Eosinophils % 1.5 % (0-4.4); Hematocrit 43.3 % (39.6-49.0); Hemoglobin 14.4 g/dL (13.6-17.9); Lymphocytes % 40.3 % (15.3-44.8); MCH 32.9 pg (27.0-35.0); MCHC 33.3 g/dL (32.0-36.0); MCV 98.9 fL (80-100); MPV 9.7 fL (7.6-11.3); Monocytes % 12.9 % (3.3-12.3); Neutrophils % 44.8 % (41.7-73.7); Nucleated Red Blood Cells % 0.1 % (0-0); PT Prothrombin Time 12.4 SECONDS (9.4-12.5); PTT, Activated Partial Thromb 33.1 SECONDS (24.3-36.9); Platelets 134 thou/uL (152-406); Protime INR 1.11; RBC Red Blood Cell Count 4.38 M/uL (4.33-5.43); Red Cell Distribution Width 14.7 % (12.1-15.2)
[2024-08-03 13:43] VITALS: BMI 31.0
[2024-08-03 13:59] VITALS: BP 107/67; TEMP 98
--- NOTE | 2024-08-03 22:03 | PN ---
Date of Progress Note: 08/03/2024 Time Of Service: 1:00 p.m. Subjective: Today, Mr. Valle actually did somewhat worse. He developed confusion, left-sided weakne ss around 11 today in the morning and this was noted by his , notified the nurse. Code stroke wa s called. CT scan of the head was done. The study showed a new hemorrhagic finding of a 12 mm acute bleed in the posterior limb of the right internal capsule. This was communicated with [place] for [facility] level of care and transfer was initiated. The patient previously had a right frontal intracere bral hematoma, which was reduced in size. There is decreased edema regarding that area. There was n o hydrocephalus and no extra-axial fluid collection. Objective: Mr. Valle is a somewhat more confused, difficulty identifying objects. He did report vanesa ble vision when looking straight ahead and to either side. He did, however, follow instructions. Hi s left upper extremity, he was able to hold for 5 count, but the arm dropped, but did not hit the bed . His left leg was able to hold for 5 count and it did drop without hitting the bed. Right side, he had no weakness in the upper and lower extremities. It was discernible. NIH Stroke Scale of 5 give n his drift of the left upper and lower extremity. He had sensory extinction mild to moderate aphasi a and mild dysarthria and visual extinction. Physical Examination: Vital Signs: Blood pressure 107/67, pulse of 60, respiratory rate 18, temperature 98, oxygen saturat ion 96%. Weight 210 pounds, height 5 feet 9 inches, BMI 31.0. General: Again, Mr. Valle is lying in bed. He is in no significant distress. HEENT: He is normocephalic, atraumatic. Sclerae anicteric. Oropharynx pink and moist. Neck: Supple. Chest: Clear. No significant edema, cyanosis, or clubbing noted. Neurological: In terms of cranial nerves, he does have diplopia on either side, unable to assess whe ther or not there is side to side or up and down. At 1 point, did say it is more vertical diplopia w hile he is lying back. He did not have an obvious cranial nerve deficits except difficulty with his comprehension and expression. Mild dysarthria. His motor examination around 3-4/5 in the left upper and lower extremities. On the right side, 5/5 sensation decreased in the left compared to the right . He did have some extension, difficulty telling, which side was touched when simultaneously touched . Inability to read and comprehend quickly and easily. Laboratory Studies: White blood cell count 6.4, hemoglobin 14.4, platelets 133. His INR 1.1, PT 12. 4. Sodium 136, potassium 5.0, chloride 104, carbon dioxide 29, BUN 26, creatinine 1.40, glucose rang ed from 91 to 109, calcium 9.8. Again, CT scan of the head as noted did show a 12 mm bleed in the po sterior limb of the right internal capsule. There was no midline shift. The prior bleed in the righ t frontal intracerebral hematoma region was reduced in size. No intraventricular hemorrhage noted. Medications: The patient was on heparin 5000 units subcutaneous twice daily. It was held today. De pakote 500 mg twice daily, vitamin B12 1000 mcg daily, Dulcolax 10 per rectum as needed for constipat ion, Lipitor 10 mg at bedtime, Tylenol 650 mg every 4 hours as needed, Milk of Magnesia 30 mL daily f or constipation, 2 lidocaine patches applied topically daily, melatonin 3 mg at bedtime, Toprol-XL 25 mg daily, Ensure Enlive 237 mL twice daily, potassium 10 mEq daily, Senokot S 2 tablets twice daily, Aldactone 25 mg daily, Flomax 0.4 mg daily. Progress Made With Physical And Occupational Therapy: By his discharge earlier, he was able to ambul ate a 1000 feet. Did have a rolling walker. Did have some difficulty with safety awareness. He was able to go up and down 35 steps with bilateral handrails. He did meet 3 of 5 long-term goals. It i s recommended of course that the patient continue therapy. However, he was transferred to [facility] higher level of care given the new right posterior limb of internal capsule hemorrhagic stroke. Re garding occupational therapy, [id number] with verbal cues and supervision, did require assistance d onning and doffing his TLSO brace. Regarding his speech, maximum assistance for pragmatics. Memory, moderate assistance for attention and concentration. For auditory comprehension, between moderate t o maximum assistance. Moderate assistance for comprehension with reading. Direct supervision for re habilitation. Minimum assistance for answering simple questions. Intelligibility was 100% for words , 95% for sentences, and 90% for fluency. He did score 2 on the BIMS. Assessment And Plan: Mr. Valle is an 83-year-old patient admitted to rehabilitation unit with prior left intraventricular hemorrhage and bilateral subdural hematomas, now has the new right posterior li mb of internal capsule 12 mm acute hemorrhagic stroke. His blood pressures have been managed. The c urrent prior to him leaving was 107/67. His highest blood pressure today 142/78. His other vital si gns are stable. Laboratory results are stable as noted. Hemoglobin is normal. He did have elevated creatinine from 1.13 on the 3rd to 1.40 today. Blood sugars are controlled. He in addition has com orbid debility, decreased physical functioning, decreased mobility, prostate hypertrophy, dyslipidemi a, mild malnutrition, and risk for seizures on Depakote. His plan is he is transferred for higher [facility] of care today and continue all medications as indicated. Please note, this is a discharge to a [facility] level of care. ROLO/MILAD Voice ID: [id number] Report ID: [id number]
== END 2024-08-03 14:45 | disposition short-term general hospital (02) | DRG 949 ==
LOC: 5TH 10:55
PROVIDERS: ADMIT Psychiatry & Neurology Neurology with Special Qualifications in Child Neurology; ATTEND Psychiatry & Neurology Neurology with Special Qualifications in Child Neurology
DX: S06.2XAD Diffuse traumatic brain injury with loss of consciousness status unknown, subsequent encounter (principal); R47.01 Aphasia; S06.5XAD Traumatic subdural hemorrhage with loss of consciousness status unknown, subsequent encounter; I48.91 Unspecified atrial fibrillation; D69.6 Thrombocytopenia, unspecified; R32 Unspecified urinary incontinence; S29.9XXD Unspecified injury of thorax, subsequent encounter; G47.00 Insomnia, unspecified; N40.0 Benign prostatic hyperplasia without lower urinary tract symptoms; K59.00 Constipation, unspecified; E78.5 Hyperlipidemia, unspecified; I10 Essential (primary) hypertension; E87.6 Hypokalemia
CPT/HCPCS: 36415; 70450; 80048; 81001; 82040; 82947; 83735; 84134; 85025; 85610; 85730; 87077; 87086; 87088; 87186; 92507; 92523; 94010; 97110; 97112; 97116; 97161; 97165; 97530; 97542; J1644; J2001; J3420

== ENCOUNTER 2024-08-13 00:13 | Inpatient (IN) | payer OTHER ==
--- OUTSIDE RECORDS SUMMARY | 2024-08-13 01:09 | XMS REPORT | Continuity of Care Document ---
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 0900, Until Discontinu ed, Routine [facility] spironolact one (ALDACTONE) tablet 25 mg 11-24 15:00: 00 Yes 25mg 25 mg, Oral, DAILY, First dose on Thu11/24/23 at 0900, Until Discontinu ed, Routine [facility] metoprolol succinate XL (TOPROL XL) tablet 25 mg 11-24 15:00: 00 Yes 25mg 25 mg, Oral, QAM, First dose on Thu11/24/23 at 0900, Until Discontinu ed, Routine [facility] furosemide (LASIX) tablet 40 mg 11-24 15:00: 00 Yes 40mg 40 mg, Oral, DAILY, First dose on Thu11/24/23 at 0900, Until Discontinu ed, Routine [facility] empaglifloz in (JARDIANCE) tablet 10 [...] meet the criteria for inpatient ordering? Yes [facility] apixaban (ELIQUIS) tablet 5 mg 11-24 14:00: 00 Yes [id number] 5mg 5 mg, Oral, BID, First dose on Thu11/24/23 at 0800, Until Discontinu ed, Routine
Indicatio ns: Non-Valvul ar Atrial Fibrillati on [facility] KCL (KLOR-CON M20) tablet 40 mEq 11-24 14:00: 00 11-24 16:41 :00 No 40meq 40 mEq, Oral, Q2H, 2 doses, First dose on Thu11/24/23 at 0800, Last dose on Thu11/24/23 at 1000, Routine [facility] vit C,E-Zn-ronald r-lutein-ze axan (PRESERVISI ON AREDS 2) 250-200-40- 1 mg-unit-mg- mg Cap 11-24 13:27: 59 Yes 1{capsu le} Take 1 capsule by mouth daily. [facility] atorvastati n (LIPITOR) tablet 10 mg 11-24 03:00: 00 Yes 10mg 10 mg, Oral, QHS, First dose on Thu11/23/23 at 2100, Until Discontinu ed, Routine [facility] acetaminoph en-codeine (TYLENOL #3) 300-30 mg tablet 1 tablet 11-24 02:46: 56 11-26 02:45 :56 No 1{tbl} 1 tablet, Oral, Q6HPRN, Starting on Thu11/23/23 at 2045, Until Thu11/25/23 at 2044, Routine, Pain (scale 4-6) [facility] acetaminoph en (TYLENOL) tablet 650 mg 11-24 02:46: 53 Yes 650mg 650 mg, Oral, Q6HPRN, Starting on Thu11/23/23 at 204, Until Discontinu ed, Routine, Pain (scale 1-3) [facility] metoprolol succinate XL 25 mg 24 hr tablet 11-24 00:00: 00 Yes [id number] 25mg Take 1 tablet by mouth every morning. [facility] atorvastati n 10 mg tablet 11-24 00:00: 00 Yes [id number] 10mg Take 1 tablet by mouth at bedtime. [facility] apixaban 5 mg tablet 11-24 00:00: 00 04-27 00:00 :00 No [id number] 5mg Take 1 tablet by mouth in the morning and 1 tablet in the evening. Indication s: atrial flutter [facility] HYDROcodone -acetaminop hen (NORCO 5) 5-325 mg tablet 1 tablet 11-23 23:30: 00 11-24 02:56 :00 No 1{tbl} 1 tablet, Oral, ONCE, 1 dose, On Thu11/23/23 at 1730, Routine, PACU [facility] lactated ringers IV infusion 1,000 mL 11-23 23:30: 00 11-24 03:01 :00 No 1000mL at 42 mL/hr, 1,000 mL, IV Infusion, ONCE, 1 dose, On Thu11/23/23 at 1730, Routine, CV Preprocedu re [facility] FENTanyl PF (SUBLIMAZE (PF)) injection 25 mcg 11-23 23:17: 38 Yes 25ug 25 mcg, Slow IV Push, Q5MIN PRN, 4 doses, Starting on Thu11/23/23 at 1717, Until Discontinu ed, Routine, Pain (scale 4-6), PACU [facility] ondansetron (ZOFRAN (PF)) injection 4 mg 11-23 23:17: 38 Yes 4mg 4 mg, Slow IV Push, PRN, 1 dose, Starting on Thu11/23/23 at 1717, Until Discontinu ed, Routine, Nausea and Vomiting (N/V), PACU [facility] lidocaine 1% (PF) (XYLOCAINE) injection 11-23 19:59: 57 11-23 23:06 :26 No ONCE INTRA PROCEDURE, Starting on Thu11/23/23 at 1359, Until Thu11/23/23 at 1706, Routine, CV Intraproce dure [facility] apixaban 5 mg tablet 11-11 00:00: 00 Yes 1361 5mg Take 1 tablet by mouth in the morning and 1 tablet in the evening. Indication s: atrial flutter [facility] atorvastati n 10 mg tablet 10-30 00:00: 00 Yes [id number] 10mg TAKE 1 TABLET BY MOUTH AT BEDTIME [facility] levalbutero l (XOPENEX HFA) 45 mcg/actuati on inhaler 2022-10 00:00: 00 Yes [id number] 1{puff} Inhale 1-2 Puffs every 4 (four) hours as needed for Wheezing, Bronchospa sm or Chest tightness. [facility] METOPROLOL SUCCINATE XL 25 mg 24 hr tablet 2022-10 2- 00:00: 00 Yes [id number] 25mg TAKE ONE TABLET BY MOUTH EVERY MORNING [facility] TAMSULOSIN 0.4 mg 24 hr capsule 2022-10- 00:00: 00 04-08 00:00 :00 No [id number] TAKE 2 CAPSULES BY MOUTH EVERY MORNING [facility] furosemide 40 mg tablet 2022-10 00:00: 00 01-04 00:00 :00 No [id number] 40mg Take 1 tablet by mouth in the morning. [facility] apixaban 5 mg tablet 2022-10 0-17 00:00: 00 11-11 00:00 :00 No [id number] 5mg Take 1 tablet by mouth in the morning and 1 tablet in the evening. Indication s: atrial flutter [facility] ATORVASTATI N 10 mg tablet 2022-10 0-09 00:00: 00 10-30 00:00 :00 No [id number] 10mg TAKE 1 TABLET BY MOUTH AT BEDTIME [facility] empaglifloz in 10 mg 2022-10 0-02 00:00: 00 11-25 00:00 :00 No [id number] 10mg Take 1 tablet by mouth in the morning. [facility] METOPROLOL SUCCINATE XL 25 mg 24 hr tablet 9-12 00:00: 00 10-02 00:00 :00 No [id number] 25mg TAKE ONE TABLET BY MOUTH EVERY MORNING [facility] furosemide 40 mg tablet 8-25 00:00: 00 09-21 00:00 :00 No [id number] 40mg Take 1 tablet by mouth in the morning. [facility] tamsulosin 0.4 mg 24 hr capsule 8-24 00:00: 00 09-21 00:00 :00 No [id number] TAKE 2 CAPSULES BY MOUTH EVERY MORNING [facility] spironolact one 25 mg tablet 8-07 00:00: 00 11-26 00:00 :00 No [id number] 25mg Take 1 tablet by mouth in the morning. [facility] TAMSULOSIN 0.4 mg 24 hr capsule 05-06 00:00: 00 06-18 00:00 :00 No [id number] TAKE TWO CAPSULES BY MOUTH EVERY MORNING [facility] ATORVASTATI N 10 mg tablet 05-04 00:00: 00 08-03 00:00 :00 No [id number] TAKE ONE TABLET BY MOUTH AT BEDTIME [facility] empaglifloz in 10 mg 04-27 00:00: 00 07-27 00:00 :00 No [id number] 10mg Take 1 tablet by mouth in the morning. [facility] BABY ASPIRIN ORAL 03-31 14:35: 08 03-31 00:00 :00 No 81mg Take 81 mg by mouth daily. [facility] metoprolol succinate XL 25 mg 24 hr tablet 03-31 00:00: 00 07-07 00:00 :00 No [id number] 25mg Take 1 tablet by mouth in the morning. [facility] BABY ASPIRIN ORAL 23 13:22: 38 Yes 81mg Take 81 mg by mouth daily. [facility] metoprolol succinate XL 100 mg 24 hr tablet 03-17 00:00: 00 03-31 00:00 :00 No [id number] 50mg Take 0.5 tablets by mouth in the morning. [facility] olmesartan 40 mg tablet 03-17 00:00: 00 03-31 00:00 :00 No [id number] 20mg Take 0.5 tablets by mouth in the morning. [facility] tamsulosin (Flomax) 0.4 MG 24 hr capsule tamsulosin (Flomax) 0.4 MG 24 hr capsule 03-04 00:00: 00 Yes .4mg Take 0.4 mg by mouth at bedtime. Isidro Nunez tamsulosin (FLOMAX) 0.4 mg 24 hr capsule 03-04 00:00: 00 05-06 00:00 :00 No [id number] .8mg Take 2 capsules by mouth in the morning. Take 1 mg by mouth daily. [facility] METOPROLOL SUCCINATE (TOPROL XL ORAL) 02-26 08:25: 14 02-26 00:00 :00 No 100mg Take 100 mg by mouth daily. [facility] metoprolol succinate XL 100 mg 24 hr tablet 02-26 00:00: 00 03-17 00:00 :00 No [id number] 100mg Take 1 tablet by mouth in the morning. [facility] olmesartan 40 mg tablet 02-24 00:00: 00 03-17 00:00 :00 No [id number] 40mg Take 1 tablet by mouth in the morning. [facility] tamsulosin (FLOMAX) 0.4 mg 24 hr capsule 02-23 00:00: 00 03-04 00:00 :00 No [id number] .8mg Take 2 capsules by mouth in the morning. Take 1 mg by mouth daily. [facility] furosemide 40 mg tablet 4-27 00:00: 00 06-19 00:00 :00 No [id number] 40mg Take 1 tablet by mouth in the morning. [facility] clotrimazol e-betametha sone cream 4-25 00:00: 00 03-04 04:59 :00 No [id number] Apply to area(s) 2 (two) times daily for 14 days. [facility] atorvastati n 10 mg tablet 3-21 00:00: 00 05-04 00:00 :00 No [id number] 10mg Take 1 tablet by mouth at bedtime. [facility] spironolact one (Aldactone) 25 MG tablet spironolact one (Aldactone) 25 MG tablet 12-04 00:00: 00 Yes 25mg QD Take 25 mg by mouth 1 time each day. Isidro Torres [facility] tc 99m-tetrofo smin (MYOVIEW) injection 41.3 millicurie 12-02 17:00: 00 12-02 16:55 :00 No [id number] 41.3mCi 41.3 millicurie , Intravenou s, ONCE, 1 dose, On Thu12/02/22 at 1100, Routine [facility] regadenoson (LEXISCAN) injection 0.4 mg 12-02 15:45: 00 12-02 16:49 :00 No [id number] .4mg 0.4 mg, IV Push, ONCE, 1 dose, On Thu12/02/22 at 0945, Routine
choir member approving Restricted medication : MARYSE DICK [facility] tc 99m-tetrofo smin (MYOVIEW) injection 16 millicurie 12-02 15:15: 00 12-02 15:04 :00 No [id number] 16mCi 16 millicurie , Intravenou s, ONCE, 1 dose, On Thu12/02/22 at 0915, Routine [facility] olmesartan 40 mg tablet 11-12 00:00: 00 02-24 00:00 :00 No [id number] 40mg Take 1 tablet by mouth in the morning. [facility] furosemide 40 mg tablet 10-31 00:00: 00 02-19 00:00 :00 No [id number] 40mg Take 1 tablet by mouth in the morning. [facility] KCL 20 mEq tablet 10-31 00:00: 00 12-04 00:00 :00 No [id number] 20meq Take 1 tablet by mouth in the morning. [facility] hydroCHLORO thiazide 12.5 mg tablet 2021-10 00:00: 00 08-27 00:00 :00 No [id number] 12.5mg Take 1 tablet by mouth in the morning. [facility] doxycycline hyclate 100 mg capsule 05-22 00:00: 00 Yes [facility] tamsulosin (FLOMAX) 0.4 mg 24 hr capsule 05-13 13:07: 04 05-13 00:00 :00 No 1mg Take 1 mg by mouth daily. [facility] hydroCHLORO thiazide 12.5 mg tablet 05-13 13:07: 04 05-13 00:00 :00 No 12.5mg Take 12.5 mg by mouth daily. [facility] OLMESARTAN MEDOXOMIL (OLMESARTAN ORAL) 05-13 13:06: 42 05-13 00:00 :00 No 20mg Take 20 mg by mouth daily. [facility] olmesartan 40 mg tablet 05-13 00:00: 00 Yes [id number] 40mg Take 1 tablet by mouth in the morning. [facility] tamsulosin (FLOMAX) 0.4 mg 24 hr capsule 05-13 00:00: 00 02-23 00:00 :00 No [id number] .8mg Take 2 capsules by mouth in the morning. Take 1 mg by mouth daily. [facility] atorvastati n 10 mg tablet 05-13 00:00: 00 01-13 00:00 :00 No [id number] 10mg Take 1 tablet by mouth at bedtime. [facility] hydroCHLORO thiazide 12.5 mg tablet 05-13 00:00: 00 08-12 00:00 :00 No [id number] 12.5mg Take 1 tablet by mouth in the morning. [facility] hydroCHLORO thiazide 12.5 mg tablet 2-04 08:55: 33 Yes 12.5mg Take 12.5 mg by mouth daily. [facility] METOPROLOL SUCCINATE (TOPROL XL ORAL) 9- 10:32: 34 Yes 100mg Take 100 mg by mouth daily. [facility] vit C,E-Zn-ronald r-lutein-ze axan (PRESERVISI ON AREDS 2) 250-200-40- 1 mg-unit-mg- mg Cap 07-20 10:32: 34 Yes 1{capsu le} Take 1 capsule by mouth daily. [facility] BABY ASPIRIN ORAL 07-20 10:32: 34 Yes 81mg Take 81 mg by mouth daily. [facility] OLMESARTAN MEDOXOMIL (OLMESARTAN ORAL) 07-20 10:32: 34 Yes 20mg Take 20 mg by mouth daily. [facility] tamsulosin (FLOMAX) 0.4 mg 24 hr capsule 07-20 10:32: 34 Yes 1mg Take 1 mg by mouth daily. [facility] vit C,E-Zn-ronald r-lutein-ze axan (PRESERVISI ON AREDS 2) 250-200-40- 1 mg-unit-mg- mg Cap 07-20 10:32: 34 Yes 1{capsu le} Take 1 capsule by mouth daily. [facility] atorvastati n (Lipitor) 10 MG tablet atorvastati n (Lipitor) 10 MG tablet 11-20 00:00: 00 Yes 1{tbl} Take 1 tablet by mouth at bedtime. Isidro Nunez aspirin 81 mg tablet,clair yed release Take 1 tablet every day by oral route. aspirin 81 mg tablet,clari yed release Take 1 tablet every day by oral route. No 1 Q1D aspirin 81 mg tablet,del ayed release Take 1 tablet every day by oral route. [facility] Fluarix Quad (PF) 60 mcg (15 mcg x 4)/0.5 mL IM syringe Fluarix Quad (PF) 60 mcg (15 mcg x 4)/0.5 mL IM syringe No Fluarix Quad (PF) 60 mcg (15 mcg x 4)/0.5 mL IM syringe [facility] hydrochloro thiazide 12.5 mg tablet Take 1 tablet every day by oral route. hydrochloro thiazide 12.5 mg tablet Take 1 tablet every day by oral route. No 1 Q1D hydrochlor othiazide 12.5 mg tablet Take 1 tablet every day by oral route. [facility] ibuprofen 200 mg tablet Take 1 tablet every 6 hours by oral route as needed. ibuprofen 200 mg tablet Take 1 tablet every 6 hours by oral route as needed. No 1 Q6H ibuprofen 200 mg tablet Take 1 tablet every 6 hours by oral route as needed. [facility] metoprolol succinate ER 100 mg tablet,exte nded release 24 hr Take 1 tablet every day by oral route. metoprolol succinate ER 100 mg tablet,exte nded release 24 hr Take 1 tablet every day by oral route. No 1 Q1D metoprolol succinate ER 100 mg tablet,ext ended release 24 hr Take 1 tablet every day by oral route. [facility] montelukast 10 mg tablet Take 1 tablet every day by oral route. montelukast 10 mg tablet Take 1 tablet every day by oral route. No 1 Q1D montelukas t 10 mg tablet Take 1 tablet every day by oral route. [facility] olmesartan 20 mg tablet Take 1 tablet every day by oral route. olmesartan 20 mg tablet Take 1 tablet every day by oral route. No 1 Q1D olmesartan 20 mg tablet Take 1 tablet every day by oral route. [facility] oxymetazoli ne 0.05 % nasal spray [place] 2 sprays twice a day by intranasal route. oxymetazoli ne 0.05 % nasal spray [place] 2 sprays twice a day by intranasal route. No 2spray( s) BID oxymetazol ine 0.05 % nasal spray [place] 2 sprays twice a day by intranasal route. [facility] Shingrix (PF) 50 mcg/0.5 mL intramuscul ar suspension, kit Shingrix (PF) 50 mcg/0.5 mL intramuscul ar suspension, kit No Shingrix (PF) 50 mcg/0.5 mL intramuscu lar suspension , kit [facility] Sleep Aid (diphenhydr amine) 25 mg capsule Take 1 capsule every day by oral route at bedtime. Sleep Aid (diphenhydr amine) 25 mg capsule Take 1 capsule every day by oral route at bedtime. No 1capsul e(s) Q1D Sleep Aid (diphenhyd ramine) 25 mg capsule Take 1 capsule every day by oral route at bedtime. [facility] Immunizations Ordered Immunization Name Filled Immunization Name Date Status Comments Source Influenza, High-Dose, Trivalent, PF (FLUZONE) 2023-07-26 00:00:00 Completed [facility] Influenza High Dose Quad 2022-08-13 00:00:00 Completed Influenza High Dose Quad 2021-08-17 00:00:00 Completed Influenza Virus Vaccine Quad IM Multi-dose 6+ MO 2021-08-15 00:00:00 Completed influenza, injectable, quadrivalent influenza, injectable, quadrivalent 2021-08-15 00:00:00 Completed [facility] SARS-COV-2 COVID-19 MODERNA 12+ YRS VACCINE 2021-05-22 00:00:00 Completed [facility] SARS-COV-2 COVID-19 MODERNA 12+ YRS VACCINE 2021-05-22 00:00:00 Completed [facility] SARS-COV-2 COVID-19 MODERNA 12+ YRS VACCINE 2021-05-22 00:00:00 Completed [facility] SARS-COV-2 COVID-19 MODERNA 12+ YRS VACCINE 2021-05-22 00:00:00 Completed [facility] SARS-COV-2 COVID-19 MODERNA 12+ YRS VACCINE 2021-05-22 00:00:00 Completed [facility] SARS-COV-2 COVID-19 MODERNA 12+ YRS VACCINE 2021-05-22 00:00:00 Completed [facility] SARS-COV-2 COVID-19 MODERNA 12+ YRS VACCINE 2021-05-22 00:00:00 Completed [facility] SARS-COV-2 COVID-19 MODERNA 12+ YRS VACCINE 2021-05-22 00:00:00 Completed [facility] SARS-COV-2 COVID-19 MODERNA 12+ YRS VACCINE 2021-05-22 00:00:00 Completed [facility] SARS-COV-2 COVID-19 MODERNA 12+ YRS VACCINE 2021-05-22 00:00:00 Completed [facility] SARS-COV-2 COVID-19 MODERNA 12+ YRS VACCINE 2021-05-22 00:00:00 Completed [facility] SARS-COV-2 COVID-19 MODERNA 12+ YRS VACCINE 2021-05-22 00:00:00 Completed [facility] SARS-COV-2 COVID-19 MODERNA 12+ YRS VACCINE 2021-05-22 00:00:00 Completed [facility] SARS-COV-2 COVID-19 MODERNA 12+ YRS VACCINE 2021-05-22 00:00:00 Completed [facility] SARS-COV-2 COVID-19 MODERNA 12+ YRS VACCINE 2021-05-22 00:00:00 Completed [facility] SARS-COV-2 COVID-19 MODERNA 12+ YRS VACCINE 2021-05-22 00:00:00 Completed [facility] SARS-COV-2 COVID-19 MODERNA 12+ YRS VACCINE 2021-05-22 00:00:00 Completed [facility] SARS-COV-2 COVID-19 MODERNA 12+ YRS VACCINE 2021-05-22 00:00:00 Completed [facility] SARS-COV-2 COVID-19 MODERNA 12+ YRS VACCINE 2021-05-22 00:00:00 Completed [facility] SARS-COV-2 COVID-19 MODERNA 12+ YRS VACCINE 2021-05-22 00:00:00 Completed [facility] SARS-COV-2 COVID-19 MODERNA 12+ YRS VACCINE 2021-05-22 00:00:00 Completed [facility] SARS-COV-2 COVID-19 MODERNA 12+ YRS VACCINE 2021-05-22 00:00:00 Completed [facility] SARS-COV-2 COVID-19 MODERNA 12+ YRS VACCINE 2021-05-22 00:00:00 Completed [facility] SARS-COV-2 COVID-19 MODERNA 12+ YRS VACCINE 2021-05-22 00:00:00 Completed [facility] SARS-COV-2 COVID-19 MODERNA 12+ YRS VACCINE 2021-05-22 00:00:00 Completed [facility] SARS-COV-2 COVID-19 MODERNA 12+ YRS VACCINE 2021-05-22 00:00:00 Completed [facility] SARS-COV-2 COVID-19 MODERNA 12+ YRS VACCINE 2021-05-22 00:00:00 Completed [facility] SARS-COV-2 COVID-19 MODERNA 12+ YRS VACCINE 2021-05-22 00:00:00 Completed [facility] SARS-COV-2 COVID-19 MODERNA 12+ YRS VACCINE 2021-05-22 00:00:00 Completed [facility] SARS-COV-2 COVID-19 MODERNA 12+ YRS VACCINE 2021-05-22 00:00:00 Completed [facility] SARS-COV-2 COVID-19 MODERNA VACCINE 2021-05-22 00:00:00 Completed [facility] SARS-COV-2 COVID-19 MODERNA 12+ YRS VACCINE 2021-05-22 00:00:00 Completed [facility] SARS-COV-2 COVID-19 MODERNA 12+ YRS VACCINE 2021-05-22 00:00:00 Completed [facility] SARS-COV-2 COVID-19 MODERNA 12+ YRS VACCINE 2021-05-22 00:00:00 Completed [facility] SARS-COV-2 COVID-19 MODERNA 12+ YRS VACCINE 2021-05-22 00:00:00 Completed [facility] SARS-COV-2 COVID-19 MODERNA 12+ YRS VACCINE 2021-05-22 00:00:00 Completed [facility] SARS-COV-2 COVID-19 MODERNA 12+ YRS VACCINE 2021-05-22 00:00:00 Completed [facility] SARS-COV-2 COVID-19 MODERNA 12+ YRS VACCINE 2021-05-22 00:00:00 Completed [facility] SARS-COV-2 COVID-19 MODERNA 12+ YRS VACCINE 2021-05-22 00:00:00 Completed [facility] SARS-COV-2 COVID-19 MODERNA VACCINE 2021-05-22 00:00:00 Completed [facility] SARS-COV-2 COVID-19 MODERNA 12+ YRS VACCINE 2021-05-22 00:00:00 Completed [facility] SARS-COV-2 COVID-19 MODERNA 12+ YRS VACCINE 2021-05-22 00:00:00 Completed [facility] SARS-COV-2 COVID-19 MODERNA 12+ YRS VACCINE 2021-05-22 00:00:00 Completed [facility] SARS-COV-2 COVID-19 MODERNA 12+ YRS VACCINE 2021-05-22 00:00:00 Completed [facility] SARS-COV-2 COVID-19 MODERNA 12+ YRS VACCINE 2021-05-22 00:00:00 Completed [facility] SARS-COV-2 COVID-19 MODERNA 12+ YRS VACCINE 2021-05-22 00:00:00 Completed [facility] SARS-COV-2 COVID-19 MODERNA VACCINE 2021-05-22 00:00:00 Completed [facility] SARS-COV-2 COVID-19 MODERNA 12+ YRS VACCINE 2021-05-22 00:00:00 Completed [facility] SARS-COV-2 COVID-19 MODERNA 12+ YRS VACCINE 2021-05-22 00:00:00 Completed [facility] SARS-COV-2 COVID-19 MODERNA 12+ YRS VACCINE 2021-05-22 00:00:00 Completed [facility] SARS-COV-2 COVID-19 MODERNA 12+ YRS VACCINE 2021-05-22 00:00:00 Completed [facility] SARS-COV-2 COVID-19 MODERNA 12+ YRS VACCINE 2021-05-22 00:00:00 Completed [facility] SARS-COV-2 COVID-19 MODERNA VACCINE 2021-05-22 00:00:00 Completed [facility] SARS-COV-2 COVID-19 MODERNA 12+ YRS VACCINE 2021-05-22 00:00:00 Completed [facility] SARS-COV-2 COVID-19 MODERNA 12+ YRS VACCINE 2021-05-22 00:00:00 Completed [facility] SARS-COV-2 COVID-19 MODERNA 12+ YRS VACCINE 2021-05-22 00:00:00 Completed [facility] SARS-COV-2 COVID-19 MODERNA 12+ YRS VACCINE 2021-05-22 00:00:00 Completed SARS-COV-2 COVID-19 MODERNA 12+ YRS VACCINE 2021-05-22 00:00:00 Completed [facility] SARS-COV-2 COVID-19 MODERNA 12+ YRS VACCINE 2021-05-22 00:00:00 Completed [facility] SARS-COV-2 COVID-19 MODERNA 12+ YRS VACCINE 2021-05-22 00:00:00 Completed [facility] SARS-COV-2 COVID-19 MODERNA 12+ YRS VACCINE 2021-05-22 00:00:00 Completed [facility] SARS-COV-2 COVID-19 MODERNA 12+ YRS VACCINE 2021-05-22 00:00:00 Completed [facility] SARS-COV-2 COVID-19 MODERNA 12+ YRS VACCINE 2021-05-22 00:00:00 Completed [facility] SARS-COV-2 COVID-19 MODERNA 12+ YRS VACCINE 2021-05-22 00:00:00 Completed [facility] SARS-COV-2 COVID-19 MODERNA 12+ YRS VACCINE 2021-05-22 00:00:00 Completed [facility] SARS-COV-2 COVID-19 MODERNA 12+ YRS VACCINE 2021-05-22 00:00:00 Completed [facility] SARS-COV-2 COVID-19 MODERNA 12+ YRS VACCINE 2021-05-22 00:00:00 Completed [facility] SARS-COV-2 COVID-19 MODERNA 12+ YRS VACCINE 2021-05-22 00:00:00 Completed [facility] SARS-COV-2 COVID-19 MODERNA 12+ YRS VACCINE 2021-05-22 00:00:00 Completed [facility] SARS-COV-2 COVID-19 MODERNA 12+ YRS VACCINE 2021-05-22 00:00:00 Completed [facility] SARS-COV-2 COVID-19 MODERNA 12+ YRS VACCINE 2021-05-22 00:00:00 Completed [facility] SARS-COV-2 COVID-19 MODERNA 12+ YRS VACCINE 2021-05-22 00:00:00 Completed [facility] SARS-COV-2 COVID-19 MODERNA 12+ YRS VACCINE 2021-04-24 00:00:00 Completed [facility] SARS-COV-2 COVID-19 MODERNA 12+ YRS VACCINE 2021-04-24 00:00:00 Completed [facility] SARS-COV-2 COVID-19 MODERNA 12+ YRS VACCINE 2021-04-24 00:00:00 Completed [facility] SARS-COV-2 COVID-19 MODERNA 12+ YRS VACCINE 2021-04-24 00:00:00 Completed [facility] SARS-COV-2 COVID-19 MODERNA 12+ YRS VACCINE 2021-04-24 00:00:00 Completed [facility] SARS-COV-2 COVID-19 MODERNA 12+ YRS VACCINE 2021-04-24 00:00:00 Completed [facility] SARS-COV-2 COVID-19 MODERNA 12+ YRS VACCINE 2021-04-24 00:00:00 Completed [facility] SARS-COV-2 COVID-19 MODERNA 12+ YRS VACCINE 2021-04-24 00:00:00 Completed [facility] SARS-COV-2 COVID-19 MODERNA 12+ YRS VACCINE 2021-04-24 00:00:00 Completed [facility] SARS-COV-2 COVID-19 MODERNA 12+ YRS VACCINE 2021-04-24 00:00:00 Completed [facility] SARS-COV-2 COVID-19 MODERNA 12+ YRS VACCINE 2021-04-24 00:00:00 Completed [facility] SARS-COV-2 COVID-19 MODERNA 12+ YRS VACCINE 2021-04-24 00:00:00 Completed [facility] SARS-COV-2 COVID-19 MODERNA 12+ YRS VACCINE 2021-04-24 00:00:00 Completed [facility] SARS-COV-2 COVID-19 MODERNA 12+ YRS VACCINE 2021-04-24 00:00:00 Completed [facility] SARS-COV-2 COVID-19 MODERNA 12+ YRS VACCINE 2021-04-24 00:00:00 Completed [facility] SARS-COV-2 COVID-19 MODERNA 12+ YRS VACCINE 2021-04-24 00:00:00 Completed [facility] SARS-COV-2 COVID-19 MODERNA 12+ YRS VACCINE 2021-04-24 00:00:00 Completed [facility] SARS-COV-2 COVID-19 MODERNA 12+ YRS VACCINE 2021-04-24 00:00:00 Completed [facility] SARS-COV-2 COVID-19 MODERNA 12+ YRS VACCINE 2021-04-24 00:00:00 Completed [facility] SARS-COV-2 COVID-19 MODERNA 12+ YRS VACCINE 2021-04-24 00:00:00 Completed [facility] SARS-COV-2 COVID-19 MODERNA 12+ YRS VACCINE 2021-04-24 00:00:00 Completed [facility] SARS-COV-2 COVID-19 MODERNA 12+ YRS VACCINE 2021-04-24 00:00:00 Completed [facility] SARS-COV-2 COVID-19 MODERNA 12+ YRS VACCINE 2021-04-24 00:00:00 Completed [facility] SARS-COV-2 COVID-19 MODERNA 12+ YRS VACCINE 2021-04-24 00:00:00 Completed [facility] SARS-COV-2 COVID-19 MODERNA 12+ YRS VACCINE 2021-04-24 00:00:00 Completed [facility] SARS-COV-2 COVID-19 MODERNA 12+ YRS VACCINE 2021-04-24 00:00:00 Completed [facility] SARS-COV-2 COVID-19 MODERNA 12+ YRS VACCINE 2021-04-24 00:00:00 Completed [facility] SARS-COV-2 COVID-19 MODERNA 12+ YRS VACCINE 2021-04-24 00:00:00 Completed [facility] SARS-COV-2 COVID-19 MODERNA 12+ YRS VACCINE 2021-04-24 00:00:00 Completed [facility] SARS-COV-2 COVID-19 MODERNA VACCINE 2021-04-24 00:00:00 Completed [facility] SARS-COV-2 COVID-19 MODERNA 12+ YRS VACCINE 2021-04-24 00:00:00 Completed [facility] SARS-COV-2 COVID-19 MODERNA 12+ YRS VACCINE 2021-04-24 00:00:00 Completed [facility] SARS-COV-2 COVID-19 MODERNA 12+ YRS VACCINE 2021-04-24 00:00:00 Completed [facility] SARS-COV-2 COVID-19 MODERNA 12+ YRS VACCINE 2021-04-24 00:00:00 Completed [facility] SARS-COV-2 COVID-19 MODERNA 12+ YRS VACCINE 2021-04-24 00:00:00 Completed [facility] SARS-COV-2 COVID-19 MODERNA 12+ YRS VACCINE 2021-04-24 00:00:00 Completed [facility] SARS-COV-2 COVID-19 MODERNA 12+ YRS VACCINE 2021-04-24 00:00:00 Completed [facility] SARS-COV-2 COVID-19 MODERNA 12+ YRS VACCINE 2021-04-24 00:00:00 Completed [facility] SARS-COV-2 COVID-19 MODERNA 12+ YRS VACCINE 2021-04-24 00:00:00 Completed [facility] SARS-COV-2 COVID-19 MODERNA VACCINE 2021-04-24 00:00:00 Completed [facility] SARS-COV-2 COVID-19 MODERNA 12+ YRS VACCINE 2021-04-24 00:00:00 Completed [facility] SARS-COV-2 COVID-19 MODERNA 12+ YRS VACCINE 2021-04-24 00:00:00 Completed [facility] SARS-COV-2 COVID-19 MODERNA 12+ YRS VACCINE 2021-04-24 00:00:00 Completed [facility] SARS-COV-2 COVID-19 MODERNA 12+ YRS VACCINE 2021-04-24 00:00:00 Completed [facility] SARS-COV-2 COVID-19 MODERNA 12+ YRS VACCINE 2021-04-24 00:00:00 Completed [facility] SARS-COV-2 COVID-19 MODERNA 12+ YRS VACCINE 2021-04-24 00:00:00 Completed [facility] SARS-COV-2 COVID-19 MODERNA VACCINE 2021-04-24 00:00:00 Completed [facility] SARS-COV-2 COVID-19 MODERNA 12+ YRS VACCINE 2021-04-24 00:00:00 Completed [facility] SARS-COV-2 COVID-19 MODERNA 12+ YRS VACCINE 2021-04-24 00:00:00 Completed [facility] SARS-COV-2 COVID-19 MODERNA 12+ YRS VACCINE 2021-04-24 00:00:00 Completed [facility] SARS-COV-2 COVID-19 MODERNA 12+ YRS VACCINE 2021-04-24 00:00:00 Completed [facility] SARS-COV-2 COVID-19 MODERNA 12+ YRS VACCINE 2021-04-24 00:00:00 Completed [facility] SARS-COV-2 COVID-19 MODERNA VACCINE 2021-04-24 00:00:00 Completed [facility] SARS-COV-2 COVID-19 MODERNA 12+ YRS VACCINE 2021-04-24 00:00:00 Completed [facility] SARS-COV-2 COVID-19 MODERNA 12+ YRS VACCINE 2021-04-24 00:00:00 Completed [facility] SARS-COV-2 COVID-19 MODERNA 12+ YRS VACCINE 2021-04-24 00:00:00 Completed [facility] SARS-COV-2 COVID-19 MODERNA 12+ YRS VACCINE 2021-04-24 00:00:00 Completed SARS-COV-2 COVID-19 MODERNA 12+ YRS VACCINE 2021-04-24 00:00:00 Completed [facility] SARS-COV-2 COVID-19 MODERNA 12+ YRS VACCINE 2021-04-24 00:00:00 Completed [facility] SARS-COV-2 COVID-19 MODERNA 12+ YRS VACCINE 2021-04-24 00:00:00 Completed [facility] SARS-COV-2 COVID-19 MODERNA 12+ YRS VACCINE 2021-04-24 00:00:00 Completed [facility] SARS-COV-2 COVID-19 MODERNA 12+ YRS VACCINE 2021-04-24 00:00:00 Completed [facility] SARS-COV-2 COVID-19 MODERNA 12+ YRS VACCINE 2021-04-24 00:00:00 Completed [facility] SARS-COV-2 COVID-19 MODERNA 12+ YRS VACCINE 2021-04-24 00:00:00 Completed [facility] SARS-COV-2 COVID-19 MODERNA 12+ YRS VACCINE 2021-04-24 00:00:00 Completed [facility] SARS-COV-2 COVID-19 MODERNA 12+ YRS VACCINE 2021-04-24 00:00:00 Completed [facility] SARS-COV-2 COVID-19 MODERNA 12+ YRS VACCINE 2021-04-24 00:00:00 Completed [facility] SARS-COV-2 COVID-19 MODERNA 12+ YRS VACCINE 2021-04-24 00:00:00 Completed [facility] SARS-COV-2 COVID-19 MODERNA 12+ YRS VACCINE 2021-04-24 00:00:00 Completed [facility] SARS-COV-2 COVID-19 MODERNA 12+ YRS VACCINE 2021-04-24 00:00:00 Completed [facility] SARS-COV-2 COVID-19 MODERNA 12+ YRS VACCINE 2021-04-24 00:00:00 Completed [facility] SARS-COV-2 COVID-19 MODERNA 12+ YRS VACCINE 2021-04-24 00:00:00 Completed [facility] Influenza High Dose Quad 2020-08-18 00:00:00 Completed Pneumococcal 13 Conjugate, PCV13 (Prevnar 13) 2020-01-06 00:00:00 Completed [facility] Pneumococcal 13 Conjugate, PCV13 (Prevnar 13) 2020-01-06 00:00:00 Completed [facility] Pneumococcal 13 Conjugate, PCV13 (Prevnar 13) 2020-01-06 00:00:00 Completed [facility] Pneumococcal 13 Conjugate, PCV13 (Prevnar 13) 2020-01-06 00:00:00 Completed [facility] Pneumococcal 13 Conjugate, PCV13 (Prevnar 13) 2020-01-06 00:00:00 Completed [facility] Pneumococcal 13 Conjugate, PCV13 (Prevnar 13) 2020-01-06 00:00:00 Completed [facility] Pneumococcal 13 Conjugate, PCV13 (Prevnar 13) 2020-01-06 00:00:00 Completed [facility] Pneumococcal 13 Conjugate, PCV13 (Prevnar 13) 2020-01-06 00:00:00 Completed [facility] Pneumococcal 13 Conjugate, PCV13 (Prevnar 13) 2020-01-06 00:00:00 Completed [facility] Pneumococcal 13 Conjugate, PCV13 (Prevnar 13) 2020-01-06 00:00:00 Completed [facility] Pneumococcal 13 Conjugate, PCV13 (Prevnar 13) 2020-01-06 00:00:00 Completed [facility] Pneumococcal 13 Conjugate, PCV13 (Prevnar 13) 2020-01-06 00:00:00 Completed [facility] Pneumococcal 13 Conjugate, PCV13 (Prevnar 13) 2020-01-06 00:00:00 Completed [facility] Pneumococcal 13 Conjugate, PCV13 (Prevnar 13) 2020-01-06 00:00:00 Completed [facility] Pneumococcal 13 Conjugate, PCV13 (Prevnar 13) 2020-01-06 00:00:00 Completed [facility] Pneumococcal 13 Conjugate, PCV13 (Prevnar 13) 2020-01-06 00:00:00 Completed [facility] Pneumococcal 13 Conjugate, PCV13 (Prevnar 13) 2020-01-06 00:00:00 Completed [facility] Pneumococcal 13 Conjugate, PCV13 (Prevnar 13) 2020-01-06 00:00:00 Completed [facility] Pneumococcal 13 Conjugate, PCV13 (Prevnar 13) 2020-01-06 00:00:00 Completed [facility] Pneumococcal 13 Conjugate, PCV13 (Prevnar 13) 2020-01-06 00:00:00 Completed [facility] Pneumococcal 13 Conjugate, PCV13 (Prevnar 13) 2020-01-06 00:00:00 Completed [facility] Pneumococcal 13 Conjugate, PCV13 (Prevnar 13) 2020-01-06 00:00:00 Completed [facility] Pneumococcal 13 Conjugate, PCV13 (Prevnar 13) 2020-01-06 00:00:00 Completed [facility] Pneumococcal 13 Conjugate, PCV13 (Prevnar 13) 2020-01-06 00:00:00 Completed [facility] Pneumococcal 13 Conjugate, PCV13 (Prevnar 13) 2020-01-06 00:00:00 Completed [facility] Pneumococcal 13 Conjugate, PCV13 (Prevnar 13) 2020-01-06 00:00:00 Completed [facility] Pneumococcal 13 Conjugate, PCV13 (Prevnar 13) 2020-01-06 00:00:00 Completed [facility] Pneumococcal 13 Conjugate, PCV13 (Prevnar 13) 2020-01-06 00:00:00 Completed [facility] Pneumococcal 13 Conjugate, PCV13 (Prevnar 13) 2020-01-06 00:00:00 Completed [facility] Pneumococcal 13 Conjugate, PCV13 (Prevnar 13) 2020-01-06 00:00:00 Completed [facility] Pneumococcal 13 Conjugate, PCV13 (Prevnar 13) 2020-01-06 00:00:00 Completed [facility] Pneumococcal 13 Conjugate, PCV13 (Prevnar 13) 2020-01-06 00:00:00 Completed [facility] Pneumococcal 13 Conjugate, PCV13 (Prevnar 13) 2020-01-06 00:00:00 Completed [facility] Pneumococcal 13 Conjugate, PCV13 (Prevnar 13) 2020-01-06 00:00:00 Completed [facility] Pneumococcal 13 Conjugate, PCV13 (Prevnar 13) 2020-01-06 00:00:00 Completed [facility] Pneumococcal 13 Conjugate, PCV13 (Prevnar 13) 2020-01-06 00:00:00 Completed [facility] Pneumococcal 13 Conjugate, PCV13 (Prevnar 13) 2020-01-06 00:00:00 Completed [facility] Pneumococcal 13 Conjugate, PCV13 (Prevnar 13) 2020-01-06 00:00:00 Completed [facility] Pneumococcal 13 Conjugate, PCV13 (Prevnar 13) 2020-01-06 00:00:00 Completed [facility] Pneumococcal 13 Conjugate, PCV13 (Prevnar 13) 2020-01-06 00:00:00 Completed [facility] Pneumococcal 13 Conjugate, PCV13 (Prevnar 13) 2020-01-06 00:00:00 Completed [facility] Pneumococcal 13 Conjugate, PCV13 (Prevnar 13) 2020-01-06 00:00:00 Completed [facility] Pneumococcal 13 Conjugate, PCV13 (Prevnar 13) 2020-01-06 00:00:00 Completed [facility] Pneumococcal 13 Conjugate, PCV13 (Prevnar 13) 2020-01-06 00:00:00 Completed [facility] Pneumococcal 13 Conjugate, PCV13 (Prevnar 13) 2020-01-06 00:00:00 Completed [facility] Pneumococcal 13 Conjugate, PCV13 (Prevnar 13) 2020-01-06 00:00:00 Completed [facility] Pneumococcal 13 Conjugate, PCV13 (Prevnar 13) 2020-01-06 00:00:00 Completed [facility] Pneumococcal 13 Conjugate, PCV13 (Prevnar 13) 2020-01-06 00:00:00 Completed [facility] Pneumococcal 13 Conjugate, PCV13 (Prevnar 13) 2020-01-06 00:00:00 Completed [facility] Pneumococcal 13 Conjugate, PCV13 (Prevnar 13) 2020-01-06 00:00:00 Completed [facility] Pneumococcal 13 Conjugate, PCV13 (Prevnar 13) 2020-01-06 00:00:00 Completed [facility] Pneumococcal 13 Conjugate, PCV13 (Prevnar 13) 2020-01-06 00:00:00 Completed [facility] Pneumococcal 13 Conjugate, PCV13 (Prevnar 13) 2020-01-06 00:00:00 Completed [facility] Pneumococcal 13 Conjugate, PCV13 (Prevnar 13) 2020-01-06 00:00:00 Completed [facility] Pneumococcal 13 Conjugate, PCV13 (Prevnar 13) 2020-01-06 00:00:00 Completed [facility] Pneumococcal 13 Conjugate, PCV13 (Prevnar 13) 2020-01-06 00:00:00 Completed [facility] Pneumococcal 13 Conjugate, PCV13 (Prevnar 13) 2020-01-06 00:00:00 Completed [facility] Pneumococcal 13 Conjugate, PCV13 (Prevnar 13) 2020-01-06 00:00:00 Completed Pneumococcal 13 Conjugate, PCV13 (Prevnar 13) 2020-01-06 00:00:00 Completed [facility] Pneumococcal 13 Conjugate, PCV13 (Prevnar 13) 2020-01-06 00:00:00 Completed [facility] Pneumococcal 13 Conjugate, PCV13 (Prevnar 13) 2020-01-06 00:00:00 Completed [facility] Pneumococcal 13 Conjugate, PCV13 (Prevnar 13) 2020-01-06 00:00:00 Completed [facility] Pneumococcal 13 Conjugate, PCV13 (Prevnar 13) 2020-01-06 00:00:00 Completed [facility] Pneumococcal 13 Conjugate, PCV13 (Prevnar 13) 2020-01-06 00:00:00 Completed [facility] Pneumococcal 13 Conjugate, PCV13 (Prevnar 13) 2020-01-06 00:00:00 Completed [facility] Pneumococcal 13 Conjugate, PCV13 (Prevnar 13) 2020-01-06 00:00:00 Completed [facility] Pneumococcal 13 Conjugate, PCV13 (Prevnar 13) 2020-01-06 00:00:00 Completed [facility] Pneumococcal 13 Conjugate, PCV13 (Prevnar 13) 2020-01-06 00:00:00 Completed [facility] Pneumococcal 13 Conjugate, PCV13 (Prevnar 13) 2020-01-06 00:00:00 Completed [facility] Pneumococcal 13 Conjugate, PCV13 (Prevnar 13) 2020-01-06 00:00:00 Completed [facility] Pneumococcal 13 Conjugate, PCV13 (Prevnar 13) 2020-01-06 00:00:00 Completed [facility] Pneumococcal 13 Conjugate, PCV13 (Prevnar 13) 2020-01-06 00:00:00 Completed [facility] Zoster Vaccine Recombinant 2019-11-10 00:00:00 Completed [facility] Pneumococcal Unspecified 2019-11-10 00:00:00 Completed Zoster, Unspecified Formula 2019-11-10 00:00:00 Completed pneumococcal, unspecified formulation pneumococcal, unspecified formulation 2019-11-10 00:00:00 Completed [facility] zoster, unspecified formulation zoster, unspecified formulation 2019-11-10 00:00:00 Completed [facility] Zoster Vaccine Recombinant 2019-08-15 00:00:00 Completed Influenza Virus Vaccine Quad .5 mL IM 6+ MO (FLUZONE/FLULAVAL/F LUARIX) 2019-08-15 00:00:00 Completed Pneumococcal Polysaccharide, PPSV23 (PNEUMOVAX) 2019-01-06 00:00:00 Completed [facility] Pneumococcal Polysaccharide, PPSV23 (PNEUMOVAX) 2019-01-06 00:00:00 Completed [facility] Pneumococcal Polysaccharide, PPSV23 (PNEUMOVAX) 2019-01-06 00:00:00 Completed [facility] Pneumococcal Polysaccharide, PPSV23 (PNEUMOVAX) 2019-01-06 00:00:00 Completed [facility] Pneumococcal Polysaccharide, PPSV23 (PNEUMOVAX) 2019-01-06 00:00:00 Completed [facility] Pneumococcal Polysaccharide, PPSV23 (PNEUMOVAX) 2019-01-06 00:00:00 Completed [facility] Pneumococcal Polysaccharide, PPSV23 (PNEUMOVAX) 2019-01-06 00:00:00 Completed [facility] Pneumococcal Polysaccharide, PPSV23 (PNEUMOVAX) 2019-01-06 00:00:00 Completed [facility] Pneumococcal Polysaccharide, PPSV23 (PNEUMOVAX) 2019-01-06 00:00:00 Completed [facility] Pneumococcal Polysaccharide, PPSV23 (PNEUMOVAX) 2019-01-06 00:00:00 Completed [facility] Pneumococcal Polysaccharide, PPSV23 (PNEUMOVAX) 2019-01-06 00:00:00 Completed [facility] Pneumococcal Polysaccharide, PPSV23 (PNEUMOVAX) 2019-01-06 00:00:00 Completed [facility] Pneumococcal Polysaccharide, PPSV23 (PNEUMOVAX) 2019-01-06 00:00:00 Completed [facility] Pneumococcal Polysaccharide, PPSV23 (PNEUMOVAX) 2019-01-06 00:00:00 Completed [facility] Pneumococcal Polysaccharide, PPSV23 (PNEUMOVAX) 2019-01-06 00:00:00 Completed [facility] Pneumococcal Polysaccharide, PPSV23 (PNEUMOVAX) 2019-01-06 00:00:00 Completed [facility] Pneumococcal Polysaccharide, PPSV23 (PNEUMOVAX) 2019-01-06 00:00:00 Completed [facility] Pneumococcal Polysaccharide, PPSV23 (PNEUMOVAX) 2019-01-06 00:00:00 Completed [facility] Pneumococcal Polysaccharide, PPSV23 (PNEUMOVAX) 2019-01-06 00:00:00 Completed [facility] Pneumococcal Polysaccharide, PPSV23 (PNEUMOVAX) 2019-01-06 00:00:00 Completed [facility] Pneumococcal Polysaccharide, PPSV23 (PNEUMOVAX) 2019-01-06 00:00:00 Completed [facility] Pneumococcal Polysaccharide, PPSV23 (PNEUMOVAX) 2019-01-06 00:00:00 Completed [facility] Pneumococcal Polysaccharide, PPSV23 (PNEUMOVAX) 2019-01-06 00:00:00 Completed [facility] Pneumococcal Polysaccharide, PPSV23 (PNEUMOVAX) 2019-01-06 00:00:00 Completed [facility] Pneumococcal Polysaccharide, PPSV23 (PNEUMOVAX) 2019-01-06 00:00:00 Completed [facility] Pneumococcal Polysaccharide, PPSV23 (PNEUMOVAX) 2019-01-06 00:00:00 Completed [facility] Pneumococcal Polysaccharide, PPSV23 (PNEUMOVAX) 2019-01-06 00:00:00 Completed [facility] Pneumococcal Polysaccharide, PPSV23 (PNEUMOVAX) 2019-01-06 00:00:00 Completed [facility] Pneumococcal Polysaccharide, PPSV23 (PNEUMOVAX) 2019-01-06 00:00:00 Completed [facility] Pneumococcal Polysaccharide, PPSV23 (PNEUMOVAX) 2019-01-06 00:00:00 Completed [facility] Pneumococcal Polysaccharide, PPSV23 (PNEUMOVAX) 2019-01-06 00:00:00 Completed [facility] Pneumococcal Polysaccharide, PPSV23 (PNEUMOVAX) 2019-01-06 00:00:00 Completed [facility] Pneumococcal Polysaccharide, PPSV23 (PNEUMOVAX) 2019-01-06 00:00:00 Completed [facility] Pneumococcal Polysaccharide, PPSV23 (PNEUMOVAX) 2019-01-06 00:00:00 Completed [facility] Pneumococcal Polysaccharide, PPSV23 (PNEUMOVAX) 2019-01-06 00:00:00 Completed [facility] Pneumococcal Polysaccharide, PPSV23 (PNEUMOVAX) 2019-01-06 00:00:00 Completed [facility] Pneumococcal Polysaccharide, PPSV23 (PNEUMOVAX) 2019-01-06 00:00:00 Completed [facility] Pneumococcal Polysaccharide, PPSV23 (PNEUMOVAX) 2019-01-06 00:00:00 Completed [facility] Pneumococcal Polysaccharide, PPSV23 (PNEUMOVAX) 2019-01-06 00:00:00 Completed [facility] Pneumococcal Polysaccharide, PPSV23 (PNEUMOVAX) 2019-01-06 00:00:00 Completed [facility] Pneumococcal Polysaccharide, PPSV23 (PNEUMOVAX) 2019-01-06 00:00:00 Completed [facility] Pneumococcal Polysaccharide, PPSV23 (PNEUMOVAX) 2019-01-06 00:00:00 Completed [facility] Pneumococcal Polysaccharide, PPSV23 (PNEUMOVAX) 2019-01-06 00:00:00 Completed [facility] Pneumococcal Polysaccharide, PPSV23 (PNEUMOVAX) 2019-01-06 00:00:00 Completed [facility] Pneumococcal Polysaccharide, PPSV23 (PNEUMOVAX) 2019-01-06 00:00:00 Completed [facility] Pneumococcal Polysaccharide, PPSV23 (PNEUMOVAX) 2019-01-06 00:00:00 Completed [facility] Pneumococcal Polysaccharide, PPSV23 (PNEUMOVAX) 2019-01-06 00:00:00 Completed [facility] Pneumococcal Polysaccharide, PPSV23 (PNEUMOVAX) 2019-01-06 00:00:00 Completed [facility] Pneumococcal Polysaccharide, PPSV23 (PNEUMOVAX) 2019-01-06 00:00:00 Completed [facility] Pneumococcal Polysaccharide, PPSV23 (PNEUMOVAX) 2019-01-06 00:00:00 Completed [facility] Pneumococcal Polysaccharide, PPSV23 (PNEUMOVAX) 2019-01-06 00:00:00 Completed [facility] Pneumococcal Polysaccharide, PPSV23 (PNEUMOVAX) 2019-01-06 00:00:00 Completed [facility] Pneumococcal Polysaccharide, PPSV23 (PNEUMOVAX) 2019-01-06 00:00:00 Completed [facility] Pneumococcal Polysaccharide, PPSV23 (PNEUMOVAX) 2019-01-06 00:00:00 Completed [facility] Pneumococcal Polysaccharide, PPSV23 (PNEUMOVAX) 2019-01-06 00:00:00 Completed [facility] Pneumococcal Polysaccharide, PPSV23 (PNEUMOVAX) 2019-01-06 00:00:00 Completed [facility] Pneumococcal Polysaccharide, PPSV23 (PNEUMOVAX) 2019-01-06 00:00:00 Completed Pneumococcal Polysaccharide, PPSV23 (PNEUMOVAX) 2019-01-06 00:00:00 Completed [facility] Pneumococcal Polysaccharide, PPSV23 (PNEUMOVAX) 2019-01-06 00:00:00 Completed [facility] Pneumococcal Polysaccharide, PPSV23 (PNEUMOVAX) 2019-01-06 00:00:00 Completed [facility] Pneumococcal Polysaccharide, PPSV23 (PNEUMOVAX) 2019-01-06 00:00:00 Completed [facility] Pneumococcal Polysaccharide, PPSV23 (PNEUMOVAX) 2019-01-06 00:00:00 Completed [facility] Pneumococcal Polysaccharide, PPSV23 (PNEUMOVAX) 2019-01-06 00:00:00 Completed [facility] Pneumococcal Polysaccharide, PPSV23 (PNEUMOVAX) 2019-01-06 00:00:00 Completed [facility] Pneumococcal Polysaccharide, PPSV23 (PNEUMOVAX) 2019-01-06 00:00:00 Completed [facility] Pneumococcal Polysaccharide, PPSV23 (PNEUMOVAX) 2019-01-06 00:00:00 Completed [facility] Pneumococcal Polysaccharide, PPSV23 (PNEUMOVAX) 2019-01-06 00:00:00 Completed [facility] Pneumococcal Polysaccharide, PPSV23 (PNEUMOVAX) 2019-01-06 00:00:00 Completed [facility] Pneumococcal Polysaccharide, PPSV23 (PNEUMOVAX) 2019-01-06 00:00:00 Completed [facility] Pneumococcal Polysaccharide, PPSV23 (PNEUMOVAX) 2019-01-06 00:00:00 Completed [facility] Pneumococcal Polysaccharide, PPSV23 (PNEUMOVAX) 2019-01-06 00:00:00 Completed [facility] Pneumococcal Polysaccharide, PPSV23 (PNEUMOVAX) 2019-01-06 00:00:00 Completed [facility] Pneumococcal Polysaccharide, PPSV23 (PNEUMOVAX) 2018-01-06 00:00:00 Completed [facility] Pneumococcal Polysaccharide, PPSV23 (PNEUMOVAX) 2018-01-06 00:00:00 Completed [facility] Pneumococcal Polysaccharide, PPSV23 (PNEUMOVAX) 2018-01-06 00:00:00 Completed [facility] Pneumococcal Polysaccharide, PPSV23 (PNEUMOVAX) 2018-01-06 00:00:00 Completed [facility] Pneumococcal Polysaccharide, PPSV23 (PNEUMOVAX) 2018-01-06 00:00:00 Completed [facility] Pneumococcal Polysaccharide, PPSV23 (PNEUMOVAX) 2018-01-06 00:00:00 Completed [facility] Pneumococcal Polysaccharide, PPSV23 (PNEUMOVAX) 2018-01-06 00:00:00 Completed [facility] Pneumococcal Polysaccharide, PPSV23 (PNEUMOVAX) 2018-01-06 00:00:00 Completed [facility] Pneumococcal Polysaccharide, PPSV23 (PNEUMOVAX) 2018-01-06 00:00:00 Completed [facility] Pneumococcal Polysaccharide, PPSV23 (PNEUMOVAX) 2018-01-06 00:00:00 Completed [facility] Pneumococcal Polysaccharide, PPSV23 (PNEUMOVAX) 2018-01-06 00:00:00 Completed [facility] Pneumococcal Polysaccharide, PPSV23 (PNEUMOVAX) 2018-01-06 00:00:00 Completed [facility] Pneumococcal Polysaccharide, PPSV23 (PNEUMOVAX) 2018-01-06 00:00:00 Completed [facility] Pneumococcal Polysaccharide, PPSV23 (PNEUMOVAX) 2018-01-06 00:00:00 Completed [facility] Pneumococcal Polysaccharide, PPSV23 (PNEUMOVAX) 2018-01-06 00:00:00 Completed [facility] Pneumococcal Polysaccharide, PPSV23 (PNEUMOVAX) 2018-01-06 00:00:00 Completed [facility] Pneumococcal Polysaccharide, PPSV23 (PNEUMOVAX) 2018-01-06 00:00:00 Completed [facility] Pneumococcal Polysaccharide, PPSV23 (PNEUMOVAX) 2018-01-06 00:00:00 Completed [facility] Pneumococcal Polysaccharide, PPSV23 (PNEUMOVAX) 2018-01-06 00:00:00 Completed [facility] Pneumococcal Polysaccharide, PPSV23 (PNEUMOVAX) 2018-01-06 00:00:00 Completed [facility] Pneumococcal Polysaccharide, PPSV23 (PNEUMOVAX) 2018-01-06 00:00:00 Completed [facility] Pneumococcal Polysaccharide, PPSV23 (PNEUMOVAX) 2018-01-06 00:00:00 Completed [facility] Pneumococcal Polysaccharide, PPSV23 (PNEUMOVAX) 2018-01-06 00:00:00 Completed [facility] Pneumococcal Polysaccharide, PPSV23 (PNEUMOVAX) 2018-01-06 00:00:00 Completed [facility] Pneumococcal Polysaccharide, PPSV23 (PNEUMOVAX) 2018-01-06 00:00:00 Completed [facility] Pneumococcal Polysaccharide, PPSV23 (PNEUMOVAX) 2018-01-06 00:00:00 Completed [facility] Pneumococcal Polysaccharide, PPSV23 (PNEUMOVAX) 2018-01-06 00:00:00 Completed [facility] Pneumococcal Polysaccharide, PPSV23 (PNEUMOVAX) 2018-01-06 00:00:00 Completed [facility] Pneumococcal Polysaccharide, PPSV23 (PNEUMOVAX) 2018-01-06 00:00:00 Completed [facility] Pneumococcal Polysaccharide, PPSV23 (PNEUMOVAX) 2018-01-06 00:00:00 Completed [facility] Pneumococcal Polysaccharide, PPSV23 (PNEUMOVAX) 2018-01-06 00:00:00 Completed [facility] Pneumococcal Polysaccharide, PPSV23 (PNEUMOVAX) 2018-01-06 00:00:00 Completed [facility] Pneumococcal Polysaccharide, PPSV23 (PNEUMOVAX) 2018-01-06 00:00:00 Completed [facility] Pneumococcal Polysaccharide, PPSV23 (PNEUMOVAX) 2018-01-06 00:00:00 Completed [facility] Pneumococcal Polysaccharide, PPSV23 (PNEUMOVAX) 2018-01-06 00:00:00 Completed [facility] Pneumococcal Polysaccharide, PPSV23 (PNEUMOVAX) 2018-01-06 00:00:00 Completed [facility] Pneumococcal Polysaccharide, PPSV23 (PNEUMOVAX) 2018-01-06 00:00:00 Completed [facility] Pneumococcal Polysaccharide, PPSV23 (PNEUMOVAX) 2018-01-06 00:00:00 Completed [facility] Pneumococcal Polysaccharide, PPSV23 (PNEUMOVAX) 2018-01-06 00:00:00 Completed [facility] Pneumococcal Polysaccharide, PPSV23 (PNEUMOVAX) 2018-01-06 00:00:00 Completed [facility] Pneumococcal Polysaccharide, PPSV23 (PNEUMOVAX) 2018-01-06 00:00:00 Completed [facility] Pneumococcal Polysaccharide, PPSV23 (PNEUMOVAX) 2018-01-06 00:00:00 Completed [facility] Pneumococcal Polysaccharide, PPSV23 (PNEUMOVAX) 2018-01-06 00:00:00 Completed [facility] Pneumococcal Polysaccharide, PPSV23 (PNEUMOVAX) 2018-01-06 00:00:00 Completed [facility] Pneumococcal Polysaccharide, PPSV23 (PNEUMOVAX) 2018-01-06 00:00:00 Completed [facility] Pneumococcal Polysaccharide, PPSV23 (PNEUMOVAX) 2018-01-06 00:00:00 Completed [facility] Pneumococcal Polysaccharide, PPSV23 (PNEUMOVAX) 2018-01-06 00:00:00 Completed [facility] Pneumococcal Polysaccharide, PPSV23 (PNEUMOVAX) 2018-01-06 00:00:00 Completed [facility] Pneumococcal Polysaccharide, PPSV23 (PNEUMOVAX) 2018-01-06 00:00:00 Completed [facility] Pneumococcal Polysaccharide, PPSV23 (PNEUMOVAX) 2018-01-06 00:00:00 Completed [facility] Pneumococcal Polysaccharide, PPSV23 (PNEUMOVAX) 2018-01-06 00:00:00 Completed [facility] Pneumococcal Polysaccharide, PPSV23 (PNEUMOVAX) 2018-01-06 00:00:00 Completed [facility] Pneumococcal Polysaccharide, PPSV23 (PNEUMOVAX) 2018-01-06 00:00:00 Completed [facility] Pneumococcal Polysaccharide, PPSV23 (PNEUMOVAX) 2018-01-06 00:00:00 Completed [facility] Pneumococcal Polysaccharide, PPSV23 (PNEUMOVAX) 2018-01-06 00:00:00 Completed [facility] Pneumococcal Polysaccharide, PPSV23 (PNEUMOVAX) 2018-01-06 00:00:00 Completed [facility] Pneumococcal Polysaccharide, PPSV23 (PNEUMOVAX) 2018-01-06 00:00:00 Completed Pneumococcal Polysaccharide, PPSV23 (PNEUMOVAX) 2018-01-06 00:00:00 Completed [facility] Pneumococcal Polysaccharide, PPSV23 (PNEUMOVAX) 2018-01-06 00:00:00 Completed [facility] Pneumococcal Polysaccharide, PPSV23 (PNEUMOVAX) 2018-01-06 00:00:00 Completed [facility] Pneumococcal Polysaccharide, PPSV23 (PNEUMOVAX) 2018-01-06 00:00:00 Completed [facility] Pneumococcal Polysaccharide, PPSV23 (PNEUMOVAX) 2018-01-06 00:00:00 Completed [facility] Pneumococcal Polysaccharide, PPSV23 (PNEUMOVAX) 2018-01-06 00:00:00 Completed [facility] Pneumococcal Polysaccharide, PPSV23 (PNEUMOVAX) 2018-01-06 00:00:00 Completed [facility] Pneumococcal Polysaccharide, PPSV23 (PNEUMOVAX) 2018-01-06 00:00:00 Completed [facility] Pneumococcal Polysaccharide, PPSV23 (PNEUMOVAX) 2018-01-06 00:00:00 Completed [facility] Pneumococcal Polysaccharide, PPSV23 (PNEUMOVAX) 2018-01-06 00:00:00 Completed [facility] Pneumococcal Polysaccharide, PPSV23 (PNEUMOVAX) 2018-01-06 00:00:00 Completed [facility] Pneumococcal Polysaccharide, PPSV23 (PNEUMOVAX) 2018-01-06 00:00:00 Completed [facility] Pneumococcal Polysaccharide, PPSV23 (PNEUMOVAX) 2018-01-06 00:00:00 Completed [facility] Pneumococcal Polysaccharide, PPSV23 (PNEUMOVAX) 2018-01-06 00:00:00 Completed [facility] Pneumococcal Polysaccharide, PPSV23 (PNEUMOVAX) 2018-01-06 00:00:00 Completed [facility] DTAP 2016-11-04 00:00:00 Completed [facility] DTAP 2016-11-04 00:00:00 Completed [facility] DTAP 2016-11-04 00:00:00 Completed [facility] DTAP 2016-11-04 00:00:00 Completed [facility] DTAP 2016-11-04 00:00:00 Completed [facility] DTAP 2016-11-04 00:00:00 Completed [facility] DTAP 2016-11-04 00:00:00 Completed [facility] DTAP 2016-11-04 00:00:00 Completed [facility] DTAP 2016-11-04 00:00:00 Completed [facility] DTAP 2016-11-04 00:00:00 Completed [facility] DTAP 2016-11-04 00:00:00 Completed [facility] DTAP 2016-11-04 00:00:00 Completed [facility] DTAP 2016-11-04 00:00:00 Completed [facility] DTAP 2016-11-04 00:00:00 Completed [facility] DTAP 2016-11-04 00:00:00 Completed [facility] DTAP 2016-11-04 00:00:00 Completed [facility] DTAP 2016-11-04 00:00:00 Completed [facility] DTAP 2016-11-04 00:00:00 Completed [facility] DTAP 2016-11-04 00:00:00 Completed [facility] DTAP 2016-11-04 00:00:00 Completed [facility] DTAP 2016-11-04 00:00:00 Completed [facility] DTAP 2016-11-04 00:00:00 Completed [facility] DTAP 2016-11-04 00:00:00 Completed [facility] DTAP 2016-11-04 00:00:00 Completed [facility] DTAP 2016-11-04 00:00:00 Completed [facility] DTAP 2016-11-04 00:00:00 Completed [facility] DTAP 2016-11-04 00:00:00 Completed [facility] DTAP 2016-11-04 00:00:00 Completed [facility] DTAP 2016-11-04 00:00:00 Completed [facility] DTAP 2016-11-04 00:00:00 Completed [facility] DTAP 2016-11-04 00:00:00 Completed [facility] DTAP 2016-11-04 00:00:00 Completed [facility] DTAP 2016-11-04 00:00:00 Completed [facility] DTAP 2016-11-04 00:00:00 Completed [facility] DTAP 2016-11-04 00:00:00 Completed [facility] DTAP 2016-11-04 00:00:00 Completed [facility] DTAP 2016-11-04 00:00:00 Completed [facility] DTAP 2016-11-04 00:00:00 Completed [facility] DTAP 2016-11-04 00:00:00 Completed [facility] DTAP 2016-11-04 00:00:00 Completed [facility] DTAP 2016-11-04 00:00:00 Completed [facility] DTAP 2016-11-04 00:00:00 Completed [facility] DTAP 2016-11-04 00:00:00 Completed [facility] DTAP 2016-11-04 00:00:00 Completed [facility] DTAP 2016-11-04 00:00:00 Completed [facility] DTAP 2016-11-04 00:00:00 Completed [facility] DTAP 2016-11-04 00:00:00 Completed [facility] DTAP 2016-11-04 00:00:00 Completed [facility] DTAP 2016-11-04 00:00:00 Completed [facility] DTAP 2016-11-04 00:00:00 Completed [facility] DTAP 2016-11-04 00:00:00 Completed [facility] DTAP 2016-11-04 00:00:00 Completed [facility] DTAP 2016-11-04 00:00:00 Completed [facility] DTAP 2016-11-04 00:00:00 Completed [facility] DTAP 2016-11-04 00:00:00 Completed [facility] DTAP 2016-11-04 00:00:00 Completed [facility] DTAP 2016-11-04 00:00:00 Completed [facility] DTAP 2016-11-04 00:00:00 Completed DTAP 2016-11-04 00:00:00 Completed [facility] DTAP 2016-11-04 00:00:00 Completed [facility] DTAP 2016-11-04 00:00:00 Completed [facility] DTAP 2016-11-04 00:00:00 Completed [facility] DTAP 2016-11-04 00:00:00 Completed [facility] DTAP 2016-11-04 00:00:00 Completed [facility] DTAP 2016-11-04 00:00:00 Completed [facility] DTAP 2016-11-04 00:00:00 Completed [facility] DTAP 2016-11-04 00:00:00 Completed [facility] DTAP 2016-11-04 00:00:00 Completed [facility] DTAP 2016-11-04 00:00:00 Completed [facility] DTAP 2016-11-04 00:00:00 Completed [facility] DTAP 2016-11-04 00:00:00 Completed [facility] DTAP 2016-11-04 00:00:00 Completed [facility] Zoster Vaccine Recombinant 2016-01-03 00:00:00 Completed [facility] Zoster Vaccine Recombinant 2016-01-03 00:00:00 Completed [facility] Zoster Vaccine Recombinant 2016-01-03 00:00:00 Completed [facility] Zoster Vaccine Recombinant 2016-01-03 00:00:00 Completed [facility] Zoster Vaccine Recombinant 2016-01-03 00:00:00 Completed [facility] Zoster Vaccine Recombinant 2016-01-03 00:00:00 Completed [facility] Zoster Vaccine Recombinant 2016-01-03 00:00:00 Completed [facility] Zoster Vaccine Recombinant 2016-01-03 00:00:00 Completed [facility] Zoster Vaccine Recombinant 2016-01-03 00:00:00 Completed [facility] Zoster Vaccine Recombinant 2016-01-03 00:00:00 Completed [facility] Zoster Vaccine Recombinant 2016-01-03 00:00:00 Completed [facility] Zoster Vaccine Recombinant 2016-01-03 00:00:00 Completed [facility] Zoster Vaccine Recombinant 2016-01-03 00:00:00 Completed [facility] Zoster Vaccine Recombinant 2016-01-03 00:00:00 Completed [facility] Zoster Vaccine Recombinant 2016-01-03 00:00:00 Completed [facility] Zoster Vaccine Recombinant 2016-01-03 00:00:00 Completed [facility] Zoster Vaccine Recombinant 2016-01-03 00:00:00 Completed [facility] Zoster Vaccine Recombinant 2016-01-03 00:00:00 Completed [facility] Zoster Vaccine Recombinant 2016-01-03 00:00:00 Completed [facility] Zoster Vaccine Recombinant 2016-01-03 00:00:00 Completed [facility] Zoster Vaccine Recombinant 2016-01-03 00:00:00 Completed [facility] Zoster Vaccine Recombinant 2016-01-03 00:00:00 Completed [facility] Zoster Vaccine Recombinant 2016-01-03 00:00:00 Completed [facility] Zoster Vaccine Recombinant 2016-01-03 00:00:00 Completed [facility] Zoster Vaccine Recombinant 2016-01-03 00:00:00 Completed [facility] Zoster Vaccine Recombinant 2016-01-03 00:00:00 Completed [facility] Zoster Vaccine Recombinant 2016-01-03 00:00:00 Completed [facility] Zoster Vaccine Recombinant 2016-01-03 00:00:00 Completed [facility] Zoster Vaccine Recombinant 2016-01-03 00:00:00 Completed [facility] Zoster Vaccine Recombinant 2016-01-03 00:00:00 Completed [facility] Zoster Vaccine Recombinant 2016-01-03 00:00:00 Completed [facility] Zoster Vaccine Recombinant 2016-01-03 00:00:00 Completed [facility] Zoster Vaccine Recombinant 2016-01-03 00:00:00 Completed [facility] Zoster Vaccine Recombinant 2016-01-03 00:00:00 Completed [facility] Zoster Vaccine Recombinant 2016-01-03 00:00:00 Completed [facility] Zoster Vaccine Recombinant 2016-01-03 00:00:00 Completed [facility] Zoster Vaccine Recombinant 2016-01-03 00:00:00 Completed [facility] Zoster Vaccine Recombinant 2016-01-03 00:00:00 Completed [facility] Zoster Vaccine Recombinant 2016-01-03 00:00:00 Completed [facility] Zoster Vaccine Recombinant 2016-01-03 00:00:00 Completed [facility] Zoster Vaccine Recombinant 2016-01-03 00:00:00 Completed [facility] Zoster Vaccine Recombinant 2016-01-03 00:00:00 Completed [facility] Zoster Vaccine Recombinant 2016-01-03 00:00:00 Completed [facility] Zoster Vaccine Recombinant 2016-01-03 00:00:00 Completed [facility] Zoster Vaccine Recombinant 2016-01-03 00:00:00 Completed [facility] Zoster Vaccine Recombinant 2016-01-03 00:00:00 Completed [facility] Zoster Vaccine Recombinant 2016-01-03 00:00:00 Completed [facility] Zoster Vaccine Recombinant 2016-01-03 00:00:00 Completed [facility] Zoster Vaccine Recombinant 2016-01-03 00:00:00 Completed [facility] Zoster Vaccine Recombinant 2016-01-03 00:00:00 Completed [facility] Zoster Vaccine Recombinant 2016-01-03 00:00:00 Completed [facility] Zoster Vaccine Recombinant 2016-01-03 00:00:00 Completed [facility] Zoster Vaccine Recombinant 2016-01-03 00:00:00 Completed [facility] Zoster Vaccine Recombinant 2016-01-03 00:00:00 Completed [facility] Zoster Vaccine Recombinant 2016-01-03 00:00:00 Completed [facility] Zoster Vaccine Recombinant 2016-01-03 00:00:00 Completed [facility] Zoster Vaccine Recombinant 2016-01-03 00:00:00 Completed [facility] Zoster Vaccine Recombinant 2016-01-03 00:00:00 Completed Zoster Vaccine Recombinant 2016-01-03 00:00:00 Completed [facility] Zoster Vaccine Recombinant 2016-01-03 00:00:00 Completed [facility] Zoster Vaccine Recombinant 2016-01-03 00:00:00 Completed [facility] Zoster Vaccine Recombinant 2016-01-03 00:00:00 Completed [facility] Zoster Vaccine Recombinant 2016-01-03 00:00:00 Completed [facility] Zoster Vaccine Recombinant 2016-01-03 00:00:00 Completed [facility] Zoster Vaccine Recombinant 2016-01-03 00:00:00 Completed [facility] Zoster Vaccine Recombinant 2016-01-03 00:00:00 Completed [facility] Zoster Vaccine Recombinant 2016-01-03 00:00:00 Completed [facility] Zoster Vaccine Recombinant 2016-01-03 00:00:00 Completed [facility] Zoster Vaccine Recombinant 2016-01-03 00:00:00 Completed [facility] Zoster Vaccine Recombinant 2016-01-03 00:00:00 Completed [facility] Zoster Vaccine Recombinant 2016-01-03 00:00:00 Completed [facility] Zoster Vaccine Recombinant 2016-01-03 00:00:00 Completed [facility] Zoster Vaccine Recombinant 2015-11-07 00:00:00 Completed [facility] Zoster Vaccine Recombinant 2015-11-07 00:00:00 Completed [facility] Zoster Vaccine Recombinant 2015-11-07 00:00:00 Completed [facility] Zoster Vaccine Recombinant 2015-11-07 00:00:00 Completed [facility] Zoster Vaccine Recombinant 2015-11-07 00:00:00 Completed [facility] Zoster Vaccine Recombinant 2015-11-07 00:00:00 Completed [facility] Zoster Vaccine Recombinant 2015-11-07 00:00:00 Completed [facility] Zoster Vaccine Recombinant 2015-11-07 00:00:00 Completed [facility] Zoster Vaccine Recombinant 2015-11-07 00:00:00 Completed [facility] Zoster Vaccine Recombinant 2015-11-07 00:00:00 Completed [facility] Zoster Vaccine Recombinant 2015-11-07 00:00:00 Completed [facility] Zoster Vaccine Recombinant 2015-11-07 00:00:00 Completed [facility] Zoster Vaccine Recombinant 2015-11-07 00:00:00 Completed [facility] Zoster Vaccine Recombinant 2015-11-07 00:00:00 Completed [facility] Zoster Vaccine Recombinant 2015-11-07 00:00:00 Completed [facility] Zoster Vaccine Recombinant 2015-11-07 00:00:00 Completed [facility] Zoster Vaccine Recombinant 2015-11-07 00:00:00 Completed [facility] Zoster Vaccine Recombinant 2015-11-07 00:00:00 Completed [facility] Zoster Vaccine Recombinant 2015-11-07 00:00:00 Completed [facility] Zoster Vaccine Recombinant 2015-11-07 00:00:00 Completed [facility] Zoster Vaccine Recombinant 2015-11-07 00:00:00 Completed [facility] Zoster Vaccine Recombinant 2015-11-07 00:00:00 Completed [facility] Zoster Vaccine Recombinant 2015-11-07 00:00:00 Completed [facility] Zoster Vaccine Recombinant 2015-11-07 00:00:00 Completed [facility] Zoster Vaccine Recombinant 2015-11-07 00:00:00 Completed [facility] Zoster Vaccine Recombinant 2015-11-07 00:00:00 Completed [facility] Zoster Vaccine Recombinant 2015-11-07 00:00:00 Completed [facility] Zoster Vaccine Recombinant 2015-11-07 00:00:00 Completed [facility] Zoster Vaccine Recombinant 2015-11-07 00:00:00 Completed [facility] Zoster Vaccine Recombinant 2015-11-07 00:00:00 Completed [facility] Zoster Vaccine Recombinant 2015-11-07 00:00:00 Completed [facility] Zoster Vaccine Recombinant 2015-11-07 00:00:00 Completed [facility] Zoster Vaccine Recombinant 2015-11-07 00:00:00 Completed [facility] Zoster Vaccine Recombinant 2015-11-07 00:00:00 Completed [facility] Zoster Vaccine Recombinant 2015-11-07 00:00:00 Completed [facility] Zoster Vaccine Recombinant 2015-11-07 00:00:00 Completed [facility] Zoster Vaccine Recombinant 2015-11-07 00:00:00 Completed [facility] Zoster Vaccine Recombinant 2015-11-07 00:00:00 Completed [facility] Zoster Vaccine Recombinant 2015-11-07 00:00:00 Completed [facility] Zoster Vaccine Recombinant 2015-11-07 00:00:00 Completed [facility] Zoster Vaccine Recombinant 2015-11-07 00:00:00 Completed [facility] Zoster Vaccine Recombinant 2015-11-07 00:00:00 Completed [facility] Zoster Vaccine Recombinant 2015-11-07 00:00:00 Completed [facility] Zoster Vaccine Recombinant 2015-11-07 00:00:00 Completed [facility] Zoster Vaccine Recombinant 2015-11-07 00:00:00 Completed [facility] Zoster Vaccine Recombinant 2015-11-07 00:00:00 Completed [facility] Zoster Vaccine Recombinant 2015-11-07 00:00:00 Completed [facility] Zoster Vaccine Recombinant 2015-11-07 00:00:00 Completed [facility] Zoster Vaccine Recombinant 2015-11-07 00:00:00 Completed [facility] Zoster Vaccine Recombinant 2015-11-07 00:00:00 Completed [facility] Zoster Vaccine Recombinant 2015-11-07 00:00:00 Completed [facility] Zoster Vaccine Recombinant 2015-11-07 00:00:00 Completed [facility] Zoster Vaccine Recombinant 2015-11-07 00:00:00 Completed [facility] Zoster Vaccine Recombinant 2015-11-07 00:00:00 Completed [facility] Zoster Vaccine Recombinant 2015-11-07 00:00:00 Completed [facility] Zoster Vaccine Recombinant 2015-11-07 00:00:00 Completed [facility] Zoster Vaccine Recombinant 2015-11-07 00:00:00 Completed [facility] Zoster Vaccine Recombinant 2015-11-07 00:00:00 Completed Zoster Vaccine Recombinant 2015-11-07 00:00:00 Completed [facility] Zoster Vaccine Recombinant 2015-11-07 00:00:00 Completed [facility] Zoster Vaccine Recombinant 2015-11-07 00:00:00 Completed [facility] Zoster Vaccine Recombinant 2015-11-07 00:00:00 Completed [facility] Zoster Vaccine Recombinant 2015-11-07 00:00:00 Completed [facility] Zoster Vaccine Recombinant 2015-11-07 00:00:00 Completed [facility] Zoster Vaccine Recombinant 2015-11-07 00:00:00 Completed [facility] Zoster Vaccine Recombinant 2015-11-07 00:00:00 Completed [facility] Zoster Vaccine Recombinant 2015-11-07 00:00:00 Completed [facility] Zoster Vaccine Recombinant 2015-11-07 00:00:00 Completed [facility] Zoster Vaccine Recombinant 2015-11-07 00:00:00 Completed [facility] Zoster Vaccine Recombinant 2015-11-07 00:00:00 Completed [facility] Zoster Vaccine Recombinant 2015-11-07 00:00:00 Completed [facility] Zoster Vaccine Recombinant 2015-11-07 00:00:00 Completed [facility] SARS-COV-2 COVID-19 MODERNA 12+ YRS VACCINE Unknown Completed [facility] Pneumococcal Polysaccharide, PPSV23 (PNEUMOVAX) Unknown Completed [facility] Pneumococcal 13 Conjugate, PCV13 (Prevnar 13) Unknown Completed [facility] DTAP Unknown Completed [facility] Zoster Vaccine Recombinant Unknown Completed [facility] SARS-COV-2 COVID-19 MODERNA 12+ YRS VACCINE Unknown Completed [facility] Pneumococcal Polysaccharide, PPSV23 (PNEUMOVAX) Unknown Completed [facility] Pneumococcal 13 Conjugate, PCV13 (Prevnar 13) Unknown Completed [facility] DTAP Unknown Completed [facility] Zoster Vaccine Recombinant Unknown Completed [facility] SARS-COV-2 COVID-19 MODERNA 12+ YRS VACCINE Unknown Completed [facility] Pneumococcal Polysaccharide, PPSV23 (PNEUMOVAX) Unknown Completed [facility] Pneumococcal 13 Conjugate, PCV13 (Prevnar 13) Unknown Completed [facility] DTAP Unknown Completed [facility] Zoster Vaccine Recombinant Unknown Completed [facility] Influenza High Dose Unknown Completed [facility] SARS-COV-2 COVID-19 MODERNA 12+ YRS VACCINE Unknown Completed [facility] Pneumococcal Polysaccharide, PPSV23 (PNEUMOVAX) Unknown Completed [facility] Pneumococcal 13 Conjugate, PCV13 (Prevnar 13) Unknown Completed [facility] DTAP Unknown Completed [facility] Zoster Vaccine Recombinant Unknown Completed [facility] Influenza High Dose Unknown Completed [facility] SARS-COV-2 COVID-19 MODERNA 12+ YRS VACCINE Unknown Completed [facility] Pneumococcal Polysaccharide, PPSV23 (PNEUMOVAX) Unknown Completed [facility] Pneumococcal 13 Conjugate, PCV13 (Prevnar 13) Unknown Completed [facility] DTAP Unknown Completed [facility] Zoster Vaccine Recombinant Unknown Completed [facility] Influenza High Dose Unknown Completed [facility] SARS-COV-2 COVID-19 MODERNA 12+ YRS VACCINE Unknown Completed [facility] Pneumococcal Polysaccharide, PPSV23 (PNEUMOVAX) Unknown Completed [facility] Pneumococcal 13 Conjugate, PCV13 (Prevnar 13) Unknown Completed [facility] DTAP Unknown Completed [facility] Zoster Vaccine Recombinant Unknown Completed [facility] Influenza High Dose Unknown Completed [facility] SARS-COV-2 COVID-19 MODERNA 12+ YRS VACCINE Unknown Completed [facility] Pneumococcal Polysaccharide, PPSV23 (PNEUMOVAX) Unknown Completed [facility] Pneumococcal 13 Conjugate, PCV13 (Prevnar 13) Unknown Completed [facility] DTAP Unknown Completed [facility] Zoster Vaccine Recombinant Unknown Completed [facility] Influenza High Dose Unknown Completed [facility] SARS-COV-2 COVID-19 MODERNA 12+ YRS VACCINE Unknown Completed [facility] Pneumococcal Polysaccharide, PPSV23 (PNEUMOVAX) Unknown Completed [facility] Pneumococcal 13 Conjugate, PCV13 (Prevnar 13) Unknown Completed [facility] DTAP Unknown Completed [facility] Zoster Vaccine Recombinant Unknown Completed [facility] Influenza High Dose Unknown Completed [facility] SARS-COV-2 COVID-19 MODERNA 12+ YRS VACCINE Unknown Completed [facility] Pneumococcal Polysaccharide, PPSV23 (PNEUMOVAX) Unknown Completed [facility] Pneumococcal 13 Conjugate, PCV13 (Prevnar 13) Unknown Completed [facility] DTAP Unknown Completed [facility] Zoster Vaccine Recombinant Unknown Completed [facility] Influenza High Dose Unknown Completed [facility] SARS-COV-2 COVID-19 MODERNA 12+ YRS VACCINE Unknown Completed [facility] Pneumococcal Polysaccharide, PPSV23 (PNEUMOVAX) Unknown Completed [facility] Pneumococcal 13 Conjugate, PCV13 (Prevnar 13) Unknown Completed [facility] DTAP Unknown Completed [facility] Zoster Vaccine Recombinant Unknown Completed [facility] Influenza High Dose Unknown Completed [facility] SARS-COV-2 COVID-19 MODERNA 12+ YRS VACCINE Unknown Completed [facility] Pneumococcal Polysaccharide, PPSV23 (PNEUMOVAX) Unknown Completed [facility] Pneumococcal 13 Conjugate, PCV13 (Prevnar 13) Unknown Completed [facility] DTAP Unknown Completed [facility] Zoster Vaccine Recombinant Unknown Completed [facility] Influenza High Dose Unknown Completed [facility] SARS-COV-2 COVID-19 MODERNA 12+ YRS VACCINE Unknown Completed [facility] Pneumococcal Polysaccharide, PPSV23 (PNEUMOVAX) Unknown Completed [facility] Pneumococcal 13 Conjugate, PCV13 (Prevnar 13) Unknown Completed [facility] DTAP Unknown Completed [facility] Zoster Vaccine Recombinant Unknown Completed [facility] Influenza High Dose Unknown Completed [facility] SARS-COV-2 COVID-19 MODERNA 12+ YRS VACCINE Unknown Completed [facility] Pneumococcal Polysaccharide, PPSV23 (PNEUMOVAX) Unknown Completed [facility] Pneumococcal 13 Conjugate, PCV13 (Prevnar 13) Unknown Completed [facility] DTAP Unknown Completed [facility] Zoster Vaccine Recombinant Unknown Completed [facility] Influenza High Dose Unknown Completed [facility] SARS-COV-2 COVID-19 MODERNA 12+ YRS VACCINE Unknown Completed [facility] Pneumococcal Polysaccharide, PPSV23 (PNEUMOVAX) Unknown Completed [facility] Pneumococcal 13 Conjugate, PCV13 (Prevnar 13) Unknown Completed [facility] DTAP Unknown Completed [facility] Zoster Vaccine Recombinant Unknown Completed [facility] Influenza High Dose Unknown Completed [facility] SARS-COV-2 COVID-19 MODERNA 12+ YRS VACCINE Unknown Completed [facility] Pneumococcal Polysaccharide, PPSV23 (PNEUMOVAX) Unknown Completed [facility] Pneumococcal 13 Conjugate, PCV13 (Prevnar 13) Unknown Completed [facility] DTAP Unknown Completed [facility] Zoster Vaccine Recombinant Unknown Completed [facility] Influenza High Dose Unknown Completed [facility] SARS-COV-2 COVID-19 MODERNA 12+ YRS VACCINE Unknown Completed [facility] Pneumococcal Polysaccharide, PPSV23 (PNEUMOVAX) Unknown Completed [facility] Pneumococcal 13 Conjugate, PCV13 (Prevnar 13) Unknown Completed [facility] DTAP Unknown Completed [facility] Zoster Vaccine Recombinant Unknown Completed [facility] Influenza High Dose Unknown Completed [facility] SARS-COV-2 COVID-19 MODERNA 12+ YRS VACCINE Unknown Completed [facility] Pneumococcal Polysaccharide, PPSV23 (PNEUMOVAX) Unknown Completed [facility] Pneumococcal 13 Conjugate, PCV13 (Prevnar 13) Unknown Completed [facility] DTAP Unknown Completed [facility] Zoster Vaccine Recombinant Unknown Completed [facility] Influenza High Dose Unknown Completed [facility] SARS-COV-2 COVID-19 MODERNA 12+ YRS VACCINE Unknown Completed [facility] Pneumococcal Polysaccharide, PPSV23 (PNEUMOVAX) Unknown Completed [facility] Pneumococcal 13 Conjugate, PCV13 (Prevnar 13) Unknown Completed [facility] DTAP Unknown Completed [facility] Zoster Vaccine Recombinant Unknown Completed [facility] Influenza High Dose Unknown Completed [facility] SARS-COV-2 COVID-19 MODERNA 12+ YRS VACCINE Unknown Completed [facility] Pneumococcal Polysaccharide, PPSV23 (PNEUMOVAX) Unknown Completed [facility] Pneumococcal 13 Conjugate, PCV13 (Prevnar 13) Unknown Completed [facility] DTAP Unknown Completed [facility] Zoster Vaccine Recombinant Unknown Completed [facility] Influenza High Dose Unknown Completed [facility] SARS-COV-2 COVID-19 MODERNA 12+ YRS VACCINE Unknown Completed [facility] Pneumococcal Polysaccharide, PPSV23 (PNEUMOVAX) Unknown Completed [facility] Pneumococcal 13 Conjugate, PCV13 (Prevnar 13) Unknown Completed [facility] DTAP Unknown Completed [facility] Zoster Vaccine Recombinant Unknown Completed [facility] Influenza High Dose Unknown Completed [facility] SARS-COV-2 COVID-19 MODERNA 12+ YRS VACCINE Unknown Completed [facility] Pneumococcal Polysaccharide, PPSV23 (PNEUMOVAX) Unknown Completed [facility] Pneumococcal 13 Conjugate, PCV13 (Prevnar 13) Unknown Completed [facility] DTAP Unknown Completed [facility] Zoster Vaccine Recombinant Unknown Completed [facility] Influenza High Dose Unknown Completed [facility] Pneumococcal 13 Conjugate, PCV13 (Prevnar 13) Unknown Completed [facility] DTAP Unknown Completed [facility] Influenza High Dose Unknown Completed [facility] SARS-COV-2 COVID-19 MODERNA 12+ YRS VACCINE Unknown Completed [facility] Pneumococcal Polysaccharide, PPSV23 (PNEUMOVAX) Unknown Completed [facility] Pneumococcal 13 Conjugate, PCV13 (Prevnar 13) Unknown Completed [facility] DTAP Unknown Completed [facility] Zoster Vaccine Recombinant Unknown Completed [facility] Influenza High Dose Unknown Completed [facility] SARS-COV-2 COVID-19 MODERNA 12+ YRS VACCINE Unknown Completed [facility] Pneumococcal Polysaccharide, PPSV23 (PNEUMOVAX) Unknown Completed [facility] Zoster Vaccine Recombinant Unknown Completed [facility] SARS-COV-2 COVID-19 MODERNA 12+ YRS VACCINE Unknown Completed [facility] Pneumococcal Polysaccharide, PPSV23 (PNEUMOVAX) Unknown Completed [facility] Pneumococcal 13 Conjugate, PCV13 (Prevnar 13) Unknown Completed [facility] DTAP Unknown Completed [facility] Zoster Vaccine Recombinant Unknown Completed [facility] Influenza High Dose Unknown Completed [facility] Pneumococcal 13 Conjugate, PCV13 (Prevnar 13) Unknown Completed [facility] DTAP Unknown Completed [facility] Influenza High Dose Unknown Completed [facility] SARS-COV-2 COVID-19 MODERNA 12+ YRS VACCINE Unknown Completed [facility] Pneumococcal Polysaccharide, PPSV23 (PNEUMOVAX) Unknown Completed [facility] Zoster Vaccine Recombinant Unknown Completed [facility] SARS-COV-2 COVID-19 MODERNA 12+ YRS VACCINE Unknown Completed [facility] Pneumococcal Polysaccharide, PPSV23 (PNEUMOVAX) Unknown Completed [facility] Pneumococcal 13 Conjugate, PCV13 (Prevnar 13) Unknown Completed [facility] DTAP Unknown Completed [facility] Zoster Vaccine Recombinant Unknown Completed [facility] Influenza High Dose Unknown Completed [facility] SARS-COV-2 COVID-19 MODERNA 12+ YRS VACCINE Unknown Completed [facility] Pneumococcal Polysaccharide, PPSV23 (PNEUMOVAX) Unknown Completed [facility] Pneumococcal 13 Conjugate, PCV13 (Prevnar 13) Unknown Completed [facility] DTAP Unknown Completed [facility] Zoster Vaccine Recombinant Unknown Completed [facility] Influenza High Dose Unknown Completed [facility] SARS-COV-2 COVID-19 MODERNA 12+ YRS VACCINE Unknown Completed [facility] Pneumococcal Polysaccharide, PPSV23 (PNEUMOVAX) Unknown Completed [facility] Pneumococcal 13 Conjugate, PCV13 (Prevnar 13) Unknown Completed [facility] DTAP Unknown Completed [facility] Zoster Vaccine Recombinant Unknown Completed [facility] Influenza High Dose Unknown Completed [facility] Pneumococcal 13 Conjugate, PCV13 (Prevnar 13) Unknown Completed [facility] DTAP Unknown Completed [facility] Influenza High Dose Unknown Completed [facility] SARS-COV-2 COVID-19 MODERNA 12+ YRS VACCINE Unknown Completed [facility] Pneumococcal Polysaccharide, PPSV23 (PNEUMOVAX) Unknown Completed [facility] Zoster Vaccine Recombinant Unknown Completed [facility] SARS-COV-2 COVID-19 MODERNA 12+ YRS VACCINE Unknown Completed [facility] Pneumococcal Polysaccharide, PPSV23 (PNEUMOVAX) Unknown Completed [facility] Pneumococcal 13 Conjugate, PCV13 (Prevnar 13) Unknown Completed [facility] DTAP Unknown Completed [facility] Zoster Vaccine Recombinant Unknown Completed [facility] Influenza High Dose Unknown Completed [facility] Pneumococcal 13 Conjugate, PCV13 (Prevnar 13) Unknown Completed [facility] DTAP Unknown Completed [facility] Influenza High Dose Unknown Completed [facility] SARS-COV-2 COVID-19 MODERNA 12+ YRS VACCINE Unknown Completed [facility] Pneumococcal Polysaccharide, PPSV23 (PNEUMOVAX) Unknown Completed [facility] Zoster Vaccine Recombinant Unknown Completed [facility] SARS-COV-2 COVID-19 MODERNA 12+ YRS VACCINE Unknown Completed [facility] Pneumococcal Polysaccharide, PPSV23 (PNEUMOVAX) Unknown Completed [facility] Pneumococcal 13 Conjugate, PCV13 (Prevnar 13) Unknown Completed [facility] DTAP Unknown Completed [facility] Zoster Vaccine Recombinant Unknown Completed [facility] Influenza High Dose Unknown Completed [facility] SARS-COV-2 COVID-19 MODERNA 12+ YRS VACCINE Unknown Completed [facility] Pneumococcal Polysaccharide, PPSV23 (PNEUMOVAX) Unknown Completed [facility] Pneumococcal 13 Conjugate, PCV13 (Prevnar 13) Unknown Completed [facility] DTAP Unknown Completed [facility] Zoster Vaccine Recombinant Unknown Completed [facility] Influenza High Dose Unknown Completed [facility] SARS-COV-2 COVID-19 MODERNA 12+ YRS VACCINE Unknown Completed [facility] Pneumococcal Polysaccharide, PPSV23 (PNEUMOVAX) Unknown Completed [facility] Pneumococcal 13 Conjugate, PCV13 (Prevnar 13) Unknown Completed [facility] DTAP Unknown Completed [facility] Zoster Vaccine Recombinant Unknown Completed [facility] Influenza High Dose Unknown Completed [facility] SARS-COV-2 COVID-19 MODERNA 12+ YRS VACCINE Unknown Completed [facility] Pneumococcal Polysaccharide, PPSV23 (PNEUMOVAX) Unknown Completed [facility] Pneumococcal 13 Conjugate, PCV13 (Prevnar 13) Unknown Completed [facility] DTAP Unknown Completed [facility] Zoster Vaccine Recombinant Unknown Completed [facility] Influenza High Dose Unknown Completed [facility] Pneumococcal 13 Conjugate, PCV13 (Prevnar 13) Unknown Completed [facility] DTAP Unknown Completed [facility] Influenza High Dose Unknown Completed [facility] SARS-COV-2 COVID-19 MODERNA 12+ YRS VACCINE Unknown Completed [facility] Pneumococcal Polysaccharide, PPSV23 (PNEUMOVAX) Unknown Completed [facility] Zoster Vaccine Recombinant Unknown Completed [facility] SARS-COV-2 COVID-19 MODERNA 12+ YRS VACCINE Unknown Completed [facility] Pneumococcal Polysaccharide, PPSV23 (PNEUMOVAX) Unknown Completed [facility] Pneumococcal 13 Conjugate, PCV13 (Prevnar 13) Unknown Completed [facility] DTAP Unknown Completed [facility] Zoster Vaccine Recombinant Unknown Completed [facility] Influenza High Dose Unknown Completed [facility] SARS-COV-2 COVID-19 MODERNA 12+ YRS VACCINE Unknown Completed [facility] Pneumococcal Polysaccharide, PPSV23 (PNEUMOVAX) Unknown Completed [facility] Pneumococcal 13 Conjugate, PCV13 (Prevnar 13) Unknown Completed [facility] DTAP Unknown Completed [facility] Zoster Vaccine Recombinant Unknown Completed [facility] Influenza High Dose Unknown Completed [facility] Pneumococcal 13 Conjugate, PCV13 (Prevnar 13) Unknown [facility] [facility] Unknown Completed [facility] Influenza High Dose Unknown Completed [facility] SARS-COV-2 COVID-19 MODERNA 12+ YRS VACCINE Unknown Completed [facility] Pneumococcal Polysaccharide, PPSV23 (PNEUMOVAX) Unknown Completed [facility] Zoster Vaccine Recombinant Unknown Completed [facility] SARS-COV-2 COVID-19 MODERNA 12+ YRS VACCINE Unknown Completed [facility] Pneumococcal Polysaccharide, PPSV23 (PNEUMOVAX) Unknown Completed [facility] Pneumococcal 13 Conjugate, PCV13 (Prevnar 13) Unknown Completed [facility] DTAP Unknown Completed [facility] Zoster Vaccine Recombinant Unknown Completed [facility] Influenza High Dose Unknown Completed [facility] SARS-COV-2 COVID-19 MODERNA 12+ YRS VACCINE Unknown Completed [facility] Pneumococcal Polysaccharide, PPSV23 (PNEUMOVAX) Unknown Completed [facility] Pneumococcal 13 Conjugate, PCV13 (Prevnar 13) Unknown Completed [facility] DTAP Unknown Completed [facility] Zoster Vaccine Recombinant Unknown Completed [facility] Influenza High Dose Unknown Completed [facility] SARS-COV-2 COVID-19 MODERNA 12+ YRS VACCINE Unknown Completed [facility] Pneumococcal Polysaccharide, PPSV23 (PNEUMOVAX) Unknown Completed [facility] Pneumococcal 13 Conjugate, PCV13 (Prevnar 13) Unknown Completed [facility] DTAP Unknown Completed [facility] Zoster Vaccine Recombinant Unknown Completed [facility] Influenza High Dose Unknown Completed [facility] Pneumococcal 13 Conjugate, PCV13 (Prevnar 13) Unknown Completed [facility] DTAP Unknown Completed [facility] Influenza High Dose Unknown Completed [facility] SARS-COV-2 COVID-19 MODERNA 12+ YRS VACCINE Unknown Completed [facility] Pneumococcal Polysaccharide, PPSV23 (PNEUMOVAX) Unknown Completed [facility] Zoster Vaccine Recombinant Unknown Completed [facility] SARS-COV-2 COVID-19 MODERNA 12+ YRS VACCINE Unknown Completed [facility] Pneumococcal Polysaccharide, PPSV23 (PNEUMOVAX) Unknown Completed [facility] Pneumococcal 13 Conjugate, PCV13 (Prevnar 13) Unknown Completed [facility] DTAP Unknown Completed [facility] Zoster Vaccine Recombinant Unknown Completed [facility] Influenza High Dose Unknown Completed [facility] SARS-COV-2 COVID-19 MODERNA 12+ YRS VACCINE Unknown Completed [facility] Pneumococcal Polysaccharide, PPSV23 (PNEUMOVAX) Unknown Completed [facility] Pneumococcal 13 Conjugate, PCV13 (Prevnar 13) Unknown Completed [facility] DTAP Unknown Completed [facility] Zoster Vaccine Recombinant Unknown Completed [facility] Influenza High Dose Unknown Completed [facility] SARS-COV-2 COVID-19 MODERNA 12+ YRS VACCINE Unknown Completed [facility] Pneumococcal Polysaccharide, PPSV23 (PNEUMOVAX) Unknown Completed [facility] Pneumococcal 13 Conjugate, PCV13 (Prevnar 13) Unknown Completed [facility] DTAP Unknown Completed [facility] Zoster Vaccine Recombinant Unknown Completed [facility] Influenza High Dose Unknown Completed [facility] SARS-COV-2 COVID-19 MODERNA 12+ YRS VACCINE Unknown Completed [facility] Pneumococcal Polysaccharide, PPSV23 (PNEUMOVAX) Unknown Completed [facility] Pneumococcal 13 Conjugate, PCV13 (Prevnar 13) Unknown Completed [facility] DTAP Unknown Completed [facility] Zoster Vaccine Recombinant Unknown Completed [facility] Influenza High Dose Unknown Completed [facility] SARS-COV-2 COVID-19 MODERNA 12+ YRS VACCINE Unknown Completed [facility] Pneumococcal Polysaccharide, PPSV23 (PNEUMOVAX) Unknown Completed [facility] Pneumococcal 13 Conjugate, PCV13 (Prevnar 13) Unknown Completed [facility] DTAP Unknown Completed [facility] Zoster Vaccine Recombinant Unknown Completed [facility] Influenza High Dose Unknown Completed [facility] SARS-COV-2 COVID-19 MODERNA 12+ YRS VACCINE Unknown Completed [facility] Pneumococcal Polysaccharide, PPSV23 (PNEUMOVAX) Unknown Completed [facility] Pneumococcal 13 Conjugate, PCV13 (Prevnar 13) Unknown Completed [facility] DTAP Unknown Completed [facility] Zoster Vaccine Recombinant Unknown Completed [facility] Influenza High Dose Unknown Completed [facility] SARS-COV-2 COVID-19 MODERNA 12+ YRS VACCINE Unknown Completed [facility] Pneumococcal Polysaccharide, PPSV23 (PNEUMOVAX) Unknown Completed [facility] Pneumococcal 13 Conjugate, PCV13 (Prevnar 13) Unknown Completed [facility] DTAP Unknown Completed [facility] Zoster Vaccine Recombinant Unknown Completed [facility] Influenza High Dose Unknown Completed [facility] SARS-COV-2 COVID-19 MODERNA 12+ YRS VACCINE Unknown Completed [facility] Pneumococcal Polysaccharide, PPSV23 (PNEUMOVAX) Unknown Completed [facility] Pneumococcal 13 Conjugate, PCV13 (Prevnar 13) Unknown Completed [facility] DTAP Unknown Completed [facility] Zoster Vaccine Recombinant Unknown Completed [facility] Influenza High Dose Unknown Completed [facility] SARS-COV-2 COVID-19 MODERNA 12+ YRS VACCINE Unknown Completed [facility] Pneumococcal Polysaccharide, PPSV23 (PNEUMOVAX) Unknown Completed [facility] Pneumococcal 13 Conjugate, PCV13 (Prevnar 13) Unknown Completed [facility] DTAP Unknown Completed [facility] Zoster Vaccine Recombinant Unknown Completed [facility] Influenza High Dose Unknown Completed [facility] Influenza Virus Vaccine Quad IM Multi-dose 6+ MO Unknown Completed [facility] Pneumococcal Unspecified Unknown Completed [facility] Zoster, Unspecified Formula Unknown Completed [facility] Influenza Virus Vaccine Quad .5 mL IM 6+ MO (FLUZONE/FLULAVAL/F LUARIX) Unknown Completed [facility] Influenza High Dose Quad Unknown Completed [facility] SARS-COV-2 COVID-19 MODERNA 12+ YRS VACCINE Unknown Completed [facility] Pneumococcal Polysaccharide, PPSV23 (PNEUMOVAX) Unknown Completed [facility] Pneumococcal 13 Conjugate, PCV13 (Prevnar 13) Unknown Completed [facility] DTAP Unknown Completed [facility] Zoster Vaccine Recombinant Unknown Completed [facility] Influenza High Dose Unknown Completed [facility] Influenza Virus Vaccine Quad IM Multi-dose 6+ MO Unknown Completed [facility] Pneumococcal Unspecified Unknown Completed [facility] Zoster, Unspecified Formula Unknown Completed [facility] Influenza Virus Vaccine Quad .5 mL IM 6+ MO (FLUZONE/FLULAVAL/F LUARIX) Unknown Completed [facility] Influenza High Dose Quad Unknown Completed [facility] SARS-COV-2 COVID-19 MODERNA 12+ YRS VACCINE Unknown Completed [facility] Pneumococcal Polysaccharide, PPSV23 (PNEUMOVAX) Unknown Completed [facility] Pneumococcal 13 Conjugate, PCV13 (Prevnar 13) Unknown Completed [facility] DTAP Unknown Completed [facility] Zoster Vaccine Recombinant Unknown Completed [facility] Influenza High Dose Unknown Completed [facility] Influenza Virus Vaccine Quad IM Multi-dose 6+ MO Unknown Completed [facility] Pneumococcal Unspecified Unknown Completed [facility] Zoster, Unspecified Formula Unknown Completed [facility] Influenza Virus Vaccine Quad .5 mL IM 6+ MO (FLUZONE/FLULAVAL/F LUARIX) Unknown Completed [facility] Influenza High Dose Quad Unknown Completed [facility] SARS-COV-2 COVID-19 MODERNA 12+ YRS VACCINE Unknown Completed [facility] Pneumococcal Polysaccharide, PPSV23 (PNEUMOVAX) Unknown Completed [facility] Pneumococcal 13 Conjugate, PCV13 (Prevnar 13) Unknown Completed [facility] DTAP Unknown Completed [facility] Zoster Vaccine Recombinant Unknown Completed [facility] Influenza High Dose Unknown Completed [facility] Influenza Virus Vaccine Quad IM Multi-dose 6+ MO Unknown Completed [facility] Pneumococcal Unspecified Unknown Completed [facility] Zoster, Unspecified Formula Unknown Completed [facility] Influenza Virus Vaccine Quad .5 mL IM 6+ MO (FLUZONE/FLULAVAL/F LUARIX) Unknown Completed [facility] Influenza High Dose Quad Unknown Completed [facility] SARS-COV-2 COVID-19 MODERNA 12+ YRS VACCINE Unknown Completed [facility] Pneumococcal Polysaccharide, PPSV23 (PNEUMOVAX) Unknown Completed [facility] Pneumococcal 13 Conjugate, PCV13 (Prevnar 13) Unknown Completed [facility] DTAP Unknown Completed [facility] Zoster Vaccine Recombinant Unknown Completed [facility] Influenza High Dose Unknown Completed [facility] Influenza Virus Vaccine Quad IM Multi-dose 6+ MO Unknown Completed [facility] Pneumococcal Unspecified Unknown Completed [facility] Zoster, Unspecified Formula Unknown Completed [facility] Influenza Virus Vaccine Quad .5 mL IM 6+ MO (FLUZONE/FLULAVAL/F LUARIX) Unknown Completed [facility] Influenza High Dose Quad Unknown Completed [facility] SARS-COV-2 COVID-19 MODERNA 12+ YRS VACCINE Unknown Completed [facility] Pneumococcal Polysaccharide, PPSV23 (PNEUMOVAX) Unknown Completed [facility] Pneumococcal 13 Conjugate, PCV13 (Prevnar 13) Unknown Completed [facility] DTAP Unknown Completed [facility] Zoster Vaccine Recombinant Unknown Completed [facility] Influenza High Dose Unknown Completed [facility] Influenza Virus Vaccine Quad IM Multi-dose 6+ MO Unknown Completed [facility] Pneumococcal Unspecified Unknown Completed [facility] Zoster, Unspecified Formula Unknown Completed [facility] Influenza Virus Vaccine Quad .5 mL IM 6+ MO (FLUZONE/FLULAVAL/F LUARIX) Unknown Completed [facility] Influenza High Dose Quad Unknown Completed [facility] SARS-COV-2 COVID-19 MODERNA 12+ YRS VACCINE Unknown Completed [facility] Pneumococcal Polysaccharide, PPSV23 (PNEUMOVAX) Unknown Completed [facility] Pneumococcal 13 Conjugate, PCV13 (Prevnar 13) Unknown Completed [facility] DTAP Unknown Completed [facility] Zoster Vaccine Recombinant Unknown Completed [facility] Influenza High Dose Unknown Completed [facility] Influenza Virus Vaccine Quad IM Multi-dose 6+ MO Unknown Completed [facility] Pneumococcal Unspecified Unknown Completed [facility] Zoster, Unspecified Formula Unknown Completed [facility] Influenza Virus Vaccine Quad .5 mL IM 6+ MO (FLUZONE/FLULAVAL/F LUARIX) Unknown Completed [facility] Influenza High Dose Quad Unknown Completed [facility] SARS-COV-2 COVID-19 MODERNA 12+ YRS VACCINE Unknown Completed [facility] Pneumococcal Polysaccharide, PPSV23 (PNEUMOVAX) Unknown Completed [facility] Pneumococcal 13 Conjugate, PCV13 (Prevnar 13) Unknown Completed [facility] DTAP Unknown Completed [facility] Zoster Vaccine Recombinant Unknown Completed [facility] Influenza High Dose Unknown Completed [facility] Influenza Virus Vaccine Quad IM Multi-dose 6+ MO Unknown Completed [facility] Pneumococcal Unspecified Unknown Completed [facility] Zoster, Unspecified Formula Unknown Completed [facility] Influenza Virus Vaccine Quad .5 mL IM 6+ MO (FLUZONE/FLULAVAL/F LUARIX) Unknown Completed [facility] Influenza High Dose Quad Unknown Completed [facility] SARS-COV-2 COVID-19 MODERNA 12+ YRS VACCINE Unknown Completed [facility] Pneumococcal Polysaccharide, PPSV23 (PNEUMOVAX) Unknown Completed [facility] Pneumococcal 13 Conjugate, PCV13 (Prevnar 13) Unknown Completed [facility] DTAP Unknown Completed [facility] Zoster Vaccine Recombinant Unknown Completed [facility] Influenza High Dose Unknown Completed [facility] Influenza Virus Vaccine Quad IM Multi-dose 6+ MO Unknown Completed [facility] Pneumococcal Unspecified Unknown Completed [facility] Zoster, Unspecified Formula Unknown Completed [facility] Influenza Virus Vaccine Quad .5 mL IM 6+ MO (FLUZONE/FLULAVAL/F LUARIX) Unknown Completed [facility] Influenza High Dose Quad Unknown Completed [facility] SARS-COV-2 COVID-19 MODERNA 12+ YRS VACCINE Unknown Completed [facility] Pneumococcal Polysaccharide, PPSV23 (PNEUMOVAX) Unknown Completed [facility] Pneumococcal 13 Conjugate, PCV13 (Prevnar 13) Unknown Completed [facility] DTAP Unknown Completed [facility] Zoster Vaccine Recombinant Unknown Completed [facility] Influenza High Dose Unknown Completed [facility] Influenza Virus Vaccine Quad IM Multi-dose 6+ MO Unknown Completed [facility] Pneumococcal Unspecified Unknown Completed [facility] Zoster, Unspecified Formula Unknown Completed [facility] Influenza Virus Vaccine Quad .5 mL IM 6+ MO (FLUZONE/FLULAVAL/F LUARIX) Unknown Completed [facility] Influenza High Dose Quad Unknown Completed [facility] SARS-COV-2 COVID-19 MODERNA 12+ YRS VACCINE Unknown Completed [facility] Pneumococcal Polysaccharide, PPSV23 (PNEUMOVAX) Unknown Completed [facility] Pneumococcal 13 Conjugate, PCV13 (Prevnar 13) Unknown Completed [facility] DTAP Unknown Completed [facility] Zoster Vaccine Recombinant Unknown Completed [facility] Influenza High Dose Unknown Completed [facility] Influenza Virus Vaccine Quad IM Multi-dose 6+ MO Unknown Completed [facility] Pneumococcal Unspecified Unknown Completed [facility] Zoster, Unspecified Formula Unknown Completed [facility] Influenza Virus Vaccine Quad .5 mL IM 6+ MO (FLUZONE/FLULAVAL/F LUARIX) Unknown Completed [facility] Influenza High Dose Quad Unknown Completed [facility] SARS-COV-2 COVID-19 MODERNA 12+ YRS VACCINE Unknown Completed [facility] Pneumococcal Polysaccharide, PPSV23 (PNEUMOVAX) Unknown Completed [facility] Pneumococcal 13 Conjugate, PCV13 (Prevnar 13) Unknown Completed [facility] DTAP Unknown Completed [facility] Zoster Vaccine Recombinant Unknown Completed [facility] Influenza High Dose Unknown Completed [facility] Influenza Virus Vaccine Quad IM Multi-dose 6+ MO Unknown Completed [facility] Pneumococcal Unspecified Unknown Completed [facility] Zoster, Unspecified Formula Unknown Completed [facility] Influenza Virus Vaccine Quad .5 mL IM 6+ MO (FLUZONE/FLULAVAL/F LUARIX) Unknown Completed [facility] Influenza High Dose Quad Unknown Completed [facility] SARS-COV-2 COVID-19 MODERNA 12+ YRS VACCINE Unknown Completed [facility] Pneumococcal Polysaccharide, PPSV23 (PNEUMOVAX) Unknown Completed [facility] Pneumococcal 13 Conjugate, PCV13 (Prevnar 13) Unknown Completed [facility] DTAP Unknown Completed [facility] Zoster Vaccine Recombinant Unknown Completed [facility] Influenza High Dose Unknown Completed [facility] Influenza Virus Vaccine Quad IM Multi-dose 6+ MO Unknown Completed [facility] Pneumococcal Unspecified Unknown Completed [facility] Zoster, Unspecified Formula Unknown Completed [facility] Influenza Virus Vaccine Quad .5 mL IM 6+ MO (FLUZONE/FLULAVAL/F LUARIX) Unknown Completed [facility] Influenza High Dose Quad Unknown Completed [facility] SARS-COV-2 COVID-19 MODERNA 12+ YRS VACCINE Unknown Completed [facility] Pneumococcal Polysaccharide, PPSV23 (PNEUMOVAX) Unknown Completed [facility] Pneumococcal 13 Conjugate, PCV13 (Prevnar 13) Unknown Completed [facility] DTAP Unknown Completed [facility] Zoster Vaccine Recombinant Unknown Completed [facility] Influenza High Dose Unknown Completed [facility] Influenza Virus Vaccine Quad IM Multi-dose 6+ MO Unknown Completed [facility] Pneumococcal Unspecified Unknown Completed [facility] Zoster, Unspecified Formula Unknown Completed [facility] Influenza Virus Vaccine Quad .5 mL IM 6+ MO (FLUZONE/FLULAVAL/F LUARIX) Unknown Completed [facility] Influenza High Dose Quad Unknown Completed [facility] Vital Signs Vital Name Observation Time Observation Value Comments S ource Systolic blood pressure 2024-08-12 19:49:58 117 mm[Hg] [facility] Diastolic blood pressure 2024-08-12 19:49:58 75 mm[Hg] [facility] Heart rate 2024-08-12 19:49:58 75 /min [facility] Respiratory rate 2024-08-12 19:49:58 18 /min [facility] Oxygen saturation in Arterial blood by Pulse oximetry 2024-08-12 19:49:58 98 /min [facility] Body temperature 2024-08-12 16:29:00 36.22 [facility] Body weight 2024-08-03 16:00:00 95.255 kg [facility] Systolic blood pressure 2024-08-12 19:49:58 117 mm[Hg] [facility] Diastolic blood pressure 2024-08-12 19:49:58 75 mm[Hg] [facility] Heart rate 2024-08-12 19:49:58 75 /min [facility] Respiratory rate 2024-08-12 19:49:58 18 /min [facility] Oxygen saturation in Arterial blood by Pulse oximetry 2024-08-12 19:49:58 98 /min [facility] Body temperature 2024-08-12 16:29:00 36.22 Sarah Beth [facility] Body weight 2024-08-03 16:00:00 95.255 kg [facility] Systolic blood pressure 2024-06-09 19:07:00 108 mm[Hg] [facility] Diastolic blood pressure 2024-06-09 19:07:00 61 mm[Hg] [facility] Heart rate 2024-06-09 19:07:00 66 /min [facility] Respiratory rate 2024-06-09 19:07:00 18 /min [facility] Body height 2024-06-09 19:07:00 170.2 cm [facility] Body weight 2024-06-09 19:07:00 96.616 kg [facility] BMI 2024-06-09 19:07:00 33.36 kg/m2 [facility] Oxygen saturation in Arterial blood by Pulse oximetry 2024-06-09 19:07:00 92 /min [facility] Systolic blood pressure 2024-05-31 18:30:00 113 mm[Hg] [facility] Diastolic blood pressure 2024-05-31 18:30:00 80 mm[Hg] [facility] Heart rate 2024-05-31 18:30:00 66 /min [facility] Body height 2024-05-31 18:30:00 170.2 cm [facility] Body weight 2024-05-31 18:30:00 97.07 kg [facility] BMI 2024-05-31 18:30:00 33.52 kg/m2 [facility] Oxygen saturation in Arterial blood by Pulse oximetry 2024-05-31 18:30:00 94 /min [facility] Systolic blood pressure 2024-05-10 15:23:00 124 mm[Hg] [facility] Diastolic blood pressure 2024-05-10 15:23:00 69 mm[Hg] [facility] Heart rate 2024-05-10 15:23:00 62 /min [facility] Body temperature 2024-05-10 15:23:00 36 Sarah Beth [facility] Respiratory rate 2024-05-10 15:23:00 16 /min [facility] Body weight 2024-05-10 15:23:00 95.709 kg [facility] BMI 2024-05-10 15:23:00 30.90 kg/m2 [facility] Oxygen saturation in Arterial blood by Pulse oximetry 2024-05-10 15:23:00 94 /min [facility] Systolic blood pressure 2024-04-27 16:47:00 112 mm[Hg] [facility] Diastolic blood pressure 2024-04-27 16:47:00 65 mm[Hg] [facility] Heart rate 2024-04-27 16:47:00 60 /min [facility] Body temperature 2024-04-27 16:47:00 36.56 Sarah Beth [facility] Respiratory rate 2024-04-27 16:47:00 16 /min [facility] Oxygen saturation in Arterial blood by Pulse oximetry 2024-04-27 16:47:00 96 /min [facility] Body height 2024-04-27 02:29:00 176 cm [facility] Body weight 2024-04-27 02:29:00 97.523 kg [facility] BMI 2024-04-27 02:29:00 31.48 kg/m2 [facility] Systolic blood pressure 2024-03-31 18:17:00 118 mm[Hg] [facility] Diastolic blood pressure 2024-03-31 18:17:00 53 mm[Hg] [facility] Heart rate 2024-03-31 18:17:00 57 /min [facility] Body temperature 2024-03-31 18:17:00 36.56 Sarah Beth [facility] Body height 2024-03-31 18:17:00 175.3 cm [facility] Body weight 2024-03-31 18:17:00 97.932 kg [facility] BMI 2024-03-31 18:17:00 31.88 kg/m2 [facility] Oxygen saturation in Arterial blood by Pulse oximetry 2024-03-31 18:17:00 91 /min [facility] Systolic blood pressure 2024-02-10 19:08:00 109 mm[Hg] [facility] Diastolic blood pressure 2024-02-10 19:08:00 61 mm[Hg] [facility] Heart rate 2024-02-10 19:08:00 62 /min [facility] Body temperature 2024-02-10 19:08:00 36.22 Sarah Beth [facility] Respiratory rate 2024-02-10 19:08:00 20 /min [facility] Body height 2024-02-10 19:08:00 177.8 cm [facility] Body weight 2024-02-10 19:08:00 94.62 kg [facility] BMI 2024-02-10 19:08:00 29.93 kg/m2 [facility] Oxygen saturation in Arterial blood by Pulse oximetry 2024-02-10 19:08:00 95 /min [facility] Systolic blood pressure 2024-01-11 18:56:00 108 mm[Hg] [facility] Diastolic blood pressure 2024-01-11 18:56:00 67 mm[Hg] [facility] Heart rate 2024-01-11 18:56:00 61 /min [facility] Body height 2024-01-11 18:56:00 177.8 cm [facility] Body weight 2024-01-11 18:56:00 95.301 kg [facility] BMI 2024-01-11 18:56:00 30.15 kg/m2 [facility] Oxygen saturation in Arterial blood by Pulse oximetry 2024-01-11 18:56:00 94 /min [facility] Systolic blood pressure 2023-12-03 17:41:00 131 mm[Hg] [facility] Diastolic blood pressure 2023-12-03 17:41:00 74 mm[Hg] [facility] Heart rate 2023-12-03 17:41:00 64 /min [facility] Respiratory rate 2023-12-03 17:39:00 18 /min [facility] Body height 2023-12-03 17:39:00 177.8 cm [facility] Body weight 2023-12-03 17:39:00 97.977 kg [facility] BMI 2023-12-03 17:39:00 30.99 kg/m2 [facility] Oxygen saturation in Arterial blood by Pulse oximetry 2023-12-03 17:39:00 95 /min RA [facility] Systolic blood pressure 2023-12-01 19:08:00 137 mm[Hg] [facility] Diastolic blood pressure 2023-12-01 19:08:00 78 mm[Hg] [facility] Heart rate 2023-12-01 19:08:00 76 /min [facility] Body height 2023-12-01 19:08:00 177.8 cm [facility] Body weight 2023-12-01 19:08:00 95.845 kg [facility] BMI 2023-12-01 19:08:00 30.32 kg/m2 [facility] Oxygen saturation in Arterial blood by Pulse oximetry 2023-12-01 19:08:00 97 /min [facility] Systolic blood pressure 2023-11-24 17:36:00 126 mm[Hg] [facility] Diastolic blood pressure 2023-11-24 17:36:00 70 mm[Hg] [facility] Heart rate 2023-11-24 17:36:00 90 /min [facility] Body temperature 2023-11-24 17:36:00 38.06 Sarah Beth [facility] Oxygen saturation in Arterial blood by Pulse oximetry 2023-11-24 17:36:00 90 /min [facility] Respiratory rate 2023-11-24 10:56:00 16 /min [facility] Body weight 2023-11-24 06:34:00 97.569 kg actual wt on the regular scale [facility] BMI 2023-11-24 06:34:00 30.86 kg/m2 [facility] Body height 2023-11-24 02:25:00 177.8 cm [facility] Systolic blood pressure 2023-11-23 16:00:00 116 mm[Hg] [facility] Diastolic blood pressure 2023-11-23 16:00:00 81 mm[Hg] [facility] Heart rate 2023-11-23 16:00:00 77 /min AFLUTTER [facility] Respiratory rate 2023-11-23 16:00:00 15 /min [facility] Oxygen saturation in Arterial blood by Pulse oximetry 2023-11-23 16:00:00 93 /min [facility] Body weight 2023-10-15 18:45:00 99.2 kg [facility] BMI 2023-10-15 18:45:00 30.86 kg/m2 [facility] Heart rate 2023-11-11 20:46:00 62 /min [facility] Oxygen saturation in Arterial blood by Pulse oximetry 2023-11-11 20:46:00 95 /min [facility] Systolic blood pressure 2023-11-11 20:44:00 134 mm[Hg] [facility] Diastolic blood pressure 2023-11-11 20:44:00 75 mm[Hg] [facility] Respiratory rate 2023-11-11 20:44:00 17 /min [facility] Body height 2023-11-11 20:44:00 177.8 cm [facility] Body weight 2023-11-11 20:44:00 98.204 kg [facility] BMI 2023-11-11 20:44:00 31.06 kg/m2 [facility] Systolic blood pressure 2023-10-23 20:29:00 116 mm[Hg] [facility] Diastolic blood pressure 2023-10-23 20:29:00 72 mm[Hg] [facility] Heart rate 2023-10-23 20:29:00 74 /min [facility] Body temperature 2023-10-23 20:29:00 36.61 Sarah Beth [facility] Respiratory rate 2023-10-23 20:29:00 20 /min [facility] Body height 2023-10-23 20:29:00 177.8 cm [facility] Body weight 2023-10-23 20:29:00 98.93 kg [facility] BMI 2023-10-23 20:29:00 31.29 kg/m2 [facility] Oxygen saturation in Arterial blood by Pulse oximetry 2023-10-23 20:29:00 96 /min [facility] Systolic blood pressure 2023-09-03 20:52:00 127 mm[Hg] [facility] Diastolic blood pressure 2023-09-03 20:52:00 74 mm[Hg] [facility] Heart rate 2023-09-03 20:52:00 69 /min [facility] Respiratory rate 2023-09-03 20:52:00 19 /min [facility] Body height 2023-09-03 20:52:00 177.8 cm [facility] Body weight 2023-09-03 20:52:00 99.247 kg [facility] BMI 2023-09-03 20:52:00 31.39 kg/m2 [facility] Oxygen saturation in Arterial blood by Pulse oximetry 2023-09-03 20:52:00 94 /min [facility] Systolic blood pressure 2023-08-11 21:15:00 123 mm[Hg] [facility] Diastolic blood pressure 2023-08-11 21:15:00 70 mm[Hg] [facility] Heart rate 2023-08-11 21:15:00 62 /min [facility] Respiratory rate 2023-08-11 21:15:00 18 /min [facility] Body height 2023-08-11 21:15:00 177.8 cm [facility] Body weight 2023-08-11 21:15:00 99.837 kg [facility] BMI 2023-08-11 21:15:00 31.58 kg/m2 [facility] Oxygen saturation in Arterial blood by Pulse oximetry 2023-08-11 21:15:00 93 /min [facility] Systolic blood pressure 2023-06-22 16:44:00 115 mm[Hg] [facility] Diastolic blood pressure 2023-06-22 16:44:00 74 mm[Hg] [facility] Heart rate 2023-06-22 16:44:00 62 /min [facility] Body temperature 2023-06-22 16:44:00 36.56 Sarah Beth [facility] Respiratory rate 2023-06-22 16:44:00 20 /min [facility] Body height 2023-06-22 16:44:00 177.8 cm [facility] Body weight 2023-06-22 16:44:00 99.791 kg [facility] BMI 2023-06-22 16:44:00 31.57 kg/m2 [facility] Oxygen saturation in Arterial blood by Pulse oximetry 2023-06-22 16:44:00 95 /min [facility] Systolic blood pressure 2023-06-19 19:24:00 106 mm[Hg] [facility] Diastolic blood pressure 2023-06-19 19:24:00 70 mm[Hg] [facility] Heart rate 2023-06-19 19:24:00 61 /min [facility] Body height 2023-06-19 19:24:00 177.8 cm [facility] Body weight 2023-06-19 19:24:00 100.472 kg [facility] BMI 2023-06-19 19:24:00 31.78 kg/m2 [facility] Oxygen saturation in Arterial blood by Pulse oximetry 2023-06-19 19:24:00 98 /min [facility] Systolic blood pressure 2023-05-19 21:09:00 124 mm[Hg] [facility] Diastolic blood pressure 2023-05-19 21:09:00 70 mm[Hg] [facility] Heart rate 2023-05-19 21:09:00 69 /min [facility] Body height 2023-05-19 21:09:00 177.8 cm [facility] Body weight 2023-05-19 21:09:00 103.511 kg [facility] BMI 2023-05-19 21:09:00 32.74 kg/m2 [facility] Oxygen saturation in Arterial blood by Pulse oximetry 2023-05-19 21:09:00 95 /min [facility] Systolic blood pressure 2023-04-27 19:46:00 114 mm[Hg] [facility] Diastolic blood pressure 2023-04-27 19:46:00 68 mm[Hg] [facility] Heart rate 2023-04-27 19:46:00 73 /min [facility] Body height 2023-04-27 19:46:00 177.8 cm [facility] Body weight 2023-04-27 19:46:00 103.239 kg [facility] BMI 2023-04-27 19:46:00 32.66 kg/m2 [facility] Oxygen saturation in Arterial blood by Pulse oximetry 2023-04-27 19:46:00 94 /min [facility] Systolic blood pressure 2023-03-31 19:11:00 111 mm[Hg] [facility] Diastolic blood pressure 2023-03-31 19:11:00 71 mm[Hg] [facility] Heart rate 2023-03-31 19:11:00 70 /min [facility] Respiratory rate 2023-03-31 19:11:00 19 /min [facility] Body height 2023-03-31 19:11:00 177.8 cm [facility] Body weight 2023-03-31 19:11:00 104.554 kg [facility] BMI 2023-03-31 19:11:00 33.07 kg/m2 [facility] Oxygen saturation in Arterial blood by Pulse oximetry 2023-03-31 19:11:00 91 /min [facility] Systolic blood pressure 2023-03-17 18:25:00 98 mm[Hg] [facility] Diastolic blood pressure 2023-03-17 18:25:00 63 mm[Hg] [facility] Heart rate 2023-03-17 18:25:00 83 /min [facility] Body height 2023-03-17 18:25:00 180.3 cm [facility] Body weight 2023-03-17 18:25:00 104.191 kg [facility] BMI 2023-03-17 18:25:00 32.04 kg/m2 [facility] Oxygen saturation in Arterial blood by Pulse oximetry 2023-03-17 18:25:00 93 /min [facility] Systolic blood pressure 2022-10-28 16:09:00 155 mm[Hg] [facility] Diastolic blood pressure 2022-10-28 16:09:00 86 mm[Hg] [facility] Heart rate 2022-10-28 16:09:00 58 /min [facility] Oxygen saturation in Arterial blood by Pulse oximetry 2022-10-28 16:09:00 91 /min [facility] Respiratory rate 2022-10-28 16:04:00 22 /min [facility] Body height 2022-10-28 16:04:00 177.8 cm [facility] Body weight 2022-10-28 16:04:00 105.144 kg [facility] BMI 2022-10-28 16:04:00 33.26 kg/m2 [facility] Systolic blood pressure 2022-10-23 16:01:00 144 mm[Hg] [facility] Diastolic blood pressure 2022-10-23 16:01:00 72 mm[Hg] [facility] Heart rate 2022-10-23 16:01:00 57 /min [facility] Body temperature 2022-10-23 16:01:00 36.22 Sarah Beth [facility] Respiratory rate 2022-10-23 16:01:00 16 /min [facility] Body height 2022-10-23 16:01:00 177.8 cm [facility] Body weight 2022-10-23 16:01:00 104.327 kg [facility] BMI 2022-10-23 16:01:00 33.00 kg/m2 [facility] Oxygen saturation in Arterial blood by Pulse oximetry 2022-10-23 16:01:00 94 /min [facility] Systolic blood pressure 2022-09-10 16:44:00 153 mm[Hg] [facility] Diastolic blood pressure 2022-09-10 16:44:00 78 mm[Hg] [facility] Heart rate 2022-09-10 16:44:00 56 /min [facility] Respiratory rate 2022-09-10 16:35:00 19 /min [facility] Body height 2022-09-10 16:35:00 177.8 cm [facility] Body weight 2022-09-10 16:35:00 106.142 kg [facility] BMI 2022-09-10 16:35:00 33.58 kg/m2 [facility] Oxygen saturation in Arterial blood by Pulse oximetry 2022-09-10 16:35:00 95 /min [facility] Systolic blood pressure 2022-08-27 19:50:00 125 mm[Hg] [facility] Diastolic blood pressure 2022-08-27 19:50:00 61 mm[Hg] [facility] Heart rate 2022-08-27 19:50:00 57 /min [facility] Body temperature 2022-08-27 19:50:00 36.22 Sarah Beth [facility] Respiratory rate 2022-08-27 19:50:00 18 /min [facility] Body height 2022-08-27 19:50:00 175.3 cm per pt [facility] Body weight 2022-08-27 19:50:00 106.414 kg [facility] BMI 2022-08-27 19:50:00 34.64 kg/m2 [facility] Oxygen saturation in Arterial blood by Pulse oximetry 2022-08-27 19:50:00 92 /min [facility] Body height 2022-08-21 13:35:00 180.3 cm [facility] Body weight 2022-08-21 13:35:00 107.502 kg [facility] BMI 2022-08-21 13:35:00 33.05 kg/m2 [facility] Body height 2022-08-14 14:23:00 180.3 cm [facility] Body weight 2022-08-14 14:23:00 107.502 kg [facility] BMI 2022-08-14 14:23:00 33.05 kg/m2 [facility] Systolic blood pressure 2022-08-01 19:46:00 120 mm[Hg] [facility] Diastolic blood pressure 2022-08-01 19:46:00 70 mm[Hg] [facility] Heart rate 2022-08-01 19:46:00 61 /min [facility] Body temperature 2022-08-01 19:46:00 36.61 Sarah Beth [facility] Body height 2022-08-01 19:46:00 180.3 cm [facility] Body weight 2022-08-01 19:46:00 107.502 kg [facility] BMI 2022-08-01 19:46:00 33.05 kg/m2 [facility] Oxygen saturation in Arterial blood by Pulse oximetry 2022-08-01 19:46:00 94 /min [facility] Systolic blood pressure 2021-11-29 14:56:00 150 mm[Hg] [facility] Diastolic blood pressure 2021-11-29 14:56:00 70 mm[Hg] [facility] Heart rate 2021-11-29 14:51:00 65 /min [facility] Body height 2021-11-29 14:51:00 180.3 cm [facility] Body weight 2021-11-29 14:51:00 110.224 kg [facility] BMI 2021-11-29 14:51:00 33.89 kg/m2 [facility] Oxygen saturation in Arterial blood by Pulse oximetry 2021-11-29 14:51:00 95 /min [facility] Height 2020-03-13 00:00:00 70 [in_i] [facility] BMI (Body Mass Index) 2020-03-13 00:00:00 32.3 kg/m2 [facility] Body Weight 2020-03-13 00:00:00 225 [lb_av] [facility] Procedures Procedure Date / Time Performed Performing Clinician Source POC GLUCOSE UNSOLICITED RESULTS 2024-08-12 09:02:00 Mannava, Sishir [facility] Epic POC GLUCOSE UNSOLICITED RESULTS 2024-08-11 18:00:00 Mannava, Sishir [facility] Epic BASIC METABOLIC PANEL 2024-08-11 15:00:00 [facility] POC GLUCOSE UNSOLICITED RESULTS 2024-08-11 12:35:00 Rima Sishir [facility] HEART STRUCTURE MORPHOLOGY W IV CONTRAST 2024-08-11 11:54:00 [facility]upal [facility]oz [facility] POC GLUCOSE UNSOLICITED RESULTS 2024-08-11 08:25:00 Rima Sishir [facility] Epic COMPLETE BLOOD COUNT 2024-08-11 04:31:00 Rupal Mu[facility]oz [facility] AUTOMATED DIFFERENTIAL 2024-08-11 04:31:00 Rupal Mu[facility]oz [facility] COMPLETE BLOOD COUNT W/DIFF AND PLATELET 2024-08-11 04:31:00 Rupal Mu[facility]oz [facility] POC GLUCOSE UNSOLICITED RESULTS 2024-08-10 08:51:00 Mannava, Sishir [facility] Epic POC GLUCOSE UNSOLICITED RESULTS 2024-08-09 21:33:00 Mannava Sishir [facility] Epic POC GLUCOSE UNSOLICITED RESULTS 2024-08-09 16:30:00 Mannava, Sishir [facility] Epic POC GLUCOSE UNSOLICITED RESULTS 2024-08-09 12:15:00 Mannava, Sishir [facility] Epic POC GLUCOSE UNSOLICITED RESULTS 2024-08-09 10:30:00 Mannava, Sishir [facility] COMPLETE BLOOD COUNT 2024-08-09 01:39:00 AdileneJeff [facility] AUTOMATED DIFFERENTIAL 2024-08-09 01:39:00 AdileneJeff [facility] BASIC METABOLIC PANEL 2024-08-09 01:39:00 AdileneJeff [facility] COMPLETE BLOOD COUNT W/DIFF AND PLATELET 2024-08-09 01:39:00 AdileneJeff [facility] XR THORACIC SPINE 3 VIEWS 2024-08-08 22:14:30 AdileneJeff [facility] POC GLUCOSE UNSOLICITED RESULTS 2024-08-08 16:16:00 Rupal Cassidy [facility] POC GLUCOSE UNSOLICITED RESULTS 2024-08-08 12:31:00 Rupal Cassidy [facility] PLATELET COUNT MANUAL 2024-08-08 01:05:00 AdileneJeff [facility] COMPLETE BLOOD COUNT 2024-08-08 01:05:00 AdilneeJeff [facility] AUTOMATED DIFFERENTIAL 2024-08-08 01:05:00 AdileneJeff [facility] BASIC METABOLIC PANEL 2024-08-08 01:05:00 AdileneJeff [facility] COMPLETE BLOOD COUNT W/DIFF AND PLATELET 2024-08-08 01:05:00 AdileneJeff [facility] POC GLUCOSE UNSOLICITED RESULTS 2024-08-07 09:00:00 Rupal Cassidy [facility] COMPLETE BLOOD COUNT 2024-08-07 05:58:00 AdileneJeff [facility] AUTOMATED DIFFERENTIAL 2024-08-07 05:58:00 AdileneJeff [facility] BASIC METABOLIC PANEL 2024-08-07 05:58:00 AdileneJeff [facility] AMMONIA LEVEL 2024-08-07 05:58:00 AdileneJeff [facility] COMPLETE BLOOD COUNT W/DIFF AND PLATELET 2024-08-07 05:58:00 AdileneJeff [facility] POC GLUCOSE UNSOLICITED RESULTS 2024-08-06 17:53:00 Rupal Cassidy [facility] POC GLUCOSE UNSOLICITED RESULTS 2024-08-06 12:40:00 Rupal Cassidy [facility] POC GLUCOSE UNSOLICITED RESULTS 2024-08-06 08:00:00 Rupal Cassidy [facility] COMPLETE BLOOD COUNT 2024-08-06 01:11:00 AdileneJeff [facility] AUTOMATED DIFFERENTIAL 2024-08-06 01:11:00 AdileneJeff [facility] COMPLETE BLOOD COUNT W/DIFF AND PLATELET 2024-08-06 01:11:00 AdileneJeff [facility] BASIC METABOLIC PANEL 2024-08-06 01:10:00 AdileneJeff [facility] AMMONIA LEVEL 2024-08-06 01:10:00 Cornelia Phelan [facility] URINE CULTURE 2024-08-05 21:27:00 Cornelia Phelan [facility] POC GLUCOSE UNSOLICITED RESULTS 2024-08-05 20:37:00 Rupal Cassidy [facility] VALPROIC ACID LEVEL 2024-08-05 17:08:00 Nidia Heart [facility] POC GLUCOSE UNSOLICITED RESULTS 2024-08-05 16:38:00 Rupal Cassidy [facility] EEG CONTINUOUS MONITORING 2024-08-05 16:24:00 Cornelia Phelan [facility] MRI BRAIN WO IV CONTRAST 2024-08-05 15:10:00 Jeff Holcomb [facility] LACTIC ACID LEVEL 2024-08-05 09:55:00 Cornelia Phelan [facility] POC GLUCOSE UNSOLICITED RESULTS 2024-08-05 07:51:00 Rupal Cassidy [facility] BLOOD CULTURE 2024-08-05 07:38:00 Jeff Holcomb [facility] PROCALCITONIN LEVEL 2024-08-05 06:18:00 Cornelia Phelan [facility] XR CHEST 1 VIEW 2024-08-05 05:32:00 Cornelia Phelan [facility] CT BRAIN WO IV CONTRAST 2024-08-05 04:40:00 Jono Michelle [facility] BASIC METABOLIC PANEL 2024-08-05 03:14:00 JaminCornelia aden [facility] AMMONIA LEVEL 2024-08-05 03:14:00 Cornelia Phelan [facility] LACTIC ACID LEVEL 2024-08-05 03:14:00 Cornelia Phelan [facility] COMPLETE BLOOD COUNT (NO DIFF) 2024-08-05 03:14:00 Cornelia Phelan [facility] Cardiac device check - Inpatient 2024-08-05 00:00:00 [facility] POC GLUCOSE UNSOLICITED RESULTS 2024-08-04 21:10:00 Rupal Cassidy [facility] POC GLUCOSE UNSOLICITED RESULTS 2024-08-04 16:50:00 Rupal Cassidy [facility] XR CHEST 2 VIEWS 2024-08-04 12:53:00 Jeff Holcomb [facility] POC GLUCOSE UNSOLICITED RESULTS 2024-08-04 12:27:00 Rupal Cassidy [facility] TRANSTHORACIC ECHO (TTE) COMPLETE W/ CONTRAST 2024-08-04 10:48:18 Jeff Holcomb [facility] POC GLUCOSE UNSOLICITED RESULTS 2024-08-04 08:27:00 Rupal Cassidy [facility] POC GLUCOSE UNSOLICITED RESULTS 2024-08-03 22:00:00 Rupal Cassidy [facility] CT ANGIOGRAM BRAIN NECK 2024-08-03 21:44:00 Jeff Holcomb [facility] CT BRAIN WO IV CONTRAST 2024-08-03 21:44:00 Jeff Holcomb [facility] ECG 12-LEAD 2024-08-03 20:24:14 Jeff Holcomb [facility] UA WITH MICROSCOPIC NO CULTURE 2024-08-03 19:33:00 Jeff Holcomb [facility] PT AND PTT 2024-08-03 19:23:00 Jeff Holcomb [facility] COMPLETE BLOOD COUNT 2024-08-03 19:23:00 Jeff Holcomb [facility] AUTOMATED DIFFERENTIAL 2024-08-03 19:23:00 Jeff Holcomb [facility] REFLEX MORPHOLOGY - DO NOT ORDER 2024-08-03 19:23:00 Jeff Holcomb [facility] COMPREHENSIVE METABOLIC PANEL 2024-08-03 19:23:00 AdileneJeff [facility] VALPROIC ACID LEVEL 2024-08-03 19:23:00 Cornelia Phelan [facility] HEMOGLOBIN A1C 2024-08-03 19:23:00 AdileneJeff [facility] TYPE AND SCREEN 2024-08-03 19:23:00 AdileneJeff [facility] COMPLETE BLOOD COUNT W/DIFF AND PLATELET 2024-08-03 19:23:00 Jeff Holcomb [facility] POC GLUCOSE UNSOLICITED RESULTS 2024-08-03 19:02:00 Rupal Cassidy [facility] XR CHEST 1 VIEW 2024-08-03 17:40:47 Jeff Holcomb [facility] Cardiac device check - Inpatient 2024-08-03 00:00:00 [facility] CARDIAC DEVICE CHECK - NURSE - PROGRAMMING MULTI LEAD/GENERAL PRACTITIONER ICD 2024-06-23 19:08:05 Jaquan Ochoa [facility] CARDIAC DEVICE CHECK - REMOTE - ICD 2024-06-04 06:04:41 Jaquan Ochoa [facility] TED,POST-VOID RES,US,NON-IMAGING 2024-05-10 15:36:00 Jesica [facility] POCT URINALYSIS AUTO 2024-05-10 15:36:00 [facility] XR CHEST 1 VW 2024-04-26 21:04:12 [facility] 2024-04-26 21:04:12 Sterling [facility] CATH PROCEDURE LOG 2024-04-26 20:37:37 Doctor Unassigned, Tres Arroyos [facility] CATH PROCEDURE LOG 2024-04-26 20:37:37 Doctor Unassigned, Tres Arroyos [facility] ELECTROPHYSIOLOGY PROCEDURE 2024-04-26 20:20:52 [facility]ED[facility] 2024-04-26 20:20:52 [facility] PROCEDURE 2024-04-26 20:20:52 [facility] PROCEDURE 2024-04-26 20:20:52 Bennie [facility] BASIC METABOLIC PANEL (NA, K, CL, CO2, GLUCOSE, BUN, CREATININE, CA) 2024-04-19 16:34:00 Bennie [facility] CBC WITH DIFF 2024-04-19 16:34:00 Bennie [facility] PROTHROMBIN TIME / INR 2024-04-19 16:34:00 Bennie [facility] HB ABO GROUPING 2024-04-19 16:34:00 Bennie [facility] TRANSTHORACIC ECHO (TTE) COMPLETE 2024-03-16 18:46:56 Bennie [facility] SCANNED LAB RESULTS 2023-12-10 06:01:00 Doctor Unassigned, Tres Arroyos [facility] MAGNESIUM 2023-11-24 11:41:00 Parrish Patrick [facility] BASIC METABOLIC PANEL (NA, K, CL, CO2, GLUCOSE, BUN, CREATININE, CA) 2023-11-24 11:41:00 Parrish Patrick [facility] CBC WITH DIFF 2023-11-24 11:41:00 Parrish Patrick [facility] MAGNESIUM 2023-11-24 11:41:00 Parrish Patrick [facility] BASIC METABOLIC PANEL (NA, K, CL, CO2, GLUCOSE, BUN, CREATININE, CA) 2023-11-24 11:41:00 Parrish Patrick [facility] CBC WITH DIFF 2023-11-24 11:41:00 Parrish Patrick [facility] CARDIAC CATHETERIZATION 2023-11-23 22:47:31 [facility] 2023-11-23 22:47:31 Bennie, [facility] ELECTROPHYSIOLOGY PROCEDURE 2023-11-23 22:47:31 Bennie [facility] ELECTROPHYSIOLOGY PROCEDURE 2023-11-23 22:47:31 Bennie [facility] CARDIAC CATHETERIZATION 2023-11-23 22:47:31 Bennie, [facility] CARDIAC CATHETERIZATION 2023-11-23 22:47:31 Bennie [facility] ELECTROPHYSIOLOGY PROCEDURE 2023-11-23 22:47:31 Bennie [facility] ELECTROPHYSIOLOGY PROCEDURE 2023-11-23 22:47:31 Bennie [facility] POCT ACT HIGH RANGE 2023-11-23 22:23:00 Bennie [facility] POCT ACT HIGH RANGE 2023-11-23 22:23:00 Bennie [facility] POCT ACT HIGH RANGE 2023-11-23 21:52:00 Bennie [facility] POCT ACT HIGH RANGE 2023-11-23 21:52:00 Bennie [facility] POCT ACT HIGH RANGE 2023-11-23 21:28:00 Bennie [facility] POCT ACT HIGH RANGE 2023-11-23 21:28:00 Bennie [facility] POCT ACT HIGH RANGE 2023-11-23 21:01:00 Bennie [facility] POCT ACT HIGH RANGE 2023-11-23 21:01:00 Bennie [facility] ABORH CONFIRMATION (LAB ONLY) 2023-11-23 17:50:00 [facility] ABORH CONFIRMATION (LAB ONLY) 2023-11-23 17:50:00 Jagjit Goetz [facility] HB INDIRECT ANTIGLOBULIN TEST 2023-11-23 16:04:00 Bennie [facility] HB INDIRECT ANTIGLOBULIN TEST 2023-11-23 16:04:00 [facility] EP PROCEDURE 2023-11-23 06:01:00 Doctor Unassigned, Tres Arroyos [facility] MAGNESIUM 2023-11-20 21:25:00 [facility] COMP. METABOLIC PANEL (75166) 2023-11-20 21:25:00 Bennie [facility] LIPID PANEL (68226)(TOTAL CHOLESTEROL, TRIGLYCERIDES, HDL) 2023-11-20 21:25:00 Bennie [facility] GLYCOSYLATED HEMOGLOBIN (A1C) 2023-11-20 21:25:00 Jose Her [facility] PROTHROMBIN TIME / INR 2023-11-20 21:25:00 Bennie [facility] ACTIVATED PARTIAL THRMPLAS CK 2023-11-20 21:25:00 Bennie [facility] N-TERMINAL PRO-BNP 2023-11-20 21:25:00 [facility] POCT SARS-COV-2 ANTIGEN (BINAX NOW) 2023-10-23 21:07:00 [facility] XR CHEST 2 VW 2023-10-23 21:03:00 [facility] POCT MOLECULAR FLU 2023-10-23 20:41:00 Unknown, Attending [facility] HB ECG ROUTINE & RHYTHM STRIP 2023-09-03 20:59:55 [facility] TRANSTHORACIC ECHO (TTE) COMPLETE 2023-08-11 20:38:18 Neeru Cobos [facility] INSURANCE CORRESPONDENCE 2023-08-03 05:01:00 Doctor Unassigned, Tres Arroyos [facility] INSURANCE CORRESPONDENCE 2023-06-19 05:01:00 Doctor Unassigned, Tres Arroyos [facility] EXTERNAL PROVIDER RECORDS 2023-06-03 05:01:00 Doctor Unassigned, Tres Arroyos [facility] BASIC METABOLIC PANEL (NA, K, CL, CO2, GLUCOSE, BUN, CREATININE, CA) 2023-05-18 16:08:00 Kapil [facility] INSURANCE CORRESPONDENCE 2023-02-11 05:01:00 Doctor Unassigned, Tres Arroyos [facility] PATIENT FINANCIAL POLICY 2023-02-03 13:52:49 Doctor Unassigned, Tres Arroyos [facility] MYOCARDIUM PERFUSION STRESS AND REST 2022-12-02 17:45:00 Kapil, [facility] NUCLEAR STRESS TEST CARDIOLOGY (DO NOT SCHED) 2022-12-02 17:45:00 Kapil, [facility] MYOCARDIUM PERFUSION STRESS AND REST 2022-12-02 17:45:00 Kapil, [facility] NUCLEAR STRESS TEST CARDIOLOGY (DO NOT SCHED) 2022-12-02 17:45:00 Kapil [facility] NUCLEAR STRESS TEST CARDIOLOGY (DO NOT SCHED) 2022-12-02 17:45:[address] [facility] MYOCARDIUM PERFUSION STRESS AND REST 2022-12-02 17:45:00 Kapil, [facility] MYOCARDIUM PERFUSION STRESS AND REST 2022-12-02 17:45:00 Kapil, [facility] NUCLEAR STRESS TEST CARDIOLOGY (DO NOT SCHED) 2022-12-02 17:45:00 Kapil [facility] ASSIGNMENT OF BENEFITS 2022-12-02 14:27:57 Doctor Unassigned, Tres Arroyos [facility] CONSENT/REFUSAL FOR DIAGNOSIS AND TREATMENT 2022-12-02 14:27:43 Doctor Unassigned, Tres Arroyos [facility] XR CHEST 2 VW 2022-10-28 17:15:19 Kapil [facility] POCT URINALYSIS AUTO 2022-10-23 00:00:00 Marquis Mooney [facility] REFERRAL- REQUEST/RESPONSE 2022-08-18 05:01:00 Doctor Unassigned, Tres Arroyos [facility] COMP. METABOLIC PANEL (83805) 2022-08-01 21:28:00 Jose Her [facility] CBC WITH DIFF 2022-08-01 21:28:00 [facility] GLYCOSYL[facility] HEMOGLOBIN (A1C) 2022-08-01 21:28:00 Taina [facility] HB ECG ROUTINE & RHYTHM STRIP 2022-08-01 19:27:36 Taina [facility] POCT Glucose [facility] Vinicius bey [facility] EEG continuous monitoring Pa jose Torres [facility] Plan of Care Planned Activity Planned Date Details Comments Source Instructions [facility] Encounters Start Date/Time End Date/Time Encounter Type Admission Type Attending Clinicians Care Facility Care Department Encounter ID Source 2024-09-02 13:40:00 2024-09-02 13:40:00 Outpatient YUAN MALCOLM [facility] [id number] [facility] 2024-09-01 13:00:00 2024-09-01 13:00:00 Outpatient THO MARTIN [facility] [id number] [facility] 2024-09-01 11:10:00 2024-09-01 11:10:00 Outpatient [facility] [id number] [facility] 2024-08-03 16:00:00 2024-08-12 22:41:00 Inpatient Urgent SHELLI ABARCA [facility] General Medicine [id number] [facility] 2024-08-03 16:00:00 2024-08-12 22:41:00 Hospital Encounter Khanh Shelli Rojo Grant James [facility] 1.2.840.114 350.1.13.70 8.2.7.2.686 [id number] Isidro Torres [facility] 2024-08-12 14:00:00 2024-08-12 14:00:00 Outpatient LACEY HENDERSON CRAIG [facility] [id number] [facility] 2024-08-11 13:00:00 2024-08-11 13:00:00 Outpatient HENRIQUE LAU CHOCKALINGA M [facility] [id number] [facility] 2024-08-09 13:20:00 2024-08-09 13:20:00 Outpatient MARYSE PASTOR [facility] [id number] [facility] 2024-08-08 14:30:00 2024-08-08 14:30:00 Outpatient R LACEY DEWITT CRAIG [facility] [id number] [facility] 2024-08-08 13:45:00 2024-08-08 13:45:00 Outpatient R LACEY DEWITT LACEY [facility] [id number] [facility] 2024-08-05 00:00:00 2024-08-07 14:50:07 Telephone Shreya Bowers [facility] ..840.114 350.1.13.70 8.2.7.2.686 [id number] [facility] 2024-08-05 00:00:00 2024-08-05 13:27:58 Telephone Alma Kidd Jessica P [facility] 1.2.840.114 350.1.13.10 4.2.7.2.686 [id number] [facility] 2024-07-12 23:21:00 2024-07-22 09:30:00 Inpatient E MONTEZ BA [facility] [id number] [facility] 2024-07-07 00:00:00 2024-07-07 15:59:09 Refill Maryse Dick [facility] .2.840.114 350.1.13.10 4.2.7.2.686 [id number] [facility] 2024-06-23 13:44:23 2024-06-23 23:59:00 Outpatient HENRIQUE LAU CHOCKALINGA M [facility] [id number] [facility] 2024-06-23 13:44:23 2024-06-23 23:59:00 Hospital Encounter Henrique Ochoa [facility] OFF[facility] BUILDING 1.2.840.114 350.1.13.10 4.2.7.2.686 [id number] [facility] 2024-06-23 00:00:00 2024-06-23 16:35:30 [facility] 1.2.840.114 350.1.13.10 4.2.7.2.686 [id number] [facility] 2024-06-16 15:00:00 2024-06-16 15:00:00 Outpatient R LAZARUS OCHOALORENA HENRIQUE VAUGHAN [facility] [id number] [facility] 2024-06-16 13:45:00 2024-06-16 14:00:00 Marketing Production Manager Visit 2, Adc Lab Miguel Dickolga 2, Adc Lab [facility] BUILDING 1.2.840.114 350.1.13.10 4.2.7.2.686 [id number] [facility] 2024-06-16 13:45:00 2024-06-16 13:45:00 Outpatient R MARYSE DICK [facility] [id number] [facility] 2024-06-09 14:00:00 2024-06-09 14:20:58 Outpatient R KAPILMARYSE [facility] [id number] [facility] 2024-06-09 14:00:00 2024-06-09 14:20:58 [facility] 1.2.840.114 350.1.13.10 4.2.7.2.686 [id number] [facility] 2024-06-06 00:00:00 2024-06-06 16:00:09 Telephone Jose Her [facility] OFFICE BUILDING 1.840.114 350.1.13.10 4.2.7.2.686 [id number] [facility] 2024-05-23 00:00:00 2024-06-06 09:34:07 Refill Maryse Dick [facility] NAL BUILDING 1.840.114 350.1.13.10 4.2.7.2.686 [id number] [facility] 2024-06-01 10:30:00 2024-06-01 10:45:00 Marketing Production Manager Visit Lab, Jose Ya, Misha Samaniego [facility] BUILD[facility] 1.84.114 350.1.13.10 4.2.7.2.686 [id number] [facility] 2024-06-01 10:30:00 2024-06-01 10:30:00 Outpatient R JOSE HER [facility] [id number] [facility] 2024-05-31 08:55:00 2024-05-31 23:59:00 Outpatient R HENRIQUE OCHOA [facility]AL[facility]A M [facility] [id number] [facility] 2024-05-31 08:55:00 2024-05-31 23:59:00 Hospital Encounter Henrique Ochoa [facility] 1.84.114 350.1.13.10 4.2.7.2.686 [id number] [facility] 2024-05-31 13:30:00 2024-05-31 14:04:53 Office Visit Jose Her [facility] BU[facility] 1.2840.114 350.1.13.10 4.2.7.2.686 [id number] [facility] 2024-05-10 14:30:00 2024-05-10 23:59:00 [facility] [id number] [facility] 2024-05-10 13:56:42 2024-05-10 23:59:00 [facility] 1.2.840.114 350.1.13.10 4.2.7.2.686 [id number] [facility] 2024-05-10 10:30:00 2024-05-10 10:45:00 Office Visit Chitocatalino [facility] 1.2840.114 350.1.13.10 4.2.7.2.686 [id number] [facility] 2024-05-06 00:00:00 2024-05-06 08:35:36 [facility] 1.2840.114 350.1.13.10 4.2.7.2.686 [id number] [facility] 2024-05-05 00:00:00 2024-05-05 14:31:50 Telephone Jose Her [facility] 1.2.840.114 350.1.13.10 4.2.7.2.686 [id number] [facility] 2024-04-26 07:37:00 2024-04-27 13:55:00 Outpatient R KIERSTEN FITZGERALD [facility] [id number] [facility] 2024-04-26 07:37:00 2024-04-27 13:55:00 Hospital Encounter Henrique Ochoa i, Rama Sanghani, Rachana [facility] ([facility]) 1.2.840.114 350.1.13.10 4.2.7.2.686 [id number] [facility] 2024-04-26 11:30:00 2024-04-26 13:30:[address] [facility] ([facility]) 1.2.840.114 350.1.13.10 4.2.7.2.686 [id number] [facility] 2024-04-25 13:00:00 2024-04-25 13:00:00 Marketing Production Manager Visit 2, Adc Lab Maryana [facility]choaagnieszka [facility] BU[facility] 1.2.840.114 350.1.13.10 4.2.7.2.686 [id number] [facility] 2024-04-25 13:00:00 2024-04-25 11:33:17 Outpatient R HENRIQUE OCHOA CHOCKAL[facility]A [facility] [id number] [facility] 2024-04-25 00:00:00 2024-04-25 11:19:27 Telephone Jesica [facility] BUILDING 1.2.840.114 350.1.13.10 4.2.7.2.686 [id number] [facility] 2024-04-19 11:15:00 2024-04-19 11:33:33 Outpatient R JESICA [facility] [id number] [facility] 2024-04-19 11:15:00 2024-04-19 11:33:33 Marketing Production Manager Visit 2, Adc Lab Jesica [facility] BUILDING 1.2.840.114 350.1.13.10 4.2.7.2.686 [id number] [facility] 2024-04-14 00:00:00 2024-04-15 07:36:56 Refill [facility] 1.2.840.114 350.1.13.10 4.2.7.2.686 [id number] [facility] 2024-04-06 00:00:00 2024-04-06 07:42:10 Refill [facility] 1.2840.114 350.1.13.10 4.2.7.2.686 [id number] [facility] 2024-03-31 00:00:00 2024-04-01 08:16:56 Telephone Henrique Ochoa [facility] BUILDING 1.84.114 350.1.13.10 4.2.7.2.686 [id number] [facility] 2024-03-31 13:20:00 2024-03-31 13:51:05 Outpatient R HENRIQUE OCHOA CHOCKALINGA M [facility] [id number] [facility] 2024-03-31 13:20:00 2024-03-31 13:51:05 Office Visit Henrique Ochoa [facility] BUILDING 1..840.114 350.1.13.10 4.2.7.2.686 [id number] [facility] 2024-03-16 12:53:56 2024-03-16 23:59:00 Outpatient R HENRIQUE OCHOA [facility]OCKALINGA M [facility] [id number] [facility] 2024-03-16 12:53:56 2024-03-16 23:59:00 Hospital Encounter Henrique Ochoa [facility] BUILDING 1.2.840.114 350.1.13.10 4.2.7.2.686 [id number] [facility] 2024-02-24 00:00:00 2024-02-24 00:00:00 [facility] 1.2.840.114 350.1.13.10 4.2.7.2.686 [id number] [facility] 2024-02-22 00:00:00 2024-02-22 00:00:00 [facility] 1.2.840.114 350.1.13.10 4.2.7.2.686 [id number] [facility] 2024-02-10 14:20:00 2024-02-10 14:23:35 [id number] 2024-02-10 14:20:00 2024-02-10 14:23:35 Office Visit Kapil [facility] BUILDING 1..840.114 350.1.13.10 4.2.7.2.686 [id number] [facility] 2024-01-12 00:00:00 2024-01-12 00:00:00 Telephone Kapil [facility] BUILDING 1.2.840.114 350.1.13.10 4.2.7.2.686 [id number] [facility] 2024-01-11 14:00:00 2024-01-11 16:41:15 Outpatient R JOSE HER [facility] [id number] [facility] 2024-01-11 14:00:00 2024-01-11 16:41:15 [facility] 1.2.840.114 350.1.13.10 4.2.7.2.686 [id number] [facility] 2024-01-11 11:15:00 2024-01-11 11:30:00 Marketing Production Manager Visit 2, [facility] 1.2.840.114 350.1.13.10 4.2.7.2.686 [id number] [facility] 2024-01-05 00:00:00 2024-01-05 00:00:00 [facility] 1.2.840.114 350.1.13.10 4.2.7.2.686 [id number] [facility] 2023-12-10 00:00:00 2023-12-10 00:00:00 Orders Only Doctor Unassigned, Tres Arroyos [facility] 1.2.840.114 350.1.13.10 4.2.7.2.686 [id number] [facility] 2023-12-03 11:40:00 2023-12-03 12:19:33 Outpatient R HENRIQUE OCHOA [facility]AL[facility]A [facility] [id number] [facility] 2023-12-03 11:40:00 2023-12-03 12:19:33 Office Visit Henrique Ochoa [facility] BUILDING 1.2.840.114 350.1.13.10 4.2.7.2.686 [id number] [facility] 2023-12-01 13:39:58 2023-12-01 23:59:00 Outpatient R JOSE HER [facility] [id number] [facility] 2023-12-01 13:39:58 2023-12-01 23:59:00 Hospital Encounter Jose Her [facility] 1.2.840.114 350.1.13.10 4.2.7.2.686 [id number] [facility] 2023-12-01 13:00:00 2023-12-01 13:40:18 [facility] 1.2.840.114 350.1.13.10 4.2.7.2.686 [id number] [facility] 2023-11-26 00:00:00 2023-11-26 00:00:00 [facility] 1.2.840.114 350.1.13.10 4.2.7.2.686 [id number] [facility] 2023-11-25 00:00:00 2023-11-25 00:00:00 Refill Kapil [facility] 1.2.840.114 350.1.13.10 4.2.7.2.686 [id number] [facility] 2023-11-23 09:11:00 2023-11-24 13:27:00 Outpatient R HENRIQUE OCHOA [facility] [id number] [facility] 2023-11-23 09:11:00 2023-11-24 13:27:00 Hospital Encounter Henrique Ochoa [facility] 1.2.840.114 350.1.13.10 4.2.7.2.686 [id number] [facility] 2023-11-23 11:00:00 2023-11-23 14:00:00 Surgery Henrique Ochoa [facility] 1.2.840.114 350.1.13.10 4.2.7.2.686 [id number] [facility] 2023-11-23 00:00:00 2023-11-23 00:00:00 Orders Only Doctor Unassigned, Tres Arroyos [facility] 1.2.840.114 350.1.13.10 4.2.7.2.686 [id number] [facility] 2023-11-20 15:15:00 2023-11-20 15:27:42 Outpatient R HENRIQUE OCHOA [facility]A [facility] [id number] [facility] 2023-11-20 15:15:00 2023-11-20 15:27:42 Marketing Production Manager Visit 2, Adc Lab Henrique Ochoa [facility] 1.2.840.114 350.1.13.10 4.2.7.2.686 [id number] [facility] 2023-11-20 00:00:00 2023-11-20 00:00:00 Telephone Henrique Ochoa [facility] 1.2.840.114 350.1.13.10 4.2.7.2.686 [id number] [facility] 2023-11-19 15:00:00 2023-11-19 15:00:00 Marketing Production Manager Visit 2, Adc Lab Henrique Ochoa [facility] 1.2.840.114 350.1.13.10 4.2.7.2.686 [id number] [facility] 2023-11-19 15:00:00 2023-11-19 14:58:02 Outpatient R HENRIQUE OCHOA [facility] [facility] [id number] [facility] 2023-11-19 00:00:00 2023-11-19 00:00:00 Telephone Clifton Ochoackalinga britany [facility] 1.2.840.114 350.1.13.10 4.2.7.2.686 [id number] [facility] 2023-11-11 15:00:00 2023-11-11 15:00:00 [facility] 1.2.840.114 350.1.13.10 4.2.7.2.686 [id number] [facility] 2023-11-11 15:00:00 2023-11-11 14:57:39 [id number] 2023-11-11 00:00:00 2023-11-11 00:00:00 [facility] 1.2.840.114 350.1.13.10 4.2.7.2.686 [id number] [id number] [facility] 2023-11-10 00:00:00 2023-11-10 00:00:00 Telephone Jose Her [facility] 1.2840.114 350.1.13.10 4.2.7.2.686 [id number] [facility] 2023-11-05 00:00:00 2023-11-05 00:00:00 Telephone Bennie Henrique britany [facility] 1.2.840.114 350.1.13.10 4.2.7.2.686 [id number] 059 [id number] [facility] 2023-10-29 00:00:00 2023-10-29 00:00:00 [facility] 1.2840.114 350.1.13.10 4.2.7.2.686 [id number] [id number] [facility] 2023-10-23 14:51:30 2023-10-23 23:59:00 Hospital Encounter Génesis Bernstein [facility] 1..840.114 350.1.13.10 4.2.7.2.686 [id number] [facility] 2023-10-23 14:20:00 2023-10-23 15:12:55 Outpatient R GÉNESIS BERNSTEIN [facility] [id number] [facility] 2023-10-23 14:20:00 2023-10-23 14:40:00 Urgent Care Génesis Bernstein Unknown, Attending [facility] 1.840.114 350.1.13.10 4.2.7.2.686 [id number] [facility] 2023-10-16 10:15:00 2023-10-16 10:34:00 Outpatient R HENRIQUE OCHOA CHOCKALINGA M [facility] [id number] [facility] 2023-10-16 10:15:00 2023-10-16 10:30:00 Marketing Production Manager Visit 2, Adc Lab Henrique Ochoa [facility] BUILDING 1..840.114 350.1.13.10 4.2.7.2.686 [id number] [facility] 2023-10-02 00:00:00 2023-10-02 00:00:00 Anisha Adkins [facility] BUILDING 1..840.114 350.1.13.10 4.2.7.2.686 [id number] 059 [id number] [facility] 2023-10-01 14:00:00 2023-10-01 14:00:00 Outpatient Kurtis WEAVER NEERU [facility] [id number] [facility] 2023-09-28 00:00:00 2023-09-28 00:00:00 Refill Kapil [facility] PROFESSIO NAL BUILDING 1.2.840.114 350.1.13.10 4.2.7.2.686 [id number] 059 [id number] [facility] 2023-09-22 13:00:00 2023-09-22 13:00:00 Outpatient Kurtis CARMENSade OWENNEERU [facility] [id number] [facility] 2023-09-21 00:00:00 2023-09-21 00:00:00 Refill Kapil [facility] 1.2.840.114 350.1.13.10 4.2.7.2.686 [id number] [id number] [facility] 2023-09-19 00:00:00 2023-09-19 00:00:00 [facility] 1.2.840.114 350.1.13.10 4.2.7.2.686 [id number] 044 [id number] [facility] 2023-09-10 00:00:00 2023-09-10 00:00:00 Telephone Henrique [facility]choa [facility] 1.2.840.114 350.1.13.10 4.2.7.2.686 [id number] [facility] 2023-09-03 15:00:00 2023-09-03 15:48:32 Outpatient R HENRIQUE OCHOA CHOCKALINGA M [facility] [id number] [facility] 2023-09-03 15:00:00 2023-09-03 15:48:32 Office Visit Henrique Ochoa [facility] NAL BUILDING 1.840.114 350.1.13.10 4.2.7.2.686 [id number] 059 [id number] [facility] 2023-09-02 00:00:00 2023-09-02 00:00:00 Telephone Taina Jose [facility] 1.2840.114 350.1.13.10 4.2.7.2.686 [id number] 044 [id number] [facility] 2023-08-13 00:00:00 2023-08-13 00:00:00 Telephone Neeru Moore [facility] MEDICAL OFFICE BUILDING 1..114 350.1.13.10 4.2.7.2.686 [id number] [facility] 2023-08-11 14:49:13 2023-08-11 23:59:00 Hospital Encounter Neeru Moore [facility] BUILDING 1..114 350.1.13.10 4.2.7.2.686 [id number] [id number] [facility] 2023-08-11 16:00:00 2023-08-11 16:43:09 Outpatient R MARYSE DICK [facility] [id number] [facility] 2023-08-11 16:00:00 2023-08-11 16:43:09 Office Visit Maryse Dick [facility] BUILDING 1..114 350.1.13.10 4.2.7.2.686 [id number] 059 [id number] [facility] 2023-08-03 00:00:00 2023-08-03 00:00:00 Orders Only Doctor Unassigned, Tres Arroyos [facility] 1.0.114 350.1.13.10 4.2.7.2.686 [id number] [id number] [facility] 2023-08-01 00:00:00 2023-08-01 00:00:00 Refill Bipin De Jesus [facility] 1.2.840.114 350.1.13.10 4.2.7.2.686 [id number] 044 [id number] [facility] 2023-07-29 14:00:00 2023-07-29 14:00:00 Outpatient R MELANIE DICKOLGA [facility] [id number] [facility] 2023-07-27 00:00:00 2023-07-27 00:00:00 [facility] 1..840.114 350.1.13.10 4.2.7.2.686 [id number] 059 [id number] [facility] 2023-07-06 00:00:00 2023-07-06 00:00:00 Refill Anisha Colunga [facility] NAL BUILDING 1..840.114 350.1.13.10 4.2.7.2.686 [id number] 059 [id number] [facility] 2023-06-29 00:00:00 2023-06-29 00:00:00 Refill Anisha Colunga [facility] BUILDING 1..840.114 350.1.13.10 4.2.7.2.686 [id number] 059 [id number] [facility] 2023-06-22 12:00:00 2023-06-22 12:30:00 Office Visit Neeru Moore [facility] MEDICAL OFFICE BUILDING 1.2.840.114 350.1.13.10 4.2.7.2.686 [id number] [facility] 2023-06-22 12:00:00 2023-06-22 12:00:00 Outpatient R NEERU MOORE [facility] [id number] [facility] 2023-06-19 14:30:00 2023-06-19 14:52:45 Outpatient R JOSE HER [facility] [id number] [facility] 2023-06-19 14:30:00 2023-06-19 14:52:45 [facility] 1.2840.114 350.1.13.10 4.2.7.2.686 [id number] 044 [id number] [facility] 2023-06-19 00:00:00 2023-06-19 00:00:00 Refill Maryse Dick [facility] 1.840.114 350.1.13.10 4.2.7.2.686 [id number] 059 [id number] [facility] 2023-06-19 00:00:00 2023-06-19 00:00:00 Orders Only Doctor Unassigned, Tres Arroyos [facility] 1.840.114 350.1.13.10 4.2.7.2.686 [id number] 009 [id number] [facility] 2023-06-17 00:00:00 2023-06-17 00:00:00 Refill Marquis Mooney [facility]?BANNERGlenna [facility] OFF[facility] BUILDING 1.2840.114 350.1.13.10 4.2.7.2.686 [id number] 044 [id number] [facility] 2023-06-15 00:00:00 2023-06-15 00:00:00 Telephone [facility] 1.2840.114 350.1.13.10 4.2.7.2.686 [id number] 044 [id number] [facility] 2023-06-03 00:00:00 2023-06-03 00:00:00 Orders Only Doctor Unassigned, Tres Arroyos [facility] 1.2.840.114 350.1.13.10 4.2.7.2.686 [id number] [id number] [facility] 2023-06-01 00:00:00 2023-06-01 00:00:00 [facility] 1.2.840.114 350.1.13.10 4.2.7.2.686 [id number] 059 [id number] [facility] 2023-05-19 16:30:00 2023-05-19 16:55:39 Outpatient R JOSE HER [facility] [id number] [facility] 2023-05-19 16:30:00 2023-05-19 16:55:39 Office Visit [facility]ablo [facility] 1.2.840.114 350.1.13.10 4.2.7.2.686 [id number] 044 [id number] [facility] 2023-05-19 00:00:00 2023-05-19 00:00:00 [facility]phone [facility] 1.2.840.114 350.1.13.10 4.2.7.2.686 [id number] 059 [id number] [facility] 2023-05-18 11:00:00 2023-05-18 11:15:00 Marketing Production Manager Visit Pob, Adc Lab Main Kapil [facility] BUILDING 1.2.840.114 350.1.13.10 4.2.7.2.686 [id number] [facility] 2023-05-18 11:00:00 2023-05-18 11:00:00 [facility] [id number] [facility] 2023-05-06 00:00:00 2023-05-06 00:00:00 Refill Marquis Mooney [facility] ECTOR?FREDY [facility] MEDICAL OFFICE BUILDING 1.84.114 350.1.13.10 4.2.7.2.686 [id number] 044 [id number] [facility] 2023-05-03 00:00:00 2023-05-03 00:00:00 Refill Bipin De Jesus [facility] ECTOR?[facility] MEDICAL OFFICE BUILDING 1.84.114 350.1.13.10 4.2.7.2.686 [id number] 044 [id number] [facility] 2023-04-27 14:40:00 2023-04-27 15:06:44 [facility] [id number] [facility] 2023-04-27 14:40:00 2023-04-27 15:06:44 [facility] 1.84.114 350.1.13.10 4.2.7.2.686 [id number] 059 [id number] [facility] 2023-04-21 12:59:43 2023-04-21 23:59:00 Outpatient R ANISHA COLUNGA [facility] [id number] [facility] 2023-04-21 00:00:00 2023-04-21 00:00:00 Telephone Anisha Colunga [facility] BUILDING 1.84.114 350.1.13.10 4.2.7.2.686 [id number] 059 [id number] [facility] 2023-04-20 00:00:00 2023-04-20 00:00:00 Telephone Jose Her [facility] ECTOR?FREDY [facility] MEDICAL OFFICE BUILDING 1.84.114 350.1.13.10 4.2.7.2.686 [id number] 044 [id number] [facility] 2023-03-31 14:20:00 2023-03-31 15:22:39 Outpatient R ANISHA COLUNGA [facility] [id number] [facility] 2023-03-31 14:20:00 2023-03-31 15:22:39 Office Visit Anisha Colunga [facility] BUILDING 1.2.840.114 350.1.13.10 4.2.7.2.686 [id number] 059 [id number] [facility] 2023-03-18 00:00:00 2023-03-18 00:00:00 [facility]phone [facility] 1.2840.114 350.1.13.10 4.2.7.2.686 [id number] 059 [id number] [facility] 2023-03-17 14:15:00 2023-03-17 14:30:00 Marketing Production Manager Visit 2, Adc Lab Kapil [facility] BUILDING 1.2840.114 350.1.13.10 4.2.7.2.686 [id number] [facility] 2023-03-17 13:20:00 2023-03-17 13:57:04 [facility] [id number] [facility] 2023-03-17 13:20:00 2023-03-17 13:57:04 Office Visit Kapil [facility] BUILDING 1.2840.114 350.1.13.10 4.2.7.2.686 [id number] 059 [id number] [facility] 2023-03-04 00:00:00 2023-03-04 00:00:00 Jose Jacob [facility] ECTOR?[facility] 1.2.840.114 350.1.13.10 4.2.7.2.686 [id number] 044 [id number] [facility] 2023-02-26 00:00:00 2023-02-26 00:00:00 Telephone Maryse Dick [facility] NAL BUILDING 1.2.840.114 350.1.13.10 4.2.7.2.686 [id number] 059 [id number] [facility] 2023-02-25 00:00:00 2023-02-25 00:00:00 Refill Jose Her [facility] BUILDING 1.2.840.114 350.1.13.10 4.2.7.2.686 [id number] 044 [id number] [facility] 2023-02-25 00:00:00 2023-02-25 00:00:00 [facility] 1.2.840.114 350.1.13.10 4.2.7.2.686 [id number] 044 [id number] [facility] 2023-02-25 00:00:00 2023-02-25 00:00:00 Telephone Maryse Dick [facility] BUILDING 1.2.840.114 350.1.13.10 4.2.7.2.686 [id number] 059 [id number] [facility] 2023-02-24 00:00:00 2023-02-24 00:00:00 Refill Maryse Dick [facility] NAL BUILDING 1.2.840.114 350.1.13.10 4.2.7.2.686 [id number] 059 [id number] [facility] 2023-02-20 00:00:00 2023-02-20 00:00:00 Refill Taina [facility] LOLLY [facility] MEDICAL OFFICE BUILDING 1.2.840.114 350.1.13.10 4.2.7.2.686 [id number] 044 [id number] [facility] 2023-02-19 00:00:00 2023-02-19 00:00:00 [facility]ill [facility] 1.84.114 350.1.13.10 4.2.7.2.686 [id number] 059 [id number] [facility] 2023-02-19 00:00:00 2023-02-19 00:00:00 [facility] 1.84.114 350.1.13.10 4.2.7.2.686 [id number] 044 [id number] [facility] 2023-02-17 08:30:00 2023-02-17 08:30:00 Outpatient R MARQUIS MOONEY [facility] [id number] [facility] 2023-02-17 00:00:00 2023-02-17 00:00:00 Telephone Kapil [facility] 1.840.114 350.1.13.10 4.2.7.2.686 [id number] 059 [id number] [facility] 2023-02-16 16:00:00 2023-02-16 16:15:00 Marketing Production Manager Visit Pob, Adc Lab Main Kapil [facility] BUILDING 1.84.114 350.1.13.10 4.2.7.2.686 [id number] [facility] 2023-02-16 16:00:00 2023-02-16 16:00:00 [facility] [id number] 2023-02-11 00:00:00 2023-02-11 00:00:00 Orders Only Doctor Unassigned, Tres Arroyos [facility] 1.84.114 350.1.13.10 4.2.7.2.686 [id number] [id number] [facility] 2023-02-05 00:00:00 2023-02-05 00:00:00 Telephone Maryse Dick [facility] 1.2.840.114 350.1.13.10 4.2.7.2.686 [id number] 059 [id number] [facility] 2023-02-03 09:00:00 2023-02-03 09:16:29 Marketing Production Manager Visit 2, Adc Lab Chitocatalino [facility] BUILDING 1.2840.114 350.1.13.10 4.2.7.2.686 [id number] [facility] 2023-02-03 09:00:00 2023-02-03 09:00:00 Outpatient R JESICA [facility] [id number] [facility] 2023-02-03 00:00:00 2023-02-03 00:00:00 Orders Only Doctor Unassigned, Tres Arroyos [facility] 1.2840.114 350.1.13.10 4.2.7.2.686 [id number] 009 [id number] [facility] 2023-01-28 00:00:00 2023-01-28 00:00:00 Telephone [facility]na [facility] MED[facility] OFF[facility] BUILDING 1.2840.114 350.1.13.10 4.2.7.2.686 [id number] 044 [id number] [facility] 2023-01-27 00:00:00 2023-01-27 00:00:00 Telephone [facility] E[facility]?BANNERGlenna [facility] MED[facility] OFF[facility] BUILDING 1.2840.114 350.1.13.10 4.2.7.2.686 [id number] 044 [id number] [facility] 2023-01-20 14:40:00 2023-01-20 14:40:00 [facility] [id number] [facility] 2023-01-13 00:00:00 2023-01-13 00:00:00 [facility] OFF[facility] BUILDING 1.2.840.114 350.1.13.10 4.2.7.2.686 [id number] 044 [id number] [facility] 2022-12-29 10:20:00 2022-12-29 10:20:00 Outpatient R KAPIL [facility] [id number] [facility] 2022-12-09 00:00:00 2022-12-09 00:00:00 Tele[facility]Y [facility] MED[facility] OFF[facility] BUILDING 1.2.840.114 350.1.13.10 4.2.7.2.686 [id number] 044 [id number] [facility] 2022-12-04 00:00:00 2022-12-04 00:00:00 Telephone Kapil [facility] 1.2.840.114 350.1.13.10 4.2.7.2.686 [id number] 059 [id number] [facility] 2022-12-02 08:31:15 2022-12-02 23:59:00 [facility] 1.2.840.114 350.1.13.10 4.2.7.2.686 [id number] [id number] [facility] 2022-12-02 08:30:58 2022-12-02 08:30:58 [facility] 1.2.840.114 350.1.13.10 4.2.7.2.686 [id number] 805 [id number] [facility] 2022-12-02 08:30:47 2022-12-02 08:30:47 [facility] 1.2840.114 350.1.13.10 4.2.7.2.686 [id number] [id number] [facility] 2022-12-02 08:30:36 2022-12-02 08:30:36 Outpatient R KAPIL [facility] [id number] [facility] 2022-12-02 08:30:36 2022-12-02 08:30:36 Hospital Encounter Kapil [facility] 1.2840.114 350.1.13.10 4.2.7.2.686 [id number] [id number] [facility] 2022-11-19 14:30:00 2022-11-19 14:30:00 Outpatient R JESICA [facility] [id number] [facility] 2022-11-13 00:00:00 2022-11-13 00:00:00 Telephone Kapil [facility] BUILDING 1.2840.114 350.1.13.10 4.2.7.2.686 [id number] 059 [id number] [facility] 2022-11-07 00:00:00 2022-11-07 00:00:00 Jose Jacob [facility] 1.2840.114 350.1.13.10 4.2.7.2.686 [id number] 044 [id number] [facility] 2022-11-05 09:00:00 2022-11-05 09:15:00 Marketing Production Manager Visit 2, Adc Lab Jesica [facility] BUILDING 1.2.840.114 350.1.13.10 4.2.7.2.686 [id number] [facility] 2022-11-05 09:00:00 2022-11-05 09:00:00 Outpatient R MARQUIS MOONEY [facility] [id number] [facility] 2022-11-04 00:00:00 2022-11-04 00:00:00 [facility]phone [facility] BUILDING 1.2.840.114 350.1.13.10 4.2.7.2.686 [id number] [facility] 2022-10-31 00:00:00 2022-10-31 00:00:00 Telephone Kapil [facility] 1.2.840.114 350.1.13.10 4.2.7.2.686 [id number] 059 [id number] [facility] 2022-10-30 13:00:00 2022-10-30 13:00:00 [facility] [id number] 2022-10-28 10:46:25 2022-10-28 23:59:00 Outpatient R KAPIL [facility] [id number] [facility] 2022-10-28 10:45:00 2022-10-28 23:59:00 [facility] 1.2.840.114 350.1.13.10 4.2.7.2.686 [id number] [id number] [facility] 2022-10-28 11:15:00 2022-10-28 11:30:00 Marketing Production Manager Visit Pob, Adc Lab Main Kapil [facility] 1.2.840.114 350.1.13.10 4.2.7.2.686 [id number] 353 [id number] [facility] 2022-10-28 10:00:00 2022-10-28 10:22:33 Office Visit Kapil [facility] 1.2.840.114 350.1.13.10 4.2.7.2.686 [id number] 059 [id number] [facility] 2022-10-23 09:30:00 2022-10-23 10:35:15 Outpatient R [facility] [id number] [facility] 2022-10-23 09:30:00 2022-10-23 10:35:15 Office Visit Jesica [facility] BUILDING 1.2.840.114 350.1.13.10 4.2.7.2.686 [id number] [facility] 2022-10-16 00:00:00 2022-10-16 00:00:00 [id number] [facility] 2022-10-14 00:00:00 2022-10-14 00:00:00 [facility] 1.2.840.114 350.1.13.10 4.2.7.2.686 [id number] 059 [id number] [facility] 2022-10-13 08:34:42 2022-10-13 08:34:42 [facility] [id number] [facility] 2022-10-09 00:00:00 2022-10-09 00:00:00 [facility] [id number] [facility] 2022-10-09 00:00:00 2022-10-09 00:00:00 [facility] [id number] [facility] 2022-10-07 10:43:49 2022-10-07 23:59:00 [facility] [id number] [facility] 2022-09-17 16:00:00 2022-09-17 16:00:00 Outpatient R [facility]IL[facility] [id number] [facility] 2022-09-17 14:00:00 2022-09-17 14:00:00 Out[facility] [id number] [facility] 2022-09-12 00:00:00 2022-09-12 00:00:00 [facility] 1.2.840.114 350.1.13.10 4.2.7.2.686 [id number] 059 [id number] [facility] 2022-09-12 00:00:00 2022-09-12 00:00:00 Telephone Kapil [facility] BUILDING 1.2.840.114 350.1.13.10 4.2.7.2.686 [id number] 059 [id number] [facility] 2022-09-10 10:00:00 2022-09-10 12:58:12 Outpatient R KEVINJEROME GUADALUPE DOTSON [facility] [id number] [facility] 2022-09-10 10:00:00 2022-09-10 10:30:00 Office Visit KevinlyudmilaGuadalupe craig [facility] BUILDING 1.2.840.114 350.1.13.10 4.2.7.2.686 [id number] [facility] 2022-08-27 14:40:00 2022-08-27 15:13:14 Out[facility] [id number] [facility] 2022-08-27 14:40:00 2022-08-27 15:13:14 [facility] 1.2.840.114 350.1.13.10 4.2.7.2.686 [id number] 059 [id number] [facility] 2022-08-21 08:45:00 2022-08-21 09:07:28 Outpatient R NADINE SNYDER [facility] [id number] [facility] 2022-08-21 08:45:00 2022-08-21 09:07:28 Office Visit Claudio [facility] ECTOR?[facility] 1.2.840.114 350.1.13.10 4.2.7.2.686 [id number] [facility] 2022-08-18 00:00:00 2022-08-18 00:00:00 Orders Only Doctor Unassigned, Tres Arroyos [facility] 1.2840.114 350.1.13.10 4.2.7.2.686 [id number] [id number] [facility] 2022-08-14 10:00:00 2022-08-14 10:15:00 Marketing Production Manager Visit Lab, Misha Samaniego Claudio [facility]Y [facility] BUILDING 1..840.114 350.1.13.10 4.2.7.2.686 [id number] [facility] 2022-08-14 09:30:00 2022-08-14 10:00:00 [facility] 1..840.114 350.1.13.10 4.2.7.2.686 [id number] [facility] 2022-08-14 09:30:00 2022-08-14 09:48:43 Outpatient R CLAUDIO [facility] [id number] [facility] 2022-08-11 00:00:00 2022-08-11 00:00:00 Jose Jacob [facility] 1.2.840.114 350.1.13.10 4.2.7.2.686 [id number] [facility] 2022-08-01 16:15:00 2022-08-01 16:30:00 Marketing Production Manager Visit Lab, Misha LivingstonDestiny [facility] 1.840.114 350.1.13.10 4.2.7.2.686 [id number] [facility] 2022-08-01 14:30:00 2022-08-01 16:24:51 Outpatient R [facility]LO [facility] [id number] [facility] 2022-08-01 14:30:00 2022-08-01 16:24:51 [facility] 1.840.114 350.1.13.10 4.2.7.2.686 [id number] [facility] 2022-05-13 00:00:00 2022-05-13 00:00:00 [facility]ill [facility] 1.840.114 350.1.13.10 4.2.7.2.686 [id number] [facility] 2021-12-03 00:00:00 2021-12-03 00:00:00 Telephone [facility] 1.84.114 350.1.13.10 4.2.7.2.686 [id number] [facility] 2021-12-02 09:30:00 2021-12-02 09:45:00 Marketing Production Manager Visit Lab, Misha Samaniego [facility] 1.840.114 350.1.13.10 4.2.7.2.686 [id number] [facility] 2021-12-02 09:30:00 2021-12-02 09:30:00 Outpatient R JOSE HER [facility] [id number] [facility] 2021-11-29 09:00:00 2021-11-29 09:39:00 Outpatient R DESTINY HERTHIA [facility] [id number] [facility] 2021-11-29 09:00:00 2021-11-29 09:39:00 Office Visit Jose Her [facility] 1.840.114 350.1.13.10 4.2.7.2.686 [id number] [facility] 2021-03-08 05:19:00 2021-03-08 05:19:00 Outpatient Ajibade_O_A H VFP VFP [id number] [facility] e 2021-01-17 04:23:00 2021-01-17 04:23:00 Outpatient Ige-Odunuga _J_AH VFP VFP [id number] [facility] e 2020-12-10 10:45:00 2020-12-10 10:45:00 Outpatient MARQUIS MUSA [facility] [id number] [facility] 2020-11-23 00:00:00 2020-11-23 00:00:00 Orders Only Doctor Unassigned, Tres Arroyos [facility] 1.840.114 350.1.13.10 4.2.7.2.686 [id number] [id number] [facility] 2020-11-21 10:31:03 2020-11-21 11:10:50 [facility] 1.840.114 350.1.13.10 4.2.7.2.686 [id number] [facility] 2020-11-21 10:30:00 2020-11-21 10:30:00 Outpatient R TORIE DEL CID [facility] [id number] [facility] 2020-11-15 00:00:00 2020-11-15 00:00:00 Orders Only Doctor Unassigned, Tres Arroyos [facility] 1.2.840.114 350.1.13.10 4.2.7.2.686 [id number] [facility] 2020-07-31 09:00:00 2020-07-31 09:00:00 Outpatient Kurtis DEL CID TORIE [facility] [id number] [facility] 2020-04-06 00:00:00 2020-04-06 00:00:00 Telephone [facility] 1.2.840.114 350.1.13.10 4.2.7.2.686 [id number] 2020-04-06 00:00:00 2020-04-06 00:00:00 Telephone [facility] 1.2.840.114 350.1.13.10 4.2.7.2.686 [id number] 220 [id number] [facility] 2020-03-31 12:07:00 2020-03-31 12:07:00 Outpatient Ige-Odunuga _J_AH [facility] [id number] [facility] 2020-03-23 04:42:00 2020-03-23 04:42:00 Outpatient Ige-Od[place] _J_AH [facility]FP [facility] [id number] [facility] 2020-03-15 09:16:00 2020-03-15 09:16:00 Outpatient Ige-[place] _J_AH VFP VFP [id number] [facility] 2020-03-13 10:31:00 2020-03-13 10:31:00 Outpatient Ige-Od[place] _J_AH VFP VFP [id number] [facility] 2020-03-13 00:00:00 2020-03-13 00:00:00 Maddison clarke, PERCUSSION INSTRUCTOR: [address], [address], [place] [address] , Ph. P [place] - [facility] - _HOU_V@_ [place] [employer] [id number] [facility] 2020-01-18 10:00:00 2020-01-18 10:00:00 Outpatient R TORIE DEL CID [facility] [id number] [facility] 2020-01-04 09:38:55 2020-01-04 10:06:26 Office Visit Torie Del Cid [facility] 1.2.840.114 350.1.13.10 4.2.7.2.686 [id number] 2020-01-04 09:38:55 2020-01-04 10:06:26 Office Visit Torie Del Cid [facility] 1.2.840.114 350.1.13.10 4.2.7.2.686 [id number] [facility] 2020-01-04 09:45:00 2020-01-04 09:45:00 Outpatient R TORIE DEL CID [facility] [id number] [facility] 2020-01-04 00:00:00 2020-01-04 00:00:00 Orders Only Doctor Unassigned, Tres Arroyos [facility] 1.2.840.114 350.1.13.10 4.2.7.2.686 [id number] 2020-01-04 00:00:00 2020-01-04 00:00:00 Orders Only Doctor Unassigned, Tres Arroyos [facility] 1.2840.114 350.1.13.10 4.2.7.2.686 [id number] [facility] 2019-12-14 07:21:00 2019-12-14 07:21:00 Outpatient Ige[place] _J_AH [facility] [id number] [facility] 2019-12-14 07:21:00 2019-12-14 07:21:00 Outpatient Ige[place] _J_AH [facility] [id number] [facility] Results Test Description Test Time Test Comments Results Result Co mments Source [facility] Humdjsa2805-66-56 18:59:25* Test Item Value Reference Range Interpretation Comme nts POC Glu (test code = 0636172208) 105 mg/dL 70-99 H POC Performing Location (melody t code = 2306349186) NEURO Lab Interpretation (test cod e = 57553-1) Abnormal [facility] Cpuoljt0205-69-44 12:43:08* Test Item Value Reference Range Interpretation Comme nts POC Glu (test code = 3378387797) 96 mg/dL 70-99 POC Performing Location (melody t code = 6522330947) NEURO [facility] Xkbvlae6324-02-52 09:39:56* Test Item Value Reference Range Interpretation Comme nts POC Glu (test code = 2398305683) 80 mg/dL 70-99 POC Performing Location (melody t code = 4920366356) NEURO [facility] Tamakxj5823-95-99 10:34:16* Test Item Value Reference Range Interpretation Comme nts POC Glu (test code = 7440926902) 79 mg/dL 70-99 POC Performing Location (melody t code = 3145109760) NEURO [facility] Opbrily4566-37-03 21:56:19* Test Item Value Reference Range Interpretation Comme nts POC Glu (test code = 7567125105) 106 mg/dL 70-99 H POC Performing Location (melody t code = 9087459222) NEURO Lab Interpretation (test cod e = 99957-5) Abnormal [facility] Jnnnqzy8256-78-42 16:33:30* Test Item Value Reference Range Interpretation Comme nts POC Glu (test code = 6536847731) 85 mg/dL 70-99 POC Performing Location (melody t code = 1089041773) NEURO [facility] Syjllix9214-18-28 12:18:42* Test Item Value Reference Range Interpretation Comme nts POC Glu (test code = 7989438694) 114 mg/dL 70-99 H POC Performing Location (melody t code = 3670189022) NEURO Lab Interpretation (test cod e = 74346-3) Abnormal [facility]2024-10-15 12:18:36* Test Item Value Reference Range Interpretation Comme nts POC Glu (test code = 0277249792) 102 mg/dL 70-99 H POC Performing Location (melody t code = 5343275136) NEURO Lab Interpretation (test cod e = 46083-6) Abnormal [facility] Hbymwcv6268-83-76 16:49:50* Test Item Value Reference Range Interpretation Comme nts POC Glu (test code = 0167534635) 79 mg/dL 70-99 POC Performing Location (melody t code = 2321985604) NEURO [facility] Kdnahij1081-29-85 12:34:46* Test Item Value Reference Range Interpretation Comme nts POC Glu (test code = 8524955971) 104 mg/dL 70-99 H POC Performing Location (melody t code = 1668484564) NEURO Lab Interpretation (test cod e = 95002-3) Abnormal [facility]2024-10-13 09:01:51* Test Item Value Reference Range Interpretation Comme nts POC Glu (test code = 3462698098) 88 mg/dL 70-99 POC Performing Location (melody t code = 6997971642) NEURO [facility] Dtitmfp4089-29-09 19:00:15* Test Item Value Reference Range Interpretation Comme nts POC Glu (test code = 8389419028) 102 mg/dL 70-99 H POC Performing Location (melody t code = 7138331693) NEURO Lab Interpretation (test cod e = 04400-7) Abnormal [facility] Ewaphgt2734-91-54 12:57:42* Test Item Value Reference Range Interpretation Comme nts POC Glu (test code = 2010848314) 79 mg/dL 70-99 POC Performing Location (melody t code = 4037684991) NEURO [facility] Ncpbkqo5410-98-86 08:03:44* Test Item Value Reference Range Interpretation Comme nts POC Glu (test code = 9266625414) 80 mg/dL 70-99 POC Performing Location (melody t code = 2572355394) W Stroke [facility] Lzhruqg0057-77-52 20:39:25* Test Item Value Reference Range Interpretation Comme nts POC Glu (test code = 7958575992) 97 mg/dL 70-99 POC Glu Comment 1 (test code = 9972214071) Notified RN/MD POC Performing Location (melody t code = 6154991496) [facility] STROKE [facility] Uqqgbsm6208-87-77 16:56:31* Test Item Value Reference Range Interpretation Comme nts POC Glu (test code = 3059930079) 103 mg/dL 70-99 H POC Glu Comment 1 (test code = 5341329597) Notified RN/MD POC Performing Location (melody t code = 6871734887) [facility] Stroke Lab Interpretation (test cod e = 19972-7) Abnormal [facility] Retvssw5179-39-35 08:52:49* Test Item Value Reference Range Interpretation Comme nts POC Glu (test code = 1350126202) 72 mg/dL 70-99 POC Performing Location (melody t code = 6504045392) [address] Fqfishq4691-91-55 21:15:35* Test Item Value Reference Range Interpretation Comme nts POC Glu (test code = 9552229877) 103 mg/dL 70-99 H POC Glu Comment 1 (test code = 9995774631) Notified RN/MD POC Performing Location (melody t code = 3459644897) [facility] Stroke Lab Interpretation (test cod e = 45671-6) Abnormal [facility] Cwgstss8229-24-53 17:20:03* Test Item Value Reference Range Interpretation Comme nts POC Glu (test code = 2896218002) 106 mg/dL 70-99 H POC Performing Location (melody t code = 2726978520) [facility] STROKE Lab Interpretation (test cod e = 27490-0) Abnormal [facility] EpicElectrocardiogram, 21-mlqn0870-90-10 13:49:15* Test Item Value Reference Range Interpretation Comme nts Ventricular Rate (test code = 2331232863) BPM Atrial Rate (test code = 9208243620) BPM AK Interval (test code = 7385639697) 168 ms QRS Duration (test code = 2615247594) 120 ms QT/QTc (test code = 8480182071) 426 ms QTc Calculation (test code = 8368704103) 469 ms P-[place] (test code = 7412393525) degrees R-[place] (test code = 6104826572) degrees T-[place] (test code = 5630609076) degrees CHEYENNE (test code = CHEYENNE) PXN (test code = PXN) [facility] Ndlfqby2813-35-63 12:32:13* Test Item Value Reference Range Interpretation Comme nts POC Glu (test code = 8512293597) 106 mg/dL 70-99 H POC Performing Location (melody t code = 0922211776) [facility] STROKE Lab Interpretation (test cod e = 47660-1) [facility] ollpnjci1927-53-23 11:10:13* Test Item Value Reference Range Interpretation Comme nts RVOT Vmean (test code = 6572082390) 0.36 m/s LA Vol I (A4C) BSA (test code = 8972263624) 43.1 ml/m2 LA Vol I BSA (test code = 1372017778) 38.5 ml/m2 LVOT Vmax/AV Vmax (test code = 7113707656) 0.67 {ratio} Ao Root diam diastole (test code = 9191346909) 39 mm LVOT Vmean (test code = 4327515490) 0.48 m/s LA area A4C (test code = 9204596730) 27.3 cm2 LA area A2C (test code = 3554213633) 24.8 cm2 TR pk grad (test code = 1846558120) mmHg LA ESV A2C (test code = 9795248482) 82.422838948615656 mL LA ESV A4C (test code = 3892377302) 82.162078483091195 mL LV est EF (test code = 7303587395) 37 % LA vol index (test code = 7606240925) 40.8 mL/m2 MV A pk cece (test code = 9722130961) 0.45 m/s MV PHT (test code = 0244755425) 106 ms TR pk cece (test code = 2239997259) 2.24 m/s AR max cece PISA (test code = 8983797116) 3.3 m/s MV E pk cece (test code = 1233132352) 0.4 m/s AV pk grad (test code = 0034595518) mmHg LV stroke vol (test code = 6225920617) 56 ml RVOT VTI (test code = 8730075434) 10.7 cm RVOT pk cece (test code = 4955539892) 0.61 m/s AV VTI (test code = 6399552118) 23.5 cm AV pk cece (test code = 5831999251) 1.22 m/s LVOT VTI (test code = 9857471810) 16.1 cm LVOT pk cece (test code = 8570767250) 0.82 m/s LVOT area (test code = 3226868997) 3.46 cm2 LVOT diam (test code = 0838155396) 21 mm MV DT (test code = 9367169845) 360 ms MV e' lateral cece (test code = 5007775452) 0.07 cm/s MV E/A ratio (test code = 6047822517) MV area PHT (test code = 4880485457) 2.08 cm2 LVOT pk grad (test code = 1926187286) mmHg AV area planimetry (test code = 2653658782) 2.37 cm2 AV mn grad (test code = 6848644385) mmHg AV PHT (test code = 2560402629) 567 ms RVOT mn grad (test code = 3739950476) mmHg RVOT pk grad (test code = 2335012092) mmHg MV E/e' septal (test code = 9550710239) TR pk cece (test code = 7764610309) 2.24 m/s AV area pk cece (test code = 8599652999) 2.33 cm2 AV area cont VTI (test code = 9493104699) 2.37 cm2 LVOT mn grad (test code = 7649978209) mmHg AV mn ecce (test code = 2954397165) 0.79 m/s LVPWd (test code = 4036380983) 15 mm LA size (test code = 7689414497) [address] junction (test code = 8085403588) 32 mm LA vol BP (test code = 2061931669) 87.7 ml Fractional Shortening 2D (test code = 7509645738) 18 % LVIDs (test code = 3639328214) 38 mm IVSd (test code = 1122034043) 13 mm LVIDd (test code = 9745309480) 46 mm MV E/e' lateral (test code = 9372978) MV e' septal cece (test code = 2299319) 0.06 cm/s LV ESV 2D (test code = 5601054) 61.2 mL LV EDV 2D (test code = 3876025) 96.8 mL IVSd 2D (test code = 1382691) 13.745771529541612 cm Radiology Study observation (narrative) (test code = 38146-1) CHEYENNE (test code = CHEYENNE) [facility] Dazhfgh5033-73-92 08:53:49* Test Item Value Reference Range Interpretation Comme nts POC Glu (test code = 3521496545) 89 mg/dL 70-99 POC Performing Location (melody t code = 7381677987) [facility] STROKE [facility] Fegnrfs5273-82-72 22:03:26* Test Item Value Reference Range Interpretation Comme nts POC Glu (test code = 1005977607) 130 mg/dL 70-99 H POC Performing Location (melody t code = 4541573875) [facility] STROKE Lab Interpretation (test cod e = 58481-1) Abnormal [facility] Jlsuuuu8031-45-06 19:45:39* Test Item Value Reference Range Interpretation Comme nts POC Glu (test code = 1515973081) 88 mg/dL 70-99 POC Performing Location (melody t code = 6996624142) [facility] STROKE [facility] Urinalysis, Qbbjqsvzup6824-78-96 15:36:00* Test Item Value Reference Range Interpretation Comme nts POCT U SP GRAV (test code = 3255) 1.015 mg/dl 1.005-1.025 POCT PH U (test code = 3254) 5.0 mg/dl 5-8 POCT U LEUK EST (test code = 3263) Negative Negative - Negative POCT U NIT (test code = 3262) Negative Negative - Negati ve POCT U PROT (test code = 3259) Negative Negative - Negative POCT U GLU (test code = 3256) 100 Negative - Negati ve A POCT U KETONE (test code = 3258) Negative Negative - Negative POCT U UROBILI (test code = 3260) 0.2 mg/dl 0.2-1 POCT U BILI (test code = 3261) Negative Negative - Negative POCT U BLD (test code = 3257) Negative Negative - Negati ve POCT U COLOR (test code = 3266) Yellow POCT U APPEAR (test code = 3267) Clear Lab Interpretation (test cod e = 02786-7) [facility],US,UPM-AULKEKV9517-91-16 15:36:00* Test Item Value Reference Range Interpretation Comme nts PVR (URINE VOLUME) (test code = 5193) 72 ml 0-100 [facility] 1 SCLH8997-21-10 22:17:08PROCEDURE: XR CHEST 1 VW 04/26/2024 3:50 PM CLINICAL INDICATION: r/o pneumothorax COMPARISON: Radiograph of 12/01/2023.[facility] 1 IBKW3268-96-69 22:17:08PROCEDURE: XR CHEST 1 VW 04/26/2024 3:50 PM CLINICAL INDICATION: r/o pneumothorax COMPARISON: Radiograph of 12/01/2023.[facility] acute hospital PROCEDURE RZI9987-51-28 20:37:37Ordered by an unspecified provider. [facility] METABOLIC PANEL (60220)(NA, K, CL, CO2, GLUCOSE, BUN, CREATININE, CA)2024-04-19 18:23:20* Test Item Value Reference Range Interpretation Comme nts NA (test code = 3586731077) 137 mmol/L 135-145 K (test code = 4809903481) 4.6 mmol/L 3.5-5.0 CL (test code = 5006676363) 105 mmol/L 98-108 CO2 TOTAL (test code = 2733004242) 26 mmol/L 23-31 AGAP (test code = 1403755759) 6 2-16 BUN (test code = 7204544429) 27 mg/dL 7-23 H GLUCOSE (test code = 9307405052) 87 mg/dL 70-110 CREATININE (test code = 2160-0) 1.18 mg/dL 0.60-1.25 CALCIUM (test code = 0646285479) 9.7 mg/dL 8.6-10.6 eGFR (test code = 98481-8) 61.2 mL/min/1.73m2 CKD-EPI eGFR (2020). Assuming creatinine has been stable day-to-day for at least three months, the eGFR indicates Category G2 (60 - 89 mL/min/1.73 m2) Lab Interpretation (test code = 95516-6) Abnormal [facility] with Mtiy1977-54-83 17:34:29* Test Item Value Reference Range Interpretation [...] 33.0 g/dL 31.2-35.0 RDW-SD (test code = 35658-1) 50.5 fL 38.5-51.6 RDW-CV (test code = 788-0) 14.0 % 12.1-15.4 PLT (test code = 777-3) 131 150-328 L MPV (test code = 12348-3) 12.0 fL 9.8-13.0 IPF % (test code = 4921345457) 7.6 % 1.2-10.7 Platelet count measured by fluorescence method. NRBC/100 WBC (test code = 9096514184) 0.0 0.0-10.0 NRBC x10^3 (test code = 9466788078) See_Comment [Automated [employer]] The system which generated this result transmitted reference range: 10*3/?L. The reference range was not used to interpret this result as normal/abnormal. GRAN MAT (NEUT) % (test code = 770-8) 39.6 % IMM GRAN % (test code = 9171667134) 0.30 % LYMPH % (test code = 736-9) 45.6 % MONO % (test code = 5905-5) 9.8 % EOS % (test code = 713-8) 4.2 % BASO % (test code = 706-2) 0.5 % GRAN MAT x10^3(ANC) (test code = 6791827505) 3.10 10*3/uL 1.99-6.95 IMM GRAN x10^3 (test code = 3908286933) 0.00-0.06 LYMPH x10^3 (test code = 731-0) 3.57 10*3/uL 1.09-3.23 H MONO x10^3 (test code = 742-7) 0.77 10*3/uL 0.36-1.02 EOS x10^3 (test code = 711-2) 0.33 10*3/uL 0.06-0.53 BASO x10^3 (test code = 704-7) 0.04 10*3/uL 0.01-0.09 Lab Interpretation (test code = 34399-0) [facility]normal [facility] / [id number] 17:23:09* Test Item Value Reference Range Interpretation Comme nts PROTIME PATIENT (test code = 5964-2) 16.1 10.1-12.6 H INR (test code = 6301-6) 1.4 Normal INR <1.1; Warfarin Therapeutic range 2.0 to 3.0 or 2.5 to 3.5, depending upon the indications. Lab Interpretation (test code = 05759-0) Abnormal [facility] -2024-04-19 17:17:00* Test Item Value Reference Range Interpretation Comme nts ABO & RH (test code = 20) O POSITIVE IAT (test code = 1185) Negative [facility] (TTE)2024-03-17 01:30:04* Test Item Value Reference Range Interpretation Comme nts Height (test code = 7669204469) 70 in Weight (test code = 1253316731) 208 lbs Systolic BP (test code = 5429377676) 124 mmHg Diastolic BP (test code = 0978836079) 73 mmHg Heart Rate (test code = 6818320519) 73 bpm EF(Teich) (test code = 8454551745) 31.70 % LVIDD (test code = 5671277149) 5.10 cm LVIDS (test code = 0648043033) 4.30 cm Left Ventricular End Systolic Volume by Teichholz Method (test code = 9666682) 84.6 mL Left Ventricular End Diastolic Volume by Teichholz Method (test code = 3366144) 123.8 mL IVS (test code = 8099031352) 1.20 cm LVPWD (test code = 4571842822) 1.20 cm LVOT diameter (test code = 0073169334) 2.33 cm LVOT area (test code = 5953228855) 4.30 cm2 FS (test code = 2651020522) 15 % LV GLS Endo Peak A2C () (test code = 9003993179) -16.10 % LV GLS Endo Peak A3C () (test code = 8599154490) -17.40 % LV GLS Endo Peak A4C () (test code = 8409417887) -16.90 % LV GLS Endo Peak Avg () (test code = 5085593782) -16.80 % LA size (test code = 3244004228) 5.2 cm RVOT Proximal Diameter (test code = 5433916978) 3.70 cm ACS (test code = 1469037102) 2.08 cm Ao root diam (test code = 0493729312) 3.90 cm Aortic root (test code = 5917084539) 3.9 cm Ao root annulus (test code = 0930248531) 3.9 cm PW (test code = 8141526049) 1.20 cm 0.6-1.1 EF - 2D (test code = 23846229) 31.70 % Interventricular Septum Diastolic Thickness by 2D (test code = 4042023) 1.20 cm BSA (test code = 8817809846) 2.12 m2 E wave decelartion time (test code = 4804894829) 0.22 s MV Peak E Cece (test code = 6312993683) 80.7 cm/s MV Peak A Cece (test code = 6612348004) 68.7 cm/s E/A ratio (test code = 1645494740) 1.18 ratio MV Prop V (test code = 1217445306) 20.80 cm/s TR Peak Cece (test code = 5627058961) 227.1 cm/s Triscuspid Valve Regurgitation Peak Gradient (test code = 0205558862) 20.6 mmHg LVOT stroke volume (test code = 7892921983) 112.80 cm3 LVOT peak cece (test code = 5950556908) 114.8 cm/s LVOT mn grad (test code = 6695521944) 2.4 mmHg AV LVOT peak gradient (test code = 2451506973) 5.3 mmHg LVOT peak VTI (test code = 2500521904) 26.4 cm LV V1 mean (test code = 9266072090) 71.30 cm/s MR max PG (test code = 2547427292) 69.60 mm[Hg] MR max cece (test code = 6313701673) 417.10 cm/s Mr max cece (test code = 5441558581) 417.1 m/s Aortic valve mean velocity (test code = 2404691412) 104.5 cm/s Ao peak cece (test code = 4873015875) 146.1 cm/s Ao VTI (test code = 0888392331) 33.8 cm AV area by cont VTI (test code = 3459274699) 3.3 cm2 AV area peak cece (test code = 6928426196) 3.4 cm2 Ao max PG (test code = 8824056232) 8.50 mm[Hg] AV peak gradient (test code = 9884006789) 8.5 mmHg AV valve area (test code = 6940087127) 3.30 cm2 AV mean gradient (test code = 2355555431) 4.7 mmHg AV regurgitation pressure 1/2 time (test code = 5652903951) 505.4 ms AI dec slope (test code = 9650227418) 227.70 cm/s2 AI max cece (test code = 1716064612) 392.90 cm/s AI max PG (test code = 3807288306) 61.80 mm[Hg] Radiology Study observation (narrative) (test code = 83921-7) CHEYENNE (test code = CHEYENNE) ?Left?Ventricle: Left ventricle size is normal. Mildly [...] parasternal, subcostal and suprasternal views were obtained. [facility]Elect[facility] ylmyzgwnc2000-68-75 01:58:35 Supraventricular Tachycardia AblationProcedure: Atrial Flutter Ablation [...] was then advanced to the SVC. A Planitax transseptal needle wire was placed into this [...] the left atrium was performed using the ScribbleLive mapping system. Activation of the atrial flutter [...] in 3 months. Sylvester Ochoa, [facility]ardiac ElectrophysiologyUnBaylor Scott [facility] White McL[facility] Children's Medical CenterCardiovascular Awwhgsjmwxuiqjm4575-54-78 01:58:35Supraventricular Tachycardia AblationProcedure: Atrial Flutter Ablation Indication: [...] was then advanced to the SVC. A Planitax transseptal needle wire was placed into this [...] the left atrium was performed using the itembaseite mapping system. Activation of the atrial flutter [...] in 3 months. Sylvester Ochoa, [facility] CITYardiac ElectrophysiologyUnCHRISTUS [facility] Joymc5298-30-85 22:26:05* Test Item Value Reference Range Interpretation Comme nts ACTHR (test code = 9303319676) 322 See_Comment H [Automated messa ge] The system which generated this result transmitted reference range: 96 - 152 Seconds. The reference range was not used to interpret this result as normal/abnormal. Lab Interpretation (test code = 21476-0) Abnormal [facility] Ejrsh3992-52-81 22:26:05* Test Item Value Reference Range Interpretation Comme nts ACTHR (test code = 2146625771) 322 See_Comment H [Automated messa ge] The system which generated this result transmitted reference range: 96 - 152 Seconds. The reference range was not used to interpret this result as normal/abnormal. Lab Interpretation (test code = 71894-8) Abnormal [facility] Vkysz9745-87-03 21:56:14* Test Item Value Reference Range Interpretation Comme nts ACTHR (test code = 0410933730) 365 See_Comment H [Automated messa ge] The system which generated this result transmitted reference range: 96 - 152 Seconds. The reference range was not used to interpret this result as normal/abnormal. Lab Interpretation (test code = 99742-4) Abnormal [facility] High Siiso7906-29-42 21:56:14* Test Item Value Reference Range Interpretation Comme nts ACTHR (test code = 1918216662) 365 See_Comment H [Automated messa ge] The system which generated this result transmitted reference range: 96 - 152 Seconds. The reference range was not used to interpret this result as normal/abnormal. Lab Interpretation (test code = 96509-9) Abnormal [facility] Vluqk4647-08-32 21:30:47* Test Item Value Reference Range Interpretation Comme nts ACTHR (test code = 2365900641) 284 See_Comment H [Automated messa ge] The system which generated this result transmitted reference range: 96 - 152 Seconds. The reference range was not used to interpret this result as normal/abnormal. Lab Interpretation (test code = 08063-4) Abnormal [facility] Laxjy0264-81-38 21:30:47* Test Item Value Reference Range Interpretation Comme nts ACTHR (test code = 1157043436) 284 See_Comment H [Automated messa ge] The system which generated this result transmitted reference range: 96 - 152 Seconds. The reference range was not used to interpret this result as normal/abnormal. Lab Interpretation (test code = 49699-0) Abnormal [facility] [id number] 21:05:23* Test Item Value Reference Range Interpretation Comme nts ACTHR (test code = [id number]) 361 See_Comment H [Automated messa ge] The system which generated this result transmitted reference range: 96 - 152 Seconds. The reference range was not used to interpret this result as normal/abnormal. Lab Interpretation (test code = 63363-3) Abnormal [facility] [id number] 21:05:23* Test Item Value Reference Range Interpretation Comme nts ACTHR (test code = [id number]) 361 See_Comment H [Automated messa ge] The system which generated this result transmitted reference range: 96 - 152 Seconds. The reference range was not used to interpret this result as normal/abnormal. Lab Interpretation (test code = 19156-5) [facility] Only[facility]2023-11-23 18:58:00* Test Item Value Reference Range Interpretation Comme nts ABO & RH (test code = 20) O Positive [facility] Confirmation (Lab Only)2023-11-23 18:58:00* Test Item Value Reference Range Interpretation Comme nts ABO & RH (test code = 20) [facility] [id number] 16:08:00* Test Item Value Reference Range Interpretation Comme nts ABO & RH (test code = 20) O POSITIVE IAT (test code = 1185) Negative [facility] [id number] 16:08:00* Test Item Value Reference Range Interpretation Comme nts ABO & RH (test code = 20) O POSITIVE IAT (test code = 1185) Negative [facility]PROT[facility] TIME / [id number] 00:13:35* Test Item Value Reference Range Interpretation Comme nts PROTIME PATIENT (test code = 5964-2) 15.5 See_Comment H [Automated [employer] ge] The system which generated this result transmitted reference range: 12.0 - 14.7 Seconds. The reference range was not used to interpret this result as normal/abnormal. INR (test code = 6301-6) 1.3 Normal INR <1.1; Warfarin Therapeutic range 2.0 to 3.0 or 2.5 to 3.5, depending upon the indications. Lab Interpretation (test code = 19690-5) Abnormal [facility]inal [id number] 23:26:06* Test Item Value Reference Range Interpretation Comme [facility] NT-proBNP (test code = 70933-2) 1620 pg/mL <=125 [place] (test code = CHEYENNE) Result Indeterminate-Consid er causes of NT-proBNP elevation other than Heart failure such as acute coronary syndrome, pulmonary embolism, pulmonary hypertension, sepsis, stroke, and renal dysfunction. Lab Interpretation (test code = 01423-4) Abnormal [facility] HospitalLIPID PANEL (32440)(TOTAL CHOLESTEROL, TRIGLYCERIDES, HDL)2023-11-20 23:21:05* Test Item Value Reference Range Interpretation Comme nts CHOL (test code = 6497297332) 115 mg/dL 120-200 L HDL (test code = 2135567955) 38 mg/dL >=40 L HDLC RATIO (test code = 5617026669) 3.0 <=5.0 TRIG (test code = 2221581464) 138 mg/dL 30-170 LDL CHOL (test code = 21449-8) 49 mg/dL <=160 VLDL (test code = 6079416105) 28 mg/dL 5-60 Lab Interpretation (test cod e = 45964-3) [facility]normal [facility]2024-01-26 23:20:45* Test Item Value Reference Range Interpretation Comme nts MAGNESIUM (test code = 4905425640) 2.1 mg/dL 1.7-2.4 Lab Interpretation (test cod e = 05676-7) Normal [facility] Met[facility] Panel (84861)2023-11-20 23:20:24* Test Item Value Reference Range Interpretation Comme nts NA (test code = 9002476640) 142 mmol/L 135-145 K (test code = 5186596000) 3.4 mmol/L 3.5-5.0 L CL (test code = 5664096752) 102 mmol/L 98-108 CO2 TOTAL (test code = 8692597530) 35 mmol/L 23-31 H AGAP (test code = 3556728855) 5 2-16 BUN (test code = 2103516399) 21 mg/dL 7-23 GLUCOSE (test code = 3364381183) 100 mg/dL 70-110 CREATININE (test code = 4851712870) 1.06 mg/dL 0.60-1.25 TOTAL BILI (test code = 7905626201) 1.0 mg/dL 0.1-1.1 CALCIUM (test code = 1444100735) 9.5 mg/dL 8.6-10.6 T PROTEIN (test code = 0184239739) 7.5 g/dL 6.3-8.2 ALBUMIN (test code = 0214669188) 3.9 g/dL 3.5-5.0 ALK PHOS (test code = 1942749482) 117 U/L 34-122 ALTv (test code = 1742-6) 17 U/L 5-50 AST(SGOT) (test code = 8881742683) 29 U/L 13-40 eGFR (test code = 32402-0) 70.1 mL/min/1.73m2 CKD-EPI eGFR (2020). Assuming creatinine has been stable day-to-day for at least three months, the eGFR indicates Category G2 (60 - 89 mL/min/1.73 m2) Lab Interpretation (test code = 44078-5) Abnormal [facility]PROT[facility] / [id number] 22:45:39* Test Item Value Reference Range Interpretation Comme [facility] PROTIME PATIENT (test code = 5964-2) 15.8 [...] the indications. Lab Interpretation (test code = 10361-2) Abnormal [facility] HospitalaPTT2024-01-26 22:45:39* Test Item Value Reference Range Interpretation Comme [facility] APTT Patient (test code = 3173-2) 34 See_Comment [Automated message] The system which generated this result transmitted reference range: 23 - 38 Seconds. The reference range was not used to interpret this result as normal/abnormal. [place] (test code = CHEYENNE) The [facility] patient population mean normal value for aPTT is 30 seconds. Lab Interpretation (test code = 62310-6) Normal [facility] HospitalGLYCOSYLATED HEMOGLOBIN (A1C)2023-11-20 22:33:59* Test Item Value Reference Range Interpretation Comme [facility] HGB A1C (test code = 4548-4) 6.1 % 4.0-5.7 H [place] (test code = CHEYENNE) Reference RangesNormal: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 Progressing 08/05/2024 1044 by Shayne Solares RN Outcome: Progressing Problem: Bleeding Precautions Goal: Excessive bleeding will be minimized 08/05/2024 1550 by Shayne Solares RN Outcome: Progressing 08/05/2024 1044 by Shayne Solares RN Outcome: Progressing Problem: Pain - Adult Goal: Verbalizes/displays adequate comfort level or baseline comfort level 08/05/2024 1550 by Shayne Solares RN Outcome: Progressing 08/05/2024 1044 by Shayne Solares RN Outcome: Progressing Problem: Safety - Adult Goal: Free from fall injury 08/05/2024 1550 by Shayne Solares RN Outcome: Progressing 08/05/2024 1044 by Shayne Solares RN Outcome: Progressing Flowsheets (Taken 08/05/2024 0800) Free from fall injury: Instruct family/caregiver on patient safety Based on caregiver fall risk screen, instruct family/caregiver to ask for assistance with transferring if caregiver noted to have fall risk factors Problem: Discharge Planning Goal: Discharge to home or other facility with appropriate resources 08/05/2024 1550 by Shayne Solares RN Outcome: Progressing 08/05/2024 1044 by Shayne Solares RN Outcome: Progressing Problem: Chronic Conditions and Co-morbidities Goal: Patient's chronic conditions and co-morbidity symptoms are monitored and maintained or improved 08/05/2024 1550 by Shayne Solares RN Outcome: Progressing 08/05/2024 1044 by Shayne Solares RN Outcome: Progressing Flowsheets (Taken 08/05/2024 0800) Care Plan - Patient's Chronic Conditions and Co-Morbidity Symptoms are Monitored and Maintained or Improved: Monitor and assess patient's chronic conditions and comorbid symptoms for stability, deterioration, or improvement Collaborate with multidisciplinary team to address chronic and comorbid conditions and prevent exacerbation or deterioration Update acute care plan with appropriate goals if chronic or comorbid symptoms are exacerbated and prevent overall improvement and discharge Problem: Safety - Medical Restraint Goal: Remains free of injury from restraints (Restraint for Interference with Consolidator) 08/05/2024 1550 by Shayne Solares RN Outcome: Progressing 08/05/2024 1044 by Shayne Solares RN Outcome: Progressing Goal: Free from restraint(s) (Restraint for Interference with Consolidator) 08/05/2024 1550 by Shayne Solares RN Outcome: Progressing 08/05/2024 1044 by Shayne Solares RN Outcome: Progressing Problem: Mobility Goal: LTG - Patient will ambulate household distance 08/05/2024 1550 by Shayne Solares RN Outcome: Progressing 08/05/2024 1044 by Shayne Solares RN Outcome: Progressing Goal: LTG - Patient will demonstrate safe mobility requirements 08/05/2024 1550 by Shayne Solares RN Outcome: Progressing 08/05/2024 1044 by Shayne Solares RN Outcome: Progressing Problem: Safety Goal: LTG - Patient will utilize safety techniques 08/05/2024 1550 by Shayne Solares RN Outcome: Progressing 08/05/2024 1044 by Shayne Solares RN Outcome: Progressing Problem: Transfers Goal: LTG - Patient will transfer from one surface to another 08/05/2024 1550 by Shayne Solares RN Outcome: Progressing 08/05/2024 1044 by Shayne Solares RN Outcome: Progressing Problem: Mobility Goal: LTG - Patient will ambulate household distance 08/05/2024 1550 by Shayne Solares RN Outcome: Progressing 08/05/2024 1044 by Shayne Solares RN Outcome: Progressing Goal: LTG - Patient will demonstrate safe mobility requirements 08/05/2024 1550 by Shayne Solares RN Outcome: Progressing 08/05/2024 1044 by Shayne Solares RN Outcome: Progressing Problem: Safety Goal: LTG - Patient will utilize safety techniques 08/05/2024 1550 by Shayne Solares RN Outcome: Progressing 08/05/2024 1044 by Shayne Solares RN Outcome: Progressing Problem: Transfers Goal: LTG - Patient will transfer from one surface to another 08/05/2024 1550 by Shayne Solares RN Outcome: Progressing 08/05/2024 1044 by Shayne Solares RN Outcome: Progressing Problem: Respiratory - Adult Goal: Achieves optimal ventilation and oxygenation Outcome: Progressing Problem: Cardiovascular - Adult Goal: Maintains optimal cardiac output and hemodynamic stability Outcome: Progressing Goal: Absence of cardiac dysrhythmias or at baseline Outcome: Progressing Problem: Musculoskeletal - Adult Goal: Return mobility to safest level of function Outcome: Progressing Goal: Maintain proper alignment of affected body part Outcome: Progressing Goal: Return ADL status to a safe level of function Outcome: Progressing Problem: Genitourinary - Adult Goal: Absence of urinary retention Outcome: Progressing Goal: Urinary catheter remains patent Outcome: Progressing Problem: Neurosensory - Adult Goal: Achieves stable or improved neurological status Outcome: Progressing Goal: Absence of seizures Outcome: Progressing Goal: Remains free of injury related to seizures activity Outcome: Progressing Goal: Achieves maximal functionality and self care Outcome: Progressing Over the shift, the patient did not make progress toward the following goals. Internal MedicineMedical Arts HospitalZmavnuv7571-27-55 14:41:20 Report called to unit ANISA Solares RN, pt. Completed MRI, VSS, PM being placed in PRE scan settings by PE ALISSA Macias, LESIA, pt. Awaiting transportation will be returned to unit on monitor w/ RN. food technologist has EEG box. [place] RadiologyMedical Arts HospitalFgskkgm8163-37-17 13:19:33 [employer] called pt's after she cancelled her 's speech therapy appt. Pt's explained that the pt had a stroke and is currently in the hospital in [place], so they would be unable to make the appt. Pt's requested a call back in 2 weeks. Alma Kidd M.S., [facility]-[employer] Speech Language Pathology [facility] Department: [phone] Alma Redman [facility]2024-10-11 01:31:03 Problem: Neurological Deficit Goal: Neurological status is stable or improving Outcome: Progressing Goal: Maintain vital signs within ordered limits Outcome: Progressing Goal: Oxygenation goal greater than 94% Outcome: Progressing Problem: Activity Intolerance/Impaired Mobility Goal: Mobility/activity is maintained at optimum level for patient Outcome: Progressing Goal: Maintains or returns to baseline bowel function Outcome: Progressing Goal: Maintains or returns to baseline bladder function Outcome: Progressing Problem: Safety - Medical Restraint Goal: Remains free of injury from restraints (Restraint for Interference with Consolidator) Outcome: Progressing Goal: Free from restraint(s) (Restraint for Interference with Consolidator) Outcome: Progressing [facility]2024-10-10 04:29:00 Problem: Safety - Medical Restraint Goal: Remains free of injury from restraints (Restraint for Interference with Consolidator) Outcome: Progressing Goal: Free from restraint(s) (Restraint for Interference with Consolidator) Outcome: Progressing Problem: Neurological Deficit Goal: Neurological status is stable or improving Outcome: Progressing Goal: Maintain vital signs within ordered limits Outcome: Progressing Goal: Oxygenation goal greater than 94% Outcome: Progressing [facility]2024-10-10 02:49:37 @0145 Called food technologist as patient now on restraints and leads can be fix @0245 Follow up food technologist to fix leads. Patient already on restraints. Internal MedicineMedical Arts HospitalJesblij6901-24-42 15:56:24 Duplicate request for Jardiance. Medication was sent on 06/23/24. Perla Bowman RNTheodore [place] 935214-08-29 16:35:24 Refill request for empagliflozin received. Refill sent to pharmacy of choice. Patient is compliant as per [facility] Cardiology Protocol. [place] [id number] 13:45:00 Images from the original note were not included. Venipuncture collection performed by clean technique on the left anticubitus. Total of 1 attempts were made. Slight pressure and a bandage/dressing were applied to the site(s). The patient experienced no complications. The following specimens were processed according to instructions and sent to [facility] laboratories per lab order on 06/16/2024: LT BLUE SST 1 RED LAV PPT DK GREEN (LiHep) DK GREEN (SodH) LOTT DK BLUE (K2) DK BLUE (S) ACD Blood Culture NIPT/NTD [place] 10098-08-12 15:58:30 Nephrology referral added per provider note in results. T [place] 935214-08-07 10:30:00 Images from the original note were not included. Venipuncture collection performed by clean technique on the left anticubitus. Total of 1 attempts were made. Slight pressure and a bandage/dressing were applied to the site(s). The patient experienced no complications. The following specimens were processed according to instructions and sent to [facility] laboratories per lab order on 06/01/2024 : LT BLUE SST 1 RED LAV 2 PPT DK GREEN (LiHep) DK GREEN (SodH) LOTT DK BLUE (K2) DK BLUE (S) ACD Blood Culture NIPT/NTD [place] [id number] 08:57:19 Images from the original note were not included. Refill approved per cardiology protocol: Endocrinology: Minerals - Potassium Supplementation Adfwbv5805/23/2024 08:12 AM Protocol Details Valid encounter within last 12 months Yumiko Olvera [place] [id number] 14:31:41 Referral placed [facility]2024-07-11 14:28:[address] referral, thanks -FAMILY MEDICINE [facility]2024-07-11 13:57:32 Please review and advise if okay to place referral. Recent Visits Date Type Provider Dept 01/11/24 Office Visit Jose Her FNP [facility] 12/01/23 Office Visit Jose Her FNP [facility] 06/19/23 Office Visit Jose Her FNP [facility] 05/19/23 Office Visit Jose Her FNP [facility] Showing recent visits within past 540 days with a meds authorizing provider and meeting all other requirements Future Appointments Date Type Provider Dept 05/31/24 Appointment Jose Her FNP [facility] Showing future appointments within next 150 days with a meds authorizing provider and meeting all other requirements [facility]61 13:55:30 Patient is coming In on Thursday to see Dr Mooney for Urology and pt is needing a referral due to insurance. Please assist, thank you. Cary CastanoCone HealthYpedem1185-81-44 13:14:09 Problem: Discharge Planning Goal: Adequate for discharge 04/27/2024 1314 by Saji Barrera RN Outcome: Adequate for discharge 04/27/2024 0941 by Saji Barrera RN Outcome: Progressing as expected Goal: Knowledge of medication management 04/27/2024 1314 by Saji Barrera RN Outcome: Adequate for discharge 04/27/2024 0941 by Saji Barrera RN Outcome: Progressing as expected Problem: Discharge Planning Goal: Adequate for discharge 04/27/2024 1314 by Saji Barrera RN Outcome: Adequate for discharge 04/27/2024 0941 by Saji Barrera RN Outcome: Progressing as expected [facility]aji Barrera [facility]ooku3413-82-06 09:41:42 Problem: Discharge Planning Goal: Adequate for discharge Outcome: Progressing as expected Goal: Knowledge of medication management Outcome: Progressing as expected Problem: Discharge Planning Goal: Adequate for discharge Outcome: Progressing as expected [facility] CenterJezfqc6837-40-54 21:48:14 Problem: Discharge Planning Goal: Adequate for discharge Outcome: Progressing as expected Goal: Knowledge of medication management Outcome: Progressing as expected Problem: Discharge Planning Goal: Adequate for discharge Outcome: Progressing as expected [place] [id number] 19:00:41 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 Call light within reach. ANISA Sarmiento Torsten Pimentel RNCleveland Clinic Avon HospitalSvdyog6340-94-84 13:00:00 Images from the original note were not included. Venipuncture collection performed by clean technique on the left anticubitus. Total of 1 attempts were made. Slight pressure and a bandage/dressing were applied to the site(s). The patient experienced no complications. The following specimens were processed according to instructions and sent to [facility] laboratories per lab order on 04/25/2024 : LT BLUE 1 SST 1 RED LAV 2 PPT DK GREEN (LiHep) DK GREEN (SodH) LOTT DK BLUE (K2) DK BLUE (S) ACD Blood Culture NIPT/NTD Per mervin in Blood Bank no extra tubes needed. Pt armbande- [id number] Tamy Weber 04/25/2024 11:45 AM [place] [id number] 11:17:48 Patient came to clinic requesting refill [...] Ordering User: ALTAGRACIA TAFOYA RN Sent to: [facility] [id number] [place], [place] - [address] [facility] [address] ALTAGRACIA TAFOYA RN 04/25/2024 11:19 AM T [place] 10098-06-25 11:15:00 Images from the original note were not included. Venipuncture collection performed by clean technique on the left anticubitus. Total of 1 attempts were made. Slight pressure and a bandage/dressing were applied to the site(s). The patient experienced no complications. The following specimens were processed according to instructions and sent to [facility] laboratories per lab order on 04/19/2024: LT BLUE 1 SST 1 RED LAV 2 PPT DK GREEN (LiHep) DK GREEN (SodH) LOTT DK BLUE (K2) DK BLUE (S) ACD Blood Culture NIPT/NTD [place] 10098-06-14 10:41:32 Addended by: ALTAGRACIA TAFOYA RN on: 04/08/2024 10:41 AM Modules accepted: Orders Altagracia Tafoya [place] 98580-06-07 08:16:30 Lab orders in. [place] 10098-06-06 15:19:[address] preop lab orders for upcoming EP procedure and include a type and screen. Thank you. Cornelia Cornelia SarabiaTina [place] 10098-03-22 15:48:45 Repeat labs are normal. Reviewed by Dr. Dick. Will sent refill. Maryse Dick MD 01/11/2024 4:48 PM CDT Back to Top BMP is normal. K has improved. Perla Bowman RNTina [place] 10098-03-19 09:10:42 Images from the original note were not included. Notified patient per Dr Dick: Maryse Dick MD P Cardiology Nurse BMP is normal. K has improved. Patient verbal understanding. Yumiko Olvera MATheodore [place] [id number] 11:15:00 Images from the original note were not included. Venipuncture collection performed by clean technique on the left anticubitus. Total of 1 attempts were made. Slight pressure and a bandage/dressing were applied to the site(s). The patient experienced no complications. The following specimens were processed according to instructions and sent to [facility] laboratories per lab order on 01/11/2024 : LT BLUE SST 1 RED LAV PPT DK GREEN (LiHep) DK GREEN (SodH) LOTT DK BLUE (K2) DK BLUE (S) ACD Blood Culture NIPT/NTD T [place] [id number] 11:13:16 Refill request for furosemide ROMMEL 11/11/23 Labs done 11/24/23, K slightly low. KCL was added. Patient was supposed to have repeat labs done. Spoke with patient. He is agreeable to have done. See encounter 11/30/23 "Okay to refill. Add potassium chloride 20 mill equivalents daily. Repeat BMP in 2 weeks." NOV 02/10/24 Will wait to refill until labs are completed. [place] [id number] 08:50:51 Addended by: MABLE BHAT RN on: 11/30/2023 08:50 AM Modules accepted: Orders SA Bhat [place] [id number] 08:40:11 Images from the original note were not included. Results and recommendations shared, patient verbalized understanding. KCL rx sent to [facility] [id number] [place] [id number] [address] [facility] [address] Will get repeat labs done on 12/07/23 Maryse Dick MD to [place] Cardiology Nurse 11/26/23 4:05 PM Okay to refill. Add potassium chloride 20 mill equivalents daily. Repeat BMP in 2 weeks. ION CHIEF Mable Bhat [facility]usVdmota9995-14-33 13:41:14 Images from the original note were not included. K Date Value Ref Range Status 11/24/2023 3.1 (L) 3.5 - 5.0 mmol/L Final Valid encounter within last 12 months Recent Visits Date Type Provider Dept 11/11/23 Office Visit Maryse Dick MD [facility] Cardiology Faculty 09/03/23 Office Visit Jaquan Ochoa MD [facility] Cardiology Faculty 08/11/23 Office Visit Maryse Dick MD [facility] Cardiology Fac [facility]2024-01-30 12:55:00 Problem: Discharge Planning Goal: Adequate for discharge 11/24/2023 1254 by Nandini Salter RN Outcome: Adequate for discharge 11/24/2023 1105 by Nandini Salter RN Outcome: Progressing as expected Goal: Effective communication 11/24/2023 1254 by Nandini Salter RN Outcome: Adequate for discharge 11/24/2023 1105 by Nandini Salter, ANISA Outcome: Progressing as expected Problem: Discharge Planning Goal: Adequate for discharge 11/24/2023 1254 by Nandini Salter, ANISA Outcome: Adequate for discharge 11/24/2023 1105 by [...] Nandini Salter RN Outcome: Progressing as expected ION CHIEF Nandini Salter [facility]Espnrs5105-17-95 11:05:12 Problem: Discharge Planning Goal: Adequate for [...] decreased cardiac output Outcome: Progressing as expected [place] [id number] 04:05:51 Problem: Discharge Planning Goal: Adequate for [...] decreased cardiac output Outcome: Progressing as expected [place] [id number] 15:15:00 Images from the original note were not included. Venipuncture collection performed by clean technique on the left anticubitus. Total of 1 attempts were made. Slight pressure and a bandage/dressing were applied to the site(s). The patient experienced no complications. The following specimens were processed according to instructions and sent to [facility] laboratories per lab order on 11/20/2023 : LT BLUE 2 SST 1 RED LAV 2 PPT DK GREEN (LiHep) DK GREEN (SodH) LOTT DK BLUE (K2) DK BLUE (S) ACD Blood Culture NIPT/NTD [place] [id number] 12:00:29 Lab orders placed. [place] [id number] 15:13:49 Labs placed [place] [id number] 15:00:00 Pt will return Thursday for preop labs. Pt too early [facility] Treasure DumontC[facility] HospitalYecdcx6128-51-44 14:19:35 [facility] EP LAB PRE-CALL INSTRUCTIONS EP Instructions were [...] Hospital Garage via [address] from either [address] or [address]. Bring your parking ticket with you to be validated, only one parking ticket may be validated per patient. There may be a possibility of hospital admission or late evening discharge; therefore, bring leisure reading and an overnight bag. On the day of your procedure, come directly to the Electrophysiology Lab windrower operator desk, located on the 6th floor of [facility] (2B- [phone].) You will be escorted to the Cardiac [...] read and verbalizes understanding of teaching provided. ION CHIEF Jeanie Carlos [facility]usVeyajm4135-10-46 15:20:36 Refill request for Eliquis. ROMMEL today 11/11/23 "Atrial flutter-The rate is well controlled. [id number] score 4. Recommend anticoagulation with Eliquis 5 mg twice daily." Labs 10/16/23 Refill sent to [facility] [id number] - [place] [id number] [address] [facility] [address] ION CHIEF Perla Bowman [facility]usQokzdk8727-84-79 15:00:00 Addended by: BALTA LOPEZ on: 11/11/2023 04:18 PM Modules accepted: Orders [facility]2024-01-17 07:22:12 Referral placed ION CHIEF Annita Mondragon MAC[facility] HospitalRayvnk4996-93-01 08:52:56 Patient is coming in 11/11/23 to see , we are needing a referral from PCP Taina for the insurance he has... thank you! SA Townsend EyadCone HealthBgbeat5953-79-71 13:49:27 Patient states that today he noted [...] verbalized understanding. NOV 11/11/[address] Dick. ION CHIEF Perla Bowman RNCleveland Clinic Avon HospitalMxapfm2860-67-50 13:29:45 Olayinka Cox is a 82 year old male Patient is calling and he is concerned about heart rate ranging from 51-121. States he is lethargic and oxygen reading is at 92. Patient reporting @ 1245 BP:125/76 Pulse:82 @ 1320 BP: 109/79 Pulse: 117 Please advise [phone] (home) Was able to transfer to clinic nurse [facility] Martha OlveraCleveland Clinic Avon HospitalVyoono7912-29-27 10:15:00 Images from the original note were not included. Venipuncture collection performed by clean technique on the left anticubitus. Total of 1 attempts were made. Slight pressure and a bandage/dressing were applied to the site(s). The patient experienced no complications. The following specimens were processed according to instructions and sent to [facility] laboratories per lab order on 10/16/2023 : LT BLUE 1 SST 1 RED LAV 1 PPT DK GREEN (LiHep) DK GREEN (SodH) LOTT DK BLUE (K2) DK BLUE (S) ACD Blood Culture NIPT/NTD [facility]2023-12-19 12:31:38 [facility] EP LAB PRE-CALL INSTRUCTIONS EP Instructions were [...] Hospital Garage via [address] from either [employer] or [employer]. Bring your parking ticket with you to be validated, only one parking ticket may be validated per patient. There may be a possibility of hospital admission or late evening discharge; therefore, bring leisure reading and an overnight bag. On the day of your procedure, come directly to the Electrophysiology Lab windrower operator desk, located on the 6th floor of [facility] (1X- [phone].) You will be escorted to the Cardiac [...] read and verbalizes understanding of teaching provided. ION CHIEF Yumiko Sparks [facility]usDcrccs0352-73-41 09:00:32 Refill request filled. [facility] HospitalPxjzhm6342-01-70 08:04:25 Referral with demographics have been faxed to 's office Krystal Boston MACleveland Clinic [facility] HospitalDkftzt7704-23-72 17:18:41 Olayinka Cox is a 82 year old male Pt calling to see if you would fax over the REFERRAL OPHTHALMOLOGY to Dr. Syed office. Pt appt is at 3pm tomorrow Treasure AmayaCleveland Clinic Avon HospitalJtydfw2633-55-21 09:05:48 Images from the original note were not included. Refill request received for spironolactone 25 mg ROMMEL 04/27/23 Cardiovascular: Diuretics - Potassium Sparing Passed 06/01/2023 08:51 AM Protocol Details Valid encounter within last 12 months K in normal range and within 180 days Cr in normal range and within 180 days Perla Bowman RNCleveland Clinic Avon HospitalYzrkbq0036-21-07 08:11:35 Images from the original note were not included. Notified patient per Dr. Dick: Maryse Dick MD P Cardiology Nurse BMP is normal. Continue current medications. Follow-up as scheduled. Patient verbal understanding. Yumiko Olvera MACleveland Clinic [facility] HospitalNtjepo6397-99-20 11:00:00 Images from the original note were not included. Venipuncture collection performed by clean technique on the left anticubitus. Total of 1 attempts were made. Slight pressure and a bandage/dressing were applied to the site(s). The patient experienced no complications. The following specimens were processed according to instructions and sent to [facility] laboratories per lab order on 05/18/2023 : LT BLUE SST 1 RED LAV PPT DK GREEN (LiHep) DK GREEN (SodH) LOTT DK BLUE (K2) DK BLUE (S) ACD Blood Culture NIPT/NTD [facility]
[2024-08-13] MEDS: METOPROLOL XL 25 MG TAB PO SCH (05:13)
[2024-08-13 07:47] LABS: Specific Gravity 1.008 (1.005-1.030); Sqamous Epithelial None Seen /HPF (None Seen); Urine Bacteria None Seen /HPF (<20); Urine Bilirubin NEGATIVE (Negative); Urine Blood Negative (Negative); Urine Clarity Clear (Clear); Urine Color Light-Yellow (Yellow); Urine Culture Reflex Order NOT NEEDED; Urine Glucose 4+ (Negative); Urine Ketones NEGATIVE (Negative); Urine Micro Reflex YN NO BILL MICROSCOPIC; Urine Nitrite NEGATIVE (Negative); Urine Protein NEGATIVE (Negative); Urine RBC None Seen /HPF (None Seen); Urine Urobilinogen Normal (Normal); Urine WBC <5 /HPF (<5); Urine pH 6.5 (5.0-7.0)
[2024-08-13] MEDS: JARDIANCE 10 MG PO SCH (08:00)
[2024-08-13] MEDS: BRIVIACT 50 MG PO SCH (08:00)
[2024-08-13] MEDS: KETOROLAC OPTHALMIC 5 ML BOT OPTH SCH (08:00)
[2024-08-13] MEDS: TIMOLOL MALEATE 0.5% OPTH 5 ML BTL RIGHT EYE SCH (08:00)
[2024-08-13 08:04] VITALS: BMI 32.5
[2024-08-13] MEDS: ASPIRIN EC 81 MG TAB PO SCH (09:30)
[2024-08-13] MEDS: SPIRONOLACTONE 25 MG TABLET PO SCH (09:30)
[2024-08-13] MEDS: MULTIVITAMIN TAB PO SCH (09:30)
[2024-08-13] MEDS: CYANOCOBALAMIN 1,000 MCG TAB PO SCH (09:31)
[2024-08-13] MEDS: KETOROLAC OPTHALMIC OPTH SCH (11:00)
[2024-08-13] MEDS: **PT MED**TIMOLOL MALEATE 0.5% OPTH 5 ML BTL OPTH SCH (11:00)
[2024-08-13] MEDS ORDERED: SENOSIDES 8.6 MG TAB ONE (15:29)
[2024-08-13] MEDS: SENOSIDES 8.6 MG TAB PO SCH (15:34)
[2024-08-13] MEDS: TAMSULOSIN 0.4 MG SR CAP PO SCH (19:25)
[2024-08-13] MEDS: levETIRAcetam 500 MG TAB PO SCH (19:25)
[2024-08-13] MEDS: ATORVASTATIN 10 MG TAB PO SCH (19:25)
[2024-08-13] MEDS ORDERED: **PT MED**TIMOLOL MALEATE 0.5% OPTH 5 ML BTL OPTH SCH (20:00)
[2024-08-13] MEDS ORDERED: KETOROLAC OPTHALMIC 5 ML BOT OPTH SCH (20:00)
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
[2024-08-14 07:41] LABS: Absolute Basophils 0.1 K/uL (0-0.5); Absolute Eosinophils 0.3 K/uL (0-0.5); Absolute Lymphocytes (CBC) 3.6 K/uL (0.7-4.9); Absolute Monocytes 1.4 K/uL (0.1-1.3); Absolute Neutrophil 4.4 K/uL (1.8-8.0); Basophils % 0.8 % (0-1.3); Eosinophils % 2.7 % (0-4.4); Hematocrit 46.1 % (39.6-49.0); Hemoglobin 15.4 g/dL (13.6-17.9); Lymphocytes % 36.7 % (15.3-44.8); MCH 33.4 pg (27.0-35.0); MCHC 33.3 g/dL (32.0-36.0); MCV 100.3 fL (80-100); Monocytes % 14.6 % (3.3-12.3); Neutrophils % 45.2 % (41.7-73.7); Nucleated Red Blood Cells % 0.1 % (0-0); Platelets 112 thou/uL (152-406); Red Cell Distribution Width 15.5 % (12.1-15.2)
[2024-08-14 07:58] LABS: Albumin 3.2 g/dL (3.4-5.0); Anion Gap 7.4 mEq/L (5.0-15.0); Magnesium 2.2 mg/dL (1.6-2.4); Potassium 4.4 mEq/L (3.5-5.1); Prealbumin 17.9 mg/dL (20-40)
[2024-08-14] MEDS: LIDOCAINE 4% PATCH TOP SCH (08:44)
[2024-08-15] MEDS: MELATONIN 3 MG TABLET PO PRN (19:53)
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
[2024-08-16] MEDS: METOPROLOL XL 25 MG TAB PO SCH ×2 (08:00→14:00)
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
[2024-08-17] MEDS: METOPROLOL XL 25 MG TAB PO SCH (08:00)
[2024-08-18 06:47] LABS: Absolute Basophils 0.1 K/uL (0-0.5); Absolute Eosinophils 0.5 K/uL (0-0.5); Absolute Lymphocytes (CBC) 3.1 K/uL (0.7-4.9); Absolute Monocytes 1.4 K/uL (0.1-1.3); Absolute Neutrophil 3.6 K/uL (1.8-8.0); Basophils % 0.8 % (0-1.3); Eosinophils % 5.4 % (0-4.4); Hemoglobin 12.9 g/dL (13.6-17.9); Lymphocytes % 35.9 % (15.3-44.8); MCH 33.2 pg (27.0-35.0); MCV 100.7 fL (80-100); MPV 10.3 fL (7.6-11.3); Monocytes % 16.1 % (3.3-12.3); Neutrophils % 41.8 % (41.7-73.7); Nucleated Red Blood Cells % 0.1 % (0-0); Platelets 110 thou/uL (152-406); RBC Red Blood Cell Count 3.87 M/uL (4.33-5.43); Red Cell Distribution Width 15.3 % (12.1-15.2)
[2024-08-18 07:21] LABS: Albumin 2.7 g/dL (3.4-5.0); Anion Gap 8.4 mEq/L (5.0-15.0); Magnesium 2.4 mg/dL (1.6-2.4); Potassium 4.4 mEq/L (3.5-5.1); Prealbumin 20.7 mg/dL (20-40)
[2024-08-18] MEDS: CRANBERRY FRUIT EXTRACT 200 MG CAP PO SCH (08:47)
--- NOTE | 2024-08-18 18:28 | PN ---
Date of Progress Note: 08/18/2024 Time Of Service: 1 p.m. Subjective: Mr. Valle is resting in a chair. at bedside. He and his are very happy about their discharge in the morning. He reports doing very well, ambulating around the unit, only having a little bit of left footdrop towards the end of his full [place] around the unit as he has mild fati shayna. Mind is very clear and no new complaints. Review of Systems: No fevers or chills. No significant myalgias or arthralgias. No rash. No others issues, just again mild distal weakness in the left lower extremity from his stroke which is hemorrhagic in the right p osterior limb, internal capsule, basal ganglia region. Objective: Vital Signs: Blood pressure 115/58, pulse 60, respiratory rate 17, temperature 97.9. Ox ygen saturation 97%. General: Mr. Valle is sitting in a chair. He is in no acute distress. He has a back brace on. HEENT: He is normocephalic, atraumatic. Sclerae anicteric. Oropharynx moist. Neck: Supple. Chest: Clear. Extremities: No significant edema, cyanosis, or clubbing noted. Left lower extremity strength impro ving at least 4/5 proximally and distally. No other focal deficits. Laboratory Studies: White blood cell count 8.5, hemoglobin 12.9, platelets 110. Sodium 136, potassi um 4.4, chloride 106, carbon dioxide 26, BUN 36, creatinine 1.54, albumin 2.7, prealbumin 20.7, calci um 9.1, magnesium 2.4. X-ray/imaging: No new x-rays or imaging. Medications: His medications have been reviewed and are unchanged. He is having medications such as the Toprol, held for systolic blood pressure less than 120. Progress Made With His Physical, Occupational, And Speech Therapy: With physical therapy, he did sup ine-to-sit transfers independently, multiple zos-ld-abnkl transfers with supervision, ambulated 150 f eet twice, 450 feet once, 250 feet twice with contact guard assistance using a rolling walker. Empha sis placed on upright posture and good heel strike. Ascended and descended 5 steps, bilateral handra ils with standby assistance done 3 times. With occupational therapy, jftwzc-gi-[id number] transfers at [facility], did 5 minutes of standing while taking care for oral hygiene and toilet hygiene, urinating, and did have some impaired static and dynamic standing balance issues. With speech, short-term recal l targeted through memory exercises from a set of 12 cards and 18 cards. He completed each exercise independently, 6 words were sequenced into grammatically correct sentences without cues and 100% accu racy. Assessment And Plan: Mr. Valle is an 83-year-old patient in the rehabilitation unit with nontraumati c right posterior limb internal capsule basal ganglia hemorrhagic stroke with some mild residual left -sided weakness. He has had traumatic intracerebral hemorrhage, intraventricular hemorrhage that wer e more remote and T11-12 injury and is on the back brace. His comorbids includes decreased mobility, decreased physical functioning, diastolic congestive heart failure, chronic kidney disease with esse ntial hypertension, dyslipidemia, paroxysmal atrial fibrillation, and the risk of seizure. Plan: We will continue with physical, occupational, and speech therapy 3.5 hours, 5 of 7 days. Cont inue with Senokot for constipation, Aldactone for fluid management, Toprol for heart rate control, Ke ppra for seizure risk reduction, Lipitor for dyslipidemia, and he is on sequential compression device , and aspirin for DVT risk reduction given his multiple recent bleeds, and he is on Keppra 250 twice daily for seizure risk reduction. Comorbidities That Are Impacting Rehabilitation: His comorbidities are currently stably managed and are not negatively impacting his rehabilitation. He is to be discharged in the morning. We will continue therapy via [facility]. ROLO/MILAD Voice ID: [id number] Report ID: [id number]
[2024-08-19 06:32] VITALS: BP 111/59; TEMP 97.2
--- NOTE | 2024-08-19 13:15 | P.RH.PN ---
Estimated Length of Stay: 11 Expected Discharge Date: 08/19/24 Discharge Disposition Plan: Home Family Support: Yes Detention Goal: Mobility, Transfers, Self Care Vital Signs: Last Vital Signs Temp 97.2 F 08/19/24 06:31 Pulse 60 08/19/24 09:02 Resp 18 08/19/24 06:31 BP 111/59 L 08/19/24 09:02 Pulse Ox 95 08/19/24 06:31 Laboratory: Laboratory Last Values WBC 8.50 thou/uL (4.3-10.9) 08/18/24 05:19 RBC 3.87 M/uL (4.33-5.43) L 08/18/24 05:19 Hgb 12.9 g/dL (13.6-17.9) L 08/18/24 05:19 Hct 39.0 % (39.6-49.0) L 08/18/24 05:19 MCV 100.7 fL (80-100) H 08/18/24 05:19 MCH 33.2 pg (27.0-35.0) 08/18/24 05:19 MCHC 33.0 g/dL (32.0-36.0) 08/18/24 05:19 RDW 15.3 % (12.1-15.2) H 08/18/24 05:19 Plt Count 110 thou/uL (152-406) L 08/18/24 05:19 MPV 10.3 fL (7.6-11.3) 08/18/24 05:19 Neutrophils % 41.8 % (41.7-73.7) 08/18/24 05:19 Lymphocytes % 35.9 % (15.3-44.8) 08/18/24 05:19 Monocytes % 16.1 % (3.3-12.3) H 08/18/24 05:19 Eosinophils % 5.4 % (0-4.4) H 08/18/24 05:19 Basophils % 0.8 % (0-1.3) 08/18/24 05:19 Absolute Neutrophils 3.6 K/uL (1.8-8.0) 08/18/24 05:19 Absolute Lymphocytes 3.1 K/uL (0.7-4.9) 08/18/24 05:19 Absolute Monocytes 1.4 K/uL (0.1-1.3) H 08/18/24 05:19 Absolute Eosinophils 0.5 K/uL (0-0.5) 08/18/24 05:19 Absolute Basophils 0.1 K/uL (0-0.5) 08/18/24 05:19 Sodium 136 mEq/L (136-145) 08/18/24 05:19 Potassium 4.4 mEq/L (3.5-5.1) 08/18/24 05:19 Chloride 106 mEq/L (98-107) 08/18/24 05:19 Carbon Dioxide 26 mEq/L (21-32) 08/18/24 05:19 Anion Gap 8.4 mEq/L (5.0-15.0) 08/18/24 05:19 BUN 36 mg/dL (7-18) H 08/18/24 05:19 Creatinine 1.54 mg/dL (0.70-1.30) H 08/18/24 05:19 Est GFR (CKD-EPI) 44 ml/min (=/>90) L 08/18/24 05:19 Glucose 96 mg/dL (74-106) 08/18/24 05:19 Calcium 9.1 mg/dL (8.5-10.1) 08/18/24 05:19 Magnesium 2.4 mg/dL (1.6-2.4) 08/18/24 05:19 Albumin 2.7 g/dL (3.4-5.0) L 08/18/24 05:19 Prealbumin 20.7 mg/dL (20-40) 08/18/24 05:19 Urine Color Light-yellow (Yellow) 08/13/24 07:00 Urine Clarity Clear (Clear) 08/13/24 07:00 Urine pH 6.5 (5.0-7.0) 08/13/24 07:00 Ur Specific [place]en 1.008 (1.005-1.030) 08/13/24 07:00 Glucose (UA)(Auto) 4+ (Negative) H 08/13/24 07:00 Urine Ketones Negative (Negative) 08/13/24 07:00 Urine Blood Negative (Negative) 08/13/24 07:00 Urine Nitrite Negative (Negative) 08/13/24 07:00 Urine Bilirubin Negative (Negative) 08/13/24 07:00 Urine Urobilinogen Normal (Normal) 08/13/24 07:00 Ur Leukocyte Esterase Negative Andre/uL (Negative) 08/13/24 07:00 Urine RBC None seen /HPF (None Seen) 08/13/24 07:00 Urine WBC <5 /HPF (<5) 08/13/24 07:00 Ur Squamous Epith Cells None seen /HPF (None Seen) 08/13/24 07:00 Urine Bacteria None seen /HPF (<20) 08/13/24 07:00 Urine Culture Reflexed Not needed 08/13/24 07:00 Urine Total Protein Negative (Negative) 08/13/24 07:00 Weight: 209 lb 9.6 oz Wound Present: No Closed Surgical Incision Present: No Negative Pressure Wound Therapy Present: No Physician Update: Labs reviewed and are stable. He has chronic renal insufficieny. He will require a repeat head CT scan without contrast prior to his visit in [place]. His left sided weakness has improved. He will go home with [facility]. Improved BIMS to 13 from 9. Now has mild receptive aphasia no expressive aphasia. He still has short term memory. Independent with transfers, bed mobility, RW 300', up and down 15 steps. Independent with ADLs and mobility. Did very well with showering, met all OT goals but still setup assist for showering and toileting due to impulsivity. 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 Please see the Rehabilitation Signature page for all necessary signatures.
--- NOTE | 2024-08-19 15:21 | RAD REPORT ---
EXAM: CT brain without contrast HISTORY: Cerebral bleed COMPARISON: June 2024 TECHNIQUE: Multiple contiguous axial images were obtained and a CT of the brain without contrast.. Sagittal and coronal reconstruction performed. Automated exposure control, adjustment of the mA and/or kV according to patient size, and/or iterative reconstruction. Unless otherwise specified, incidental f indings do not require dedicated imaging follow-u FINDINGS: The 14 mm bleed within the right thalamus/internal capsule has diminished in density Hounsfield unit 24. No new bleed noted. Low-density right frontal lobe compatible with an old bleed. Ventricles are normal caliber No extra-axial fluid collection noted No fluid within the visualized sinuses or mastoids noted. IMPRESSION: The 14 mm bleed has diminished in density within the right thalamus/right internal capsule. No new bl eed.
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
== END 2024-08-19 15:35 | disposition home health service (06) | DRG 57 ==
LOC: 5TH 00:13
PROVIDERS: ADMIT Psychiatry & Neurology Neurology with Special Qualifications in Child Neurology; ATTEND Psychiatry & Neurology Neurology with Special Qualifications in Child Neurology
DX: I69.354 Hemiplegia and hemiparesis following cerebral infarction affecting left non-dominant side (principal); G93.40 Encephalopathy, unspecified; I69.391 Dysphagia following cerebral infarction; I69.320 Aphasia following cerebral infarction; S29.8XXD Other specified injuries of thorax, subsequent encounter; I48.0 Paroxysmal atrial fibrillation; D69.6 Thrombocytopenia, unspecified; E78.5 Hyperlipidemia, unspecified; G47.00 Insomnia, unspecified; K59.00 Constipation, unspecified; N40.0 Benign prostatic hyperplasia without lower urinary tract symptoms
CPT/HCPCS: 36415; 70450; 80048; 81001; 82040; 83735; 84134; 85025; 87077; 87086; 87088; 87186; 92523; 97110; 97116; 97129; 97161; 97165; 97530; J1885